=== PATIENT | male | born 1945 | race Caucasian/White ===

== ENCOUNTER → 2017-02-12 | Outpatient (CLI) | payer OTHER ==
[~2017-02-12] MED LIST: ACET-1256 PO; ACET-1311 PO; ACT30 PO; ALBI1INJ SQ; ASPCH81X PO; GABA-113 PO; GLC5 PO; GLC500 PO; LEVO175T3 PO; LISI-729 PO; LISI2.5T5 PO; LVMI SQ; METF-384 PO; PRED20TA2 PO; PRVC/40 PO; SYN175 PO; TRAM-10 PO
--- NOTE | 2017-02-12 12:42 | DIAGNOSTIC IMAGING REPORT ---
MODIFIED BARIUM SWALLOW CLINICAL HISTORY: DYSPHAGIA COMPARISON STUDY: No previous studies for comparison. Fluoroscopy time: 4.3 minutes. FINDINGS: There was penetration with thin liquids by spoon. There were several episodes of a small amount of tracheal aspiration with swallows of thin liquids. There is penetration with nectar thick liquids without aspiration. No aspiration was identified with pudding or crackers with paste. Residuals were noted within the vallecula. IMPRESSION: 1. Several small episodes of tracheal aspiration with swallows of thin liquids. No aspiration with the remainder of the consistencies. 2. Full recommendations by speech pathology to follow. Electronically signed by: Alex Donahue M.D. 02/12/2017 12:41 PM Dictated Date/Time: 02/12/2017 12:39 PM
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
== END | disposition home or self-care (01) ==
LOC: C.RAD 10:41
PROVIDERS: ATTEND Internal Medicine
DX: R13.10 Dysphagia, unspecified (principal)

== ENCOUNTER → 2017-02-28 | Day surgery (SDC) | payer OTHER ==
[2017-02-22 09:11] VITALS: Ht 170.2 cm; Wt 68.2 kg
[~2017-02-28] VITALS: Ht 170.2 cm; Wt 68.2 kg
[~2017-02-28] MED LIST changes: -ACT30 PO; +FENTANYL CITRATE INJ 50 MCG/1 ML 2 ML VIAL ONE; -GLC5 PO; +LIDOCAINE HCL 2% 2 ML VIAL (20MG/ML) ONE; -LISI-729 PO; +PROPOFOL IV EMULSION 10 MG/ML 20 ML VIAL IV ONE; +SODIUM CHLORIDE 0.9% 500ML 500 ML IV ONE; -TRAM-10 PO
--- NOTE | 2017-02-28 09:21 | Endo History and Physical ---
History & Physical Date of Service: Feb 28, 2017. Chief Complaint: Dysphagia Referring Physician: Dr. Riaz West History of Present Illness Atypical dysphagia Past Medical History Diabetes, Arthritis, Heart Disease, Thyroid Disease, Other Past Surgical History Hx Cardiac Surgery: No Hx Internal Defibrillator: No Hx Pacemaker: No Hx Abdominal Surgery: No Hx Post-Op Nausea and Vomiting: No Hx Cancer Surgery: No Hx Thoracic Surgery: No Hx Orthopedic: Yes (Right Shoulder ARTHROSCOPY,RIGHT Knee ARTHROSCOY) Hx Urinary Tract Surgery: No Family History None Social History Smoking Status: Light Tobacco Smoker Hx Substance Use: No Hx Alcohol Use: No Allergies Coded Allergies: Phenobarbital (Verified Allergy, Mild, DOESNT REMEMBER, 02/28/17) Current Medications Reported Home Medications Medications Dose Route/Sig Max Daily Dose Days Date Category Aspirin Chewable (Aspirin) 81 Mg Chew 81 Mg PO QAM 02/22/17 Reported Tylenol (Acetaminophen) 325 Mg Tab 650 Mg PO QID PRN 02/22/17 Reported Tanzeum (Albiglutide) 30 Mg Inj 30 Mg SQ Saturday02/22/17 Reported Levemir (Insulin Detemir) 100 Units/Ml Inj 15 Units SQ 10AM 02/22/17 Reported Pravastatin Sodium (Pravastatin Sod) 40 Mg Tab 40 Mg PO HS 02/22/17 Reported Lisinopril 2.5 Mg Tab 2.5 Mg PO QAM 02/22/17 Reported Neurontin (Gabapentin) 300 Mg Cap 300 Mg PO TID 02/22/17 Reported Glucophage * (Metformin HCl) 1,000 Mg Tab 1,000 Mg PO BID 09/30/10 Reported Synthroid * (Levothyroxine Sodium) 0.175 Mg Tab 0.175 Mg PO QAM 09/30/10 Reported Vital Signs Weight (Kilograms): 68.18 Height (Feet): 5 Height (Inches): 7 Date Time Temp Pulse Resp B/P (MAP) Pulse Ox O2 Delivery O2 Flow Rate FiO2 02/28/17 08:55 36.5 67 20 131/67 (88) 95 Room Air Physical Exam General Appearance: WD/WN, no apparent distress Respiratory/Chest: Auscultation: breath sounds normal, no wheezing Cardiovascular: Heart Auscultation: RRR, no murmurs Abdomen: Inspection & Palpation: soft, no tenderness, guarding & rebound Assessment and Plan EGD today.
--- NOTE | 2017-02-28 09:56 | GI REPORT ---
Procedure Date: 02/28/2017 9:22 AM Procedure: Upper GI endoscopy Indications: Dysphagia Medicines: Monitored Anesthesia Care Complications: No immediate complications. Estimated blood loss: None. Estimated Blood Loss: Estimated blood loss: none. Procedure: Pre-Anesthesia Assessment: - Prior to the procedure, a History and Physical was performed, and patient medications, allergies and sensitivities were reviewed. The patient's tolerance of previous anesthesia was reviewed. - ASA Grade Assessment: II - A patient with mild systemic disease. After obtaining informed consent, the endoscope was passed under direct vision. Throughout the procedure, the patient's blood pressure, pulse, and oxygen saturations were monitored continuously. The scope was introduced through the mouth, and advanced to the third part of duodenum. The upper GI endoscopy was accomplished with ease. The patient tolerated the procedure well. Findings: A widely patent Schatzki ring (acquired) was found at the gastroesophageal junction at 38 cm from the incisors. A guidewire was placed and the scope was withdrawn. Dilation was performed with a Savary dilator with no resistance at 48 Fr and 54 Fr. The scope was reinserted. There was no mucosal tear. The upper third of the esophagus, middle third of the esophagus and lower third of the esophagus were normal. A small hiatus hernia was present. Patchy mildly erythematous mucosa without bleeding was found in the entire examined stomach. Biopsies were taken with a cold forceps for Helicobacter pylori testing. The examined duodenum was normal. Verification of patient identification for the specimen was done by the physician and nurse using the patient's name, date and medical record number. Impression: - Widely patent Schatzki ring. Dilated. - Normal upper third of esophagus, middle third of esophagus and lower third of esophagus. - Small hiatus hernia. - Erythematous mucosa in the stomach. Biopsied. - Normal examined duodenum. Recommendation: - Await pathology results. - Discharge patient to home (with escort). Michael Balderrama M.D. Michael Balderrama MD 02/28/2017 9:55:54 AM This report has been signed electronically. Note Initiated On: 02/28/2017 9:22 AM I attest to the content of the Intraoperative Record and orders documented therein, exceptions below
--- NOTE | 2017-02-28 09:57 | Discharge Instructions ---
Endoscopy Patient Instructions Date / Procedure(s) Performed Feb 28, 2017. EGD Allergy Information Coded Allergies: Phenobarbital (Verified Allergy, Mild, DOESNT REMEMBER, 02/28/17) Discharge Date / Findings Feb 28, 2017. Non-obstructing Schatzki ring. Esophageal dilation performed. Medication Instructions Stopped Medication(s): Patient was told to not take his diabetic meds. Restart Stopped Medication(s): Resume all medications today. Provider Instructions Activity Restrictions - No exercising or heavy lifting for 24 hours. - Do not drink alcohol the day of the procedure. - Do not drive a car or operate machinery until the day after the procedure. - Do not make any important decisions or sign important papers in 24 hours after the procedure. Following Day: - Return to full activity which may include returning to work/school. Diet Start your diet with liquids and light foods (jello, soup, juice, toast). Then eat your usual diet if not nauseated. Treatment For Common After Affects For mild abdominal pain, bloating, or excessive gas: - Rest - Eat lightly - Lie on right side Follow-Up Information Follow-up with Dr. Riaz West as scheduled Anesthesia Information What You Should Know You have had a procedure that required some medicine to reduce anxiety and discomfort. This treatment is called moderate sedation. After receiving the treatment, you may be sleepy, but you will be able to breathe on your own. The effects of the treatment may last for several hours. Follow these instructions along with Activity/Diet recommendations noted above: * Do NOT do anything where dizziness or clumsiness would be dangerous. * Rest quietly at home today, then you can be up and about tomorrow. * Have a responsible person stay with you the rest of today. * You may have had an I.V. today. If so, you may take the dressing off later today. Recommendations Call your doctor if: * Trouble breathing * Continuous vomiting for more than 24 hours * Temperature above 101 degrees * Severe abdominal pain or bloating * Pain not relieved by pain medicine ordered * There is increased drainage or redness from any incision * A large amount of rectal bleeding greater than 2-3 tablespoons. (If you had a polyp/s removed or have hemorrhoids, a small amount of blood - from the rectum is to be expected.) * You have any unanswered questions or concerns. IN THE EVENT OF A SERIOUS EMERGENCY, GO TO THE NEAREST EMERGENCY ROOM Your discharge instructions were prepared by provider Michael Balderrama. Patient Instructions Signature Page Nuvia Reyes Patient (or Guardian) Signature/Date: I have read and understand the instructions given to me by my caregivers. Caregiver/RN/Doctor Signature/Date: The above-named patient and/or guardian has received patient instructions on this date. + Original Patient Signature Page (only) stays with chart. Please make copy for patient.
[2017-02-28 10:24] VITALS: BP 155/87; PULSE 65; O2SAT 96
--- NOTE | 2017-02-28 10:28 | Anesthesiology Progress Note ---
Anesthesia Post Op Note Date & Time Feb 28, 2017 at 10:28 Vital Signs Pain Intensity: 0 Vital Signs Past 12 Hours Date Time Temp Pulse Resp B/P (MAP) Pulse Ox O2 Delivery O2 Flow Rate FiO2 02/28/17 10:10 71 20 135/79 (97) 94 Room Air 02/28/17 09:55 68 20 110/67 (81) 98 Room Air 02/28/17 08:55 36.5 67 20 131/67 (88) 95 Room Air Notes Mental Status: alert / awake / arousable, participated in evaluation Pt Amnestic to Procedure: Yes Nausea / Vomiting: adequately controlled Pain: adequately controlled Airway Patency, RR, SpO2: stable & adequate BP & HR: stable & adequate Hydration State: stable & adequate Anesthetic Complications: no major complications apparent
== END | disposition home or self-care (01) ==
LOC: C.GI 08:24
PROVIDERS: ATTEND Internal Medicine Gastroenterology
DX: R13.10 Dysphagia, unspecified (principal); K22.2 Esophageal obstruction; K44.9 Diaphragmatic hernia without obstruction or gangrene; I10 Essential (primary) hypertension; E11.9 Type 2 diabetes mellitus without complications; F17.200 Nicotine dependence, unspecified, uncomplicated; Z86.711 Personal history of pulmonary embolism; Z98.890 Other specified postprocedural states; Z68.23 Body mass index [BMI] 23.0-23.9, adult; Z79.4 Long term (current) use of insulin; Z79.82 Long term (current) use of aspirin

== ENCOUNTER 2017-05-14 12:49 | Emergency (ER) | payer OTHER ==
[~2017-05-14] VITALS: Ht 170.2 cm; Wt 70.0 kg
[~2017-05-14 12:49] MED LIST changes: -ACET-1256 PO; -FENTANYL CITRATE INJ 50 MCG/1 ML 2 ML VIAL ONE; -LEVO175T3 PO; -LIDOCAINE HCL 2% 2 ML VIAL (20MG/ML) ONE; -METF-384 PO; -PRED20TA2 PO; -PROPOFOL IV EMULSION 10 MG/ML 20 ML VIAL IV ONE; -SODIUM CHLORIDE 0.9% 500ML 500 ML IV ONE
[2017-05-14 12:57] VITALS: TEMP 36.5; Ht 170.2 cm; Wt 70.0 kg
--- NOTE | 2017-05-14 14:14 | DIAGNOSTIC IMAGING REPORT ---
RIGHT ANKLE MIN 3 VIEWS ROUTINE CLINICAL HISTORY: Right ankle pain Right . Discussion: pain several small old avulsions from the tip of the medial as well as lateral malleolus. These are well corticated and again are considered nonacute. Mild soft tissue edema. Ankle mortise is aligned anatomically. Small heel spur. COMPARISON: None. IMPRESSION: Mild soft tissue edema. Mild degenerative change. Heel spur. The above report was generated using voice recognition software. It may contain grammatical, syntax or spelling errors. Electronically signed by: Maynor Herrera M.D. 05/14/2017 2:13 PM Dictated Date/Time: 05/14/2017 2:12 PM
--- NOTE | 2017-05-14 14:18 | DIAGNOSTIC IMAGING REPORT ---
RIGHT FOOT 3 VIEWS HISTORY: Right foot pain, no injury, edema and erythema Right COMPARISON: None. FINDINGS: There is no fracture or dislocation. Plantar and posterior calcaneal spurs. The Lisfranc joint is intact. Mild degenerative changes seen throughout the foot. Mild vascular calcifications. Soft tissue swelling and a small effusion within the ankle. No radiopaque foreign bodies. IMPRESSION: Soft tissue swelling and a small effusion within the ankle. No fracture or dislocation within the right foot. Electronically signed by: Fuenets Gillis M.D. 05/14/2017 2:16 PM Dictated Date/Time: 05/14/2017 2:14 PM
--- NOTE | 2017-05-14 15:17 | DIAGNOSTIC IMAGING REPORT ---
RIGHT LOWER EXTREMITY VENOUS DOPPLER HISTORY: Right leg edema, and erythema. Hx thromboembolism Right COMPARISON STUDY: None. FINDINGS: There is normal compressibility, flow, and augmentation within the right lower extremity deep venous system. Of note, there is possible occlusion of the proximal superficial femoral artery which is heavily calcified. However, there is reconstitution of flow within the mid right superficial femoral artery. IMPRESSION: 1. No DVT within the right lower extremity. 2. Possible occlusion of the proximal superficial femoral artery which is heavily calcified. There is reconstitution of flow within the mid right superficial femoral artery. Therefore, this is likely chronic. Electronically signed by: Fuentes Gillis M.D. 05/14/2017 3:16 PM Dictated Date/Time: 05/14/2017 3:14 PM
--- NOTE | 2017-05-14 15:30 | EMERGENCY ROOM VISIT NOTE ---
ED Visit Note First contact with patient: 13:30 The patient was seen and examined with Darshan Jacobs PA-C. I agree with the history, physical and findings. Please see the note for disposition and details.
[2017-05-14] MEDS ORDERED: LEVO175T3 PO (16:05)
[2017-05-14] MEDS ORDERED: METF-384 PO (16:06)
[2017-05-14] MEDS ORDERED: ACET-1256 PO (16:10)
[2017-05-14 16:14] LABS: BASO % 0.4 %; BASO ABS # 0.04 K/uL (0-0.2); COMPLETE YES; EOS % 1.3 %; HEMATOCRIT 42.3 % (42-52); IG% 0.5 %; LYMPH % 18.3 %; MEAN CELL VOLUME 92.8 fL (80-100); MEAN CORPUSCULAR HGB CONC 34.5 g/dl (32-36); MEAN PLATELET VOLUME 10.8 fL (7.4-10.4); NEUT % 70.5 %; PLATELET COUNT 230 K/uL (130-400); RED BLOOD COUNT 4.56 M/uL (4.7-6.1); WHITE BLOOD COUNT 10.36 K/uL (4.8-10.8)
[2017-05-14 16:31] LABS: BUN/CREATININE RATIO 27.1 (10-20); C-REACTIVE PROTEIN 1.14 mg/dl (0-0.29); CALCIUM 9.6 mg/dl (8.5-10.1); CREATININE 0.84 mg/dl (0.60-1.40); POTASSIUM 4.3 mmol/L (3.5-5.1); URIC ACID 4.7 mg/dl (2.6-7.2)
[2017-05-14 16:34] LABS: ALB/GLOB RATIO 0.9 (0.9-2)
[2017-05-14 17:12] VITALS: BP 136/68; PULSE 78; O2SAT 93
[2017-05-14] MEDS ORDERED: PRED20TA2 PO (17:14)
--- NOTE | 2017-05-14 17:15 | EMERGENCY ROOM VISIT NOTE ---
History First contact with patient: 13:30 Chief Complaint: ANKLE PAIN Stated Complaint: R ANKLE PAIN History of Present Illness The patient is a 71 year old male who presents to the Emergency Room via private vehicle accompanied by female with complaints of "right ankle pain". The patient states that he was sleeping, Saturday night, and was abruptly woken up from sleep with right ankle pain. He notes that there is also pain extending into the anterior portion of the right foot. He is never had this before. He also notes swelling, and redness. He denies any history of DVT, but does have a history of pulmonary embolism. He denies any recent falls or injury to the area. There is no chest pain, shortness of breath, anticoagulant use or history of gout. He currently rates his pain as a 9-10/10. It is worse with weightbearing. Review of Systems A complete 6-point Review of Systems was discussed with the patient, with pertinent positives and negatives listed in the History of Present Illness. All remaining Review of Systems questions can be considered negative unless otherwise specified. Past Medical/Surgical History Medical Problems: (1) BPPV (benign paroxysmal positional vertigo) (2) CAD (coronary artery disease) (3) DM2 (diabetes mellitus, type 2) (4) Epidural hematoma (5) HLD (hyperlipidemia) (6) HTN (hypertension) (7) Hypothyroidism (8) Pulmonary embolism (9) Tobacco abuse Surgical Problems: (1) H/O knee surgery (2) H/O shoulder surgery Family History Diabetes mellitus FH: heart disease Hypertension Stroke Social History Smoking Status: Current Every Day Smoker Alcohol Use: occasionally Drug Use: none Marital Status: single Housing Status: lives alone Occupation Status: retired Current/Historical Medications Scheduled Albiglutide (Tanzeum), 30 MG SQ SATURDAY Aspirin (Aspirin Chewable), 81 MG PO QAM Gabapentin (Neurontin), 300 MG PO TID Insulin Detemir (Levemir), 15 UNITS SQ 10AM Levothyroxine Sodium (Levothyroxine Sodium), 175 MCG PO DAILY Lisinopril (Lisinopril), 2.5 MG PO QAM Metformin Hcl (Glucophage), 1,000 MG PO BID Pravastatin Sod (Pravastatin Sodium), 40 MG PO HS Prednisone (Prednisone Tab), 2 TAB PO DAILY Scheduled PRN Acetaminophen (Tylenol), 500 MG PO DAILY PRN for Pain Physical Exam Vital Signs Date Time Temp Pulse Resp B/P (MAP) Pulse Ox O2 Delivery O2 Flow Rate FiO2 05/14/17 17:12 78 24 136/68 93 Room Air 05/14/17 14:20 94 18 125/68 96 Room Air 05/14/17 12:57 36.5 94 18 131/75 94 Room Air Physical Exam VITAL SIGNS - Vital signs and nursing notes were reviewed. Patient is afebrile , normotensive at 131/75, non-tachycardic and saturating well on room air at 94% . GENERAL -71-year-old male appearing his stated age who is in no acute distress. Communicates well with provider and answers questions appropriately. SKIN - Without rashes. There is diffuse erythema, edema overlying the right ankle joint. No evidence of abrasion or open wound. HEAD - NC/AT.ity. LUNGS - Chest wall symmetric without accessory muscle use, intercostals retractions, or central cyanosis. Normal vesicular breath sounds CTA B/L. No wheezes, rales, or rhonchi appreciated. CARDIAC - RRR with S1/S2. No murmur, rubs, or gallops appreciated. EXTREMITIES - No clubbing or peripheral cyanosis. No pretibial edema present. He is neurovascularly intact in the right lower extremity. There is tenderness to palpation overlying the entire right ankle joint. The dad guo noted to the right lower extremity. There is blanching. +5/5 strength noted in UE/LE bilaterally. Medical Decision & Procedures ER Provider Diagnostic Interpretation: RIGHT LOWER EXTREMITY VENOUS DOPPLER HISTORY: Right leg edema, and erythema. Hx thromboembolism Right COMPARISON STUDY: None. FINDINGS: There is normal compressibility, flow, and augmentation within the right lower extremity deep venous system. Of note, there is possible occlusion of the proximal superficial femoral artery which is heavily calcified. However, there is reconstitution of flow within the mid right superficial femoral artery. IMPRESSION: 1. No DVT within the right lower extremity. 2. Possible occlusion of the proximal superficial femoral artery which is heavily calcified. There is reconstitution of flow within the mid right superficial femoral artery. Therefore, this is likely chronic. Electronically signed by: Fuentes Gillis M.D. 05/14/2017 3:16 PM Dictated Date/Time: 05/14/2017 3:14 PM RIGHT FOOT 3 VIEWS HISTORY: Right foot pain, no injury, edema and erythema Right COMPARISON: None. FINDINGS: There is no fracture or dislocation. Plantar and posterior calcaneal spurs. The Lisfranc joint is intact. Mild degenerative changes seen throughout the foot. Mild vascular calcifications. Soft tissue swelling and a small effusion within the ankle. No radiopaque foreign bodies. IMPRESSION: Soft tissue swelling and a small effusion within the ankle. No fracture or dislocation within the right foot. Electronically signed by: Fuentes Gillis M.D. 05/14/2017 2:16 PM Dictated Date/Time: 05/14/2017 2:14 PM [~ rep ct add3]] RIGHT ANKLE MIN 3 VIEWS ROUTINE CLINICAL HISTORY: Right ankle pain Right . Discussion: pain several small old avulsions from the tip of the medial as well as lateral malleolus. These are well corticated and again are considered nonacute. Mild soft tissue edema. Ankle mortise is aligned anatomically. Small heel spur. COMPARISON: None. IMPRESSION: Mild soft tissue edema. Mild degenerative change. Heel spur. The above report was generated using voice recognition software. It may contain grammatical, syntax or spelling errors. Electronically signed by: Maynor Herrera M.D. 05/14/2017 2:13 PM Dictated Date/Time: 05/14/2017 2:12 PM Laboratory Results 05/14/17 15:55 Red Blood Count 4.56, Mean Corpuscular Volume 92.8, Mean Corpuscular Hemoglobin 32.0, Mean Corpuscular Hemoglobin Concent 34.5, Mean Platelet Volume 10.8, Neutrophils (%) (Auto) 70.5, Lymphocytes (%) (Auto) 18.3, Monocytes (%) (Auto) 9.0, Eosinophils (%) (Auto) 1.3, Basophils (%) (Auto) 0.4, Neutrophils # (Auto) 7.31, Lymphocytes # (Auto) 1.90, Monocytes # (Auto) 0.93, Eosinophils # (Auto) 0.13, Basophils # (Auto) 0.04 05/14/17 15:55 Test 05/14/17 15:55 White Blood Count 10.36 K/uL (4.8-10.8) Red Blood Count 4.56 M/uL (4.7-6.1) Hemoglobin 14.6 g/dL (14.0-18.0) Hematocrit 42.3 % (42-52) Mean Corpuscular Volume 92.8 fL (80-100) Mean Corpuscular Hemoglobin 32.0 pg (25-34) Mean Corpuscular Hemoglobin Concent 34.5 g/dl (32-36) Platelet Count 230 K/uL (130-400) Mean Platelet Volume 10.8 fL (7.4-10.4) Neutrophils (%) (Auto) 70.5 % Lymphocytes (%) (Auto) 18.3 % Monocytes (%) (Auto) 9.0 % Eosinophils (%) (Auto) 1.3 % Basophils (%) (Auto) 0.4 % Neutrophils # (Auto) 7.31 K/uL (1.4-6.5) Lymphocytes # (Auto) 1.90 K/uL (1.2-3.4) Monocytes # (Auto) 0.93 K/uL (0.11-0.59) Eosinophils # (Auto) 0.13 K/uL (0-0.5) Basophils # (Auto) 0.04 K/uL (0-0.2) RDW Standard Deviation 51.0 fL (36.4-46.3) RDW Coefficient of Variation 15.1 % (11.5-14.5) Immature Granulocyte % (Auto) 0.5 % Immature Granulocyte # (Auto) 0.05 K/uL (0.00-0.02) Erythrocyte Sedimentation Rate 47 mm/hr (0-14) Anion Gap 6.0 mmol/L (3-11) Est Creatinine Clear Calc Drug Dose 74.3 ml/min Estimated GFR () 101.4 Estimated GFR (Non- 87.5 BUN/Creatinine Ratio 27.1 (10-20) Uric Acid 4.7 mg/dl (2.6-7.2) Calcium Level 9.6 mg/dl (8.5-10.1) Total Bilirubin 0.3 mg/dl (0.2-1) Aspartate Amino Transf (AST/SGOT) 17 U/L (15-37) Alanine Aminotransferase (ALT/SGPT) 23 U/L (12-78) Alkaline Phosphatase 142 U/L (45-117) C-Reactive Protein 1.14 mg/dl (0-0.29) Total Protein 8.1 gm/dl (6.4-8.2) Albumin 3.8 gm/dl (3.4-5.0) Globulin 4.3 gm/dl (2.5-4.0) Albumin/Globulin Ratio 0.9 (0.9-2) Lyme Disease IgG Antibody NEG (NEG) Lyme Disease IgM Antibody NEG (NEG) Medications Administered Medications (Trade) Dose Ordered Sig/Tres Route Start Time Stop Time Status Last Admin Dose Admin Prednisone (PredniSONE TAB) 20 mg NOW STAT PO 05/14/17 17:12 05/14/17 17:13 DC 05/14/17 17:27 20 MG Medical Decision Patient was seen and evaluated as above. He presents to us today with right lower extremity pain. X-rays and ultrasound are negative for DVT acute fracture. Ultrasound does reveal near occlusion of the superficial right femoral artery. This does not appear to be coinciding with the symptoms, and is felt to be incidental. Patient was also seen and evaluated by the attending physician. Dr. Marie. Decision was made to obtain IV access, and check baseline labs. Clinically I feel he is likely extrinsic gouty arthritis, and less likely a septic joint. He is afebrile. No fevers or chills. There is no leukocytosis. Slight anemia noted. ESR high at 47. Metabolic panel reveals no evidence of electrolyte abnormality. Creatinine is okay. BUN high at 23. C -reactive protein high at 1.14. Alkaline phosphatase high at 142. Lyme testing is negative. It is most likely the patient is experiencing gouty arthritis. ED attending physician is in agreement. He'll be started upon prednisone. I did discuss the case with Dr. Troy, who is currently in surgery at the time and us was relayed through one of the technicians. He recommends no treatment at this time, and because the patient has [employer] insurance recommends following up with [employer]. The patient is a follow-up for his family doctor, with potential referral to vascular. Again I do not believe that this is pertinent today's findings. The patient is to return if worsening. I would like to be clear and that I do not suspect septic joint. The patient is to follow-up with his family doctor. He was educated upon worrisome symptoms in which to return, had questions or discharge, and was discharged home in good condition. In the evaluation and treatment of this patient, the following differential diagnoses were considered: Septic joint, gouty arthritis, Ankle Fracture, Ankle Sprain, Distal Fibula Fracture, Distal Tibia Fracture, Foot Fracture, Maisonneuve Fracture. Impression Primary Impression: Right ankle pain Additional Impression: Gouty arthritis Departure Information Dispostion Home / Self-Care Condition GOOD Prescriptions Prednisone (Prednisone Tab) 20 Mg Tab 2 TAB PO DAILY for 5 Days, #10 TAB Prov: Darshan Jacobs PA-C 05/14/17 Referrals Riaz West MD (PCP) Patient Instructions ED Arthritis Gout, ED Diet Gout, [facility] Additional Instructions You have been treated in the Emergency Department for right ankle pain. You have been prescribed Prednisone 40 mg to be taken orally once a day for the next 5 days. This is an anti-inflammatory medicine to be used to help minimize your symptoms. You should take the COMPLETE course of the medication. For pain control, you can use the following [id number] medicines (if >12 yo): - Regular strength (325mg/tab) Tylenol (acetaminophen) 2 tabs every 4-6 hours as needed. Do not exceed 12 tablets in a 24 hour period. Avoid taking more than 3 grams (3000 mg) of Tylenol per day. This includes any other sources of acetaminophen you may take on a regular basis. If this is a recent injury (<24 hrs), ice can be applied to the area of pain for the first 3 days to help decrease pain and inflammation. You have been provided the number for an Orthopaedic Surgeon. You should call this number as soon as possible to establish a follow-up visit from today's Emergency Department visit. Please wear the ankle wrap for support. Please rest the ankle, and ice the ankle Return to the Emergency Department if your current symptoms worsen despite treatment course outlined above, or if you develop any of the following symptoms : intractable pain despite aforementioned treatment course or new onset of numbness or tingling of the foot. Please follow-up with your family doctor regarding the decreased blood flow in the right leg. Please return with any new/concerning symptoms. Problem Qualifiers
[2017-05-14 17:31] LABS: LYME DISEASE AB IGG NEG (NEG); LYME DISEASE AB IGM NEG (NEG)
== END 2017-05-14 17:33 | disposition home or self-care (01) ==
LOC: C.EDB 12:50 → C.EDD 17:33
DX: M25.571 Pain in right ankle and joints of right foot (principal); M10.9 Gout, unspecified; Z86.711 Personal history of pulmonary embolism; I25.10 Atherosclerotic heart disease of native coronary artery without angina pectoris; E11.9 Type 2 diabetes mellitus without complications; E78.5 Hyperlipidemia, unspecified; I10 Essential (primary) hypertension; E03.9 Hypothyroidism, unspecified; F17.210 Nicotine dependence, cigarettes, uncomplicated; Z83.3 Family history of diabetes mellitus; Z82.49 Family history of ischemic heart disease and other diseases of the circulatory system; Z79.82 Long term (current) use of aspirin; Z79.899 Other long term (current) drug therapy

== ENCOUNTER 2017-12-01 11:33 | Inpatient (IN) | payer OTHER ==
[~2017-12-01] VITALS: Ht 170.2 cm; Wt 69.9 kg
[~2017-12-01 11:33] MED LIST changes: +ACET-1256 PO; -ACET-1311 PO; -GLC500 PO; +LEVO175T3 PO; +METF-384 PO; -SYN175 PO
[2017-12-01] MEDS ORDERED: MoRPHine SULFATE 4 MG/ML 1 ML CARP\\VIAL IV STA ×2 (11:57→12:59)
[2017-12-01] MEDS ORDERED: ONDANSETRON INJ 2 MG/ML 2 ML VIAL IV STA (11:57)
[2017-12-01] MEDS ORDERED: BACL10TA PO (12:15)
[2017-12-01 12:16] LABS: HEMATOCRIT 39.1 % (42-52); HEMOGLOBIN 13.4 g/dL (14.0-18.0); MEAN CELL VOLUME 91.4 fL (80-100); MEAN CORPUSCULAR HEMOGLOBIN 31.3 pg (25-34); MEAN CORPUSCULAR HGB CONC 34.3 g/dl (32-36); MEAN PLATELET VOLUME 11.1 fL (7.4-10.4); PLATELET COUNT 180 K/uL (130-400); RED CELL DISTRIBUTION WIDTH CV 16.2 % (11.5-14.5); RED CELL DISTRIBUTION WIDTH SD 54.2 fL (36.4-46.3); WHITE BLOOD COUNT 14.41 K/uL (4.8-10.8)
[2017-12-01 12:31] LABS: PTT PATIENT 28.2 SECONDS (21.0-31.0)
[2017-12-01 12:36] LABS: ALBUMIN 3.2 gm/dl (3.4-5.0); CALCIUM 8.8 mg/dl (8.5-10.1); CREATININE 0.91 mg/dl (0.60-1.40); POTASSIUM 3.9 mmol/L (3.5-5.1); URIC ACID 2.6 mg/dl (2.6-7.2)
[2017-12-01 12:39] LABS: TOTAL PROTEIN 7.4 gm/dl (6.4-8.2)
--- NOTE | 2017-12-01 12:57 | DIAGNOSTIC IMAGING REPORT ---
LEFT HAND 3 VIEWS CLINICAL HISTORY: Left hand swelling and pain. FINDINGS: 3 views of the left hand are obtained. No prior studies are available for comparison at the time of dictation. The skeletal structures are osteopenic. No fracture is seen. There is mild negative ulnar variance, with calcification of the triangular fibrocartilage. Degenerative narrowing is seen at the radiocarpal articulation. Mild osteoarthritic change is seen at the first carpometacarpal and metacarpophalangeal joints. Mild arthritic change is also seen in the interphalangeal joints. No erosive disease is identified. Dorsal soft tissue edema is observed. IMPRESSION: 1. Dorsal soft tissue swelling with no acute bony abnormality seen in the left hand. 2. Osteopenia and degenerative change as above. Electronically signed by: Kalen Greene M.D. 12/01/2017 12:56 PM Dictated Date/Time: 12/01/2017 12:54 PM
--- NOTE | 2017-12-01 12:59 | DIAGNOSTIC IMAGING REPORT ---
LEFT ELBOW 3 VIEWS CLINICAL HISTORY: Left elbow pain and swelling. No reported history of trauma. FINDINGS: 3 views of the left elbow are obtained. No prior studies are available for comparison at the time of dictation. The skeletal structures are osteopenic. No fracture is seen. A joint effusion is identified. Degenerative spurring is seen along the medial aspect of the joint space. Tiny enthesophytes arise from the humeral epicondyles. Mild soft tissue edema is present around the elbow, greatest medially. IMPRESSION: 1. Soft tissue swelling with no acute fracture identified. 2. A joint effusion is noted. Although this could be seen in the setting of occult fracture this is considered unlikely if there is no reported history of trauma. Clinical correlation will be required. Electronically signed by: Kalen Greene M.D. 12/01/2017 12:58 PM Dictated Date/Time: 12/01/2017 12:56 PM
--- NOTE | 2017-12-01 13:02 | DIAGNOSTIC IMAGING REPORT ---
LEFT WRIST 4 VIEWS CLINICAL HISTORY: Left wrist pain and swelling. FINDINGS: 4 views of the left wrist are obtained. No prior studies are available for comparison at the time of dictation. The skeletal structures are osteopenic. No fracture is seen. There is degenerative narrowing at the radiocarpal articulation. There is mild negative ulnar variance, with calcification of the triangular fibrocartilage. Mild osteoarthritic change is noted at the first carpometacarpal and metacarpophalangeal joints. Cystic degenerative change is noted in the capitate. Soft tissue swelling is present around the wrist. Mild atherosclerotic calcification is seen in the regional arteries. IMPRESSION: 1. Soft tissue swelling with no radiographic evidence of left wrist fracture. 2. Osteopenia and degenerative change as above. Electronically signed by: Kalen Greene M.D. 12/01/2017 1:00 PM Dictated Date/Time: 12/01/2017 12:59 PM
[2017-12-01] MEDS ORDERED: KETOROLAC TROMETHAMINE 30 MG/ML VIAL IV STA (13:22)
[2017-12-01] MEDS ORDERED: CLINDAMYCIN 600 MG/54 ML D5W IV ONE (13:30)
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
[2017-12-01] MEDS ORDERED: CLINDAMYCIN IV 600 MG in DEXTROSE 5% 50ML 50 ML IV ONE (13:45)
[2017-12-01] MEDS ORDERED: CLINDAMYCIN CONSULT ACTIVE PRN (14:44)
[2017-12-01] MEDS ORDERED: GLUCOSE 40% GEL 15 GM TUBE PO PRN (14:45)
[2017-12-01] MEDS ORDERED: ONDANSETRON INJ 2 MG/ML 2 ML VIAL IV PRN (14:45)
[2017-12-01] MEDS ORDERED: KETOROLAC TROMETHAMINE 10 MG TAB PO PRN (14:45)
[2017-12-01] MEDS ORDERED: DEXTROSE 50% 50 ML SYR IV PRN (14:45)
[2017-12-01] MEDS ORDERED: GLUCAGON FOR INJ 1 MG VIAL SQ PRN (14:45)
[2017-12-01] MEDS ORDERED: GLUCOSE 10 TABS/TUBE PO PRN (14:45)
[2017-12-01 15:00] VITALS: O2SAT 96; BMI 24.1
[2017-12-01] MEDS ORDERED: MoRPHine SULFATE 2 MG/ML CARP IV PRN (15:00)
--- NOTE | 2017-12-01 15:19 | EMERGENCY ROOM VISIT NOTE ---
History Report prepared by Flavia: Mel Paredes Under the Supervision of: Dr. Martín Woods M.D. First contact with patient: 11:48 Chief Complaint: SWELLING TO EXTREMITY Stated Complaint: SWOLLEN L HAND WRIST ELBOW History of Present Illness The patient is a 72 year old male who presents to the Emergency Room with complaints of worsening swelling to the left hand starting 3 days ago. The patient has had this swelling for the past month. He saw his PCP 2 weeks ago and had an X-ray. He was started on Keflex and prednisone for an infection. The swelling and pain improved while he was on Keflex and prednisone. The patient finished the Keflex 5-6 days ago. 3 days ago, the pain and swelling started worsening again. The pain and swelling go up into his wrist and elbow. He does not have significant pain to the left shoulder. The patient is left handed. He denies any fever or vomiting. He has a history of diabetes. His sugar had been spiking with the prednisone. This morning it was 128. He denies any history of hypertension. He has been tested for gout and arthritis in the past. He has chronic neck pain for which he going to physical therapy. Source of History: patient Onset: 3 days ago Position: hand (left) Quality: other (swelling, pain) Timing: worsening Modifying Factors (Relieving): other (Keflex, prednisone) Associated Symptoms: No fevers, No chest pain, No SOB, No vomiting Review of Systems See HPI for pertinent positives & negatives. A total of 10 systems reviewed and were otherwise negative. Past Medical & Surgical Medical Problems: (1) BPPV (benign paroxysmal positional vertigo) (2) CAD (coronary artery disease) (3) Cellulitis of hand, left (4) DM2 (diabetes mellitus, type 2) (5) Epidural hematoma (6) HLD (hyperlipidemia) (7) HTN (hypertension) (8) Hypothyroidism (9) Pulmonary embolism (10) Tobacco abuse Surgical Problems: (1) H/O knee surgery (2) H/O shoulder surgery Family History Diabetes mellitus FH: heart disease Hypertension Stroke Social History Smoking Status: Current Every Day Smoker Alcohol Use: occasionally Drug Use: none Marital Status: single Housing Status: lives alone Occupation Status: retired Current/Historical Medications Scheduled Albiglutide (Tanzeum), 30 MG SQ SATURDAY Aspirin (Aspirin Chewable), 81 MG PO QAM Baclofen (Lioresal), 10 MG PO BID Gabapentin (Neurontin), 300 MG PO TID Insulin Detemir (Levemir), 23 UNITS SQ 10AM Levothyroxine Sodium (Levothyroxine Sodium), 175 MCG PO DAILY Lisinopril (Lisinopril), 2.5 MG PO QAM Metformin Hcl (Glucophage), 1,000 MG PO BID Pravastatin Sod (Pravastatin Sodium), 40 MG PO HS Scheduled PRN Acetaminophen (Tylenol), 500 MG PO DAILY PRN for Pain Allergies Coded Allergies: Phenobarbital (Verified Allergy, Mild, DOESNT REMEMBER, 12/01/17) Physical Exam Vital Signs Date Time Temp Pulse Resp B/P (MAP) Pulse Ox O2 Delivery O2 Flow Rate FiO2 12/01/17 14:27 72 18 122/64 96 Room Air 12/01/17 12:58 92 18 134/76 93 Room Air 12/01/17 11:39 36.3 111 16 152/80 95 Room Air Physical Exam Constitutional: Vital signs reviewed. Eyes: Pupils are equal round reactive to light. Conjunctiva are noninjected. ENT: Pharynx is clear without erythema or exudate. Mucous membranes are moist. Neck supple without meningeal signs. Respiratory: Clear to auscultation bilaterally. Breath sounds are equal bilaterally. Cardiovascular: Regular rate and rhythm. No rubs or gallops. GI: Soft, nondistended and nontender. Bowel sounds are present. Musculoskeletal: No peripheral edema. No lower extremity tenderness. Diffuse swelling and erythema from the wrist to the fingertips on the left side. Brisk capillary refill. No pain with passive movement of the fingers. Pain with ROM of the wrist and palpation of the palm. Diffuse tenderness to the left elbow with erythema. Full range of motion of the elbow without significant pain. Integumentary: No cyanosis. As above. Neurological: The patient is awake and alert. No focal deficits. Psychiatric: Normal affect. Medical Decision & Procedures ER Provider Diagnostic Interpretation: X-ray results as stated below per interpretation by me and the radiologist: LEFT HAND 3 VIEWS CLINICAL HISTORY: Left hand swelling and pain. FINDINGS: 3 views of the left hand are obtained. No prior studies are available for comparison at the time of dictation. The skeletal structures are osteopenic. No fracture is seen. There is mild negative ulnar variance, with calcification of the triangular fibrocartilage. Degenerative narrowing is seen at the radiocarpal articulation. Mild osteoarthritic change is seen at the first carpometacarpal and metacarpophalangeal joints. Mild arthritic change is also seen in the interphalangeal joints. No erosive disease is identified. Dorsal soft tissue edema is observed. IMPRESSION: 1. Dorsal soft tissue swelling with no acute bony abnormality seen in the left hand. 2. Osteopenia and degenerative change as above. Electronically signed by: Kalen Greene M.D. 12/01/2017 12:56 PM Dictated Date/Time: 12/01/2017 12:54 PM LEFT WRIST 4 VIEWS CLINICAL HISTORY: Left wrist pain and swelling. FINDINGS: 4 views of the left wrist are obtained. No prior studies are available for comparison at the time of dictation. The skeletal structures are osteopenic. No fracture is seen. There is degenerative narrowing at the radiocarpal articulation. There is mild negative ulnar variance, with calcification of the triangular fibrocartilage. Mild osteoarthritic change is noted at the first carpometacarpal and metacarpophalangeal joints. Cystic degenerative change is noted in the capitate. Soft tissue swelling is present around the wrist. Mild atherosclerotic calcification is seen in the regional arteries. IMPRESSION: 1. Soft tissue swelling with no radiographic evidence of left wrist fracture. 2. Osteopenia and degenerative change as above. Electronically signed by: Kalen Greene M.D. 12/01/2017 1:00 PM Dictated Date/Time: 12/01/2017 12:59 PM LEFT ELBOW 3 VIEWS CLINICAL HISTORY: Left elbow pain and swelling. No reported history of trauma. FINDINGS: 3 views of the left elbow are obtained. No prior studies are available for comparison at the time of dictation. The skeletal structures are osteopenic. No fracture is seen. A joint effusion is identified. Degenerative spurring is seen along the medial aspect of the joint space. Tiny enthesophytes arise from the humeral epicondyles. Mild soft tissue edema is present around the elbow, greatest medially. IMPRESSION: 1. Soft tissue swelling with no acute fracture identified. 2. A joint effusion is noted. Although this could be seen in the setting of occult fracture this is considered unlikely if there is no reported history of trauma. Clinical correlation will be required. Electronically signed by: Kalen Greene M.D. 12/01/2017 12:58 PM Dictated Date/Time: 12/01/2017 12:56 PM Laboratory Results 12/01/17 12:00 Red Blood Count 4.28, Mean Corpuscular Volume 91.4, Mean Corpuscular Hemoglobin 31.3, Mean Corpuscular Hemoglobin Concent 34.3, Mean Platelet Volume 11.1 12/01/17 12:00 Test 12/01/17 12:00 White Blood Count 14.41 K/uL (4.8-10.8) Red Blood Count 4.28 M/uL (4.7-6.1) Hemoglobin 13.4 g/dL (14.0-18.0) Hematocrit 39.1 % (42-52) Mean Corpuscular Volume 91.4 fL (80-100) Mean Corpuscular Hemoglobin 31.3 pg (25-34) Mean Corpuscular Hemoglobin Concent 34.3 g/dl (32-36) Platelet Count 180 K/uL (130-400) Mean Platelet Volume 11.1 fL (7.4-10.4) RDW Standard Deviation 54.2 fL (36.4-46.3) RDW Coefficient of Variation 16.2 % (11.5-14.5) Neutrophils % (Manual) 82.6 % Lymphocytes % (Manual) 11.3 % Monocytes % (Manual) 5.2 % Basophils % (Manual) 0.9 % (0-2) Neutrophils # (Manual) 11.90 K/uL (1.4-6.5) Total Absolute Neutrophils 11.90 K/uL (1.4-6.5) Lymphocytes # (Manual) 1.63 K/uL (1.2-3.4) Total Absolute Lymphocytes 1.63 K/uL (1.2-3.4) Monocytes # (Manual) 0.75 K/uL (0.11-0.59) Basophils # (Manual) 0.13 K/uL (0-0.2) Red Blood Cell Morphology Unremarkable Prothrombin Time 10.5 SECONDS (9.0-12.0) Prothromb Time International Ratio 1.0 (0.9-1.1) Activated Partial Thromboplast Time 28.2 SECONDS (21.0-31.0) Partial Thromboplastin Ratio 1.1 Anion Gap 7.0 mmol/L (3-11) Est Creatinine Clear Calc Drug Dose 67.6 ml/min Estimated GFR () 96.6 Estimated GFR (Non- 83.3 BUN/Creatinine Ratio 21.0 (10-20) Uric Acid 2.6 mg/dl (2.6-7.2) Calcium Level 8.8 mg/dl (8.5-10.1) Total Bilirubin 0.5 mg/dl (0.2-1) Direct Bilirubin 0.2 mg/dl (0-0.2) Aspartate Amino Transf (AST/SGOT) 12 U/L (15-37) Alanine Aminotransferase (ALT/SGPT) 19 U/L (12-78) Alkaline Phosphatase 133 U/L (45-117) C-Reactive Protein 15.60 mg/dl (0-0.29) Total Protein 7.4 gm/dl (6.4-8.2) Albumin 3.2 gm/dl (3.4-5.0) Laboratory results as reviewed by me. Medications Administered Medications (Trade) Dose Ordered Sig/Tres Route Start Time Stop Time Status Last Admin Dose Admin Morphine Sulfate (MoRPHine SULFATE INJ) 4 mg NOW STAT IV 12/01/17 11:57 12/01/17 11:59 DC 12/01/17 12:16 4 MG Ondansetron HCl (Zofran Inj) 4 mg NOW STAT IV 12/01/17 11:57 12/01/17 11:59 DC 12/01/17 12:15 4 MG Morphine Sulfate (MoRPHine SULFATE INJ) 4 mg NOW STAT IV 12/01/17 12:59 12/01/17 13:00 DC 12/01/17 13:09 4 MG Ketorolac Tromethamine (Toradol Inj) 10 mg NOW STAT IV 12/01/17 13:22 12/01/17 13:23 DC 12/01/17 13:30 10 MG Clindamycin Phosphate 600 mg/ Dextrose 54 ml @ 108 mls/hr ONE ONCE IV 12/01/17 13:45 12/01/17 14:14 DC 12/01/17 13:50 108 MLS/HR ED Course 1149: The patient was evaluated in room C7. A complete history and physical exam was performed. 1157: Zofran Inj 4 mg IV, Morphine Sulfate 4 mg IV. 1255: I reevaluated the patient. He is still having pain in his arm. He initially did not want more pain medications. Nurse notified me that he is requesting more pain medications after I left the room. 1259: Morphine Sulfate 4 mg IV. 1310: I reevaluated the patient. I updated him on the results. 1316: I discussed the patient's case with Dr. Wilder, orthopedic surgery from [facility]. He recommends Toradol for potential noninfectious cause. He says medicine can consult him if they want to. 1322: Toradol Inj 10 mg IV. 1327: [facility] We discussed the patient and his results. The patient will be further evaluated by him. He recommended clindamycin. 1330: Clindamycin Phosphate 600 mg IV. 1331: I reevaluated the patient. He states he has not taken his Levemir today. I updated him on the results and treatment plan. He will be evaluated for further management. Medical Decision This is a 72-year-old male presents with left arm pain. Differential diagnosis includes cellulitis, arthritis, septic arthritis, polyarthropathy, tenosynovitis. I did perform a limited focused review of portions of the patient's old chart on the electronic medical record. The patient has had no recent pertinent visits to this hospital. I did evaluate the patient as noted above. The patient has significant tenderness to the left hand and wrist. He has difficulty moving the rest but there is overlying cellulitis over the joint. He also has erythema and pain to the left elbow with diffuse tenderness but has full range of motion of the joint without significant pain. He has been on antibiotics which he finished about 5 days ago. He states the antibiotics and steroids helped to some degree but his pain and swelling and redness are worse. He denies any fevers. IV access was established. I did treat the patient with IV morphine and Zofran. I did order and personally review the patient's x-rays as described above. He does not have any signs of fracture or dislocation. He does have a joint effusion in the elbow. I did order and review the patient's blood work as noted in the electronic medical record. His white blood cell count and CRP are elevated. He was recently on steroids. I do believe the patient likely has a cellulitis. But I cannot rule out septic arthritis. Joint aspiration is not possible due to the overlying cellulitis. I did discuss the case with his orthopedic surgeon, Dr. Wilder. I discussed the case with the hospitalist and case sealer. I did feel he needed admission for IV antibiotics and further evaluation. I did treat him with clindamycin IV in the ED. He was also given additional Toradol and morphine IV. Medication Reconcilliation Current Medication List: was personally reviewed by me Blood Pressure Screening Patient's blood pressure: Elevated blood pressure Blood pressure disposition: Referred to PCP Consults Time Called: 1315 Consulting Physician: Dr. Wilder, orthopedic surgery from [facility] Returned Call: [phone] I discussed the patient's case with him. He recommends Toradol for potential noninfectious cause. He says medicine can consult him if they want to. Additional Consults: Time Called: 1321 Consulted Physician: Dr. Simmons [facility] hospitalist Returned Call: [phone] Additional Comments: I spoke with him. We discussed the patient and his results. The patient will be further evaluated by him. Impression Primary Impression: Cellulitis of left hand Additional Impressions: Infection of left wrist Infection of left elbow Hyperglycemia Scribe Attestation The scribe's documentation has been prepared under my direct and personally reviewed by me in its entirety. I confirm that the note above accurately reflects all work, treatment, procedures, and medical decision making performed by me. Departure Information Dispostion Being Evaluated By Hospitalist Referrals Riaz West MD (PCP) Patient Instructions My [facility] Problem Qualifiers
[2017-12-01 16:00] VITALS: BP 107/58; PULSE 86; TEMP 36.7; O2SAT 93
[2017-12-01] MEDS ORDERED: NURSING DECISION MEDICATION ORDER SCH (17:00)
[2017-12-01] MEDS: SODIUM CHLORIDE 0.9% 1000ML 1,000 ML IV SCH (17:02)
[2017-12-01] MEDS: INSULIN ASPART 100 UNITS/ML 3 ML PEN SC SCH ×3 (17:15→21:02)
[2017-12-01] MEDS ORDERED: INSULIN DETEMIR FLEXPEN/FLEX TOUCH 100 UNITS/ML 3ML SC ONE (17:45)
[2017-12-01] MEDS: ENOXAPARIN 40 MG/0.4 ML SYR SQ SCH (18:22)
[2017-12-01] MEDS: BACLOFEN 10 MG TAB PO SCH (20:53)
[2017-12-01] MEDS: GABAPENTIN 300 MG CAP PO SCH (20:53)
[2017-12-01] MEDS: PRAVASTATIN SOD 40 MG TAB PO SCH (20:53)
[2017-12-01] MEDS: KETOROLAC TROMETHAMINE 15 MG/ML VIAL IV. SCH (20:54)
[2017-12-01] MEDS: CLINDAMYCIN IV 600 MG in DEXTROSE 5% 50ML 50 ML IV SCH (20:56)
--- NOTE | 2017-12-01 22:32 | ORTHOPEDIC CONSULTATION ---
DATE OF CONSULTATION: 12/01/2017 CHIEF COMPLAINT: Left arm pain and discomfort and swelling. HISTORY OF PRESENT ILLNESS: A 72-year-old left hand dominant gentleman who has about a month history of left arm pain and discomfort. He was seen by his primary care physician and put on some Keflex and some prednisone for presumed infection. He was getting slowly better, but this has been stopped about 5-6 days ago and things have gotten worse since then. The prednisone apparently did increase his blood glucoses significantly. He describes more wrist pain than anything but got some swelling discomfort up to his elbow. There has been no trauma. No fevers. Moderate amount of pain. He is a diabetic. PAST MEDICAL HISTORY: Significant for: 1. Diabetes. 2. Vertigo. 3. Coronary artery disease. 4. Elevated cholesterol. 5. Hypertension. 6. Hypothyroidism. 7. History of pulmonary embolism. 8. Tobacco use. The reminder of the past medical history is per the admission H&P. OBJECTIVE: VITAL SIGNS: Temperature is 36.7. Vital signs stable. GENERAL: Reveals a pleasant, middle-aged male. He is sitting up in his bed and was talking on the phone when I came in. He does not look uncomfortable. EXTREMITIES: Examination of left wrist and elbow reveal some mild soft tissue swelling in both areas. Just a little bit of redness, fairly mild. He does have obvious swelling with some slight wrinkling of the skin. He can flex and extend his fingers appropriately but they are limited by the swelling. There is no obvious fluid collections or abscesses. There are no signs of flexor tenosynovitis. No open wounds. X-RAYS: X-rays of the left hand, wrist and elbow were reviewed. That shows soft tissue swelling. There are no signs of elbow effusion on my exam today. 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 He has some chronic degenerative changes. LABORATORY DATA: His labs reveal a white blood cell count of 14.41. Hemoglobin 13.4. C-reactive protein is 15.60. ASSESSMENT: A 72-year-old male with a history of gout in the past with left arm pain, discomfort and swelling most consistent with pseudogout in my opinion. He certainly may have some cellulitis and I think we have to cover him for this, but I think this is less likely and I think this most likely represents a pseudogout episode. Unfortunately, the prednisone did increase his blood glucose significantly. PLAN: At this point, I think we do need to cover him with antibiotics, but I think this is most likely the gout or pseudogout. Ideally, we will put him on some prednisone but I think it may increase his blood glucose quite high. This is certainly some we consider. In the meantime, we will put him on some Toradol and see how that does over the next day. Otherwise there is no surgical indication. There is no sign of septic arthritis and no signs of abscess or flexor tenosynovitis. Any orthopedic questions can be directed to me at [phone].
[2017-12-01 23:20] VITALS: BP 104/66; PULSE 84; TEMP 36.2; O2SAT 93
[2017-12-01 23:50] VITALS: O2SAT 93
[2017-12-02] MEDS: KETOROLAC TROMETHAMINE 15 MG/ML VIAL IV. SCH ×4 (02:29→21:29)
[2017-12-02] MEDS: SODIUM CHLORIDE 0.9% 1000ML 1,000 ML IV SCH ×2 (06:04→19:30)
[2017-12-02] MEDS: LEVOTHYROXINE 175 MCG TAB PO SCH (06:05)
[2017-12-02] MEDS: CLINDAMYCIN IV 600 MG in DEXTROSE 5% 50ML 50 ML IV SCH ×3 (06:05→21:36)
[2017-12-02] MEDS ORDERED: NURSING VERBAL MED ORDER ONE (06:15)
[2017-12-02 07:04] VITALS: BP 104/68; PULSE 81; TEMP 36.7; O2SAT 92
[2017-12-02 07:34] LABS: HEMOGLOBIN 11.2 g/dL (14.0-18.0); MEAN CELL VOLUME 91.9 fL (80-100); MEAN CORPUSCULAR HEMOGLOBIN 31.2 pg (25-34); MEAN CORPUSCULAR HGB CONC 33.9 g/dl (32-36); MEAN PLATELET VOLUME 11.3 fL (7.4-10.4); PLATELET COUNT 155 K/uL (130-400); RED CELL DISTRIBUTION WIDTH CV 16.3 % (11.5-14.5); RED CELL DISTRIBUTION WIDTH SD 55.5 fL (36.4-46.3); WHITE BLOOD COUNT 10.89 K/uL (4.8-10.8)
--- NOTE | 2017-12-02 07:45 | PROGRESS NOTE ---
DATE: 12/02/2017 SUBJECTIVE: A 72-year-old male admitted with left upper extremity swelling most consistent with pseudogout plus or minus some cellulitis. He is essentially unchanged from last evening. It may be just a little bit less swollen. Pain is about the same. OBJECTIVE: VITAL SIGNS: Temperature is 36.7. Vital signs stable. GENERAL: Reveals a pleasant, middle-aged male. He is sitting up in bed, looks pretty comfortable. EXTREMITIES: Examination of the left arm reveals a little bit less swelling particularly around his elbow. Hand swelling is about the same with just some slight pinkness to it. He can flex, extend his fingers, but limited due to the swelling. There are no signs of septic arthritis or flexor tenosynovitis. LABORATORY DATA: Pending. ASSESSMENT: A 72-year-old male admitted with left arm swelling most consistent with some pseudogout in my opinion. There may be some slight overlying cellulitis. Very difficult to clinically differentiate. PLAN: At this point, I would recommend continued on Toradol. It would certainly help to put him on some steroids but really elevate his blood glucose apparently. We may try a dose of steroid and see how he does. Continue the antibiotics. We will probably need another 24-48 hours of observation until this is turned around. There is no surgical indication. Any orthopedic questions can be directed at [phone].
[2017-12-02 08:12] LABS: CALCIUM 7.9 mg/dl (8.5-10.1); CREATININE 0.98 mg/dl (0.60-1.40); POTASSIUM 4.5 mmol/L (3.5-5.1)
[2017-12-02] MEDS: INSULIN ASPART 100 UNITS/ML 3 ML PEN SC SCH ×4 (08:41→21:28)
[2017-12-02] MEDS: ASPIRIN 81 MG CHEW PO SCH (08:52)
[2017-12-02] MEDS: GABAPENTIN 300 MG CAP PO SCH ×3 (08:53→21:28)
[2017-12-02] MEDS: LISINOPRIL 2.5 MG TAB PO SCH (08:53)
[2017-12-02] MEDS: BACLOFEN 10 MG TAB PO SCH ×2 (08:53→21:28)
[2017-12-02] MEDS: HYDROCORTISONE IV 100 MG in SYRINGE 0 ML IV SCH ×2 (08:54→15:50)
[2017-12-02] MEDS ORDERED: MAGNESIUM SULFATE 1GM / D5W 1 GM in PREMIXED IN D5W 100 ML IV ONE (09:00)
[2017-12-02] MEDS: INSULIN DETEMIR FLEXPEN/FLEX TOUCH 100 UNITS/ML 3ML SQ SCH (09:04)
[2017-12-02 11:18] VITALS: BP 137/74; PULSE 78; O2SAT 95
--- NOTE | 2017-12-02 13:02 | Progress Note ---
Medicine Progress Note Date & Time of Visit: Dec 02, 2017 at 12:40. Subjective Pt was seen and examined Sitting in chair with no distress Pt said that pain slightly decreases in the left hand Pt said that left hand continue swelling Denies any fever, palpitation and SOB Objective Last 8 Hrs Date Time Temp Pulse Resp B/P (MAP) Pulse Ox O2 Delivery O2 Flow Rate FiO2 12/02/17 11:18 78 95 12/02/17 07:45 Room Air 12/02/17 07:04 36.7 81 15 104/68 (80) 92 Room Air Physical Exam: General- No acute Head- atraumatic Eyes- PERRL, EOMI ENT- oropharynx clear Neck- supple, no JVD Lungs- clear to auscultation Heart- regular rhythm Abdomen- normal bowel sounds, soft Extremities- No calf tenderness, left hand tenderness and swelling Neuro- alert, oriented x 3; PERRL, EOMI Skin- warm & dry Laboratory Results: Last 24 Hours Test 12/01/17 16:59 12/01/17 20:50 12/02/17 07:11 Bedside Glucose 287 mg/dl 147 mg/dl White Blood Count 10.89 K/uL Red Blood Count 3.59 M/uL Hemoglobin 11.2 g/dL Hematocrit 33.0 % Mean Corpuscular Volume 91.9 fL Mean Corpuscular Hemoglobin 31.2 pg Mean Corpuscular Hemoglobin Concent 33.9 g/dl RDW Standard Deviation 55.5 fL RDW Coefficient of Variation 16.3 % Platelet Count 155 K/uL Mean Platelet Volume 11.3 fL Sodium Level 135 mmol/L Potassium Level 4.5 mmol/L Chloride Level 104 mmol/L Carbon Dioxide Level 23 mmol/L Anion Gap 8.0 mmol/L Blood Urea Nitrogen 29 mg/dl Creatinine 0.98 mg/dl Est Creatinine Clear Calc Drug Dose 62.8 ml/min Estimated GFR () 88.3 Estimated GFR (Non- 76.2 BUN/Creatinine Ratio 29.9 Random Glucose 68 mg/dl Estimated Average Glucose 212 mg/dl Hemoglobin A1c 9.0 % Calcium Level 7.9 mg/dl Magnesium Level 1.7 mg/dl Assessment & Plan Left Upper Extremity swelling/tenderness and erythema Possible due to Cellulitis vs Gout or Pseudogout No recent trauma or insect bite Failed outpatient antibiotic, prednisone course X ray left hand showed dorsal soft tissue swelling with no acute bony abnormality Uric acid levels normal, elevated C-reactive Ortho on board No surgical intervention as per ortho Received IV steroid today Pain control Blood cx pending Continue IV abx continue Toradol for pain Improved Elevated WBC Possible related to steroid afebrile CBC trending down Blood cx pending Continue IV abx with clinda Hypomagnesemia Mg 1.7 Mg replaced Continue monitor DM II: Recent A1C 9 (12/02/17) BP was low today hold Po meds ISS, Basal insulin monitor BGs H/O CAD, PAD: H/O AAA: Continue Aspirin, Statins Stable Hypothyroidism continue levothyroxine Tobacco use disorder: Counseling on smoking cessation HLP Continue statins HTN: continue Lisinopril BP stable DVT Px: Lovenox SQ Code Status Full Code Current Inpatient Medications: Current Inpatient Medications Medications (Trade) Dose Ordered Sig/Tres Route Start Time Stop Time Status Last Admin Dose Admin Enoxaparin Sodium (Lovenox Inj) 40 mg Q24H SQ 12/01/17 18:00 12/31/17 17:59 12/01/17 18:22 40 MG Acetaminophen (Tylenol Tab) 650 mg Q4H PRN PO 12/01/17 14:45 12/31/17 14:44 Ondansetron HCl (Zofran Inj) 4 mg Q6H PRN IV 12/01/17 14:45 12/31/17 14:44 Clindamycin Phosphate (Consult) 1 ea UD PRN N/A 12/01/17 14:44 12/31/17 14:43 Insulin Aspart (novoLOG ASPART) SLIDING SCALE If C... ACHS SC 12/01/17 16:00 12/31/17 15:59 12/01/17 21:02 1 UNITS Glucose (Glucose 40% Gel) 15-30 GRAMS 15 GRAMS... UD PRN PO 12/01/17 14:45 12/31/17 14:44 Glucose (Glucose Chew Tab) 4-8 Tablets 4 Tabl... UD PRN PO 12/01/17 14:45 12/31/17 14:44 Dextrose (Dextrose 50% 50ML Syringe) 25-50ML OF 50% DW IV FOR... UD PRN IV 12/01/17 14:45 12/31/17 14:44 Glucagon (Glucagon Inj) 1 mg UD PRN SQ 12/01/17 14:45 12/31/17 14:44 Sodium Chloride 1,000 ml @ 75 mls/hr [id number] IV 12/01/17 14:45 12/31/17 14:44 12/02/17 06:04 75 MLS/HR Aspirin (Aspirin Chew) 81 mg QAM PO 12/02/17 09:00 01/01/18 08:59 12/02/17 08:52 81 MG Baclofen (Lioresal Tab) 10 mg BID PO 12/01/17 21:00 12/31/17 20:59 12/02/17 08:53 10 MG Gabapentin (Neurontin Cap) 300 mg TID PO 12/01/17 21:00 12/31/17 20:59 12/02/17 08:53 300 MG Levothyroxine Sodium (Synthroid Tab) 175 mcg DAILYBB PO 12/02/17 06:00 01/01/18 06:59 12/02/17 06:05 175 MCG Lisinopril (Zestril Tab) 2.5 mg QAM PO 12/02/17 09:00 01/01/18 08:59 12/02/17 08:53 2.5 MG Pravastatin Sodium (Pravachol Tab) 40 mg HS PO 12/01/17 21:00 12/31/17 20:59 12/01/17 20:53 40 MG Insulin Detemir (Levemir Flexpen/ FlexTouch) 23 units DAILY@1000 SQ 12/02/17 10:00 01/01/18 09:59 12/02/17 09:04 23 UNITS Morphine Sulfate (MoRPHine SULFATE INJ) 2 mg Q6H PRN IV 12/01/17 15:00 12/15/17 14:59 12/02/17 03:06 2 MG Clindamycin Phosphate 600 mg/ Dextrose 54 ml @ 108 mls/hr Q8H IV 12/01/17 22:00 12/11/17 21:59 12/02/17 06:05 108 MLS/HR Ketorolac Tromethamine (Toradol Inj) 15 mg Q6H IV. 12/01/17 20:15 12/06/17 20:14 12/02/17 07:55 15 MG Hydrocortisone Sodium Succinate 100 mg/Syringe 2 ml @ 4 mls/min Q8H IV 12/02/17 08:00 12/03/17 00:01 12/02/17 08:54 4 MLS/MIN
--- NOTE | 2017-12-02 13:35 | CONSULTATION REPORT ---
DATE OF CONSULTATION: 12/02/2017 PODIATRY CONSULTATION SUBJECTIVE: A 72-year-old noninsulin-dependent diabetic, seen at bedside for diabetic foot care. He notes [facility], although it has been quite some time due to their office moving that he has been seen. Denies fevers, chills, night sweats or drainage. He notes pain ambulating in a closed in shoes due to the length and thickness of his nails. Currently, admitted for cellulitis versus pseudogout to his left lower extremity. PAST SURGICAL HISTORY: Knee and shoulder. PAST MEDICAL HISTORY: NIDDM, vertigo, CAD, PAD, hypothyroidism, hypertension, gout, hyperlipidemia, history of PE and history of an epidural hematoma. FAMILY HISTORY: CAD, hypertension and stroke. PHYSICAL EXAMINATION: GENERAL: Afebrile. LOWER EXTREMITIES: DP and PT nonpalpable. Absence of digital hair is noted. No swelling is noted. DERMATOLOGICAL: Nails 1 through 5 are mycotic, dystrophic, yellow discolored with multiple second debris, elongated approximately 2-3 mm thickness of all nails with yellow discoloration, pain on dorsal pressure and extremely elongated. NEUROLOGIC: Epicritic sensation per [place] monofilament 5.07 intact. MUSCULOSKELETAL: Collapsing calcaneal valgus foot type noted bilaterally. IMPRESSION: 1. Noninsulin-dependent diabetes mellitus with peripheral artery disease. 2. Painful onychomycosis. 3. History of cellulitis, pseudogout, left lower extremity. TREATMENT: 1. Debridement of mycotic nails with nail clippers 1 through 5 bilaterally. 2. Continue diabetic and peripheral artery disease precautions. 3. 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 Reconsulted if needed in the future.
[2017-12-02 15:00] VITALS: Ht 170.2 cm; Wt 69.9 kg
[2017-12-02 15:03] VITALS: BP 112/69; PULSE 78; TEMP 36.7; O2SAT 95
[2017-12-02] MEDS: ACETAMINOPHEN 325 MG TAB PO PRN (15:56)
[2017-12-02] MEDS: ENOXAPARIN 40 MG/0.4 ML SYR SQ SCH (18:18)
[2017-12-02] MEDS: PRAVASTATIN SOD 40 MG TAB PO SCH (21:28)
[2017-12-02 23:07] VITALS: BP 107/61; PULSE 71; TEMP 36.2; O2SAT 93
[2017-12-02 23:30] VITALS: O2SAT 93
[2017-12-03] MEDS: HYDROCORTISONE IV 100 MG in SYRINGE 0 ML IV SCH (00:22)
[2017-12-03] MEDS: KETOROLAC TROMETHAMINE 15 MG/ML VIAL IV. SCH ×4 (02:20→20:57)
[2017-12-03] MEDS: CLINDAMYCIN IV 600 MG in DEXTROSE 5% 50ML 50 ML IV SCH ×3 (05:46→21:33)
[2017-12-03] MEDS: LEVOTHYROXINE 175 MCG TAB PO SCH (05:47)
[2017-12-03 06:09] LABS: HEMATOCRIT 31.9 % (42-52); MEAN CELL VOLUME 90.6 fL (80-100); MEAN CORPUSCULAR HEMOGLOBIN 31.3 pg (25-34); MEAN CORPUSCULAR HGB CONC 34.5 g/dl (32-36); MEAN PLATELET VOLUME 11.9 fL (7.4-10.4); PLATELET COUNT 164 K/uL (130-400); RED CELL DISTRIBUTION WIDTH SD 53.2 fL (36.4-46.3); WHITE BLOOD COUNT 8.72 K/uL (4.8-10.8)
[2017-12-03 06:43] LABS: CALCIUM 7.9 mg/dl (8.5-10.1); CREATININE 0.87 mg/dl (0.60-1.40); POTASSIUM 4.1 mmol/L (3.5-5.1)
[2017-12-03 07:15] VITALS: BP 133/74; PULSE 69; TEMP 36.5; O2SAT 96
[2017-12-03] MEDS: BACLOFEN 10 MG TAB PO SCH ×2 (08:24→20:59)
[2017-12-03] MEDS: LISINOPRIL 2.5 MG TAB PO SCH (08:24)
[2017-12-03] MEDS: GABAPENTIN 300 MG CAP PO SCH ×3 (08:25→20:59)
[2017-12-03] MEDS: INSULIN ASPART 100 UNITS/ML 3 ML PEN SC SCH ×4 (08:29→20:59)
[2017-12-03] MEDS: INSULIN DETEMIR FLEXPEN/FLEX TOUCH 100 UNITS/ML 3ML SQ SCH (08:30)
[2017-12-03] MEDS: SODIUM CHLORIDE 0.9% 1000ML 1,000 ML IV SCH (08:35)
[2017-12-03] MEDS: ASPIRIN 81 MG CHEW PO SCH (09:28)
[2017-12-03] MEDS: ACETAMINOPHEN 325 MG TAB PO PRN (12:44)
[2017-12-03 15:14] VITALS: BP 142/72; PULSE 64; TEMP 36.5; O2SAT 96
[2017-12-03] MEDS: ENOXAPARIN 40 MG/0.4 ML SYR SQ SCH (18:29)
--- NOTE | 2017-12-03 18:33 | PROGRESS NOTE ---
DATE: 12/03/2017 SUBJECTIVE: A 72-year-old male admitted with left upper extremity swelling and redness consistent with pseudogout plus or minus some cellulitis. He is doing much better today. The swelling is markedly better. Redness is better. Minimal pain. OBJECTIVE: VITAL SIGNS: Temperature 36.5. Vital signs stable. GENERAL: Reveals a healthy, pleasant, middle-aged male. He is sitting up in his bedside chair and looks completely comfortable. EXTREMITIES: Examination of left hand and the elbow reveals the redness to be resolved. His swelling is gone. The skin is normal in texture. He can flex and extend his fingers appropriately. He is neurologically intact. LABORATORY DATA: White cell count 8.75. ASSESSMENT: A 72-year-old male admitted with left upper extremity swelling and redness, most consistent with some pseudogout plus or minus some cellulitis. I really think this is all pseudogout and he responded to prednisone. Having said that, I think we are pretty obligated to cover him with some antibiotics. He clinically looks markedly better and I think he can be discharged anytime on oral medicines. Plan: I would recommend probably a 5-day dose of the steroids and may be a 10-day course of p.o. antibiotics. Any orthopedic questions can be directed to me at [phone]. [facility]
--- NOTE | 2017-12-03 20:46 | Progress Note ---
Medicine Progress Note Date & Time of Visit: Dec 03, 2017 at 11:40. Subjective Pt was seen and examined Sitting in chair with no distress Pt said that the pain and swelling improved Denies any fever, chest pain and palpitation and SOB Objective Last 8 Hrs Date Time Temp Pulse Resp B/P (MAP) Pulse Ox O2 Delivery O2 Flow Rate FiO2 12/03/17 15:35 Room Air 12/03/17 15:14 36.5 64 17 142/72 (95) 96 Room Air Physical Exam: General- No acute Head- atraumatic Eyes- PERRL, EOMI ENT- oropharynx clear Neck- supple, no JVD Lungs- clear to auscultation Heart- regular rhythm Abdomen- normal bowel sounds, soft Extremities- No calf tenderness, left hand tenderness and swelling improved Neuro- alert, oriented x 3; PERRL, EOMI Skin- warm & dry Laboratory Results: Last 24 Hours Test 12/03/17 05:28 12/03/17 07:58 12/03/17 12:13 12/03/17 16:53 White Blood Count 8.72 K/uL Red Blood Count 3.52 M/uL Hemoglobin 11.0 g/dL Hematocrit 31.9 % Mean Corpuscular Volume 90.6 fL Mean Corpuscular Hemoglobin 31.3 pg Mean Corpuscular Hemoglobin Concent 34.5 g/dl RDW Standard Deviation 53.2 fL RDW Coefficient of Variation 16.0 % Platelet Count 164 K/uL Mean Platelet Volume 11.9 fL Sodium Level 131 mmol/L Potassium Level 4.1 mmol/L Chloride Level 103 mmol/L Carbon Dioxide Level 21 mmol/L Anion Gap 7.0 mmol/L Blood Urea Nitrogen 26 mg/dl Creatinine 0.87 mg/dl Est Creatinine Clear Calc Drug Dose 70.7 ml/min Estimated GFR () 99.2 Estimated GFR (Non- 85.6 BUN/Creatinine Ratio 29.9 Random Glucose 181 mg/dl Calcium Level 7.9 mg/dl Magnesium Level 2.1 mg/dl Bedside Glucose 194 mg/dl 218 mg/dl 136 mg/dl Test 12/03/17 20:29 Bedside Glucose 100 mg/dl Assessment & Plan Left Upper Extremity swelling/tenderness and erythema Possible due to Cellulitis vs Gout or Pseudogout No recent trauma or insect bite Failed outpatient antibiotic, prednisone course X ray left hand showed dorsal soft tissue swelling with no acute bony abnormality Uric acid levels normal, elevated C-reactive Ortho on board No surgical intervention as per ortho Received IV steroid today Pain control Blood cx pending Continue IV abx continue Toradol for pain Improved 12/03 pain and swelling improved Blood cx no growth Clinda changed to oral Continue toradol for pain Received steroid Elevated WBC Possible related to steroid afebrile WBC trending down wnl Blood cx no growth Clinda changed to PO Hypomagnesemia Mg 2.1 Continue monitor Stable DM II: Recent A1C 9 (12/02/17) BP was low today hold Po meds ISS, Basal insulin monitor BGs H/O CAD, PAD: H/O AAA: Continue Aspirin, Statins Stable Hypothyroidism continue levothyroxine Tobacco use disorder: Counseling on smoking cessation HLP Continue statins HTN: continue Lisinopril BP stable DVT Px: Lovenox SQ Code Status Full Code Disposition Possible discharge tomorrow if medically stable Current Inpatient Medications: Current Inpatient Medications Medications (Trade) Dose Ordered Sig/Tres Route Start Time Stop Time Status Last Admin Dose Admin Enoxaparin Sodium (Lovenox Inj) 40 mg Q24H SQ 12/01/17 18:00 12/31/17 17:59 12/03/17 18:29 40 MG Acetaminophen (Tylenol Tab) 650 mg Q4H PRN PO 12/01/17 14:45 12/31/17 14:44 12/03/17 12:44 650 MG Ondansetron HCl (Zofran Inj) 4 mg Q6H PRN IV 12/01/17 14:45 12/31/17 14:44 Clindamycin Phosphate (Consult) 1 ea UD PRN N/A 12/01/17 14:44 12/31/17 14:43 Insulin Aspart (novoLOG ASPART) SLIDING SCALE If C... ACHS SC 12/01/17 16:00 12/31/17 15:59 12/03/17 18:31 3 UNITS Glucose (Glucose 40% Gel) 15-30 GRAMS 15 GRAMS... UD PRN PO 12/01/17 14:45 12/31/17 14:44 Glucose (Glucose Chew Tab) 4-8 Tablets 4 Tabl... UD PRN PO 12/01/17 14:45 12/31/17 14:44 Dextrose (Dextrose 50% 50ML Syringe) 25-50ML OF 50% DW IV FOR... UD PRN IV 12/01/17 14:45 12/31/17 14:44 Glucagon (Glucagon Inj) 1 mg UD PRN SQ 12/01/17 14:45 12/31/17 14:44 Sodium Chloride 1,000 ml @ 75 mls/hr [id number] IV 12/01/17 14:45 12/31/17 14:44 12/03/17 08:35 75 MLS/HR Aspirin (Aspirin Chew) 81 mg QAM PO 12/02/17 09:00 01/01/18 08:59 12/03/17 09:28 81 MG Baclofen (Lioresal Tab) 10 mg BID PO 12/01/17 21:00 12/31/17 20:59 12/03/17 08:24 10 MG Gabapentin (Neurontin Cap) 300 mg TID PO 12/01/17 21:00 12/31/17 20:59 12/03/17 14:10 300 MG Levothyroxine Sodium (Synthroid Tab) 175 mcg DAILYBB PO 12/02/17 06:00 01/01/18 06:59 12/03/17 05:47 175 MCG Lisinopril (Zestril Tab) 2.5 mg QAM PO 12/02/17 09:00 01/01/18 08:59 12/03/17 08:24 2.5 MG Pravastatin Sodium (Pravachol Tab) 40 mg HS PO 12/01/17 21:00 12/31/17 20:59 12/02/17 21:28 40 MG Insulin Detemir (Levemir Flexpen/ FlexTouch) 23 units DAILY@1000 SQ 12/02/17 10:00 01/01/18 09:59 12/03/17 08:30 23 UNITS Morphine Sulfate (MoRPHine SULFATE INJ) 2 mg Q6H PRN IV 12/01/17 15:00 12/15/17 14:59 12/02/17 03:06 2 MG Clindamycin Phosphate 600 mg/ Dextrose 54 ml @ 108 mls/hr Q8H IV 12/01/17 22:00 12/11/17 21:59 12/03/17 14:10 108 MLS/HR Ketorolac Tromethamine (Toradol Inj) 15 mg Q6H IV. 12/01/17 20:15 12/06/17 20:14 12/03/17 14:12 15 MG
[2017-12-03] MEDS: PRAVASTATIN SOD 40 MG TAB PO SCH (20:59)
[2017-12-03 22:59] VITALS: BP 119/71; PULSE 69; TEMP 36.3; O2SAT 95
[2017-12-03 23:30] VITALS: O2SAT 95
[2017-12-04] MEDS: KETOROLAC TROMETHAMINE 15 MG/ML VIAL IV. SCH ×4 (02:16→20:42)
[2017-12-04] MEDS: CLINDAMYCIN IV 600 MG in DEXTROSE 5% 50ML 50 ML IV SCH ×2 (05:59→14:02)
[2017-12-04] MEDS: LEVOTHYROXINE 175 MCG TAB PO SCH (05:59)
[2017-12-04 07:46] VITALS: O2SAT 96
[2017-12-04 07:56] VITALS: BP 136/78; PULSE 62; TEMP 36.3; O2SAT 96
[2017-12-04] MEDS: INSULIN ASPART 100 UNITS/ML 3 ML PEN SC SCH ×4 (08:00→21:01)
--- NOTE | 2017-12-04 08:35 | PROGRESS NOTE ---
DATE: 12/04/2017 SUBJECTIVE: A 72-year-old gentleman admitted with left arm swelling and possible cellulitis. He is doing much better. He continues to have some aches and pains in his arm. He has little catching and triggering of his index finger which has been chronic. OBJECTIVE: VITAL SIGNS: Temperature 36.3. Vital signs stable. EXTREMITIES: His arm reveals the swelling and redness to be completely resolved. His exam today is essentially benign. He does have some triggering of his index finger which is chronic and he has been seen in clinic for this in the past. He is neurologically intact. ASSESSMENT: A 72-year-old male admitted with left arm swelling most consistent with some pseudogout plus or minus some cellulitis. I really think this is all pseudogout. PLAN: At this point, I think he is orthopedically stable and medically stable. I do not think he needs to be in the hospital anymore. I think we can treat it with outpatient medicines. As stated previously, I think we are obligated to treat him for some cellulitis for about 10 days and I put him on some oral antibiotics to cover common organisms, most likely just Keflex plus or minus Bactrim. I would recommend maybe 5 days of some steroids or alternatively just put him on a regular dose of some NSAID for the next 5-10 days. I do not think he needs any further followup from my standpoint. Any orthopedic questions can be directed to me at [phone].
[2017-12-04] MEDS: ASPIRIN 81 MG CHEW PO SCH (08:59)
[2017-12-04] MEDS: BACLOFEN 10 MG TAB PO SCH ×2 (09:00→20:43)
[2017-12-04] MEDS: GABAPENTIN 300 MG CAP PO SCH ×3 (09:00→20:43)
[2017-12-04] MEDS: LISINOPRIL 2.5 MG TAB PO SCH (09:01)
[2017-12-04] MEDS: INSULIN DETEMIR FLEXPEN/FLEX TOUCH 100 UNITS/ML 3ML SQ SCH (09:40)
[2017-12-04] MEDS: ACETAMINOPHEN 325 MG TAB PO PRN (13:16)
[2017-12-04 16:03] VITALS: BP 138/80; PULSE 64; TEMP 36.4
--- NOTE | 2017-12-04 17:45 | Progress Note ---
Internal Med Progress Note Date of Service: Dec 04, 2017. Provider Documentation: SUBJECTIVE: Patient found sitting on chair, still have pain and discomfort on the left hand Mention the swelling has improved Able to hold fork (patient is left-handed) Still have pain and swelling on the left elbow Worried about blood sugar being elevated while on prednisone OBJECTIVE: Vital Signs-as noted below Exam: General-elderly male in no apparent distress Eyes-sclera nonicteric ENT-moist oral mucosa Neck-no JVD Lungs-clear to auscultate no wheezes or rales Heart-regular S1-S2 Abdomen-soft nontender Extremities-on left hand and finger, positive tenderness, no evidence of erythema or increased warmth Left elbow: Tenderness and swelling, has improved movement, no evidence of erythema or increased warmth Left shoulder: Pain/tenderness on left acromioclavicular joint, decreased range of motion secondary to pain, no erythema/no increased warmth Neuro-no focal neurological deficit, alert awake oriented 3 Lab data as noted below. ASSESSMENT & PLAN: LEFT HAND/LEFT ELBOW/LEFT SHOULDER PAIN: -Pseudogout/with or without cellulitis -History of gout in the past, involved only right great toe Presented with left-sided multi-joint involvement into including wrist hand, elbow, and possible shoulder Had in improvement with oral prednisone, developed a flare again after discontinuing steroid Appreciate input from orthopedics No joint aspiration needed Patient is being empirically treated with NSAIDs/IV Toradol Will change to oral indomethacin 25 mg twice daily Decrease prednisone dose We will add colchicine Patient will benefit from outpatient rheumatology evaluation for repeated gout/ pseudogout attack Antibiotic changed to p.o. Keflex for possible underlying cellulitis TYPE 2 DIABETES: Poorly controlled hemoglobin A1c more than 9 On insulin Levemir-continued Prednisone will be on rapid taper due to significant hyperglycemia Continue to monitor BSG before meals and at bedtime HISTORY OF CORONARY ARTERY DISEASE/PERIPHERAL ARTERY DISEASE No acute issues Continue aspirin, statin HYPOTHYROIDISM On levothyroxine TOBACCO ABUSE DISORDER: Smoking cessation counseling HYPERLIPIDEMIA: Statin HYPERTENSION: On lisinopril Blood pressure stable CODE STATUS: Full code DVT PROPHYLAXIS Subcu Lovenox DISPOSITION Expected to be discharged home when medically stable Vital Signs: Date Time Temp Pulse Resp B/P (MAP) Pulse Ox O2 Delivery O2 Flow Rate FiO2 12/04/17 23:30 96 Room Air 12/04/17 23:00 36.4 63 16 150/78 (102) 96 Room Air 12/04/17 16:03 36.4 64 18 138/80 (99) 12/04/17 15:10 Room Air 12/04/17 08:00 Room Air 12/04/17 07:56 36.3 62 14 136/78 (97) 96 Room Air 12/04/17 07:46 96 Room Air Lab Results: Results Past 24 Hours Test 12/04/17 08:04 12/04/17 12:17 12/04/17 17:09 12/04/17 20:59 Range/Units Bedside Glucose 84 159 226 222 70-99 mg/dl Microbiology Results 12/04/17 MRSA DNA Surveillance Screen - Final, Complete Specimen Negative for MRSA by DNA Probe
[2017-12-04] MEDS: ENOXAPARIN 40 MG/0.4 ML SYR SQ SCH (17:59)
[2017-12-04] MEDS: CEPHALEXIN MONOHYDRATE 500 MG CAP PO SCH ×2 (18:37→20:43)
[2017-12-04] MEDS: PRAVASTATIN SOD 40 MG TAB PO SCH (20:43)
[2017-12-04 23:00] VITALS: BP 150/78; PULSE 63; TEMP 36.4; O2SAT 96
[2017-12-04 23:30] VITALS: O2SAT 96
[2017-12-05] MEDS: KETOROLAC TROMETHAMINE 15 MG/ML VIAL IV. SCH (02:15)
[2017-12-05] MEDS: LEVOTHYROXINE 175 MCG TAB PO SCH (05:44)
[2017-12-05 07:40] VITALS: BP 156/72; PULSE 60; TEMP 36.4; O2SAT 95
[2017-12-05] MEDS: ASPIRIN 81 MG CHEW PO SCH (08:42)
[2017-12-05] MEDS: COLCHICINE 0.6 MG TAB PO SCH (08:42)
[2017-12-05] MEDS: CEPHALEXIN MONOHYDRATE 500 MG CAP PO SCH ×4 (08:42→20:51)
[2017-12-05] MEDS: INDOMETHACIN 25 MG CAP PO SCH ×2 (08:42→20:50)
[2017-12-05] MEDS: PANTOprazole SOD 40 MG TAB PO SCH (08:42)
[2017-12-05] MEDS: GABAPENTIN 300 MG CAP PO SCH ×3 (08:43→20:50)
[2017-12-05] MEDS: LISINOPRIL 2.5 MG TAB PO SCH (08:43)
[2017-12-05] MEDS: BACLOFEN 10 MG TAB PO SCH ×2 (08:43→20:51)
[2017-12-05] MEDS: INSULIN ASPART 100 UNITS/ML 3 ML PEN SC SCH ×4 (08:53→20:54)
[2017-12-05] MEDS: INSULIN DETEMIR FLEXPEN/FLEX TOUCH 100 UNITS/ML 3ML SQ SCH (08:54)
[2017-12-05] MEDS: ACETAMINOPHEN 325 MG TAB PO PRN ×3 (13:07→23:27)
[2017-12-05 15:13] VITALS: BP 128/79; PULSE 67; TEMP 36.4; O2SAT 95
--- NOTE | 2017-12-05 16:18 | Progress Note ---
Internal Med Progress Note Date of Service: Dec 05, 2017. 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 ASSESSMENT & PLAN: LEFT HAND/LEFT ELBOW/LEFT SHOULDER PAIN: -Pseudogout/with or without cellulitis Symptom has improved after addition of colchicine and indomethacin -History of gout in the past, involved only right great toe Presented with left-sided multi-joint involvement into including wrist hand, elbow, and possible shoulder Had in improvement with oral prednisone, developed a flare again after discontinuing steroid Appreciate input from orthopedics No joint aspiration needed Patient will benefit from outpatient rheumatology evaluation for repeated gout/ pseudogout attack Antibiotic changed to p.o. Keflex for possible underlying cellulitis TYPE 2 DIABETES: Poorly controlled hemoglobin A1c more than 9 On insulin Levemir-continued Ordered for rapid taper of prednisone for hypoglycemia Continue to monitor BSG before meals and at bedtime HISTORY OF CORONARY ARTERY DISEASE/PERIPHERAL ARTERY DISEASE No acute issues Continue aspirin, statin HYPOTHYROIDISM On levothyroxine TOBACCO ABUSE DISORDER: Smoking cessation counseling HYPERLIPIDEMIA: Statin HYPERTENSION: On lisinopril Blood pressure stable CODE STATUS: Full code DVT PROPHYLAXIS Subcu Lovenox DISPOSITION Expected to be discharged home when medically stable Vital Signs: Date Time Temp Pulse Resp B/P (MAP) Pulse Ox O2 Delivery O2 Flow Rate FiO2 12/06/17 16:00 Room Air 12/06/17 15:48 36.5 57 16 136/79 (98) 96 Room Air 12/06/17 10:17 92 Room Air 12/06/17 07:48 36.5 64 15 132/76 (94) 92 Room Air 12/06/17 07:25 Room Air 12/06/17 00:00 Room Air 4/5/18 23:25 36.5 56 18 148/79 (102) 95 Room Air Lab Results: Results Past 24 Hours Test 12/05/17 20:10 12/06/17 08:21 12/06/17 12:13 12/06/17 17:08 Range/Units Bedside Glucose 189 149 197 185 70-99 mg/dl
[2017-12-05] MEDS: ENOXAPARIN 40 MG/0.4 ML SYR SQ SCH (18:00)
[2017-12-05] MEDS: PRAVASTATIN SOD 40 MG TAB PO SCH (20:50)
[2017-12-05 23:25] VITALS: BP 148/79; PULSE 56; TEMP 36.5; O2SAT 95
[2017-12-06] MEDS: LEVOTHYROXINE 175 MCG TAB PO SCH (06:19)
[2017-12-06] MEDS: ACETAMINOPHEN 325 MG TAB PO PRN (06:20)
[2017-12-06 07:48] VITALS: BP 132/76; PULSE 64; TEMP 36.5; O2SAT 92
[2017-12-06] MEDS: ASPIRIN 81 MG CHEW PO SCH (08:41)
[2017-12-06] MEDS: COLCHICINE 0.6 MG TAB PO SCH (08:41)
[2017-12-06] MEDS: INDOMETHACIN 25 MG CAP PO SCH ×2 (08:42→21:06)
[2017-12-06] MEDS: CEPHALEXIN MONOHYDRATE 500 MG CAP PO SCH ×4 (08:42→21:06)
[2017-12-06] MEDS: PANTOprazole SOD 40 MG TAB PO SCH (08:43)
[2017-12-06] MEDS: BACLOFEN 10 MG TAB PO SCH ×2 (08:43→21:07)
[2017-12-06] MEDS: GABAPENTIN 300 MG CAP PO SCH ×3 (08:43→21:07)
[2017-12-06] MEDS: LISINOPRIL 2.5 MG TAB PO SCH (08:44)
[2017-12-06] MEDS: INSULIN ASPART 100 UNITS/ML 3 ML PEN SC SCH ×4 (08:48→21:15)
[2017-12-06] MEDS: INSULIN DETEMIR FLEXPEN/FLEX TOUCH 100 UNITS/ML 3ML SQ SCH (09:20)
[2017-12-06 10:17] VITALS: O2SAT 92
[2017-12-06 15:48] VITALS: BP 136/79; PULSE 57; TEMP 36.5; O2SAT 96
--- NOTE | 2017-12-06 17:45 | Progress Note ---
Internal Med Progress Note Date of Service: Dec 06, 2017. Provider Documentation: SUBJECTIVE: swelling in left hand and elbow has much improved has minimum pain no fever or chills OBJECTIVE: Vital Signs-as noted below Exam: General-elderly male in no apparent distress Eyes-sclera nonicteric ENT-moist oral mucosa Neck-no JVD Lungs-clear to auscultate no wheezes or rales Heart-regular S1-S2 Abdomen-soft nontender Extremities-left hand and wrist: No swelling noted, minimal tenderness Left elbow: Resolution of tenderness and swelling, Neuro-no focal neurological deficit, alert awake oriented 3 Lab data as noted below. ASSESSMENT & PLAN: LEFT HAND/LEFT ELBOW/LEFT SHOULDER PAIN: -Pseudogout/with or without cellulitis Symptom has improved after addition of colchicine and indomethacin will Dc Prednisone -causing minimum benefit /hyperglycemic episodes -History of gout in the past, involved only right great toe Presented with left-sided multi-joint involvement into including wrist hand, elbow, and possible shoulder Appreciate input from orthopedics No joint aspiration needed Patient will benefit from outpatient rheumatology evaluation for repeated gout/ pseudogout attack Antibiotic changed to p.o. Keflex for possible underlying cellulitis needs total 7 days course TYPE 2 DIABETES: Poorly controlled hemoglobin A1c more than 9 On insulin Levemir-continued oral prednisone D/swapnil Continue to monitor BSG before meals and at bedtime HISTORY OF CORONARY ARTERY DISEASE/PERIPHERAL ARTERY DISEASE No acute issues Continue aspirin, statin HYPOTHYROIDISM On levothyroxine TOBACCO ABUSE DISORDER: Smoking cessation counseling HYPERLIPIDEMIA: Statin HYPERTENSION: On lisinopril Blood pressure stable CODE STATUS: Full code DVT PROPHYLAXIS Subcu Lovenox DISPOSITION possible discharge home tomorrow Medicine follow up with Dr West Vital Signs: Date Time Temp Pulse Resp B/P (MAP) Pulse Ox O2 Delivery O2 Flow Rate FiO2 12/07/17 08:11 36.6 59 18 130/75 (93) 95 Room Air 12/07/17 00:00 Room Air 12/06/17 23:05 36.4 60 18 148/80 (102) 96 Room Air 12/06/17 16:00 Room Air 12/06/17 15:48 36.5 57 16 136/79 (98) 96 Room Air 12/06/17 10:17 92 Room Air Lab Results: Results Past 24 Hours Test 12/06/17 12:13 12/06/17 17:08 12/06/17 20:37 12/07/17 07:13 Range/Units Bedside Glucose 197 185 189 70-99 mg/dl Hemoglobin 12.4 14.0-18.0 g/dL Hematocrit 36.3 42-52 % Test 12/07/17 07:54 Range/Units Bedside Glucose 150 70-99 mg/dl
[2017-12-06] MEDS: ENOXAPARIN 40 MG/0.4 ML SYR SQ SCH (18:17)
[2017-12-06] MEDS: PRAVASTATIN SOD 40 MG TAB PO SCH (21:08)
[2017-12-06 23:05] VITALS: BP 148/80; PULSE 60; TEMP 36.4; O2SAT 96
[2017-12-07] MEDS: LEVOTHYROXINE 175 MCG TAB PO SCH (05:42)
[2017-12-07 07:38] LABS: HEMATOCRIT 36.3 % (42-52); HEMOGLOBIN 12.4 g/dL (14.0-18.0)
[2017-12-07 08:11] VITALS: BP 130/75; PULSE 59; TEMP 36.6; O2SAT 95
--- NOTE | 2017-12-07 08:43 | PROGRESS NOTE ---
DATE: 12/07/2017 SUBJECTIVE: A 72-year-old gentleman admitted with left upper extremity swelling and likely pseudogout plus or minus some cellulitis. He is doing pretty well. Still little ache and pain but in general much better. OBJECTIVE: VITAL SIGNS: Temperature is 36.4. Vital signs stable. PHYSICAL EXAMINATION: LEFT ARM: Reveals a normal appearing arm. I do not see any redness or swelling. He has got essentially full elbow and wrist motion. NEUROLOGIC: He is neurologically intact. LABORATORY DATA: Hemoglobin 12.4. Hematocrit 36.3. ASSESSMENT: A 72-year-old gentleman admitted with left upper extremity swelling which I think was all pseudogout. I do not think there is much cellulitis but always difficult to determine. He is essentially back to normal. His exam is objectively normal other than a little bit of subjective discomfort. From my standpoint, he can be discharged any time. PLAN: From the orthopedic standpoint, he is okay for discharge. I do not think he needs any steroids anymore. He might benefit from a course of anti-inflammatories as an outpatient for about a week. As far as antibiotics, I think it is up to discretion as well. Certainly, a week of antibiotics might be appropriate. Any orthopedic questions can be directed to me at [phone]. He does not need orthopedic followup.
[2017-12-07] MEDS: ASPIRIN 81 MG CHEW PO SCH (08:53)
[2017-12-07] MEDS: COLCHICINE 0.6 MG TAB PO SCH (08:53)
[2017-12-07] MEDS: BACLOFEN 10 MG TAB PO SCH (08:54)
[2017-12-07] MEDS: PANTOprazole SOD 40 MG TAB PO SCH (08:54)
[2017-12-07] MEDS: INDOMETHACIN 25 MG CAP PO SCH (08:54)
[2017-12-07] MEDS: CEPHALEXIN MONOHYDRATE 500 MG CAP PO SCH ×2 (08:54→13:25)
[2017-12-07] MEDS: GABAPENTIN 300 MG CAP PO SCH ×2 (08:54→13:25)
[2017-12-07] MEDS: LISINOPRIL 2.5 MG TAB PO SCH (08:55)
[2017-12-07] MEDS: INSULIN ASPART 100 UNITS/ML 3 ML PEN SC SCH ×2 (08:58→13:30)
[2017-12-07] MEDS: INSULIN DETEMIR FLEXPEN/FLEX TOUCH 100 UNITS/ML 3ML SQ SCH (08:59)
[2017-12-07] MEDS ORDERED: KFL500 PO (09:37)
[2017-12-07] MEDS ORDERED: PRT40 PO (09:37)
[2017-12-07] MEDS ORDERED: CLC6 PO (09:37)
[2017-12-07] MEDS ORDERED: INDO-22 PO (09:37)
--- NOTE | 2017-12-07 09:38 | Discharge Instructions ---
Discharge Instructions Date of Service Dec 07, 2017. Admission Reason for Admission: Cellulitis Of Hand, Left Discharge Discharge Diagnosis / Problem: PSEUDOGOUT INVOLVING MULTIPLE JOINTS - LEFT HAND /L WRIST /L ELBOW Discharge Goals Goal(s): Improve disease control, Diagnostic testing, Therapeutic intervention Activity Recommendations Activity Limitations: resume your previous activity . Instructions / Follow-Up Instructions / Follow-Up HOSPITAL FOLLOW UP : 12/11/2017 AT 12: [address] Riaz Herrera MD General Internal Medicine [facility] WILL BENEFIT WITH RHEUMATOLOGY REFERRAL FOR RECURRENT GOUT ATTACK Current Hospital Diet Patient's current hospital diet: Diabetes Type 2 Diet, AHA Diet (Heart Healthy) Discharge Diet Recommended Diet: AHA Diet (Heart Healthy), Diabetes Type 2 Diet Pending Studies Studies pending at discharge: no Laboratory Results Hemoglobin A1c Test 12/02/17 07:11 Range/Units Estimated Average Glucose 212 mg/dl Hemoglobin A1c 9.0 H 4.5-5.6 % Medical Emergencies . Who to Call and When: Medical Emergencies: If at any time you feel your situation is an emergency, please call 911 immediately. . Non-Emergent Contact Non-Emergency issues call your: Primary Care Provider (DR HERRERA ) Contact Number: Call Non-Emergent contact if: you have a fever, your pain is worsening, your pain is concerning you . . "Provider Documentation" section prepared by Demetrice Bee. .
--- NOTE | 2017-12-07 11:46 | Discharge Summary ---
Discharge Summary Date of Service Dec 07, 2017. Discharge Summary Admission Date: Dec 01, 2017 at 14:40 Discharge Date: Dec 07, 2017 Discharge Disposition: Home Principal Diagnosis: PSEUDOGOUT INVOLVING MULTIPLE JOINTS - LEFT HAND /L WRIST /L ELBOW Procedures: LEFT WRIST X-RAY 4 VIEW: IMPRESSION: 1. Soft tissue swelling with no radiographic evidence of left wrist fracture. 2. Osteopenia and degenerative change as above. LEFT HAND X-RAY 3 VIEW: IMPRESSION: 1. Dorsal soft tissue swelling with no acute bony abnormality seen in the left hand. 2. Osteopenia and degenerative change as above. LEFT ELBOW X-RAY 3 VIEW: IMPRESSION: 1. Soft tissue swelling with no acute fracture identified. 2. A joint effusion is noted. Although this could be seen in the setting of occult fracture this is considered unlikely if there is no reported history of trauma. Clinical correlation will be required. Consultations: ORTHOPEDICS DR KUMAR PODIATRY Referrals At Discharge Follow up Referrals: Physician Referral - 12/11/17 with Riaz Herrera MD [employer] Referral - Please Call For Appointment with Odin Valdez M.D. Admission Information HPI (per Admitting provider): Patient is a 72 yr male with PMH of DM II, CAD, PAD, Hypothyroidism, Tobacco use disorder, AAA, HLP, HTN, H/O traumatic epidural hemorrhage and other problems presents with history of worsening left hand and elbow swelling, pain and erythema. Patient states his symptoms started about 1 month ago and has been his PCP who prescribed antibiotics (Keflex) and prednisone which he completed the course. He states swelling and pain continued to worsen since last 3 days and he is unable to use his hand secondary to pain and decreased ROM. He states he also received an injection to his hand which he believes to be a steroid. He denies any history of trauma, insect bite and has been tested for gout in the past. He rates the pain as 7/10, sharp to dull, non radiating which aggravated with movement. Denies any history of chest pain, SOB, fever, chills, fall, weakness, numbness, nausea, vomiting, abdominal pain, diarrhea, dysuria. Physical Exam (per Admitting): General Appearance: WD/WN, no apparent distress Head: normocephalic, atraumatic Eyes: normal inspection, PERRL, EOMI, sclerae normal ENT: normal ENT inspection, hearing grossly normal Neck: supple, trachea midline Respiratory/Chest: chest non-tender, lungs clear, normal breath sounds, no respiratory distress, no accessory muscle use Cardiovascular: regular rate, rhythm, no edema, no murmur, + tachycardia Abdomen/GI: normal bowel sounds, non tender, soft Back: normal inspection Extremities/Musculoskelatal: no pedal edema, + swelling (and erythema of left hand, elbow, , decreased ROM, tender) 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 as tested, no motor/sensory deficits, alert , normal mood/affect, oriented x 3 Skin: normal color, warm/dry Hospital Course No swelling or redness on left hand and left elbow Has minimum pain on the left hand, able to hold fork Normal movement on left elbow and left shoulder No fever or chills Stable to be discharged home today PHYSICAL EXAM Exam: General-elderly male in no apparent distress Eyes-sclera nonicteric ENT-moist oral mucosa Neck-no JVD Lungs-clear to auscultate no wheezes or rales Heart-regular S1-S2 Abdomen-soft nontender Extremities-left hand and wrist: Normal exam, minimal tenderness , no swelling/ no erythema Left elbow: Resolution of tenderness and swelling, Neuro-no focal neurological deficit, alert awake oriented 3 ASSESSMENT AND PLAN LEFT HAND/LEFT ELBOW/LEFT SHOULDER PAIN: -Pseudogout/with or without cellulitis Symptom has improved after addition of colchicine and indomethacin Oral prednisone discontinued -History of gout in the past, involved only right great toe Presented with left-sided multi-joint involvement into including wrist hand, elbow, and possible shoulder Appreciate input from orthopedics No joint aspiration needed Patient will benefit from outpatient rheumatology evaluation for repeated gout/ pseudogout attack Antibiotic changed to p.o. Keflex for possible underlying cellulitis needs total 7 days course TYPE 2 DIABETES: Poorly controlled hemoglobin A1c more than 9 On insulin Levemir-continued Follows with [facility] clinic at [facility] oral prednisone D/swapnil Continue to monitor BSG before meals and at bedtime HISTORY OF CORONARY ARTERY DISEASE/PERIPHERAL ARTERY DISEASE No acute issues Continue aspirin, statin HYPOTHYROIDISM On levothyroxine TOBACCO ABUSE DISORDER: Smoking cessation counseling HYPERLIPIDEMIA: Statin HYPERTENSION: On lisinopril Blood pressure stable CODE STATUS: Full code DVT PROPHYLAXIS Subcu Lovenox DISPOSITION Stable to be discharged home today Medicine follow up with Dr Doberstein Total time spent on discharge = 40 mins This includes examination of the patient, discharge planning, medication reconciliation, and communication with other providers. Discharge Instructions Discharge Instructions Date of Service Dec 07, 2017. Admission Reason for Admission: Cellulitis Of Hand, Left Discharge Discharge Diagnosis / Problem: PSEUDOGOUT INVOLVING MULTIPLE JOINTS - LEFT HAND /L WRIST /L ELBOW Discharge Goals Goal(s): Improve disease control, Diagnostic testing, Therapeutic intervention Activity Recommendations Activity Limitations: resume your previous activity . Instructions / Follow-Up Instructions / Follow-Up HOSPITAL FOLLOW UP : 12/11/2017 AT 12: [address] Riaz Herrera MD General Internal Medicine [facility] WILL BENEFIT WITH RHEUMATOLOGY REFERRAL FOR RECURRENT GOUT ATTACK Current Hospital Diet Patient's current hospital diet: Diabetes Type 2 Diet, AHA Diet (Heart Healthy) Discharge Diet Recommended Diet: AHA Diet (Heart Healthy), Diabetes Type 2 Diet Pending Studies Studies pending at discharge: no Laboratory Results Hemoglobin A1c Test 12/02/17 07:11 Range/Units Estimated Average Glucose 212 mg/dl Hemoglobin A1c 9.0 H 4.5-5.6 % Medical Emergencies . Who to Call and When: Medical Emergencies: If at any time you feel your situation is an emergency, please call 911 immediately. . Non-Emergent Contact Non-Emergency issues call your: Primary Care Provider (DR HERRERA ) Contact Number: Call Non-Emergent contact if: you have a fever, your pain is worsening, your pain is concerning you . . "Provider Documentation" section prepared by Demetrice Bee. . Additional Copies To Riaz Herrera MD Martin, James S., M.D.
[2017-12-07] MEDS ORDERED: PANTOprazole SOD 40 MG TAB PO SCH (12:00)
[2017-12-07] MEDS ORDERED: INDOMETHACIN 25 MG CAP PO SCH (12:00)
[2017-12-07] MEDS ORDERED: COLCHICINE 0.6 MG TAB PO SCH (12:00)
[2017-12-07] MEDS ORDERED: CEPHALEXIN MONOHYDRATE 500 MG CAP PO SCH (12:00)
[2017-12-07 14:08] VITALS: BP 130/75; PULSE 59; TEMP 36.6; O2SAT 95
== END 2017-12-07 15:38 | disposition home or self-care (01) | DRG 603 ==
LOC: C.EDB 11:35 → C.MSW 14:40 → ENRESERV 15:24
PROVIDERS: ADMIT Internal Medicine; ATTEND Hospitalist
DX: L03.114 Cellulitis of left upper limb (principal); M11.89 Other specified crystal arthropathies, multiple sites; M1A.09X0 Idiopathic chronic gout, multiple sites, without tophus (tophi); H81.10 Benign paroxysmal vertigo, unspecified ear; I25.10 Atherosclerotic heart disease of native coronary artery without angina pectoris; I10 Essential (primary) hypertension; E03.9 Hypothyroidism, unspecified; Z86.711 Personal history of pulmonary embolism; Z82.49 Family history of ischemic heart disease and other diseases of the circulatory system; F17.200 Nicotine dependence, unspecified, uncomplicated; I73.9 Peripheral vascular disease, unspecified; E11.51 Type 2 diabetes mellitus with diabetic peripheral angiopathy without gangrene; B35.1 Tinea unguium; E83.42 Hypomagnesemia

== ENCOUNTER 2019-12-25 13:57 | Inpatient (IN) ==
--- OUTSIDE RECORDS SUMMARY | 2019-12-25 13:59 | External Medical Summary | Continuity of Care Document ---
:1945 Author Name Samreen Gutierrez Address Unavailable Unavailable , Care Team Providers Name Role Phone [facility] M.D. Unavailable [email or web address], [email or web address] Unavailable Unavailable Problems Active medical history not documented Allergies and Adverse Reactions Allergy history not documented Medications Medications not documented Procedures Procedures not documented Immunizations Immunizations not documented Plan of Treatment Planned Observations Planned Goals not documented Results No Known Results Results not documented
[2019-12-25 14:24] LABS: Basophils # (auto) 0.02 K/uL (0-0.2); Basophils % (auto) 0.3 %; Eosinophils # (auto) 0.06 K/uL (0-0.5); Eosinophils % (auto) 0.9 %; Hematocrit (blood only) 31.4 % (42-52); Hemoglobin 10.4 g/dL (14.0-18.0); Immature Granulocytes # (auto) 0.01 K/uL (0.00-0.02); Immature Granulocytes % (auto) 0.2 %; Lymphocytes # (auto) 1.41 K/uL (1.2-3.4); Lymphocytes % (auto) 22.1 %; Mean Corpuscular Hgb Conc 33.1 g/dL (32-36); Mean Corpuscular Volume 90.5 fL (80-100); Mean Platelet Volume 11.4 fL (7.4-10.4); Monocytes # (auto) 0.63 K/uL (0.11-0.59); Monocytes % (auto) 9.9 %; Neutrophils # (auto) 4.25 K/uL (1.4-6.5); Neutrophils % (auto) 66.6 %; Platelet Count 166 K/uL (130-400); RDW Coefficient of Variation 18.3 % (11.5-14.5); RDW Standard Deviation 60.5 fL (36.4-46.3); Red Blood Count 3.47 M/uL (4.7-6.1); White Blood Count 6.38 K/uL (4.8-10.8)
[2019-12-25 14:39] LABS: Alanine Aminotransferase 30 U/L (12-78); Albumin Level 3.5 gm/dl (3.4-5.0); Aspartate Aminotransferase 37 U/L (15-37); BUN Creatinine Ratio 29.1 (10-20); Blood Urea Nitrogen 34 mg/dl (7-18); C Reactive Protein 0.54 mg/dl (0-0.29); Calcium 8.8 mg/dl (8.5-10.1); Carbon Dioxide 22 mmol/L (21-32); Chloride 107 mmol/L (98-107); Est GFR (African American) 71.7; Est GFR (Non-African American) 61.9; Glucose 121 mg/dl (70-99); Lipase 39 U/L (73-393); Potassium 4.2 mmol/L (3.5-5.1); Sodium 136 mmol/L (136-145)
--- NOTE | 2019-12-25 14:42 | XRay Report ---
XR chest 1V portable CLINICAL HISTORY: 74 years-old Male presenting with Chest Pain. TECHNIQUE: Portable upright AP view of the chest was obtained. COMPARISON: 12/25/2015. FINDINGS: Atherosclerosis of the aortic arch. Cardiac silhouette borderline enlarged. Lungs mildly hyperinflate d. Mild interstitial prominence. Heterogeneous lung parenchyma. No focal opacity. No pleural effusion or pneumothorax. Degenerative changes of the thoracic spine. Chronic right AC joint separation. Uppe r abdomen normal. IMPRESSION: 1. Apparent hyperinflation could indicate underlying obstructive lung disease such as emphysema, an exuberant inspiratory effort, or thoracic kyphosis. 2. No acute cardiopulmonary disease. ACT 112: Negative or not required by law. Electronically signed by: Luis Parker M.D. 12/25/2019 2:41 PM
[2019-12-25 14:54] LABS: Alkaline Phosphatase 141 U/L (45-117); Bilirubin,Total 0.4 mg/dl (0.2-1); Creatine Kinase 248 U/L (39-308); Globulin 3.7 gm/dl (2.5-4.0); Total Protein 7.2 gm/dl (6.4-8.2)
[2019-12-25] MEDS ORDERED: NITROGLYCERIN SL 0.4 MG/TAB TAB SL STA (14:59)
[2019-12-25] MEDS ORDERED: ASPIRIN CHEW 324 MG PO STA (14:59)
[2019-12-25] MEDS ORDERED: HEPARIN SOD (PORCINE) 1000 UNIT/ML 10 ML VIAL IV ONE (14:59)
[2019-12-25] MEDS ORDERED: HEPARIN (PORCINE) 1000 UNIT/ML 10 ML (CATH LAB USE ONLY) ONE (15:02)
[2019-12-25] MEDS ORDERED: NiCARDipine HCL INJ 2.5 MG/ML 10 ML AMP ONE (15:02)
[2019-12-25] MEDS ORDERED: fentaNYL citrate 100 MCG/2 ML VIAL ONE (15:03)
[2019-12-25] MEDS ORDERED: MIDAZOLAM HCL 1 MG/ML 2ML VIAL ONE (15:03)
[2019-12-25] MEDS ORDERED: NITROGLYCERIN/D5W 100MCG/ML 20ML SYR ONE (15:03)
[2019-12-25 15:26] LABS: Influenza A virus by PCR Neg for Influ A (Neg); Influenza B virus by PCR Neg for Influ B (Neg)
[2019-12-25 15:33] LABS: INR 1.1 (0.9-1.1); Partial Thromboplastin Ratio 0.9; Partial Thromboplastin Time 26.4 Seconds (21.0-31.0); Prothrombin Time 11.9 Seconds (9.0-12.0)
--- NOTE | 2019-12-25 15:33 | Electrocardiogram Report ---
Test Reason : Blood Pressure : / mmHG Vent. Rate : 099 BPM Atrial Rate : 100 BPM P-R Int : 144 ms QRS Dur : 122 ms QT Int : 382 ms P-R-T Axes : 059 -22 122 degrees QTc Int : 490 ms Sinus rhythm with PVCs Left bundle branch block Abnormal ECG When compared with ECG of 25-DEC-2015 03:35, Left bundle branch block is now Present Confirmed by Jean Claude Romo ([id number]) on 12/25/2019 3:33:23 PM Referred By: ED Confirmed By:Pato Romo
[2019-12-25 15:41] LABS: D Dimer 1410 ug/L FEU (0-500)
--- NOTE | 2019-12-25 15:42 | Pre Anesthesia Assessment ---
Date of Service December 25, 2019 Pre Sedation Assessment Vital Signs Pulse Resp BP Pulse Ox 12/25/19 15:00 97 H 28 H 104/49 L 94 12/25/19 14:30 102 H 21 94 12/25/19 14:19 97 H 24 110/72 94 12/25/19 14:15 102 H 25 H 93 12/25/19 14:06 104 H 19 101/72 95 Cardiovascular RRR, no murmur, no edema Respiratory normal respiratory effort, lungs clear to auscultation Pre-Sedation Airway Assessment Smoking Status: Current every day smoker Hx Sleep Apnea: No Hx Difficult Intubation: No Short, Thick Neck: No Thyromental Distance: > or= 3.5 Finger Breadths Oral Cavity: + WNL Mallampati Class: III ASA: ASA4 Procedure Planning Contraindications for Sedation: none Current Medications Reviewed: Yes Notes The planned sedation has been discussed with the patient. Informed Consent was obtained. I have identified the patient, determined the appropriateness of sedation and have assessed the patient immediately prior to the procedure. All medicine(s) and interventions are by my order.
--- NOTE | 2019-12-25 15:42 | Emergency Department Note ---
History of Present Illness General Chief complaint: Shortness of Breath/Dyspnea Stated complaint: SOB/CP Time Seen by Provider: 12/25/19 14:05 Source: patient, EMS, RN notes reviewed and old records reviewed Mode of arrival: EMS Limitations: no limitations History of Present Illness Provider complaint: chest pain Onset (ago): week(s) 1 Location: chest Radiation: non-radiation Severity: mild Pain Consistency: + intermittent Maximum Pain Intensity: 4 Current Pain Intensity: 4 Quality: + dull Relieved By: + immobilization Exacerbated By: + movement Associated symptoms: no confusion, no cough, no diaphoresis, no fever/chills and no headaches Treatments prior to arrival: none This is a 74-year-old male who has a history of a failed stress test back in 2014 but did not have a cardiac catheterization performed at the time. The patient is complaining of chest pain that has been ongoing for the past week. T he patient reports that the chest pain gets worse whenever he ambulates. He went to his outpatient provider today who swabbed him for iqbal and sent him to the emergency department. Upon arrival to the emergency department the patient describes the pain is sharp to the right side of his chest. Patient has no other complaints. Home Medications Home Medications Medication Instructions Recorded Confirmed Type Levemir FlexTouch U-100 Insuln 16 unit SUBCUT DAILY 08/03/19 12/25/19 History Ozempic 1 mg SUBCUT WK 08/03/19 12/25/19 History Selsun Blue 1 applic TOPICAL Q OTHER DAY 08/03/19 12/25/19 History aspirin [Aspirin Low Dose] 81 mg PO QAM 08/03/19 12/25/19 History baclofen 10 mg PO BID 08/03/19 12/25/19 History colchicine 0.6 mg PO BID 08/03/19 12/25/19 History cyanocobalamin (vitamin B-12) 1,000 mcg PO QAM 08/03/19 12/25/19 History [Vitamin B-12] gabapentin 300 mg PO TID 08/03/19 12/25/19 History levothyroxine 125 mcg PO QAM 08/03/19 12/25/19 History meloxicam 7.5 mg PO QAM 08/03/19 12/25/19 History metformin 1,000 mg PO BIDM 08/03/19 12/25/19 History omeprazole 20 mg PO QAM 08/03/19 12/25/19 History pravastatin 40 mg PO HS 08/03/19 12/25/19 History acetaminophen [Tylenol Extra 500 - 1,000 mg PO Q6H PRN 12/25/19 12/25/19 History Strength] lisinopril 5 mg PO DAILY 12/25/19 12/25/19 History tramadol 50 - 100 mg PO Q6H PRN 12/25/19 12/25/19 History triamcinolone acetonide 1 applic TOPICAL BID PRN 12/25/19 12/25/19 History Allergies Allergy/AdvReac Type Severity Reaction Status Date / Time phenobarbital Allergy Mild dizzy Verified 12/25/19 15:03 Past Med/Surg History Medical History AAA (abdominal aortic aneurysm) follows with [facility] once a year Degenerative disc disease Diabetes mellitus, type 2 Encounter for pre-operative examination GERD (gastroesophageal reflux disease) Gout Hyperlipidemia Hypertension Hypothyroidism Osteoarthritis Pulmonary embolism per record 1970s, unknown cause, no blood thinners Surgical History History of colonoscopy with polypectomy History of esophagogastroduodenoscopy (EGD) History of repair of right rotator cuff History of tooth extraction upper teeth Family History Other No family history of adverse response to anesthesia Social History Preferred Language: Romanian Communication Ability: Effective Muffle Worker Required: No Beliefs That Will Affect Care: None Current Living Situation: Alone Feels Safe at Home: Yes Smoking Status: Current every day smoker Tobacco Type: cigars ; Cigarettes Per Day: 4-5 small cigars a day ; Second Hand Exposure: Yes (father smoked) ; Hx Alcohol Use: No Hx Substance Use: No Review of Systems A total of 10 systems reviewed and were otherwise negative Physical Exam Vital Signs Vital Signs - 24 hr 12/25/19 14:06 12/25/19 14:15 12/25/19 14:19 Pulse Rate 104 H 102 H 97 H Pulse Rate from SpO2 Sensor 104 H 103 H Respiratory Rate 19 25 H 24 Respiratory Depth Shallow Respiratory Pattern Rapid/Shallow Blood Pressure 101/72 110/72 Blood Pressure Mean 77 84 Blood Pressure Position Lying Pulse Oximetry 95 93 94 Oxygen Delivery Method Room Air Sepsis Recent Fever Within 48 Hours No Sepsis New/Unexplained Change in Mental Status No Sepsis Action Taken by Nursing No Action Required 12/25/19 14:30 12/25/19 15:00 Pulse Rate 102 H 97 H Pulse Rate from SpO2 Sensor 103 H 98 H Respiratory Rate 21 28 H Respiratory Depth Respiratory Pattern Blood Pressure 104/49 L Blood Pressure Mean 67 Blood Pressure Position Pulse Oximetry 94 94 Oxygen Delivery Method Sepsis Recent Fever Within 48 Hours Sepsis New/Unexplained Change in Mental Status Sepsis Action Taken by Nursing -GENERAL: Patient is a healthy-appearing well-nourished male HEAD: Normocephalic atraumatic EYES: Ocular movements intact pupils equal and react to light OROPHARYNX mucous membranes are moist no exudates present no erythema or edema p resent NECK: Supple no nuchal rigidity CHEST: Good equal expansion LUNGS: Clear and equal to auscultation CARDIAC: Normal S1 and S2 ABDOMEN: Soft nontender no guarding BACK: No CVA tenderness EXTREMITIES: No pain upon palpation normal muscle strength in all groups no clubbing cyanosis or edema NEURO: Patient is following commands is answering questions appropriately. Alert and oriented x3 Cranial Nerves 2-12 grossly intact Course Administered Medications Discontinued Medications Adenosine (Adenoscan) Confirm Administered Dose 120 mg IV .STK-MED ONE Stop: 12/25/19 16:10 Last Admin: 12/25/19 16:26 Dose: 120 mg Documented by: [id number] Aspirin (Aspirin) 324 mg PO NOW STA Stop: 12/25/19 15:00 Last Admin: 12/25/19 15:03 Dose: 324 mg Documented by: [id number] Fentanyl Citrate (Fentanyl Citrate) Confirm Administered Dose 100 mcg .ROUTE .STK-MED ONE Stop: 12/25/19 15:04 Last Increment: 12/25/19 16:25 Dose: 50 mcg Documented by: [id number] Furosemide (Lasix) Confirm Administered Dose 40 mg IV .STK-MED ONE Stop: 12/25/19 16:34 Last Admin: 12/25/19 16:36 Dose: 40 mg Documented by: [id number] Heparin Sodium (Porcine) (Heparin Iv Bolus) 5,000 units IV ONE ONE Stop: 12/25/19 15:00 Last Admin: 12/25/19 15:10 Dose: 5,000 units Documented by: [id number] Cosigned by: [id number] Heparin Sodium (Porcine) (Heparin Iv Bolus (Code Enforcement Officer Use Only)) Confirm Administered Dose 10,000 units .ROUTE .STK-MED ONE Stop: 12/25/19 15:03 Last Admin: 12/25/19 16:25 Dose: 4,000 units Documented by: [id number] Heparin Sodium/Sodium Chloride (Heparin/Nss 1000 Unit/500ml Flush Bag) Confirm Administered Dose 3,000 units IV .STK-MED ONE Stop: 12/25/19 15:04 Last Admin: 12/25/19 16:25 Dose: 3,000 units Documented by: [id number] Midazolam HCl (Versed) Confirm Administered Dose 2 mg .ROUTE .STK-MED ONE Stop: 12/25/19 15:04 Last Admin: 12/25/19 16:26 Dose: 2 mg Documented by: [id number] Nicardipine HCl (Cardene) Confirm Administered Dose 25 mg .ROUTE .STK-MED ONE Stop: 12/25/19 15:03 Last Admin: 12/25/19 16:24 Dose: 25 mg Documented by: [id number] Nitroglycerin (Nitrostat) 0.4 mg SL NOW STA Stop: 12/25/19 15:00 Last Admin: 12/25/19 15:03 Dose: 0.4 mg Documented by: [id number] Nitroglycerin/Dextrose (Nitroglycerin/D5w 100 Mcg/Ml 20ml Syringe) Confirm Administered Dose 2,000 mcg .ROUTE .STK-MED ONE Stop: 12/25/19 15:04 Last Admin: 12/25/19 16:25 Dose: 2,000 mcg Documented by: [id number] Critical Care Time I have personally spent greater than 30 minutes of critical care time in the direct management of this patient. This includes bedside care, interpretation of diagnostic studies, and testing, discussion with consultants, patient, and family members, and other required patient management activities. This 30 minutes is in excess of all separately billable procedures. Medical Decision Making Differential Diagnosis Cardiac ischemia, aortic dissection, pulmonary embolism, pneumothorax, pneumonia, pericarditis, myocarditis, esophageal rupture, GERD, cholecystitis, pancreatitis, musculoskeletal, as well as other pathologies. Medical Records Attestation: I reviewed the patient's medical records. Home Medications Current Medication List: was personally reviewed by me Laboratory Data Attestation: I reviewed the patient's lab results. Result diagrams: 12/25/19 14:10 12/25/19 14:10 Lab Results 12/25/19 12/25/19 12/25/19 Range/Units 14:10 14:10 14:10 WBC 6.38 (4.8-10.8) K/uL RBC 3.47 L (4.7-6.1) M/uL Hgb 10.4 L (14.0-18.0) g/dL Hct 31.4 L (42-52) % MCV 90.5 (80-100) fL MCH 30.0 (25-34) pg MCHC 33.1 (32-36) g/dL RDW Std Deviation 60.5 H (36.4-46.3) fL RDW Coeff of Tian 18.3 H (11.5-14.5) % Plt Count 166 (130-400) K/uL MPV 11.4 H (7.4-10.4) fL Immature Gran % (Auto) 0.2 % Neut % (Auto) 66.6 % Lymph % (Auto) 22.1 % Whitman % (Auto) 9.9 % Eos % (Auto) 0.9 % Baso % (Auto) 0.3 % Immature Gran # (Auto) 0.01 (0.00-0.02) K/uL Neut # (Auto) 4.25 (1.4-6.5) K/uL Lymph # (Auto) 1.41 (1.2-3.4) K/uL Whitman # (Auto) 0.63 H (0.11-0.59) K/uL Eos # (Auto) 0.06 (0-0.5) K/uL Baso # (Auto) 0.02 (0-0.2) K/uL ESR 32 H (0-14) mm/hr PT Cancelled INR Cancelled APTT Cancelled PTT Ratio Cancelled Activ Coag Time Kaolin (94-140) SECONDS D-Dimer Cancelled Sodium (136-145) mmol/L Potassium (3.5-5.1) mmol/L Chloride (98-107) mmol/L Carbon Dioxide (21-32) mmol/L Anion Gap (3-11) BUN (7-18) mg/dl Creatinine (0.6-1.4) mg/dl Est Cr Clr Drug Dosing Est GFR ( Amer) Est GFR (Non-Af Amer) BUN/Creatinine Ratio (10-20) Glucose (70-99) mg/dl Calcium (8.5-10.1) mg/dl Total Bilirubin (0.2-1) mg/dl AST (15-37) U/L ALT (12-78) U/L Alkaline Phosphatase (45-117) U/L Total Creatine Kinase (39-308) U/L CK-MB (CK-2) (0.5-3.6) ng/ml CK/CKMB % Calc (0-3.0) Troponin I (0-0.045) ng/ml C-Reactive Protein (0-0.29) mg/dl Total Protein (6.4-8.2) gm/dl Albumin (3.4-5.0) gm/dl Globulin (2.5-4.0) gm/dl Albumin/Globulin Ratio (0.9-2) Lipase (73-393) U/L Influenza Type A (PCR) (Neg) Influenza Type B (PCR) (Neg) 12/25/19 12/25/19 12/25/19 Range/Units 14:10 14:40 14:45 WBC (4.8-10.8) K/uL RBC (4.7-6.1) M/uL Hgb (14.0-18.0) g/dL Hct (42-52) % MCV (80-100) fL MCH (25-34) pg MCHC (32-36) g/dL RDW Std Deviation (36.4-46.3) fL RDW Coeff of Tian (11.5-14.5) % Plt Count (130-400) K/uL MPV (7.4-10.4) fL Immature Gran % (Auto) % Neut % (Auto) % Lymph % (Auto) % Whitman % (Auto) % Eos % (Auto) % Baso % (Auto) % Immature Gran # (Auto) (0.00-0.02) K/uL Neut # (Auto) (1.4-6.5) K/uL Lymph # (Auto) (1.2-3.4) K/uL Whitman # (Auto) (0.11-0.59) K/uL Eos # (Auto) (0-0.5) K/uL Baso # (Auto) (0-0.2) K/uL ESR (0-14) mm/hr PT 11.9 INR 1.1 APTT 26.4 PTT Ratio 0.9 Activ Coag Time Kaolin (94-140) SECONDS D-Dimer 1410 H* Sodium 136 (136-145) mmol/L Potassium 4.2 (3.5-5.1) mmol/L Chloride 107 (98-107) mmol/L Carbon Dioxide 22 (21-32) mmol/L Anion Gap 7.0 (3-11) BUN 34 H (7-18) mg/dl Creatinine 1.15 (0.6-1.4) mg/dl Est Cr Clr Drug Dosing Not Reportable Est GFR ( Amer) 71.7 Est GFR (Non-Af Amer) 61.9 BUN/Creatinine Ratio 29.1 H (10-20) Glucose 121 H (70-99) mg/dl Calcium 8.8 (8.5-10.1) mg/dl Total Bilirubin 0.4 (0.2-1) mg/dl AST 37 (15-37) U/L ALT 30 (12-78) U/L Alkaline Phosphatase 141 H (45-117) U/L Total Creatine Kinase 248 (39-308) U/L CK-MB (CK-2) 10.0 H (0.5-3.6) ng/ml CK/CKMB % Calc 4.0 H (0-3.0) Troponin I 2.240 H* (0-0.045) ng/ml C-Reactive Protein 0.54 H (0-0.29) mg/dl Total Protein 7.2 (6.4-8.2) gm/dl Albumin 3.5 (3.4-5.0) gm/dl Globulin 3.7 (2.5-4.0) gm/dl Albumin/Globulin Ratio 1.0 (0.9-2) Lipase 39 L (73-393) U/L Influenza Type A (PCR) Neg for Influ A (Neg) Influenza Type B (PCR) Neg for Influ B (Neg) 12/25/19 Range/Units 16:22 WBC (4.8-10.8) K/uL RBC (4.7-6.1) M/uL Hgb (14.0-18.0) g/dL Hct (42-52) % MCV (80-100) fL MCH (25-34) pg MCHC (32-36) g/dL RDW Std Deviation (36.4-46.3) fL RDW Coeff of Tian (11.5-14.5) % Plt Count (130-400) K/uL MPV (7.4-10.4) fL Immature Gran % (Auto) % Neut % (Auto) % Lymph % (Auto) % Whitman % (Auto) % Eos % (Auto) % Baso % (Auto) % Immature Gran # (Auto) (0.00-0.02) K/uL Neut # (Auto) (1.4-6.5) K/uL Lymph # (Auto) (1.2-3.4) K/uL Whitman # (Auto) (0.11-0.59) K/uL Eos # (Auto) (0-0.5) K/uL Baso # (Auto) (0-0.2) K/uL ESR (0-14) mm/hr PT INR APTT PTT Ratio Activ Coag Time Kaolin 246 H (94-140) SECONDS D-Dimer Sodium (136-145) mmol/L Potassium (3.5-5.1) mmol/L Chloride (98-107) mmol/L Carbon Dioxide (21-32) mmol/L Anion Gap (3-11) BUN (7-18) mg/dl Creatinine (0.6-1.4) mg/dl Est Cr Clr Drug Dosing Est GFR ( Amer) Est GFR (Non-Af Amer) BUN/Creatinine Ratio (10-20) Glucose (70-99) mg/dl Calcium (8.5-10.1) mg/dl Total Bilirubin (0.2-1) mg/dl AST (15-37) U/L ALT (12-78) U/L Alkaline Phosphatase (45-117) U/L Total Creatine Kinase (39-308) U/L CK-MB (CK-2) (0.5-3.6) ng/ml CK/CKMB % Calc (0-3.0) Troponin I (0-0.045) ng/ml C-Reactive Protein (0-0.29) mg/dl Total Protein (6.4-8.2) gm/dl Albumin (3.4-5.0) gm/dl Globulin (2.5-4.0) gm/dl Albumin/Globulin Ratio (0.9-2) Lipase (73-393) U/L Influenza Type A (PCR) (Neg) Influenza Type B (PCR) (Neg) Imaging Data Radiologist's Impression: [facility], [place] [phone] XRay Report Patient: CHAVA CALLAHAN EAdmit Date: 12/25/19 MR#: [id number]: [address] Acct ID:[id number]: [address] [facility] Zip: [place] [address] Age: 74Location: ED Sex: M Room/Bed: Att Phy:Diagnosis: SOB/CP Flores Phy: Riaz West MDService Date: 12/25/19 Fam Phy:Interpreting Phy: Luis Parker MD Admit Phy: Ordering Phy: Justin Shepherd MD cc: ~ XR chest 1V portable CLINICAL HISTORY: 74 years-old Male presenting with Chest Pain. TECHNIQUE: Portable upright AP view of the chest was obtained. COMPARISON: 12/25/2015. FINDINGS: Atherosclerosis of the aortic arch. Cardiac silhouette borderline enlarged. Lungs mildly hyperinflated. Mild interstitial prominence. Heterogeneous lung parenchyma. No focal opacity. No pleural effusion or pneumothorax. Degenerative changes of the thoracic spine. Chronic right AC joint separation. Upper abdomen normal. IMPRESSION: 1. Apparent hyperinflation could indicate underlying obstructive lung disease such as emphysema, an exuberant inspiratory effort, or thoracic kyphosis. 2. No acute cardiopulmonary disease. ACT 112: Negative or not required by law. Electronically signed by: Luis Parker M.D. 12/25/2019 2:41 PM Dictated: 12/25/191438 Transcribed: 12/25/19 143 ECG Data Attestation: I personally reviewed and interpreted this ECG as follows: Indication: + chest pain Rate (beats per minute): 73 Rhythm: + normal sinus ECG Intervals/blocks: + Left bundle branch block ECG Findings: + PVCs Comparison ECG Date: from (2014) Change: the following changes noted (New LBBB) Blood Pressure Blood Pressure Findings: Low blood pressure MDM Narrative This is a 74-year-old male who presents emergency department complaining of chest pain. The patient was placed in iqbal precautions due to a iqbal test as an outpatient. The patient was evaluated during the global COVID-19 pandemic, and that diagnosis was suspected/considered upon their initial presentation. Their evaluation, treatment and testing was consistent with current guidelines for patients who present with complaints or symptoms that may be related to COVID- 19. An EKG was obtained which was concerning for a new left bundle branch block. This in addition to the patient fact that the patient is complaining of chest pain, caused a heart alert activation. I did discuss the case with both the patient's cardiology team as well as the supervisory investigative specialist who agreed to take the patient to the Code Enforcement Officer. In the meanwhile the patient was given nitro as well as aspirin. Repeat examination revealed improvement the patient's symptoms. Patient was also discussed with the hospitalist team. Impression & Plan Chest pain, ST elevation (STEMI) myocardial infarction Discharge Plan Visit Data *Final* Discharge Date/Time: 12/25/19 15:43 Chief Complaint: Shortness of Breath/Dyspnea Stated Complaint: SOB/CP ED Provider: Justin Shepherd Discharge Problem: Chest pain, ST elevation (STEMI) myocardial infarction Patient Disposition: Admitted As Inpatient Discharge Instructions Interventions: ED Discharge Assessment Last Done: 12/25/19 15:43 Discharge Problem: Chest pain Qualifiers: Chest pain type: unspecified Qualified Code(s): R07.9 - Chest pain, unspecified ST elevation (STEMI) myocardial infarction Qualifiers: Involved coronary artery: unspecified coronary artery Qualified Code(s): I21.3 - ST elevation (STEMI) myocardial infarction of unspecified site
[2019-12-25] MEDS ORDERED: ADENOSINE IV SOLN 3 MG/ML 20 ML VIAL IV ONE (16:09)
[2019-12-25] MEDS ORDERED: ACETAMINOPHEN 325 MG TAB PO PRN (16:29)
[2019-12-25] MEDS ORDERED: ONDANSETRON INJ 2 MG/ML 2 ML VIAL IV PRN (16:29)
[2019-12-25] MEDS ORDERED: ICU PROTOCOL FOR HYPERGLYCEMIA PRN ×2 (16:29→18:15)
[2019-12-25] MEDS ORDERED: FUROSEMIDE 40 MG/4 ML VIAL IV ONE (16:33)
--- NOTE | 2019-12-25 16:36 | Post Anesthesia Assessment ---
Date of Service December 25, 2019 Post Sedation Assessment Vital Signs Pulse Resp BP Pulse Ox 12/25/19 15:00 97 H 28 H 104/49 L 94 12/25/19 14:30 102 H 21 94 12/25/19 14:19 97 H 24 110/72 94 12/25/19 14:15 102 H 25 H 93 12/25/19 14:06 104 H 19 101/72 95 Recovery Score Activity: Moves 4 extremities Respiration: Deep Breath/Cough Circulation: +/-20% PreAnes Value Consciousness: Fully Awake Oxygen Saturation: O2 needed for >90% Discharge Sedation Level of Care: Fast Track Phase II Post Sedation Plan On clinical assessment, the patient appears to have tolerated the sedation without complications. Patient is recovering as anticipated. Patient will continue to be monitored by nursing and may be discharged when sedation discharge criteria are met per below protocol. Upon Completions of procedure up to 15 minutes continue every 5 minute vital signs and the P.A.R. score; then discharge to a Phase I or Fast Track to Phase II per the following guidelines: * Discharge Patient to appropriate Phase II area if PAR is 8 or greater or return to pre- procedure baseline. The post - procedure orders will be as directed. * If PAR score is less than 8 or not return to pre-procedure baseline then patient will follow Phase I monitoring till PAR is reached for Phase II. The Phase I may be done in procedure room or may call to secure a Phase I area. * If naloxone or flumazenil are used for reversal, hold in Phase I for continued monitoring from when last reversal dose was given for a minimum of 60 minutes or longer pending the nurse and/or physician discretion of patient condition before discharge to Phase II. Please call the Sedation Physician to re-evaluate and complete post-note for discharge to Phase II area. Do NOT discharge from procedure sedation or Phase 1 until post- sedation evaluation note is complete by procedure /sedation MD Sedation Discharge Instructions to be given to the patient at discharge to home.
--- NOTE | 2019-12-25 16:49 | Cardiac Catheterization ---
[facility] Data: Agronomy Instructor Cardiac Status Clinical evaluation leading to the procedure CAD Presenation: Non STEMI Anginal Classification: CCS IV Heart Failure: NYHA Class: CCS IV Cardiogenic Shock within 24 Hours: No Cardiac Arrest within 24 Hours: No Imaging Studies Past 6 Months: No Stress Studies Past 6 Months: No Diagnostic Physicians Name: Jean Claude Lucio MD Status: Emergency Closure Device Percutaneous Entry Location: Radial Closure Device: Radial Band Recommendations: CABG Intraprocedure Events Significant Disection: No Perforation: No Cardiac Cath Procedure Full Procedure Date December 25, 2019 Pre-Procedure Diagnosis Pre-Procedure Diagnosis: Acute Coronary Syndrome AUC Score AUC Score: 8 Post-Procedure Diagnosis Post-Procedure Diagnosis: Severe CAD and Elevated Intracardiac Pressures Procedure(s) Performed Procedure(s) Performed: Coronary Angiography, Left Heart Cath, IVUS and Fractional Flow [place] Bilingual Teacher Aide Jean Claude Lucio MD Coil Winder Hand(s) Cynthia Estimated Blood Loss Estimated Blood Loss: 15 Medication(s) Medication(s): Adenosine, Fentanyl, Heparin, Lidocaine 1%, Nicardipine, Nitroglycerin and Versed Summary of Findings Indication: High risk NSTEMI 34-year-old man with history of presumed coronary disease in the setting of prior positive stress test, PAD, poorly controlled type 2 diabetes on insulin, ongoing tobacco abuse here with intermittent shortness of breath, chest pain for the last 1 to 2 weeks. No fever, cough, travel or known COVID-19 contacts. Was initially seen by PCP earlier today. Nasal swab for COVID-19 pending. Access: 6 Fr slender right radial artery Catheters: Reading, EBU 3.5 guide Findings: LM -Short, almost separate ostium LAD -large caliber vessel, heavily calcified, hazy proximal 60 to 70% disease, calcified mid 60% disease, distal vessel with luminal irregularities and wraps around apex. Large caliber second diagonal with mild disease. Circumflex -large caliber 40 to 50% proximal to mid disease, occluded small high OM1 fills via left to left collaterals, distal vessel with luminal regularities, provides left to right collaterals to PLB's RCA -dominant, heavily calcified, diffuse moderate to severe proximal to mid disease prior to mid 100% occlusion with questionable acute thrombus. Distal vessel fills via brisk [id number] collaterals. LVEDP -27 IVUS/FFR of LAD-- Left main cannulated with EBU 3.5 guide Landscape Nurseryman 50 wire placed into distal LAD [place] BLANCA catheter advanced to mid LAD, unable to pass across mid LAD stenosis Pullback revealed severe, heavily calcified extensive proximal LAD disease, MLA 3.4 mm, calculated stenosis 70 to 80% ACIST Catheter placed across mid LAD stenosis Pd/Pa 0.69 Landscape Nurseryman 50 wire removed from LAD and placed into distal circumflex ACIST Catheter placed across proximal to mid stenosis FFR 0.95 Post procedure angiography revealed no apparent complications in LAD/circumflex post removal of wire/catheter. Arterial Closure: TR band Summary: 1. Severe multivessel coronary artery disease -100% acute on chronic mid RCA occlusion with brisk [id number] collaterals Severe heavily calcified proximal to mid LAD disease up to 80% on IVUS (iFR 0.69). Moderate nonobstructive proximal to mid circumflex disease (FFR 0.95). Occluded small OM1 with left to left collaterals. 2. Elevated intracardiac filling pressure. LVEDP 27 Recommendations: With multivessel disease involving heavily calcified proximal LAD, along with diabetes and heart failure recommend evaluation for CABG. Discussed with Dr. Silver who will contact [facility] cardiac surgery. Given 40 IV lasix x1 in labor crew supervisor Resume heparin infusion when TR band off. Hemodynamics Rest Ao:: 108/60/82 Final Ao: 111/63/82 LV: 113/27 Recommendations Recommendations: CABG Specimens Specimens: None Radiation Exposure (mGy) 1259 Contrast (mls) 75 Fluids (cc crystalloids) Fluids (cc crystalloids): 80 Drains Drains: None Anesthesia Moderate Procedural Complication(s) None Disposition ICU I attest to the content of the Intraoperative Record and any orders documented therein. Any exceptions are noted below. [facility] Card Cath Procedure Codes Cardiac Catheterization Procedure 1: Cardiovascular Cath Procedures: 40789 Coronaries and LHC (+/-LV) Procedure 2: Cardiovascular Cath Procedures: 80455 (Doppler) Pressure Wire Procedure 3: Cardiovascular Cath Procedures: 63069 (Doppler) Pressure Wire Addl vessel Therapeutic Services & Ancillary Proc Procedure 1: Cardiovascular Tx and Anc Procedures: 78261 IV Ultrasound (Coronary or Graft) Moderate Sedation Procedure 1: Sedation/Anesthesia: 26539 Mod Sedation by the same physician;Init15 Min Child Age 5 & Up Procedure 2: Sedation/Anesthesia: 73027 Mod Sedation by the same physician; Ea [id number] Minutes PG Care Time/CCT Total # of Minutes Spent Total Time Spent with Patient: Total time spent is greater than 50% in coordination of care (as documented) at patient's floor/unit and/or counseling patient:
[2019-12-25] MEDS ORDERED: HEPARIN SODIUM/DEXTROSE 25,000 UNITS/500 ML BAG IV SCH (17:00)
[2019-12-25] MEDS ORDERED: ALBUT/IPRATROP 3MG/0.5MG NEB 3 ML VIAL NEB STA (17:18)
--- NOTE | 2019-12-25 17:33 | Critical Care Consultation ---
Date of Consultation December 25, 2019 Assessment & Plan (1) Acute hypoxemic respiratory failure: 74-year-old male with a history of coronary artery disease, peripheral arterial disease, history of pulmonary embolism and diabetes mellitus who presented with chest pain and underwent a left heart catheterization which demonstrated severe multivessel coronary artery disease including 100% acute on chronic mid RCA occlusion with brisk left to right collaterals. Severely heavily calcified proximal to mid LAD disease up to 80% was also seen. Recommendation was for evaluation of coronary artery bypass graft. He received 40 mg of IV Lasix in the [employer]. Additionally, recommendation was to continue heparin infusion after the TR band was removed. Chest x-ray was obtained which demonstrated hyperinflation. I suspect given the patient's presentation and clinical history, that he likely has some degree of chronic obstructive lung disease. I am going to start him on IV Solu-Medrol and duo nebs. We will see how he responds to the first DuoNeb and decide upon whether he needs a continuous neb. Awaiting COVID testing, although extremely unlikely. Obtaining a VBG and lactate. Interestingly, his bicarbonate was not elevated, but this may be due to an acute metabolic acidotic state related to his coronary ischemia. Suspect that his troponin leak is related to demand ischemia secondary to an underlying acute on chronic pulmonary process. Pulmonary embolism is also in the differential and he will need to undergo a CT scan with pulmonary embolism protocol once COVID testing is ruled out. Continue heparin drip as indicated by cardiology. Continue to trend troponins. No obvious infection seen. Tracheobronchitis remains a possibility. Will check a procalcitonin level. I do not think that at this time the patient needs further diuretics as he appears fairly euvolemic. Cor pulmonale certainly is possible in this patient. He will need an echocardiogram. LVEDP does appear to be elevated, but does not clinically correlate with his chest x-ray and physical exam findings. proBNP is pending. I discussed with him regarding his CODE STATUS. He indicated that he would not want to be intubated or undergo CPR if his outcome was to be considered poor. I told him that it would be very difficult to predict this. He did not seem to completely understand what I was saying at this time. We will follow-up with his friends or family. He indicated that he does not have any family that he currently lives with. For the time being, he will remain a full code and we will readdress this once his respiratory status is improved. CRITICAL CARE TIME - I have personally spent 40 minutes of critical care time in the direct management of this patient. This is a life/limb threatening event. This includes time spent evaluating patient, direct bedside care, chart review, placing orders, interpretation of diagnostic studies, discussion with consultants, patient, and family members, as well as other required patient management activities. This time is exclusive of all separately billable procedures, and teaching time and separate from and in addition to any other critical care service time. (2) Chest pain: (3) CAD (coronary artery disease): (4) Wheezing: History of Present Illness Reason for Consultation: Acute hypoxemic respiratory failure Requesting Physician: Dr. Jean Claude Lucio Attending Physician: Judd Beltrán MD History of Present Illness 74-year-old male with a past medical history of peripheral artery disease, coronary artery disease, diabetes mellitus type 2, pulmonary embolism, gout and tobacco abuse who presents to the hospital due to increasing shortness of breath. Patient describes ongoing orthopnea and shortness of breath since this morning. He also has associated chest pain. He endorses chronic shortness of breath and leg pain as well and notes that he gets pain in his legs walking 50 yards. He has a powered chair that he uses at home to go up his stairs. He denies any history of intubation. He does note he smokes 5 cigars a day has smoked for the past 40 years. He denies use of any inhalers. Apparently, his outpatient primary care provider ordered for a COVID-19 test due to his increasing shortness of breath. This is pending. Patient denies any sick contacts or COVID contacts. He denies any fevers, he does endorse some chills. He denies any night sweats, he denies any significant cough or sputum production. Denies any significant leg swelling. Allergies Allergy/AdvReac Type Severity Reaction Status Date / Time phenobarbital Allergy Mild dizzy Verified 12/25/19 15:03 Home Medications Home Medications Medication Instructions Recorded Confirmed Type Levemir FlexTouch U-100 Insuln 16 unit SUBCUT DAILY 08/03/19 12/25/19 History Ozempic 1 mg SUBCUT WK 08/03/19 12/25/19 History Selsun Blue 1 applic TOPICAL Q OTHER DAY 08/03/19 12/25/19 History aspirin [Aspirin Low Dose] 81 mg PO QAM 08/03/19 12/25/19 History baclofen 10 mg PO BID 08/03/19 12/25/19 History colchicine 0.6 mg PO BID 08/03/19 12/25/19 History cyanocobalamin (vitamin B-12) 1,000 mcg PO QAM 08/03/19 12/25/19 History [Vitamin B-12] gabapentin 300 mg PO TID 08/03/19 12/25/19 History levothyroxine 125 mcg PO QAM 08/03/19 12/25/19 History meloxicam 7.5 mg PO QAM 08/03/19 12/25/19 History metformin 1,000 mg PO BIDM 08/03/19 12/25/19 History omeprazole 20 mg PO QAM 08/03/19 12/25/19 History pravastatin 40 mg PO HS 08/03/19 12/25/19 History acetaminophen [Tylenol Extra 500 - 1,000 mg PO Q6H PRN 12/25/19 12/25/19 History Strength] lisinopril 5 mg PO DAILY 12/25/19 12/25/19 History tramadol 50 - 100 mg PO Q6H PRN 12/25/19 12/25/19 History triamcinolone acetonide 1 applic TOPICAL BID PRN 12/25/19 12/25/19 History Patient History Medical History AAA (abdominal aortic aneurysm) follows with [facility] once a year Degenerative disc disease Diabetes mellitus, type 2 Encounter for pre-operative examination GERD (gastroesophageal reflux disease) Gout Hyperlipidemia Hypertension Hypothyroidism Osteoarthritis Pulmonary embolism per record 1970s, unknown cause, no blood thinners Surgical History History of colonoscopy with polypectomy History of esophagogastroduodenoscopy (EGD) History of repair of right rotator cuff History of tooth extraction upper teeth Family History Other No family history of adverse response to anesthesia Social History Preferred Language: Tristanian Communication Ability: Effective Avionic Technician Required: No Beliefs That Will Affect Care: None Current Living Situation: Alone Feels Safe at Home: Yes Smoking Status: Current every day smoker Tobacco Type: cigars ; Cigarettes Per Day: 4-5 small cigars a day ; Second Hand Exposure: Yes (father smoked) ; Hx Alcohol Use: No Hx Substance Use: No Review of Systems Review of Systems: All systems reviewed & are unremarkable except as noted in HPI & below Physical Exam Constitutional: Patient appears to be in extremis. He is very short of breath. Nonrebreather mask is in place. He is tachypneic. He appears frail and thin. Eyes: PERRL, conjunctivae normal, anicteric sclerae ENMT: external ear and nose normal, oropharynx normal Neck: normal visual inspection Respiratory: + retractions and + tachypneic Auscultation: + wheezes Cardiovascular: Rate/Rhythm: + tachycardic Heart Sounds: no murmur Extremities: no edema Gastrointestinal (Abdomen): normal bowel sounds, soft, nontender, no hepatosplenomegaly Musculoskeletal: no cyanosis or clubbing, extremities motor strength 5/5 Skin: no rashes, warm and dry Neurologic: PERRL, EOMI, accommodation nl, no face palsy, no dysarthria Psychiatric: A+Ox3, euthymic affect Results & Data Results & Data ([facility]) Vital Signs (Past 12 Hours) Vital Signs Pulse Resp BP Pulse Ox 12/25/19 15:00 97 H 28 H 104/49 L 94 12/25/19 14:30 102 H 21 94 12/25/19 14:19 97 H 24 110/72 94 12/25/19 14:15 102 H 25 H 93 12/25/19 14:06 104 H 19 101/72 95 I personally reviewed the patient's laboratory data, chest imaging and previous notes. Coding Level of Care Code Critical Care 1st 30-74 mins Diagnoses Acute hypoxemic respiratory failure J96.01 Chest pain R07.9 Chest pain type: unspecified CAD (coronary artery disease) I25.10 Wheezing R06.2 Time Spent (min) 40 (1) Chest pain Chest pain type: unspecified Qualified Code(s): R07.9 - Chest pain, unspecified
[2019-12-25] MEDS ORDERED: methylPREDNISolone 80 MG in SYRINGE 0 ML IV ONE (17:45)
--- NOTE | 2019-12-25 17:53 | Cardiology Consultation ---
Date of Consultation December 25, 2019 Assessment & Plan (1) Acute hypoxemic respiratory failure: (2) Myocardial infarction: (3) LBBB (left bundle branch block): At present, it appears that the patient has perhaps multifactorial respiratory insufficiency. He has chronic coronary heart disease, with a chronically occluded right coronary artery which I think dates back to at least 2014 as his stress echocardiogram was consistent with RCA territory infarct at that time. Calcified proximal LAD disease of 70-80% stenosis as assessed by BLANCA and IFR noted. Given these findings together with left bundle branch block, I suspect he has left ventricular systolic dysfunction. At present, his degree of respiratory distress precludes obtaining diagnostic quality echocardiogram images. I hope to proceed with an echocardiogram tomorrow after his respiratory status improves to some degree. His shortness of breath has not improved with furosemide therapy, and therefore nebulizer therapy and corticosteroids are being added. His chest x-ray was reviewed, looks relatively clear in terms of congestive heart failure findings or findings consistent with COVID-19. The patient did have COVID-19 testing performed earlier today. I spoke to the lab at [facility], and the sample was obtained at 9:49 AM and arrived at [place] at 2 PM. The lab is making a change in the priority of the test as the patient is an inpatient, we will have results back by tomorrow morning. In the meantime, the patient is to remain on negative pressure, with appropriate respiratory precautions for the staff. Clinically, I think his risk of COVID-19 is relatively low as he has not had any sick contacts, no recent fever or illness. Pulmonary embolism is of course another consideration. Patient is to be started on heparin for the myocardial infarction which would of course also treat him for pulmonary embolism, this is to be initiated after his radial artery access is removed and hemostasis is achieved. Ultimately, once COVID-19 is excluded, and the patient is stabilized, future considerations include CT surgery consultation for CABG. Dr Hong is assuming our service tonight and will be rounding 12/26/19. Case discussed with Dr Shepherd, Dr Lucio, Dr Heart, and Dr Beltrán. History of Present Illness Attending Physician: Judd Beltrán MD History of Present Illness Nuvia Reyes is a 74 year old male seen in cardiology consultation for the evaluation of respiratory distress. Patient was in ICU room 106 at the time of my examination. He has been experiencing substernal to right sided chest pain for the past week that has waxed and with associated shortness of breath and orthopnea. He presented to the [facility] site today and a nasal swab sample was obtained for COVID-19 testing at 9:49 am. He subsequently presented to the emergency department at this institution as per the advice of his primary care provider, Dr West. EKG on arrival revealed sinus rhythm at 9 9 bpm with frequent PVCs, and left bundle branch block, QRS duration 122 ms. Compared to the prior performed 12/25/2015, left bundle branch block has replaced interventricular conduction delay. The frequent ventricular ectopy is also a new finding. His initial troponin was 2.24 NG per mL, and therefore he was assessed by interventional cardiology and taken to the cardiac catheterization laboratory as an emergent case, with appropriate respiratory precautions. Cardiac catheterization findings via right radial artery access were as follows: LM -Short, almost separate ostium LAD -large caliber vessel, heavily calcified, hazy proximal 60 to 70% disease, calcified mid 60% disease, distal vessel with luminal irregularities and wraps around apex. Large caliber second diagonal with mild disease. -The LAD was assessed with IVU with mean luminal area measured to be 3.4 mm, calculated stenosis of 70 to 80%. -iFR measurement was 0.69 consistent with this being hemodynamically significant lesion. Circumflex -large caliber 40 to 50% proximal to mid disease, occluded small high OM1 fills via left to left collaterals, distal vessel with luminal regularities, provides left to right collaterals to PLB's FFR evaluation of the circumflex, was not hemodynamically significant, 0.95 RCA -dominant, heavily calcified, diffuse moderate to severe proximal to mid disease prior to mid 100% occlusion with questionable acute thrombus. Distal vessel fills via brisk [id number] collaterals. Post cardiac catheterization the patient was transferred to intensive care unit room 106 for negative pressure isolation and further assessment. His respiratory status was stable immediately post cardiac catheterization prompting initiation of IV furosemide x1 dose, and when he arrived in the ICU he has been since placed on BiPAP. Nebulizer therapy as well as corticosteroids have been initiated due to possible COPD exacerbation as well. During my assessment in the ICU, he seemed to be improving with BiPAP support. His past cardiac history is notable for having had an exercise stress echocardiogram performed in 2014 with findings of a fixed basal inferior, posterior wall motion abnormality, and superimposed ischemia cannot be excluded. His resting ejection fraction was 50 to 54% at that time. The patient elected to proceed with medication therapy rather than cardiac catheterization. His most recent outpatient cardiology visit had been in 2015. KALLIE measurements assessed in June 2019 were consistent with significant peripheral arterial disease, KALLIE at rest on the right was 0.42 and on the left was 0.97. A 3.4 cm abdominal aortic aneurysm was also noted in June 2019. He is a smoker, smoking cigars daily. Allergies Allergy/AdvReac Type Severity Reaction Status Date / Time phenobarbital Allergy Mild dizzy Verified 12/25/19 15:03 Home Medications Home Medications Medication Instructions Recorded Confirmed Type Levemir FlexTouch U-100 Insuln 16 unit SUBCUT DAILY 08/03/19 12/25/19 History Ozempic 1 mg SUBCUT WK 08/03/19 12/25/19 History Selsun Blue 1 applic TOPICAL Q OTHER DAY 08/03/19 12/25/19 History aspirin [Aspirin Low Dose] 81 mg PO QAM 08/03/19 12/25/19 History baclofen 10 mg PO BID 08/03/19 12/25/19 History colchicine 0.6 mg PO BID 08/03/19 12/25/19 History cyanocobalamin (vitamin B-12) 1,000 mcg PO QAM 08/03/19 12/25/19 History [Vitamin B-12] gabapentin 300 mg PO TID 08/03/19 12/25/19 History levothyroxine 125 mcg PO QAM 08/03/19 12/25/19 History meloxicam 7.5 mg PO QAM 08/03/19 12/25/19 History metformin 1,000 mg PO BIDM 08/03/19 12/25/19 History omeprazole 20 mg PO QAM 08/03/19 12/25/19 History pravastatin 40 mg PO HS 08/03/19 12/25/19 History acetaminophen [Tylenol Extra 500 - 1,000 mg PO Q6H PRN 12/25/19 12/25/19 History Strength] lisinopril 5 mg PO DAILY 12/25/19 12/25/19 History tramadol 50 - 100 mg PO Q6H PRN 12/25/19 12/25/19 History triamcinolone acetonide 1 applic TOPICAL BID PRN 12/25/19 12/25/19 History Patient History Medical History AAA (abdominal aortic aneurysm) follows with [facility] Cardiology once a year Acute hypoxemic respiratory failure Degenerative disc disease Diabetes mellitus, type 2 Encounter for pre-operative examination GERD (gastroesophageal reflux disease) Gout Hyperlipidemia Hypertension Hypothyroidism Osteoarthritis Pulmonary embolism per record 1970s, unknown cause, no blood thinners Wheezing Surgical History History of colonoscopy with polypectomy History of esophagogastroduodenoscopy (EGD) History of repair of right rotator cuff History of tooth extraction upper teeth Family History Other No family history of adverse response to anesthesia Social History Preferred Language: Portuguese Communication Ability: Effective Physiotherapist'S Assistant Required: No Beliefs That Will Affect Care: None Current Living Situation: Alone Other Information That Helps Us Care for You: No Feels Safe at Home: Yes Safety Concerns: Feels Safe At This Time Smoking Status: Current every day smoker Tobacco Type: cigarettes ; Cigarettes Per Day: 5 ; Do You Dip or Chew Tobacco: No ; Second Hand Exposure: Yes ; Tobacco Cessation Education Requested by Patient: No Hx Alcohol Use: No Hx Substance Use: No Review of Systems Review of Systems: All systems reviewed & are unremarkable except as noted in HPI & below Physical Exam Physical Exam: Pulse Resp BP Pulse Ox 102 H 26 H 104/49 L 93 12/25/19 17:45 12/25/19 17:45 12/25/19 15:00 12/25/19 17:45 Constitutional: WD/WN, vitals as above Respiratory: Apical wheezing bilaterally Cardiovascular: Rate/Rhythm: + tachycardic Heart Sounds: no murmur Vessels: + JVD Extremities: + edema Neurologic: PERRL, EOMI, accommodation nl, no face palsy, no dysarthria Results & Data ([facility]) Vital Signs (Past 12 Hours) Vital Signs Pulse Resp BP Pulse Ox 12/25/19 15:00 97 H 28 H 104/49 L 94 12/25/19 14:30 102 H 21 94 12/25/19 14:19 97 H 24 110/72 94 12/25/19 14:15 102 H 25 H 93 12/25/19 14:06 104 H 19 101/72 95 Laboratory Results Cardiac Enzymes 12/25/19 Range/Units 14:10 AST 37 (15-37) U/L CK-MB (CK-2) 10.0 H (0.5-3.6) ng/ml Troponin I 2.240 H* (0-0.045) ng/ml Coagulation 12/25/19 12/25/19 Range/Units 14:10 14:45 PT Cancelled 11.9 APTT Cancelled 26.4 CBC 12/25/19 Range/Units 14:10 WBC 6.38 (4.8-10.8) K/uL RBC 3.47 L (4.7-6.1) M/uL Hgb 10.4 L (14.0-18.0) g/dL Hct 31.4 L (42-52) % Plt Count 166 (130-400) K/uL Neut # (Auto) 4.25 (1.4-6.5) K/uL Lymph # (Auto) 1.41 (1.2-3.4) K/uL [place] # (Auto) 0.63 H (0.11-0.59) K/uL Eos # (Auto) 0.06 (0-0.5) K/uL Baso # (Auto) 0.02 (0-0.2) K/uL Comprehensive Metabolic Panel 12/25/19 Range/Units 14:10 Sodium 136 (136-145) mmol/L Potassium 4.2 (3.5-5.1) mmol/L Chloride 107 (98-107) mmol/L Carbon Dioxide 22 (21-32) mmol/L BUN 34 H (7-18) mg/dl Creatinine 1.15 (0.6-1.4) mg/dl Glucose 121 H (70-99) mg/dl Calcium 8.8 (8.5-10.1) mg/dl AST 37 (15-37) U/L ALT 30 (12-78) U/L Alkaline Phosphatase 141 H (45-117) U/L Total Protein 7.2 (6.4-8.2) gm/dl Albumin 3.5 (3.4-5.0) gm/dl Intake and Output 12/25/19 12/25/19 12/25/19 06:59 14:59 22:59 Other: Weight 75 kg 75 kg Patient Weight 12/26/19 06:59 Weight 75 kg
[2019-12-25 18:12] LABS: Base Excess VBG -2.9 mEq/L; HCO3 VBG 24 mmol/L; PCO2 VBG 52 mmHg (38-50); PO2 VBG 32 mmHg; pH VBG 7.28 (7.36-7.41)
--- NOTE | 2019-12-25 18:12 | History & Physical Report ---
Date of Service December 25, 2019 Assessment & Plan (1) Chest pain: 74 year old male with history of CAD, AAA, DM, HTN, HLD, PE and other problems noted below presenting with shortness of breath and chest pain. POSSIBLE NSTEMI, SEVERE CORONARY ARTERY DISEASE Cardiac Cath Findings: 1. Severe multivessel coronary artery disease -100% acute on chronic mid RCA occlusion with brisk [id number] collaterals Severe heavily calcified proximal to mid LAD disease up to 80% on IVUS (iFR 0.69). Moderate nonobstructive proximal to mid circumflex disease (FFR 0.95). Occluded small OM1 with left to left collaterals. 2. Elevated intracardiac filling pressure. LVEDP 27 Heparin drip, Metoprolol, Atorvastatin started ASA continued plan for transfer to [facility] for CABG once respiratory status is stable, and COVID ruled out COPD EXACERBATION no pneumonia on CXR COVID pending Solumedrol, Nebs ordered HISTORY OF PE on Heparin drip will need CT angio HISTORY OF AAA on ASA, Atorvastatin DM 2 hold usual Trajenta, Ozempic, Detemir Pharm Glycemic control consulted HYPERTENSION BP borderline started on Metoprolol hold Lisinopril HYPOTHYROIDISM check TSH continue Levothryoxine PSEUDOGOUT hold Colchicine monitor DVT prophylaxis on Heparin drip Disposition transfer to [facility] for CABG once respiratory status is stable, COVID ruled out Admission and Anticipated Discharge Date Admission Date: December 25, 2019 History of Present Illness 74 year old male with history of CAD, AAA, DM, HTN, HLD, PE and other problems noted below presenting with shortness of breath and chest pain. Patient has been having 1 week history of substernal chest pain, with dyspnea and orthopnea. [facility], Covid test was performed and patient was taken to the ER via EMS. At ther ER, patient was noted to have troponin of 2.2 and EKG showed new LBBB. Heart alert was called and patient was taken to the cardiac cardiac cath technician. Cardiac Cath Findings: 1. Severe multivessel coronary artery disease -100% acute on chronic mid RCA occlusion with brisk ugbg-[id number]-gropt collaterals Severe heavily calcified proximal to mid LAD disease up to 80% on IVUS (iFR 0.69). Moderate nonobstructive proximal to mid circumflex disease (FFR 0.95). Occluded small OM1 with left to left collaterals. 2. Elevated intracardiac filling pressure. LVEDP 27 He was started on Heparin drip. At the ICU, patient was seen sitting up in bed, tachypneic, with accessory muscle use. He does report shortness of breath, but no chest pain, palpitations, dizziness. No chills, no cough or sputum production. Primary Care Provider: Riaz West MD Allergies Allergy/AdvReac Type Severity Reaction Status Date / Time phenobarbital Allergy Mild dizzy Verified 12/25/19 15:03 Home Medications Home Medications Medication Instructions Recorded Confirmed Type Levemir FlexTouch U-100 Insuln 16 unit SUBCUT DAILY 08/03/19 12/25/19 History Ozempic 1 mg SUBCUT WK 08/03/19 12/25/19 History Selsun Blue 1 applic TOPICAL Q OTHER DAY 08/03/19 12/25/19 History aspirin [Aspirin Low Dose] 81 mg PO QAM 08/03/19 12/25/19 History baclofen 10 mg PO BID 08/03/19 12/25/19 History colchicine 0.6 mg PO BID 08/03/19 12/25/19 History cyanocobalamin (vitamin B-12) 1,000 mcg PO QAM 08/03/19 12/25/19 History [Vitamin B-12] gabapentin 300 mg PO TID 08/03/19 12/25/19 History levothyroxine 125 mcg PO QAM 08/03/19 12/25/19 History meloxicam 7.5 mg PO QAM 08/03/19 12/25/19 History metformin 1,000 mg PO BIDM 08/03/19 12/25/19 History omeprazole 20 mg PO QAM 08/03/19 12/25/19 History pravastatin 40 mg PO HS 08/03/19 12/25/19 History acetaminophen [Tylenol Extra 500 - 1,000 mg PO Q6H PRN 12/25/19 12/25/19 History Strength] lisinopril 5 mg PO DAILY 12/25/19 12/25/19 History tramadol 50 - 100 mg PO Q6H PRN 12/25/19 12/25/19 History triamcinolone acetonide 1 applic TOPICAL BID PRN 12/25/19 12/25/19 History Past Med/Surg History Medical History AAA (abdominal aortic aneurysm) follows with [facility] once a year Acute hypoxemic respiratory failure Degenerative disc disease Diabetes mellitus, type 2 Encounter for pre-operative examination GERD (gastroesophageal reflux disease) Gout Hyperlipidemia Hypertension Hypothyroidism Osteoarthritis Pulmonary embolism per record 1970s, unknown cause, no blood thinners Wheezing Surgical History History of colonoscopy with polypectomy History of esophagogastroduodenoscopy (EGD) History of repair of right rotator cuff History of tooth extraction upper teeth Family History Other No family history of adverse response to anesthesia Social History Preferred Language: Greenlandic Communication Ability: Effective 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 Beliefs That Will Affect Care: None Current Living Situation: Alone Other Information That Helps Us Care for You: No Feels Safe at Home: Yes Safety Concerns: Feels Safe At This Time Smoking Status: Current every day smoker Tobacco Type: cigarettes ; Cigarettes Per Day: 5 ; Do You Dip or Chew Tobacco: No ; Second Hand Exposure: Yes ; Tobacco Cessation Education Requested by Patient: No Hx Alcohol Use: No Hx Substance Use: No Review of Systems Review of Systems: All systems reviewed & are unremarkable except as noted in HPI & below Physical Exam Physical Exam: General- oriented x 3, tachypneic , speaks in sentences with accessory muscle use Head- atraumatic Eyes- PERRL, EOMI, anicteric ENT- oropharynx clear Neck- supple, no JVD, no adenopathy, no thyromegaly; carotids +2/2, no bruits appreciated Lungs- (+) diffuse bilateral wheezing Heart- tachycardic rate, regular rhythm; no murmur, no gallop, no rub appreciated Abdomen- normal bowel sounds, nondistended, soft, nontender, no masses or hepatosplenomegaly Extremities- no pretibial edema, no calf tenderness; peripheral pulses intact Neuro- alert, oriented x 3; CN 2-12 grossly intact; motor 5/5 bilaterally;sensation 100% on all extremities; no other gross focal neurologic deficits Skin- warm & dry Results & Data Results & Data ([facility]) Vital Signs (Past 12 Hours) Vital Signs Pulse Resp BP Pulse Ox 12/25/19 15:00 97 H 28 H 104/49 L 94 12/25/19 14:30 102 H 21 94 12/25/19 14:19 97 H 24 110/72 94 12/25/19 14:15 102 H 25 H 93 12/25/19 14:06 104 H 19 101/72 95 Laboratory Results Laboratory Results - last 24 hr 12/25/19 12/25/19 12/25/19 14:10 14:10 14:10 WBC 6.38 RBC 3.47 L Hgb 10.4 L Hct 31.4 L MCV 90.5 MCH 30.0 MCHC 33.1 RDW Std Deviation 60.5 H RDW Coeff of Tian 18.3 H Plt Count 166 MPV 11.4 H Immature Gran % (Auto) 0.2 Neut % (Auto) 66.6 Lymph % (Auto) 22.1 [place] % (Auto) 9.9 Eos % (Auto) 0.9 Baso % (Auto) 0.3 Immature Gran # (Auto) 0.01 Neut # (Auto) 4.25 Lymph # (Auto) 1.41 [place] # (Auto) 0.63 H Eos # (Auto) 0.06 Baso # (Auto) 0.02 ESR 32 H PT Cancelled INR Cancelled APTT Cancelled PTT Ratio Cancelled Activ Coag Time Kaolin D-Dimer Cancelled VBG pH VBG pCO2 VBG pO2 VBG HCO3 VBG O2 Saturation VBG Base Excess Sodium Potassium Chloride Carbon Dioxide Anion Gap BUN Creatinine Est Cr Clr Drug Dosing Est GFR ( Amer) Est GFR (Non-Af Amer) BUN/Creatinine Ratio Glucose POC Glucose Lactate Calcium Total Bilirubin AST ALT Alkaline Phosphatase Total Creatine Kinase CK-MB (CK-2) CK/CKMB % Calc Troponin I C-Reactive Protein NT-Pro-B Natriuret Pep Total Protein Albumin Globulin Albumin/Globulin Ratio Lipase Procalcitonin Nasal Screen MRSA (PCR) Influenza Type A (PCR) Influenza Type B (PCR) 12/25/19 12/25/19 12/25/19 14:10 14:40 14:45 WBC RBC Hgb Hct MCV MCH MCHC RDW Std Deviation RDW Coeff of Tian Plt Count MPV Immature Gran % (Auto) Neut % (Auto) Lymph % (Auto) [place] % (Auto) Eos % (Auto) Baso % (Auto) Immature Gran # (Auto) Neut # (Auto) Lymph # (Auto) [place] # (Auto) Eos # (Auto) Baso # (Auto) ESR PT 11.9 INR 1.1 APTT 26.4 PTT Ratio 0.9 Activ Coag Time Kaolin D-Dimer 1410 H* VBG pH VBG pCO2 VBG pO2 VBG HCO3 VBG O2 Saturation VBG Base Excess Sodium 136 Potassium 4.2 Chloride 107 Carbon Dioxide 22 Anion Gap 7.0 BUN 34 H Creatinine 1.15 Est Cr Clr Drug Dosing Not Reportable Est GFR ( Amer) 71.7 Est GFR (Non-Af Amer) 61.9 BUN/Creatinine Ratio 29.1 H Glucose 121 H POC Glucose Lactate Calcium 8.8 Total Bilirubin 0.4 AST 37 ALT 30 Alkaline Phosphatase 141 H Total Creatine Kinase 248 CK-MB (CK-2) 10.0 H CK/CKMB % Calc 4.0 H Troponin I 2.240 H* C-Reactive Protein 0.54 H NT-Pro-B Natriuret Pep Total Protein 7.2 Albumin 3.5 Globulin 3.7 Albumin/Globulin Ratio 1.0 Lipase 39 L Procalcitonin Nasal Screen MRSA (PCR) Influenza Type A (PCR) Neg for Influ A Influenza Type B (PCR) Neg for Influ B 12/25/19 12/25/19 12/25/19 16:22 17:38 17:46 WBC RBC Hgb Hct MCV MCH MCHC RDW Std Deviation RDW Coeff of Tian Plt Count MPV Immature Gran % (Auto) Neut % (Auto) Lymph % (Auto) [place] % (Auto) Eos % (Auto) Baso % (Auto) Immature Gran # (Auto) Neut # (Auto) Lymph # (Auto) [place] # (Auto) Eos # (Auto) Baso # (Auto) ESR PT INR APTT PTT Ratio Activ Coag Time Kaolin 246 H D-Dimer VBG pH VBG pCO2 VBG pO2 VBG HCO3 VBG O2 Saturation VBG Base Excess Sodium Potassium Chloride Carbon Dioxide Anion Gap BUN Creatinine Est Cr Clr Drug Dosing Est GFR ( Amer) Est GFR (Non-Af Amer) BUN/Creatinine Ratio Glucose POC Glucose 127 H Lactate Calcium Total Bilirubin AST ALT Alkaline Phosphatase Total Creatine Kinase CK-MB (CK-2) CK/CKMB % Calc Troponin I C-Reactive Protein NT-Pro-B Natriuret Pep Total Protein Albumin Globulin Albumin/Globulin Ratio Lipase Procalcitonin Nasal Screen MRSA (PCR) Pending Influenza Type A (PCR) Influenza Type B (PCR) 12/25/19 12/25/19 12/25/19 17:57 17:57 17:57 WBC RBC Hgb Hct MCV MCH MCHC RDW Std Deviation RDW Coeff of Tian Plt Count MPV Immature Gran % (Auto) Neut % (Auto) Lymph % (Auto) [place] % (Auto) Eos % (Auto) Baso % (Auto) Immature Gran # (Auto) Neut # (Auto) Lymph # (Auto) [place] # (Auto) Eos # (Auto) Baso # (Auto) ESR PT INR APTT PTT Ratio Activ Coag Time Kaolin D-Dimer VBG pH Pending VBG pCO2 Pending VBG pO2 Pending VBG HCO3 Pending VBG O2 Saturation Pending VBG Base Excess Pending Sodium Potassium Chloride Carbon Dioxide Anion Gap BUN Creatinine Est Cr Clr Drug Dosing Est GFR ( Amer) Est GFR (Non-Af Amer) BUN/Creatinine Ratio Glucose POC Glucose Lactate Pending Calcium Total Bilirubin AST ALT Alkaline Phosphatase Total Creatine Kinase CK-MB (CK-2) CK/CKMB % Calc Troponin I C-Reactive Protein NT-Pro-B Natriuret Pep Pending Total Protein Albumin Globulin Albumin/Globulin Ratio Lipase Procalcitonin Nasal Screen MRSA (PCR) Influenza Type A (PCR) Influenza Type B (PCR) 12/25/19 17:57 WBC RBC Hgb Hct MCV MCH MCHC RDW Std Deviation RDW Coeff of Tian Plt Count MPV Immature Gran % (Auto) Neut % (Auto) Lymph % (Auto) [place] % (Auto) Eos % (Auto) Baso % (Auto) Immature Gran # (Auto) Neut # (Auto) Lymph # (Auto) [place] # (Auto) Eos # (Auto) Baso # (Auto) ESR PT INR APTT PTT Ratio Activ Coag Time Kaolin D-Dimer VBG pH VBG pCO2 VBG pO2 VBG HCO3 VBG O2 Saturation VBG Base Excess Sodium Potassium Chloride Carbon Dioxide Anion Gap BUN Creatinine Est Cr Clr Drug Dosing Est GFR ( Amer) Est GFR (Non-Af Amer) BUN/Creatinine Ratio Glucose POC Glucose Lactate Calcium Total Bilirubin AST ALT Alkaline Phosphatase Total Creatine Kinase CK-MB (CK-2) CK/CKMB % Calc Troponin I C-Reactive Protein NT-Pro-B Natriuret Pep Total Protein Albumin Globulin Albumin/Globulin Ratio Lipase Procalcitonin Pending Nasal Screen MRSA (PCR) Influenza Type A (PCR) Influenza Type B (PCR) Code Status & VTE Plan VTE Prophylaxis Plan VTE Prophylaxis will be ordered: Yes (1) Chest pain Chest pain type: unspecified Qualified Code(s): R07.9 - Chest pain, unspecified
[2019-12-25 18:13] LABS: Oxygen Saturation VBG < 60.0 %
[2019-12-25] MEDS ORDERED: TRAMADOL HCL 50 MG TABLET PO PRN (18:15)
[2019-12-25 18:30] LABS: BUN Creatinine Ratio 31.4 (10-20); Creatinine Clr Calc Pharmacy 56.7 ml/min; Est GFR (African American) 76.5; Magnesium 1.4 mg/dl (1.8-2.4); Potassium 3.9 mmol/L (3.5-5.1)
[2019-12-25] MEDS ORDERED: PHARMACY GLYCEMIC MGMT CONSULT PRN (18:44)
[2019-12-25] MEDS: MAGNESIUM SULFATE / D5W 1 GM/100 ML BAG IV SCH ×3 (18:46→21:14)
[2019-12-25] MEDS ORDERED: GLUCOSE 10 TABS/TUBE PO PRN (19:00)
[2019-12-25] MEDS ORDERED: GLUCAGON FOR INJ 1 MG VIAL IM PRN (19:00)
[2019-12-25] MEDS ORDERED: DEXTROSE 50% 50 ML SYRINGE IV PRN (19:00)
[2019-12-25] MEDS ORDERED: GLUCOSE 40% GEL 15 GM TUBE PO PRN (19:00)
[2019-12-25] MEDS ORDERED: CARBOHYDRATES FOR HYPOGLYCEMIA PO PRN (19:00)
[2019-12-25] MEDS: ALBUT/IPRATROP 3MG/0.5MG NEB 3 ML VIAL NEB SCH ×2 (19:50→23:05)
--- NOTE | 2019-12-25 19:55 | Pharmacy Report ---
Glycemic Control Consultation - Date of Service December 25, 2019 - Scope Scope: Glycemic Pharmacist consulted for glycemic control and to write orders per [facility] inpatient glycemic control protocol. - Objective Weight: 75 kg [place] BSG (last 24hrs): 12/25/19 12/25/19 12/25/19 14:10 17:46 17:57 Glucose 121 H 119 H POC Glucose 127 H Laboratory Data (last 24hrs): 12/25/19 12/25/19 14:10 17:57 Potassium 4.2 3.9 Carbon Dioxide 22 23 Anion Gap 7.0 4.0 Creatinine 1.15 1.09 Est Cr Clr Drug Dosing Not Reportable 56.7 - Recent Pertinent Medications Outpatient Anti-diabetic Regimen: * Levemir 16 units SC daily * Metformin 1000 mg PO BIDM * Ozempic 1 mg SC Mondays * A1c ordered Risk Factors for Insulin Resistance: * Steroids: Solu-medrol 80 mg IV x 1 today, then 40 mg IV BID ongoing starting tomorrow AM * IVF: heparin gtt @17 mL/hr * Recent Surgery: cardiac cath today * Diet: NPO - Assessment & Plan Assessment & Plan: ASSESSMENT: * JONI is a 74 year old male who presented to the ED today with CC of shortness of breath/dyspnea and chest pain. * Cardiac cath today revealed severe multivessel disease - plan is for transfer to [facility] when medically stable and Covid-19 ruled out * BSGs have been well-controlled so far today - ranging 119-127 mg/dL * Methylprednisolone 80 mg IV x 1 this evening with 40 mg IV ongoing * Heparin drip currently running at 17 mL/hr * Currently NPO PLAN FOR INPATIENT GLYCEMIC CONTROL: * Holding outpatient oral diabetes medications * Basal insulin * Will hold off on basal insulin at this time given NPO status and well- controlled BSGs * Reassess in AM * Bolus insulin * NovoLog per scale ACHS or Q6hrs while NPO * Goal Range: Low 140 mg/dL - High 180 mg/dL * Correction Factor: 30 mg/dL/unit * Nutritional / Prandial insulin per carb ratio of 1 unit per 10 grams CHO consumed * Please note that the plan above was derived based on current level of insulin resistance and hospital stress. These recommendations are appropriate for inpatient admission only. Plan of care upon discharge will need to be reassessed to avoid potential outpatient hypo/hyperglycemia. Thank you.
[2019-12-25] MEDS ORDERED: INSULIN ASPART 100 UNITS/ML 3 ML PEN SC SCH (20:00)
[2019-12-25] MEDS: GABAPENTIN 300 MG CAP PO SCH (20:07)
[2019-12-25] MEDS: METOPROLOL TARTRATE 25 MG TAB PO SCH (20:07)
[2019-12-25] MEDS: BACLOFEN 10 MG TAB PO SCH (20:07)
--- NOTE | 2019-12-25 22:15 | Communication Note ---
Date of Service: December 25, [address] West (patient's PCP) off negative outpatient COVID test. Printout of lab documentation sent to the ICU. Isolation precautions discontinued.
[2019-12-25] MEDS: Heparin IV Low Dose *NO* Bolus IV SCH ×2 (22:28→22:32)
[2019-12-25] MEDS ORDERED: Nursing to Pharmacy Communication ONE (22:56)
[2019-12-26] MEDS ORDERED: INSULIN ASPART 100 UNITS/ML 3 ML PEN SC SCH ×2
[2019-12-26] MEDS: INSULIN ASPART 100 UNITS/ML 3 ML PEN SC SCH ×4 (00:25→12:14)
[2019-12-26] MEDS: ALBUT/IPRATROP 3MG/0.5MG NEB 3 ML VIAL NEB SCH ×4 (02:23→15:47)
[2019-12-26] MEDS ORDERED: LEVOTHYROXINE SODIUM 125 MCG TABLET PO SCH (04:00)
[2019-12-26] MEDS ORDERED: INSULIN DETEMIR FLEXPEN/FLEX TOUCH 100 UNITS/ML 3ML SC ONE (04:15)
[2019-12-26] MEDS ORDERED: INSULIN HUMAN REGULAR PER UNIT 5 UNITS in SYRINGE 4.95 ML IV ONE (04:15)
[2019-12-26 04:49] LABS: Hematocrit (blood only) 30.7 % (42-52); Hemoglobin 10.2 g/dL (14.0-18.0); Immature Granulocytes # (auto) 0.01 K/uL (0.00-0.02); Immature Granulocytes % (auto) 0.2 %; Lymphocytes # (auto) 0.53 K/uL (1.2-3.4); Lymphocytes % (auto) 11.6 %; Mean Corpuscular Hgb Conc 33.2 g/dL (32-36); Mean Corpuscular Volume 90.3 fL (80-100); Mean Platelet Volume 11.4 fL (7.4-10.4); Monocytes # (auto) 0.12 K/uL (0.11-0.59); Monocytes % (auto) 2.6 %; Neutrophils # (auto) 3.89 K/uL (1.4-6.5); Neutrophils % (auto) 85.6 %; Platelet Count 148 K/uL (130-400); RDW Coefficient of Variation 18.2 % (11.5-14.5); RDW Standard Deviation 60.4 fL (36.4-46.3); White Blood Count 4.55 K/uL (4.8-10.8)
[2019-12-26 05:02] LABS: Partial Thromboplastin Ratio 1.7
[2019-12-26 05:06] LABS: Partial Thromboplastin Time 47.2 Seconds (21.0-31.0)
[2019-12-26 05:07] LABS: Magnesium 2.1 mg/dl (1.8-2.4); Phosphorus 4.6 mg/dl (2.5-4.9); Troponin I 8.96 ng/ml (0-0.045)
[2019-12-26 05:27] LABS: Albumin Globulin Ratio 0.8 (0.9-2); Albumin Level 3.1 gm/dl (3.4-5.0); BUN Creatinine Ratio 28.3 (10-20); Beta-Hydroxybutyrate 5.44 mg/dl (0.2-2.81); Bilirubin,Total 0.3 mg/dl (0.2-1); Calcium 8.8 mg/dl (8.5-10.1); Creatinine Clr Calc Pharmacy 46.1 ml/min; Est GFR (African American) 59.6; Est GFR (Non-African American) 51.5; Potassium 4.2 mmol/L (3.5-5.1); Total Protein 7.1 gm/dl (6.4-8.2)
[2019-12-26] MEDS ORDERED: methylPREDNISolone 40 MG in SYRINGE 0 ML IV SCH ×2 (06:00→08:00)
[2019-12-26 07:23] LABS: Estimated Average Glucose 160 mg/dl; Hemoglobin A1C 7.2 % (4.5-5.6)
[2019-12-26] MEDS ORDERED: ATORVASTATIN 40 MG TAB PO SCH (08:00)
[2019-12-26] MEDS ORDERED: PANTOprazole 40 MG TAB PO SCH (08:00)
[2019-12-26] MEDS ORDERED: ASPIRIN 81 MG ECTAB PO SCH (08:00)
[2019-12-26] MEDS ORDERED: MoRPHine SULFATE 2 MG/ML CARP IV PRN (08:10)
[2019-12-26] MEDS ORDERED: predniSONE 10 MG TABLET PO SCH (09:01)
[2019-12-26] MEDS: GABAPENTIN 300 MG CAP PO SCH (09:01)
[2019-12-26] MEDS: BACLOFEN 10 MG TAB PO SCH (09:01)
[2019-12-26] MEDS: METOPROLOL TARTRATE 25 MG TAB PO SCH (09:03)
--- NOTE | 2019-12-26 09:19 | Critical Care Progress Note ---
Date of Service December 26, 2019 Assessment & Plan (1) Acute hypoxemic respiratory failure: 74-year-old male with a history of coronary artery disease, peripheral arterial disease, history of pulmonary embolism and diabetes mellitus who presented with chest pain and underwent a left heart catheterization which demonstrated severe multivessel coronary artery disease including 100% acute on chronic mid RCA occlusion with brisk left to right collaterals. Severely heavily calcified proximal to mid LAD disease up to 80% was also seen. Recommendation was for evaluation of coronary artery bypass graft. He received 40 mg of IV Lasix in the [facility]. Additionally, recommendation was to continue heparin infusion after the TR band was removed. Chest x-ray was obtained which demonstrated hyperinflation. Patient's chest pain is improved today, but still has some mild ongoing chest pain. Troponin is still peaking. He is currently on heparin. He received 1 dose of IV Solu-Medrol 80 mg yesterday. I am dropping his steroids to 30 mg of p.o. prednisone. His glucose was elevated overnight and he received Levemir and short-acting insulin. Continue DuoNeb's. Holding metoprolol this morning given his low systolic blood pressure. Echo results are pending. Unfortunately, it does appear that his coronary artery disease is very advanced and has likely resulted in insult to his ejection fraction. Continue ASCVD meds per cardiology. May need a coronary artery bypass graft in the future. We will repeat a chest x-ray this morning. Depending on what cardiology says, we will decide upon feeding him later today. No obvious signs of infection. Holding antibiotics. Continue Protonix daily. He will need an evaluation for obstructive lung disease in the future with pulmonary function testing. May be able to move out of the ICU later today to telemetry. Patient discussed with bedside nurse this morning. (2) Chest pain: (3) CAD (coronary artery disease): (4) Wheezing: Admission and Anticipated Discharge Date Admission Date: December 25, 2019 Subjective Patient is doing much better today. He complains of mild chest pain in the left side of his chest. He notes chest pain is improved from yesterday. Minimal cough. Minimal wheezing. Still having some shortness of breath this morning. Saturating well on 2 L nasal cannula. Physical Exam Eyes: PERRL, conjunctivae normal, anicteric sclerae ENMT: external ear and nose normal, oropharynx normal Neck: normal visual inspection Respiratory: + tachypneic Auscultation: no wheezes Cardiovascular: Rate/Rhythm: + tachycardic Heart Sounds: no murmur Extremities: no edema Gastrointestinal (Abdomen): normal bowel sounds, soft, nontender, no hepatosplenomegaly Musculoskeletal: no cyanosis or clubbing, extremities motor strength 5/5 Skin: no rashes, warm and dry Neurologic: PERRL, EOMI, accommodation nl, no face palsy, no dysarthria Psychiatric: A+Ox3, euthymic affect Results & Data Results & Data ([facility]) Vital Signs (Past 12 Hours) Vital Signs Temp Pulse Pulse Resp BP BP Pulse Ox 12/26/19 06:53 78 18 100 12/26/19 06:00 73 22 96/63 L 97 12/26/19 05:00 71 19 95/46 L 94 12/26/19 04:00 97.7 F 68 20 95/57 L 93 12/26/19 03:30 82 15 97 12/26/19 03:00 71 15 96 12/26/19 02:23 81 16 97 12/26/19 02:00 65 18 92/60 L 99 12/26/19 01:30 72 16 100 12/26/19 01:24 70 14 93/61 L 98 12/26/19 01:00 71 18 96 12/26/19 00:24 68 12 91/57 L 93 12/26/19 00:00 98.1 F 70 14 94 12/25/19 23:03 67 18 99 12/25/19 23:00 71 18 95/60 L 100 12/25/19 22:43 70 20 96 12/25/19 22:24 70 18 93/62 L 93 12/25/19 22:00 81 17 96/63 L 94 12/25/19 21:30 88 24 97 Coding Level of Care Code 03130 Subseq Hosp Care Lvl 3 Diagnoses Acute hypoxemic respiratory failure J96.01 Chest pain R07.9 Chest pain type: unspecified CAD (coronary artery disease) I25.10 Wheezing R06.2 (1) Chest pain Chest pain type: unspecified Qualified Code(s): R07.9 - Chest pain, unspecified
--- NOTE | 2019-12-26 10:12 | XRay Report ---
XR chest 1V portable CLINICAL HISTORY: chest pain COMPARISON STUDY: Chest radiograph December 25, 2019. FINDINGS: Distal right clavicular resection is incidentally noted. Lung volumes are normal. Lungs are clear. There is no pneumothorax or pleural effusion. Mild cardiomegaly is noted. Mediastinal contour s are normal. There is no evidence for pulmonary edema. IMPRESSION: No acute cardiopulmonary findings. No change in appearance of the chest. ACT 112: Negative or not required by law. Electronically signed by: Alex Donahue M.D. 12/26/2019 10:11 AM
--- NOTE | 2019-12-26 10:21 | XCELERA ---
[id number] \\[id number]___[id number]
--- NOTE | 2019-12-26 10:36 | Cardiology Progress Note ---
Date of Service December 26, 2019 Assessment & Plan (1) Myocardial infarction: (2) Acute systolic (congestive) heart failure: (3) Ischemic cardiomyopathy: (4) Acute hypoxemic respiratory failure: (5) COPD exacerbation: Continue aspirin, statin, and IV heparin. Recommend addition of low-dose beta-william, metoprolol 12.5 mg twice daily, if blood pressure improves. Hold TABATHA inhibitor at this time due to hypotension. Echocardiogram demonstrates severe LV systolic dysfunction. Respiratory status improved with intravenous diuretic therapy and corticosteroids. Results of cardiac catheterization demonstrating multivessel coronary disease discussed with patient at length. Coronary artery bypass grafting recommended for treatment of multivessel obstructive CAD in the setting of acute coronary syndrome. Patient agreeable to transfer to [facility] for cardiothoracic surgery consultation. Subjective Patient seen and examined at the bedside. Respiratory status improved overnight. Reports an episode of left-sided chest discomfort earlier this a.m. Discomfort is spontaneously resolved. His troponin has trended upward. ECG demonstrates left bundle branch block. No sustained dysrhythmias on telemetry. Currently, patient resting comfortably. Requesting diet if possible. Tolerating current medications. Cardiac catheterization films reviewed demonstrating multivessel CAD. Preliminary review of resting 2D transthoracic echocardiogram demonstrates severe LV systolic function with ejection fraction of 15 to 20%. No significant valvular pathology. Review of Systems Review of Systems: All systems reviewed & are unremarkable except as noted in HPI & below Physical Exam Constitutional: + ill appearing and + thin ENMT: Mouth: + dentition abnormality Neck: trachea midline; no neck crepitus Respiratory: Auscultation: + diminished lung sounds (Bilateral); no crackles, no rales, no rhonchi and no wheezes Cardiovascular: Rate/Rhythm: regular rate and regular rhythm Heart Sounds: normal S1 and normal S2; no murmur and no cardiac rub Palpation: normal PMI Vessels: radial pulses present (No right anterior wrist ecchymosis or hematoma.); no JVD and no carotid bruit Extremities: no edema Gastrointestinal (Abdomen): Inspection/Auscultation: abdomen normal to inspection and normal bowel sounds; abdomen not distended Percussion/Palpation: abdomen soft; abdomen nontender, no guarding and abdomen not rigid Musculoskeletal: Head/Neck/Chest: normocephalic and head atraumatic Skin: no rashes, warm and dry Neurologic: CN's II-XI intact bilaterally and moves all extremities; no focal motor deficits Speech / Cognition: normal speech Psychiatric: A+Ox3, euthymic affect Results & Data Vital Signs (Past 12 Hours) Vital Signs Temp Pulse Pulse Resp BP BP Pulse Ox 12/26/19 09:42 77 20 95/45 L 93 12/26/19 08:42 36.6 C 84 20 84/54 L 99 12/26/19 08:00 73 12/26/19 07:58 73 14 89/57 L 98 12/26/19 06:58 68 18 88/58 L 99 12/26/19 06:53 78 18 100 12/26/19 06:00 73 22 96/63 L 97 12/26/19 05:00 71 19 95/46 L 94 12/26/19 04:00 36.5 C 68 20 95/57 L 93 12/26/19 03:30 82 15 97 12/26/19 03:00 71 15 96 12/26/19 02:23 81 16 97 12/26/19 02:00 65 18 92/60 L 99 12/26/19 01:30 72 16 100 12/26/19 01:24 70 14 93/61 L 98 12/26/19 01:00 71 18 96 12/26/19 00:24 68 12 91/57 L 93 12/26/19 00:00 36.7 C 70 14 94 12/25/19 23:03 67 18 99 12/25/19 23:00 71 18 95/60 L 100 12/25/19 22:43 70 20 96 (1) Myocardial infarction Myocardial infarction type: ST elevation myocardial infarction Involved coronary artery: unspecified coronary artery Qualified Code(s): I21.3 - ST elevation (STEMI) myocardial infarction of unspecified site
--- NOTE | 2019-12-26 10:38 | Hospitalist Progress Note ---
Date of Service December 26, 2019 Assessment & Plan (1) Chest pain: 74 year old male with history of CAD, AAA, DM, HTN, HLD, PE and other problems noted below presenting with shortness of breath and chest pain. POSSIBLE NSTEMI, SEVERE CORONARY ARTERY DISEASE Cardiac Cath Findings: 1. Severe multivessel coronary artery disease -100% acute on chronic mid RCA occlusion with brisk yviz-qp-waxgw collaterals Severe heavily calcified proximal to mid LAD disease up to 80% on IVUS (iFR 0.69). Moderate nonobstructive proximal to mid circumflex disease (FFR 0.95). Occluded small OM1 with left to left collaterals. 2. Elevated intracardiac filling pressure. LVEDP 27 Heparin drip, Metoprolol, Atorvastatin started ASA continued chest pain minimal, PRN Tramadol echo pending plan for transfer to [facility] for CABG today COPD EXACERBATION no pneumonia on CXR COVID negative improved Solumedrol changed to Prednisone, Nebs ordered HISTORY OF PE on Heparin drip HISTORY OF AAA on ASA, Atorvastatin DM 2 hold usual Trajenta, Ozempic, Detemir Pharm Glycemic control consulted HYPERTENSION BP borderline started on Metoprolol hold Lisinopril HYPOTHYROIDISM check TSH continue Levothryoxine PSEUDOGOUT hold Colchicine monitor DVT prophylaxis on Heparin drip Disposition possible transfer to [facility] for CABG Admission and Anticipated Discharge Date Admission Date: December 25, 2019 Subjective ff up for NSTEMI, COPD exacerbation resting in bed, comfortable on 2 L nasal cannula not in distress minimal left sided chest discomfort no SOB, cough, fever/chills, nausea/vomiting no other symptoms Review of Systems Review of Systems: All systems reviewed & are unremarkable except as noted in HPI & below Physical Exam Physical Exam: General- oriented x 3, not in distress, speaks in sentences with no effort or accessory muscle use Eyes- anicteric Neck- no JVD Lungs- diminished but clear breath sounds bilaterally no crackles/wheeze Heart- normal rate, regular rhythm; no murmurs Abdomen- normal bowel sounds, nondistended, soft, nontender Extremities- no pretibial edema, no calf tenderness Neuro- alert, oriented x 3; no gross focal neurologic deficits Skin- warm & dry Results & Data Results & Data ([facility]) Vital Signs (Past 12 Hours) Vital Signs Temp Pulse Pulse Resp BP BP Pulse Ox 12/26/19 09:42 77 20 95/45 L 93 12/26/19 08:42 36.6 C 84 20 84/54 L 99 12/26/19 08:00 73 12/26/19 07:58 73 14 89/57 L 98 12/26/19 06:58 68 18 88/58 L 99 12/26/19 06:53 78 18 100 12/26/19 06:00 73 22 96/63 L 97 12/26/19 05:00 71 19 95/46 L 94 12/26/19 04:00 36.5 C 68 20 95/57 L 93 12/26/19 03:30 82 15 97 12/26/19 03:00 71 15 96 12/26/19 02:23 81 16 97 12/26/19 02:00 65 18 92/60 L 99 12/26/19 01:30 72 16 100 12/26/19 01:24 70 14 93/61 L 98 12/26/19 01:00 71 18 96 12/26/19 00:24 68 12 91/57 L 93 12/26/19 00:00 36.7 C 70 14 94 12/25/19 23:03 67 18 99 12/25/19 23:00 71 18 95/60 L 100 12/25/19 22:43 70 20 96 (1) Chest pain Chest pain type: unspecified Qualified Code(s): R07.9 - Chest pain, unspecified
--- NOTE | 2019-12-26 12:01 | Pharmacy Report ---
Pharmacy Glycemic Short Note 2 - Date of Service December 26, 2019 - Glycemic Short BSG Results (Last 24 hours): 12/25/19 12/25/19 12/25/19 14:10 17:46 17:57 Glucose 121 H 119 H POC Glucose 127 H 12/25/19 12/26/19 12/26/19 20:12 00:22 04:00 Glucose POC Glucose 148 H 289 H 366 H* 12/26/19 12/26/19 12/26/19 04:00 04:24 08:57 Glucose 326 H* POC Glucose 319 H* 205 H 12/26/19 11:44 Glucose POC Glucose 74 ASSESSMENT: 12/25: * Patient received total of 6 units last evening - BSG trending up overnight and early this am to 319 mg/dL * Given 10 units of basal insulin (decreased dose d/t NPO status) and 5 units IV insulin * BSG this Am 205 - per provider nurse instructed to give 5 units of novolog instead of ordered novolog order * BSG at lunch time trending down to 74 mg/dL * Per provider notes, patient likely transfer to [place] for CABG today 12/24: * BC is a 74 year old male who presented to the ED today with CC of shortness of breath/dyspnea and chest pain. * Cardiac cath today revealed severe multivessel disease - plan is for transfer to [facility] when medically stable and Covid-19 ruled out * BSGs have been well-controlled so far today - ranging 119-127 mg/dL * Methylprednisolone 80 mg IV x 1 this evening with 40 mg IV ongoing * Heparin drip currently running at 17 mL/hr * Currently NPO PLAN FOR INPATIENT GLYCEMIC CONTROL: * Holding outpatient oral diabetes medications * Basal insulin * Reassess tomorrow AM - no need for further basal today * Bolus insulin * NovoLog per scale Q4 hr checks * Goal Range: Low 140 mg/dL - High 180 mg/dL * Correction Factor: 25 mg/dL/unit * Nutritional / Prandial insulin per carb ratio of 1 unit per 8 grams CHO consumed * Please note that the plan above was derived based on current level of insulin resistance and hospital stress. These recommendations are appropriate for inpatient admission only. Plan of care upon discharge will need to be reassessed to avoid potential outpatient hypo/hyperglycemia. Thank you.
--- NOTE | 2019-12-26 12:09 | Discharge Summary ---
Date of Service December 26, 2019 Admission HPI Per Admitting Provider 74 year old male with history of CAD, AAA, DM, HTN, HLD, PE and other problems noted below presenting with shortness of breath and chest pain. Patient has been having 1 week history of substernal chest pain, with dyspnea and orthopnea. [facility], Covid test was performed and patient was taken to the ER via EMS. At ther ER, patient was noted to have troponin of 2.2 and EKG showed new LBBB. Heart alert was called and patient was taken to the cardiac lab systems analyst. Cardiac Cath Findings: 1. Severe multivessel coronary artery disease -100% acute on chronic mid RCA occlusion with brisk oybi-yv-doguy collaterals Severe heavily calcified proximal to mid LAD disease up to 80% on IVUS (iFR 0.69). Moderate nonobstructive proximal to mid circumflex disease (FFR 0.95). Occluded small OM1 with left to left collaterals. 2. Elevated intracardiac filling pressure. LVEDP 27 He was started on Heparin drip. At the ICU, patient was seen sitting up in bed, tachypneic, with accessory musc le use. He does report shortness of breath, but no chest pain, palpitations, dizziness. No chills, no cough or sputum production. Admission Exam Per Admitting Provider General- oriented x 3, tachypneic , speaks in sentences with accessory muscle use Head- atraumatic Eyes- PERRL, EOMI, anicteric ENT- oropharynx clear Neck- supple, no JVD, no adenopathy, no thyromegaly; carotids +2/2, no bruits appreciated Lungs- (+) diffuse bilateral wheezing Heart- tachycardic rate, regular rhythm; no murmur, no gallop, no rub a ppreciated Abdomen- normal bowel sounds, nondistended, soft, nontender, no masses or hepatosplenomegaly Extremities- no pretibial edema, no calf tenderness; peripheral pulses intact Neuro- alert, oriented x 3; CN 2-12 grossly intact; motor 5/5 bilaterally;sensation 100% on all extremities; no other gross focal neurologic deficits Skin- warm & dry Principal Diagnosis NSTEMI, SEVERE CAD; COPD EXACERBATION Discharge Exam General- oriented x 3, not in distress, speaks in sentences with no effort or accessory muscle use Eyes- anicteric Neck- no JVD Lungs- diminished but clear breath sounds bilaterally no crackles/wheeze Heart- normal rate, regular rhythm; no murmurs Abdomen- normal bowel sounds, nondistended, soft, nontender Extremities- no pretibial edema, no calf tenderness Neuro- alert, oriented x 3; no gross focal neurologic deficits Skin- warm & dry Discharge Data Allergies Allergy/AdvReac Type Severity Reaction Status Date / Time phenobarbital Allergy Mild dizzy Verified 12/25/19 15:03 Consultations 12/25/19 15:35 Consult Cardiology Stat 12/25/19 15:36 Consult Cardiology Stat 12/25/19 15:42 ED Decision to Admit Stat 12/25/19 16:31 Consult Car Record Clerk Routine 12/25/19 18:15 Consult Case Management - Discharge Planning Routine Procedures Performed Operation Date: 12/25/19 15:15 Actual Procedures p Cath, Left with Cors and Vent - Andres Lucio MD s Cineradiography w/Routine Exam - Andres Lucio MD s IVUS Coronary Single Vessel - Andres Lucio MD s Fraction Flow [place] SGL Lorna - Andres Lucio MD s Fraction Flow [place] Addl Lorna - Andres Lucio MD Ordered Studies 12/25/19 15:09 CL Cath Imgs for PACS use only Stat 12/25/19 16:53 CL IVUS Coronary Single Vessel Routine Hospital Course (1) Chest pain: 74 year old male with history of CAD, AAA, DM, HTN, HLD, PE and other problems noted below presenting with shortness of breath and chest pain. POSSIBLE NSTEMI, SEVERE CORONARY ARTERY DISEASE Cardiac Cath Findings: 1. Severe multivessel coronary artery disease -100% acute on chronic mid RCA occlusion with brisk bvtg-ma-tzyts collaterals Severe heavily calcified proximal to mid LAD disease up to 80% on IVUS (iFR 0.69). Moderate nonobstructive proximal to mid circumflex disease (FFR 0.95). Occluded small OM1 with left to left collaterals. 2. Elevated intracardiac filling pressure. LVEDP 27 Echo: severe LV systolic dysfunction Heparin drip, Metoprolol, Atorvastatin started ASA continued chest pain minimal, PRN Tramadol echo pending plan for transfer to [facility] for CABG today COPD EXACERBATION no pneumonia on CXR COVID negative improved Solumedrol changed to Prednisone, Nebs ordered HISTORY OF PE on Heparin drip HISTORY OF AAA on ASA, Atorvastatin DM 2 hold usual Trajenta, Ozempic, Detemir Pharm Glycemic control consulted HYPERTENSION BP borderline started on Metoprolol hold Lisinopril HYPOTHYROIDISM check TSH continue Levothryoxine PSEUDOGOUT on Colchicine monitor DVT prophylaxis on Heparin drip Disposition possible transfer to [facility] for CABG Total Time Total Time Spent Total Time Spent (In Minutes): 55 minutes Discharge Plan Discharge Items Patient Disposition: Transfer Acute Care Hospital Reason For Visit: ACS Discharge Diagnosis: NSTEMI, SEVERE CAD COPD EXACERBATION Activity: As commented below Activity Comment: BEDREST Non-emergency contact: Primary Care Provider Call non-emergency contact if: you have any medication questions and you have a fever Follow-up/Referrals: Riaz West MD [Primary Care Provider] - Diet: Carb Consistent or DM2 and Heart Healthy Addtl Attending Provider Instructions: PLEASE REFER TO ACCOMPANYING HOSPITAL DISCHARGE SUMMARY. Pending Studies at Discharge: No Stand-Alone Forms: My [facility] Skilled Items Patient informed of condition?: Yes DNR: No Discharge Level of Care: Other Communicable Disease: No Discharge Prognosis: Stable Lines: Peripheral IV Urinary Catheter: No Medications and DC Order Prescriptions: New atorvastatin 40 mg Tablet 80 mg PO DAILY@0800 30 Days Qty: 30 RF: 0 ipratropium-albuterol 0.5 mg-3 mg(2.5 mg base)/3 mL Solution For Nebulization 3 ml NEB Q4R 7 Days Qty: 10 RF: 0 aspirin 81 mg Tablet,Delayed Release (Dr/Ec) 81 mg PO DAILY@0800 Qty: 30 RF: 0 insulin aspart U-100 [Novolog Flexpen U-100 Insulin] 100 unit/mL (3 mL) Insulin Pen 1 units SC Q4 Qty: 15 RF: 0 metoprolol tartrate 25 mg Tablet 25 mg PO BID@0800,1999 30 Days Qty: 30 RF: 0 ondansetron HCl (PF) 4 mg/2 mL Solution 4 mg IV Q6H PRN (Reason: nausea and vomiting) 7 Days Qty: 10 RF: 0 morphine 2 mg/mL Syringe 2 mg IV Q6H PRN (Reason: pain) 3 Days Qty: 10 RF: 0 prednisone 10 mg Tablet 30 mg PO DAILY@0800 7 Days Qty: 21 RF: 0 Levemir FlexTouch U-100 Insuln 100 unit/mL (3 mL) Insulin Pen 10 unit SC DAILY 7 Days Qty: 0.7 RF: 0 Continued tramadol 50 mg Tablet 50 - 100 mg PO Q6H PRN (Reason: Pain) RF: 0 acetaminophen [Tylenol Extra Strength] 500 mg Tablet 500 - 1,000 mg PO Q6H PRN (Reason: Pain) RF: 0 triamcinolone acetonide 0.1 % Cream 1 applic TOPICAL BID PRN (Reason: Skin Irritation) RF: 0 levothyroxine 125 mcg Tablet 125 mcg PO QAM RF: 0 cyanocobalamin (vitamin B-12) [Vitamin B-12] 1,000 mcg Tablet 1,000 mcg PO QAM RF: 0 aspirin [Aspirin Low Dose] 81 mg Tablet,Delayed Release (Dr/Ec) 81 mg PO QAM RF: 0 baclofen 10 mg Tablet 10 mg PO BID RF: 0 gabapentin 300 mg Capsule 300 mg PO TID RF: 0 omeprazole 20 mg Capsule,Delayed Release(Dr/Ec) 20 mg PO QAM RF: 0 colchicine 0.6 mg Tablet 0.6 mg PO BID RF: 0 Selsun Blue 1 % Shampoo 1 applic TOPICAL Q OTHER DAY RF: 0 Discontinued lisinopril 5 mg Tablet 5 mg PO DAILY RF: 0 pravastatin 40 mg Tablet 40 mg PO HS RF: 0 meloxicam 7.5 mg Tablet 7.5 mg PO QAM RF: 0 metformin 1,000 mg Tablet 1,000 mg PO BIDM RF: 0 Levemir FlexTouch U-100 Insuln 100 unit/mL (3 mL) Insulin Pen 16 unit SUBCUT DAILY RF: 0 Ozempic 1 mg/dose (2 mg/1.5 mL) Pen Injector 1 mg SUBCUT WK RF: 0 Discharge Orders: Discharge Order (Routine); Ordered 12/26/19 Ordered By: Judd Beltrán Admission Data Admit Date/Time: 12/25/19 16:31 Attending Provider: Judd Beltrán Admit Provider: Andres Lucio Primary Care Provider: Riaz West Other Providers: Gerardo Silver ; Andres Lucio ; Judd Beltrán ; Sonny Heart
--- NOTE | 2019-12-26 12:51 | Electrocardiogram Report ---
Test Reason : Blood Pressure : / mmHG Vent. Rate : 072 BPM Atrial Rate : 072 BPM P-R Int : 148 ms QRS Dur : 122 ms QT Int : 430 ms P-R-T Axes : 037 -08 178 degrees QTc Int : 470 ms Normal sinus rhythm Left bundle branch block Abnormal ECG When compared with ECG of 25-DEC-2019 14:37, ST now depressed in Anterior leads Nonspecific T wave abnormality now evident in Inferior leads T wave inversion now evident in Anterior leads Confirmed by Michael Gomes ([id number]) on 12/26/2019 12:51:04 PM Referred By: Riaz West Confirmed By:Michael Gomes
[2019-12-26] MEDS ORDERED: ACETAMINOPHEN 500 MG TAB PO PRN (14:59)
[2019-12-27] MEDS ORDERED: predniSONE 10 MG TABLET PO SCH (08:00)
[2019-12-27] MEDS ORDERED: INSULIN DETEMIR FLEXPEN/FLEX TOUCH 100 UNITS/ML 3ML SC SCH (09:00)
== END 2019-12-26 16:28 | disposition short-term general hospital (02) | DRG 280 ==
LOC: ED 13:57 → CC 15:43 → 1E 16:31

== ENCOUNTER 2020-04-06 08:49 | Observation (INO) ==
[2020-04-06] MEDS ORDERED: MIDAZOLAM HCL 5 MG/ML 1 ML VIAL ONE (10:25)
[2020-04-06] MEDS ORDERED: LIDOCAINE HCL 1% 20 ML VIAL ONE (10:25)
[2020-04-06] MEDS ORDERED: fentaNYL citrate 100 MCG/2 ML VIAL ONE ×2 (10:25→12:36)
[2020-04-06] MEDS ORDERED: BUPIVACAINE 0.25% 30 ML VIAL ONE (10:25)
[2020-04-06] MEDS ORDERED: BACITRACIN INJ 50,000 UNIT VIAL ONE (10:26)
[2020-04-06] MEDS ORDERED: CEFAZOLIN 250 MG/ML 1 GM VIAL ONE (10:26)
--- NOTE | 2020-04-06 10:30 | History & Physical Bridge Note ---
Date of Service April 06, 2020 History & Physical Bridge Note I have examined the patient, reviewed the History & Physical and in the interval since the performance of the History & Physical I have noted the following changes of clinical significance: no changes noted
--- NOTE | 2020-04-06 10:31 | Pre Anesthesia Assessment ---
Date of Service April 06, 2020 Pre Sedation Assessment Vital Signs Temp Pulse Resp BP Pulse Ox 04/06/20 09:20 36.8 C 71 18 99/56 L 98 Cardiovascular RRR, no murmur, no edema Respiratory normal respiratory effort, lungs clear to auscultation Pre-Sedation Airway Assessment Smoking Status: Current every day smoker Hx Sleep Apnea: No Hx Difficult Intubation: No Short, Thick Neck: No Thyromental Distance: > or= 3.5 Finger Breadths Oral Cavity: + Dentures Mallampati Class: I ASA: ASA4 NPO Status Date of Last Intake of Fluids: 04/06/20 Time of Last Intake of Fluids: 07:00 Date of Last Intake of Solid Food: 04/05/20 Time of Last Intake of Solid Foods: 18:00 Procedure Planning Contraindications for Sedation: none Current Medications Reviewed: Yes Notes The planned sedation has been discussed with the patient. Informed Consent was obtained. I have identified the patient, determined the appropriateness of sedation and have assessed the patient immediately prior to the procedure. All medicine(s) and interventions are by my order.
--- NOTE | 2020-04-06 13:06 | Post Anesthesia Assessment ---
Date of Service April 06, 2020 Post Sedation Assessment Vital Signs Temp Pulse Resp BP Pulse Ox 04/06/20 09:20 36.8 C 71 18 99/56 L 98 Recovery Score Activity: Moves 4 extremities Respiration: Deep Breath/Cough Circulation: +/-20% PreAnes Value Consciousness: Fully Awake Oxygen Saturation: > 92% On Room Air Discharge Sedation Level of Care: Fast Track Phase II Post Sedation Plan On clinical assessment, the patient appears to have tolerated the sedation without complications. Patient is recovering as anticipated. Patient will continue to be monitored by nursing and may be discharged when sedation discharge criteria are met per below protocol. Upon Completions of procedure up to 15 minutes continue every 5 minute vital signs and the P.A.R. score; then discharge to a Phase I or Fast Track to Phase II per the following guidelines: * Discharge Patient to appropriate Phase II area if PAR is 8 or greater or return to pre- procedure baseline. The post - procedure orders will be as directed. * If PAR score is less than 8 or not return to pre-procedure baseline then patient will follow Phase I monitoring till PAR is reached for Phase II. The Phase I may be done in procedure room or may call to secure a Phase I area. * If naloxone or flumazenil are used for reversal, hold in Phase I for continued monitoring from when last reversal dose was given for a minimum of 60 minutes or longer pending the nurse and/or physician discretion of patient condition before discharge to Phase II. Please call the Sedation Physician to re-evaluate and complete post-note for discharge to Phase II area. Do NOT discharge from procedure sedation or Phase 1 until post- sedation evaluation note is complete by procedure /sedation MD Sedation Discharge Instructions to be given to the patient at discharge to home.
--- NOTE | 2020-04-06 13:07 | Operative Report ---
Post Operative Report Pre & Post Diagnosis ICM, LBBB, Chronic heart failure with reduced EF, NYHA Class III Operation Date: 04/06/20 10:00 <No data on this case meets the specified criteria> I identified the patient and participated in the time-out.: Yes Procedure Operation Date: 04/06/20 10:00 <No data on this case meets the specified criteria> BiV ICD implant Intracardiac EGM mapping of his bundle peripheral and coronary sinus venograms Surgeon Daniela Altman, DO [employer] none Estimated Blood Loss 15 Findings Consistent with Post-Op Diagnosis Specimens none Description of Procedure see official report I attest to the content of the Intraoperative Record and any orders documented therein. Any exceptions are noted below.
[2020-04-06] MEDS ORDERED: ACETAMINOPHEN 325 MG TAB PO PRN (13:08)
[2020-04-06] MEDS ORDERED: ALBUTEROL HFA 8 GM INHALER INH PRN (13:11)
[2020-04-06] MEDS ORDERED: SEMAGLUTIDE 1 MG SQ SCH (13:15)
[2020-04-06] MEDS ORDERED: SELENIUM SULFIDE TOP SCH (13:15)
--- NOTE | 2020-04-06 13:20 | Discharge Summary ---
Date of Service April 07, 2020 Admission HPI Per Admitting Provider Pt with SOB and ICM for elective ICD Admission Exam Per Admitting Provider aaox3, NAD NC/AT, EOMI Supple No JVD Nrl S1/S2, No murmur CTA b/l no w/r/r soft nt/nd no LE edema b/l skin intact no focal deficits Principal Diagnosis ICM s/p BiV ICD Discharge Exam aaox3, NAD NC/AT, EOMI Supple No JVD Nrl S1/S2, No murmur CTA b/l no w/r/r soft nt/nd no LE edema b/l skin intact no focal deficits left pectoral incision intact, no hematoma mild ecchymosis Discharge Data Allergies Allergy/AdvReac Type Severity Reaction Status Date / Time phenobarbital Allergy Mild dizzy Verified 12/25/19 15:03 Procedures Performed Operation Date: 04/06/20 10:00 Actual Procedures p ICD with A/V Leads (multiple) - Danieal Altman DO Ordered Studies 04/06/20 07:00 EP Lab Images for PACS ONCE Hospital Course (1) Ischemic cardiomyopathy: (2) LBBB (left bundle branch block): Total Time Total Time Spent Total Time Spent (In Minutes): 40 Discharge Plan Discharge Items Patient Disposition: Home - Self-Care Reason For Visit: BIVICD Discharge Diagnosis: ICM s/p BiV ICD Condition on Discharge: Good Activity: As commented below Activity Comment: do not lift your left elbow over the left shoulder for 1 month Lifting: No more than 10 pounds Lifting Comment: do not lift more then 10 pounds with the left arm for 2 weeks Bathing: Keep incision dry Bathing Comment: keep dressing on and dry until wound check next week Non-emergency contact: [employer] Call non-emergency contact if: you have any medication questions Follow-up/Referrals: Riaz West MD [Primary Care Provider] - Diet: Heart Healthy Addtl Attending Provider Instructions: device and wound check at [facility] Cardiology as scheduled next week Pending Studies at Discharge: No Stand-Alone Forms: My [facility] Medications and DC Order Prescriptions: Continued tramadol 50 mg Tablet 50 - 100 mg PO Q6H PRN (Reason: Pain) RF: 0 acetaminophen [Tylenol Extra Strength] 500 mg Tablet 500 - 1,000 mg PO Q6H PRN (Reason: Pain) RF: 0 levothyroxine 125 mcg Tablet 125 mcg PO QAM RF: 0 cyanocobalamin (vitamin B-12) [Vitamin B-12] 1,000 mcg Tablet 1,000 mcg PO QAM RF: 0 aspirin [Aspirin Low Dose] 81 mg Tablet,Delayed Release (Dr/Ec) 81 mg PO QAM RF: 0 gabapentin 300 mg Capsule 300 mg PO TID RF: 0 omeprazole 20 mg Capsule,Delayed Release(Dr/Ec) 20 mg PO QAM RF: 0 colchicine 0.6 mg Tablet 0.6 mg PO BID RF: 0 Selsun Blue 1 % Shampoo 1 applic TOPICAL Q OTHER DAY RF: 0 fluticasone propion-salmeterol [Advair Diskus] 250-50 mcg/dose Blister With Device 1 inh INHALATION Q12H RF: 0 atorvastatin 80 mg Tablet 40 mg PO DAILY RF: 0 metoprolol succinate 50 mg Tablet Extended Release 24 Hr 50 mg PO DAILY RF: 0 clopidogrel [Plavix] 75 mg Tablet 75 mg PO DAILY RF: 0 triamcinolone acetonide 0.1 % Cream 1 applic TOPICAL BID RF: 0 ferrous sulfate [Feosol] 325 mg (65 mg iron) Tablet 325 mg PO BID RF: 0 metformin 1,000 mg Tablet 1,000 mg PO BID RF: 0 nitroglycerin [Nitrostat] 0.4 mg Tablet, Sublingual See Rx Instructions .ROUTE .COMPLEX PRN (Reason: chest pain ) RF: 0 lisinopril 5 mg Tablet 5 mg PO DAILY RF: 0 furosemide [Lasix] 20 mg Tablet 20 mg PO DAILY RF: 0 albuterol sulfate 90 mcg/actuation Hfa Aerosol Inhaler 1 inh INHALATION QID PRN (Reason: Wheezing) RF: 0 Levemir FlexTouch U-100 Insuln 100 unit/mL (3 mL) Insulin Pen 18 unit SUBCUT HS RF: 0 Incruse Ellipta 62.5 mcg/actuation Blister With Device 1 inh INHALATION DAILY RF: 0 semaglutide 1 mg/dose (2 mg/1.5 mL) Pen Injector 1 mg SUBCUT WK RF: 0 Discharge Orders: Discharge Order (Routine); Ordered 04/07/20 Ordered By: Daniela Altman Admission Data Admit Date/Time: 04/06/20 11:38 Attending Provider: Daniela Altman Admit Provider: Daniela Altman Primary Care Provider: Riaz West
[2020-04-06] MEDS: OXYCODONE/ACETAMINOPHEN 5mg/325mg TAB PO PRN ×2 (13:39→19:42)
[2020-04-06] MEDS ORDERED: DEXTROSE 50% 50 ML SYRINGE IV PRN (14:00)
[2020-04-06] MEDS ORDERED: GLUCOSE 10 TABS/TUBE PO PRN (14:00)
[2020-04-06] MEDS ORDERED: CARBOHYDRATES FOR HYPOGLYCEMIA PO PRN (14:00)
[2020-04-06] MEDS ORDERED: GLUCOSE 40% GEL 15 GM TUBE PO PRN (14:00)
[2020-04-06] MEDS ORDERED: GLUCAGON FOR INJ 1 MG VIAL IM PRN (14:00)
[2020-04-06] MEDS: GABAPENTIN 300 MG CAP PO SCH ×2 (14:29→20:07)
[2020-04-06] MEDS: COLCHICINE 0.6 MG TAB PO SCH (14:29)
[2020-04-06] MEDS: FERROUS SULFATE 325 MG TAB PO SCH (17:10)
[2020-04-06] MEDS: INSULIN ASPART 100 UNITS/ML 3 ML PEN SC SCH ×2 (17:13→20:08)
--- NOTE | 2020-04-06 17:15 | Electrocardiogram Report ---
Test Reason : Blood Pressure : / mmHG Vent. Rate : 072 BPM Atrial Rate : 072 BPM P-R Int : 148 ms QRS Dur : 132 ms QT Int : 454 ms P-R-T Axes : 054 -26 065 degrees QTc Int : 497 ms Atrial-sensed ventricular-paced rhythm with occasional AV dual-paced complexes and with occasional Pr emature ventricular complexes Biventricular pacemaker detected Abnormal ECG When compared with ECG of 26-DEC-2019 08:39, Electronic ventricular pacemaker has replaced Sinus rhythm Confirmed by Jean Claude Romo ([id number]) on 04/06/2020 5:14:58 PM Referred By: Daniela Altman Confirmed By:Pato Romo
[2020-04-06] MEDS: TRIAMCINOLONE ACET 0.1% CR 15 GM TUBE TOP SCH (20:10)
[2020-04-06] MEDS ORDERED: METFORMIN HCL 500 MG TAB PO SCH (21:00)
[2020-04-06] MEDS ORDERED: INSULIN DETEMIR FLEXPEN/FLEX TOUCH 100 UNITS/ML 3ML SQ SCH (21:00)
[2020-04-07] MEDS ORDERED: LEVOTHYROXINE SODIUM 125 MCG TABLET PO SCH (06:30)
[2020-04-07] MEDS: INSULIN ASPART 100 UNITS/ML 3 ML PEN SC SCH (08:01)
[2020-04-07] MEDS: GABAPENTIN 300 MG CAP PO SCH (08:14)
[2020-04-07] MEDS: COLCHICINE 0.6 MG TAB PO SCH (08:16)
[2020-04-07] MEDS: FERROUS SULFATE 325 MG TAB PO SCH (08:18)
[2020-04-07] MEDS: TRIAMCINOLONE ACET 0.1% CR 15 GM TUBE TOP SCH (08:18)
[2020-04-07] MEDS ORDERED: ATORVASTATIN 40 MG TAB PO SCH (09:00)
[2020-04-07] MEDS ORDERED: PANTOprazole 40 MG TAB PO SCH (09:00)
[2020-04-07] MEDS ORDERED: CYANOCOBALAMIN 500 MCG TABLET (VITAMIN B-12) PO SCH (09:00)
[2020-04-07] MEDS ORDERED: ASPIRIN 81 MG ECTAB PO SCH (09:00)
[2020-04-07] MEDS ORDERED: FUROSEMIDE 20 MG TAB PO SCH (09:00)
[2020-04-07] MEDS ORDERED: METOPROLOL SUCC 50MG EXT REL TAB PO SCH (09:00)
[2020-04-07] MEDS ORDERED: CLOPIDOGREL BISULFATE 75 MG TAB PO SCH (09:00)
[2020-04-07] MEDS ORDERED: FLUTICASONE/VILANTEROL 100/25MCG 14 PUFFS/INHALER INH SCH (09:00)
[2020-04-07] MEDS ORDERED: UMECLIDINIUM BROMIDE 62.5MCG/BLISTER 7 PUFFS/INHALER INH SCH (09:00)
[2020-04-07] MEDS ORDERED: lisinopriL 5 MG TAB PO SCH (09:00)
--- NOTE | 2020-04-07 09:16 | XRay Report ---
XR chest 2V PA/lateral CLINICAL HISTORY: Post pacemaker chest x-ray. COMPARISON STUDY: 12/26/2019 FINDINGS: The cardiac and mediastinal contours remain stable. There is been interval placement of a l eft subclavian biventricular plantable defibrillator. There is no pneumothorax. There is minor basila r atelectasis. Degenerative changes are present within the dorsal spine. There is no failure.[Postsur gical changes involve the distal right clavicle. There is a right AC joint separation. IMPRESSION: No evidence of pneumothorax status post pacemaker placement. ACT 112: Negative or not required by law. Electronically signed by: Wesley Baker M.D. 04/07/2020 9:14 AM
--- NOTE | 2020-04-18 14:12 | Operative Report (OR) ---
DATE OF OPERATION: 04/06/2020 PREOPERATIVE DIAGNOSES: Ischemic cardiomyopathy, chronic heart failure secondary to reduced ejection fraction [place] [employer] class 2 and coronary artery disease as well as left bundle branch block. PROCEDURE: Biventricular rate responsive implantable cardiac defibrillator (the LV lead ended up going in the left bundle region) with peripheral and coronary sinus venograms along with intracardiac mapping, EGM mapping of the His bundle region. SURGEON: Daniela Altman DO. ASSISTANTS: None. ANESTHESIA: Monitored conscious sedation administered under my supervision by Amanda Acosta. Start time 1059, end time 1300. Total of 4 mg of Versed, 100 mcg of fentanyl. INTRAVENOUS FLUIDS: 53 mL. ANTIBIOTICS: 1 gram of Ancef. CONTRAST: 30 mL. INDICATIONS: This is a 74-year-old gentleman with past medical history for ischemic cardiomyopathy, ejection fraction 20%, chronic heart failure secondary to reduced ejection fraction, [place] Heart [employer] class 2, left bundle branch block, coronary artery disease, non-STEMI status in 12/2019. He was at [facility], [place] [facility] [place] he was deemed too high risk for CABG, so he got a PCI to the proximal LAD, hypertension, hyperlipidemia, diabetes, COPD, hypothyroidism, history of epidural hematoma, and chronic lumbar spinal stenosis. He was recommended a biventricular ICD due to the ischemic cardiomyopathy, heart failure, and left bundle branch block. CONSENT: Consent was obtained prior to the patient going into electrophysiology lab. The patient was informed of the risks, benefits and alternative to the procedure. Risks include but not limited to sudden cardiac , cardiac arrhythmia, cerebrovascular accident, myocardial infarction, injury to the blood vessels, chamber of the heart, lung, bleeding, and infection. The patient understood these risks and agreed to the procedure as planned. Informed consent was obtained. DESCRIPTION OF THE PROCEDURE: The patient was brought into the electrophysiology lab in a fasting state. He was connected to continuous cardiac monitoring. A timeout was performed to ensure patient identity and procedure correctly. The patient was prepped and draped over the left infraclavicular space in normal surgical standard fashion. Monitored conscious sedation was given throughout the procedure for patient's comfort level. [place] precautions were maintained throughout the procedure. 10 mL of 1% lidocaine-bupivacaine mixture were given in the left deltopectoral groove. An incision was made in left deltopectoral groove. Blunt dissection was performed down to identify the cephalic vein. Cephalic vein was not identified, so peripheral venogram using 10 mL of contrast followed by 20 mL flush was performed. Axillary venous access was obtained in 2 needle sticks without any problem. A guidewire was inserted without any resistance. Through the more lateral stick, an 8-Kyrgy[place] sheath was inserted over the guidewire, the dilator was removed and a second guidewire was inserted through the 8-[place]yrgy[place] sheath to allow for retained venous access. Sheath was removed, flushed. Then a 9.5-[place]yr[place] sheath was inserted over one of the wires in the more lateral stick, and the dilator and the guidewire were removed. The right ventricular defibrillator lead was then advanced into right ventricle, positioned in the right ventricular apex under fluoroscopic guidance. There was adequate pacing and sensing thresholds and no diaphragmatic stimulation with high output pacing. The 9.5-Kyrgy[place] sheath was peeled away and lead was fixated to pectoralis muscle using 0 silk suture. An 8-[place]yrgy[place] sheath was inserted over the retained guidewire in the lateral stick without any resistance. Guidewire and dilator removed. The right atrial lead was then advanced into right atrium, positioned more on the right atrial lateral wall and there was adequate pacing and sensing thresholds and no diaphragmatic stimulation with high output pacing. The 8-[place]yrgy[place] sheath was peeled away and lead was fixated to pectoralis muscle using 0 silk suture. A 9.5-[place]yr[place] sheath was inserted over the more medial stick and the guidewire and dilator were removed. Then an MPX Medtronic outer guide was advanced over a Glidewire into the right atrium. The Glidewire and dilator were removed. Then I cannulated the coronary sinus using a Decapolar coronary sinus diagnostic catheter and the MPX was advanced over that. I then placed a balloon through the MPX and did a venogram of the coronary sinus. However, there was no good lateral/posterolateral branches. So I opted to put the left ventricular lead over the left bundle, so the MPX sheath was removed, and using the preformed J His catheter, the sheath was advanced over the dilator and guidewire without any resistance into the right ventricle. Then the dilator and wire were removed and I did intracardiac mapping of the His bundle region with the lead through the His sheath, found the AH to be 96 and HV to be 78. Of note, while I was mapping the His, I ended up creating a right bundle branch block. Then I marked where the His was on fluoroscopy in JOHNSON 30 and then came about 2 cm down from the imaginary line going to the apex of the heart. I then tried to position the sheath down in that area about 2 cm below the His and in DEMARCUS 30, I positioned it onto the septum. I screwed in the lead a little bit into the septum and watched with intermittent turns of the lead. The QRS in V1 as well as the stim to peak and impedance drops. Of note, I did have to reposition it one time. I then gave contrast through the sheath to see that I was on the septum. There was adequate pacing and sensing and the His sheath was then slit under fluoroscopic guidance followed then by the 9.5-Kyrgyz sheath was peeled away and leads were fixated to pectoralis muscle using 0 silk suture. A defibrillator pocket was created using blunt dissection over the pectoralis muscle within the pectoralis fascia. The pocket was flushed with copious amounts of bacitracin saline wash and inspected for hemostasis. Pulse generator was then attached to the leads making sure that the pins were in appropriate position, passed set screws and set screws were all tightened. Pulse generator was then placed in the pocket, making sure that the leads were lying flat beneath the device. The incision was then closed in a 3-layer fashion using 2-0 Vicryl interrupted suture followed by 3-0 Vicryl interrupted suture, followed by 4-0 Monocryl running stitch and Dermabond was applied followed by a Telfa and micropore dressing. EQUIPMENT: 1. The pulse generator is a [employer] SureScan Medtronic [id number], serial number [id number]. 2. Right atrial lead Medtronic 5076-52 cm, serial number [id number]. 3. Right ventricular lead Medtronic 6935M-62 cm, serial number [id number]. 4. Left bundle lead is a Medtronic 3830-69 cm, serial number [id number]. INTRAOPERATIVE TESTIN. Right atrial lead: P waves 3.4 millivolts, impedance 399 ohms, threshold 0.5 volts at 0.4 milliseconds. 2. Right ventricular lead: R waves 16.3 millivolts, impedance 513 ohms, threshold 0.5 volts at 0.4 milliseconds. 3. The left bundle lead programmed right now was tested, unipolar tip to the pocket is R waves 11.2 millivolts, impedance 800 ohms, threshold 0.5 volts at 0.5 milliseconds. FINAL MEASUREMENTS THROUGH THE DEVICE: 1. Right atrial lead: P waves 2.9 millivolts, impedance 515 ohms, threshold 0.5 volts at 0.4 milliseconds. 2. Right ventricular lead: R waves 18 millivolts, impedance 550 ohms, threshold 0.5 volts at 0.4 milliseconds. 3. Left bundle lead programmed tip to RV coil, impedance 610 ohms, threshold 0.5 volts at 0.4 milliseconds. FINAL PARAMETERS: DDD 60/130, right atrial amplitude 3.5 volts, pulse width 0.4 milliseconds, sensitivity 0.3 millivolts. Right ventricular amplitude 3.5 volts, pulse width 0.4 milliseconds, sensitivity 0.9 millivolts. Left ventricular amplitude 4 volts, pulse width 0.4 milliseconds. IMPRESSION: Successful implantation of a biventricular rate responsive implantable cardiac defibrillator with the left ventricular lead in the left bundle position under fluoroscopic guidance along with peripheral and coronary sinus venogram as well as intracardiac EGM mapping of the His bundle. PLAN: Monitor the patient overnight, 12-lead ECG, chest x-ray. He cannot lift the left elbow or left shoulder for 1 month. He cannot lift more than 10 pounds with the left arm for 2 weeks. He is to leave the dressing on and not to shower and keep it dry until his wound check next week. He will continue to follow up with general cardiology. I attest to the content of the Intraoperative Record and any orders documented therein. Any exception s are noted below.
== END 2020-04-07 09:49 | disposition home or self-care (01) ==
LOC: EP 08:49 → 2S 08:49
PROC: EPB.ICD (2020-04-06 10:00)

== ENCOUNTER 2020-06-28 10:17 | Inpatient (IN) ==
[2020-06-28] MEDS ORDERED: PIPERACILLIN/TAZOBACTAM 4.5 GM/120 ML BAG IV ONE (10:50)
[2020-06-28] MEDS ORDERED: PIPERACILL/TAZOBAC CONSULT ACTIVE PRN ×2 (10:50→15:36)
--- NOTE | 2020-06-28 10:56 | Emergency Department Note ---
Impression & Plan Respiratory failure, Hypoxia, Hypotension, CHF (congestive heart failure), Pleural effusion ED Provider Note NAME: CHAVA CALLAHAN AGE: 74 SEX: M : 1945 ARRIVES VIA: Ambulance INFORMANT: Patient ED PROVIDER(S): Poncho Sheldon DO CHIEF COMPLAINT: Lower back pain and bilateral leg pain HPI: Patient is a 74-year-old male brought in by BLS for he was found by his son-in-law as he was sitting on the floor having loose bowel movements. He denies any head pain, neck pain, chest pain. No loss of taste or smell. Denies any belly pain. No nausea or vomiting. No dysuria urgency or frequency. He notes he normally wears 2 L nasal cannula at night but did not do that last night. No other exacerbating or remitting factors. ROS: See above HPI for pertinent positives & negatives. A total of 10 systems reviewed and were otherwise negative. PAST MEDICAL HISTORY:See Below PAST SURGICAL HISTORY:See Below FAMILY HISTORY:See Below SOCIAL HISTORY:See Below HOME MEDICATIONS:See Below ALLERGIES:See Below VITALS:See Below PHYSICAL EXAMINATION: GENERAL: Sitting up in bed, alert, appearing, moderate distress, mottled, on nasal cannula EYE EXAM: normal conjunctiva. PERRL and EOM's grossly intact. OROPHARYNX: tongue normal and mucous membranes are dry NECK: supple, no nuchal rigidity, no adenopathy, non-tender CHEST: Wound over top of pacer pocket. Fair amount of green purulent material draining from pacer pocket on palpation LUNGS: Diminished at bilateral bases. Normal chest wall mechanics HEART: no murmurs, S1 normal and S2 normal ABDOMEN: abdomen soft, mild diffuse tenderness, normo-active bowel sounds, no masses, no rebound or guarding. BACK: Back is symmetrical on inspection and there is no deformity, no midline tenderness, no CVA tenderness. SKIN: no rashes and no bruising UPPER EXTREMITIES: upper extremities are grossly normal. LOWER EXTREMITIES: No pitting edema. NEURO EXAM: Normal sensorium, cranial nerves II-XII grossly intact, normal speech, no gross weakness of arms, no gross weakness of legs. MEDICAL DECISION MAKING: Patient is a 74-year-old male with a past medical history of diabetes, MAURIZIO, morgan nd ischemia, CHF, who presents the ER for lower leg pain as well as back pain. Recently had several stents and a pacer placed. IV was established blood work was obtained. On exam he was acutely ill appearing. Difficult to obtain a pulse ox. He was titrated up on nasal cannula and then placed on nonrebreather and then maxed out on high flow. He was intubated by myself at bedside as his pulse ox was about 80%. Blood pressures were marginal at 100s to 80s. Upon review of his chart 90 appears to be his baseline since December. Labs showed no significant leukocytosis or anemia. INR was at 1.8. VBG with a pH of 7.1. BMP with hyperkalemia at 5.2. CO2 was low at 17. Creatinine was elevated at 1.8 of a baseline of 1.3. Lactate was significantly elevated at 5.5. Troponin was elevated 0.085. Magnesium was low. LFTs and bilirubin was unremarkable. Pro- Wolfgang was elevated 0.51. Patient was covered with broad-spectrum antibiotics. His Covid was negative. Chest x-ray showed bilateral pleural effusions. CT of the chest and abdomen and lumbar spine shows bilateral pleural effusions, narrowing of the celiac artery with stenosis, anterior rib fracture. ET tube was in good positioning on the CT angio of the chest which was obtained immediately following intubation. He was titrated up on Levophed eventually titrated back down via peripheral 18-gauge IV. He was on fentanyl drip and Versed drip. He was intubated with succ and ketamine. Patient did have a large amount of green purulent material draining from the pacer pocket on palpation. Do favor this the likely cause of the sepsis at this time and combination with CHF and failure. Son-in-law was updated at bedside. Triage Nursing notes reviewed. Prior medical records reviewed Vital Signs: reviewed and remarkable for hypoxia, hypotension Differential diagnosis: Differential diagnosis includes etiologies such as sepsis, UTI, pneumonia, metabolic, electrolyte abnormalities, cardiac sources, intracerebral event, toxicologic, neurological, as well as others were entertained. ER treatment provided: See below Diagnostics interpreted by me: ECG: Atrial sensed ventricular paced rate 82 Left axis Left bundle No PVCs Cardiac Monitoring: An order was placed for continuous cardiac monitoring. The monitor shows a rate of 82 with sinus rhythm. Laboratory studies: As stated above and show below. Imaging studies: CTs as discussed above Consultation(s): Discussed with Dr. Tee for admission Discussed with the hospitalist for further evaluation ED COURSE: Procedures: EM PROCEDURE NOTE - Endotracheal Intubation PROCEDURE NOTE: Informed consent was obtained by the patient. Verify Correct Patient: yes Procedure: Endotracheal intubation Indication: Liane failure and hypoxia with a pulse ox of 80% maxed out on high flow The procedure was done emergently. Description of the Procedure: The patient was seen and properly identified. The patient was pre-oxygenated and intubated after rapid sequence induction with meds: Succinylcholine and ketamine. Intubation was performed using a glidesope 7.5 cuffed endotracheal tube. The tube was visualized going through the cords and secured with the 25cm miranda at the lips. The patient had good bilateral breath sounds in the axillae with good chest rise. Proper ET tube placement was confirmed by end tidal CO2 detector. The patient tolerated the procedure well. Critical Care: I have personally spent 120 minutes of critical care time in the direct management of this patient. This includes bedside care, interpretation of diagnostic studies, and testing, discussion with consultants, patient, and [facility] ly members, and other required patient management activities. This 120 minutes is in excess of all separately billable procedures. Past Med/Surg History Medical History (Updated 06/28/20 @ 17:00 by Poncho Sheldon DO) AAA (abdominal aortic aneurysm) follows with [facility] once a year Acute encephalopathy Acute hypoxemic respiratory failure Acute on chronic systolic heart failure MAURIZIO (acute kidney injury) Anemia CAD (coronary artery disease) Celiac artery stenosis Degenerative disc disease Demand ischemia Diabetes mellitus, type 2 GERD (gastroesophageal reflux disease) Gout Hyperlipidemia Hypertension Hypothyroidism ICD (implantable cardioverter-defibrillator) in place meditronic placed 04/06/2020 @ [facility] Non-STEMI (non-ST elevated myocardial infarction) 12/2019--attempted heart cath @ [facility] unable to place stents [place] [facility] [place]ISON [place]--currently of plavix and [facility] On anticoagulant therapy plavix daily On home oxygen therapy 2L N/C at HS Osteoarthritis Pulmonary embolism per record 1970s, unknown cause Sleep apnea 2L N/C at HS Wheezing Surgical History History of cardiac cath x2--12/25/2019 @ [facility]--unable to stent pt, sent to [facility] 12/2019--ALLISON LAD PCI @ [facility] History of colonoscopy with polypectomy History of esophagogastroduodenoscopy (EGD) History of heart artery stent 12/2019 ALLISON LAD PCI [place] [facility] [place]pt states they placed 3 stents at that time) History of implantable cardioverter-defibrillator (ICD) insertion 04/06/2020 History of repair of right rotator cuff History of tooth extraction upper teeth Family History Other No family history of adverse response to anesthesia Social History Smoking Status: Current every day smoker Tobacco Type: Cigars Cigarettes Per Day: 3 cigars a day; Second Hand Exposure: Yes (father smoked); Hx Alcohol Use: No Hx Substance Use: No Preferred Language: Sami Communication Ability: Effective [employer] Development Required: No Beliefs That Will Affect Care: None marital status: / Current Living Situation: Alone Feels Safe at Home: Yes Assistive Devices: Denture - Upper, Glasses and Oxygen - at Night Allergies Allergies Allergy/AdvReac Type Severity Reaction Status Date / Time phenobarbital Allergy Mild dizzy Verified 06/28/20 14:54 Home Meds Home Medications Medication Instructions Recorded Confirmed Selsun Blue 1 applic TOPICAL Q OTHER DAY 08/03/19 06/28/20 aspirin [Aspirin Low Dose] 81 mg PO QAM 08/03/19 06/28/20 colchicine 0.6 mg PO BID 08/03/19 06/28/20 cyanocobalamin (vitamin B-12) 1,000 mcg PO QAM 08/03/19 06/28/20 [Vitamin B-12] gabapentin 300 mg PO TID 08/03/19 06/28/20 levothyroxine 125 mcg PO QAM 08/03/19 06/28/20 omeprazole 20 mg PO QAM 08/03/19 06/28/20 acetaminophen [Tylenol Extra 500 - 1,000 mg PO Q6H PRN 12/25/19 06/28/20 Strength] tramadol 50 mg PO Q6H PRN 12/25/19 06/28/20 Incruse Ellipta 1 inh INHALATION QAM 04/06/20 06/28/20 Levemir FlexTouch U-100 Insuln 18 unit SUBCUT HS 04/06/20 06/28/20 albuterol sulfate 1 inh INHALATION QID PRN 04/06/20 06/28/20 atorvastatin 40 mg PO DAILY 04/06/20 06/28/20 clopidogrel [Plavix] 75 mg PO QAM 04/06/20 06/28/20 ferrous sulfate [Feosol] 325 mg PO BID 04/06/20 06/28/20 fluticasone propion-salmeterol 1 inh INHALATION Q12H 04/06/20 06/28/20 [Advair Diskus] furosemide [Lasix] 20 mg PO QAM 04/06/20 06/28/20 lisinopril 5 mg PO HS 04/06/20 06/28/20 metformin 1,000 mg PO BIDM 04/06/20 06/28/20 metoprolol succinate 50 mg PO QAM 04/06/20 06/28/20 nitroglycerin [Nitrostat] 0.4 mg SUBLINGUAL UD PRN 04/06/20 06/28/20 semaglutide 1 mg SUBCUT WK 04/06/20 06/28/20 triamcinolone acetonide 1 applic TOPICAL BID PRN 04/06/20 06/28/20 Results & Data (ED) Vital Signs Vital Signs - 24 hr 06/28/20 10:33 06/28/20 10:42 06/28/20 10:45 Temperature 36.4 C L Temperature Source Oral Pulse Rate 84 83 86 Pulse Rate [Apical] Pulse Rate from SpO2 Sensor Respiratory Rate 22 18 32 H Respiratory Effort / Characteristics Non-Labored Respiratory Depth Normal Blood Pressure 75/52 L 90/58 L 91/63 L Blood Pressure [Left Arm] Blood Pressure Mean 59 74 68 Blood Pressure Mean [Left Arm] Pulse Oximetry 83 L Oxygen Delivery Method Nasal Cannula Oxygen Flow Rate 6 Fraction of Inspired Oxygen Sepsis Recent Fever Within 48 Hours No Sepsis New/Unexplained Change in Mental Status No Sepsis Action Taken by Nursing Physician Notified 06/28/20 11:00 06/28/20 11:10 06/28/20 11:20 Temperature Temperature Source Pulse Rate 84 86 86 Pulse Rate [Apical] 84 Pulse Rate from SpO2 Sensor 66 Respiratory Rate 17 24 18 Respiratory Effort / Characteristics Respiratory Depth Blood Pressure 85/55 L Blood Pressure [Left Arm] Blood Pressure Mean 60 Blood Pressure Mean [Left Arm] Pulse Oximetry Oxygen Delivery Method Non-rebreather Oxygen Flow Rate 15 Fraction of Inspired Oxygen Sepsis Recent Fever Within 48 Hours Sepsis New/Unexplained Change in Mental Status Sepsis Action Taken by Nursing 06/28/20 11:25 06/28/20 11:27 06/28/20 11:30 Temperature Temperature Source Pulse Rate 84 84 Pulse Rate [Apical] 83 Pulse Rate from SpO2 Sensor 80 Respiratory Rate 18 17 Respiratory Effort / Characteristics Respiratory Depth Blood Pressure 101/59 L 96/71 L Blood Pressure [Left Arm] 101/59 L Blood Pressure Mean 85 77 Blood Pressure Mean [Left Arm] 73 Pulse Oximetry 82 L 80 L Oxygen Delivery Method Non-rebreather Non-rebreather Oxygen Flow Rate 15 15 15 Fraction of Inspired Oxygen Sepsis Recent Fever Within 48 Hours Sepsis New/Unexplained Change in Mental Status Sepsis Action Taken by Nursing 06/28/20 11:38 06/28/20 11:40 06/28/20 11:45 Temperature Temperature Source Pulse Rate 83 82 Pulse Rate [Apical] Pulse Rate from SpO2 Sensor 71 Respiratory Rate 26 H 25 H Respiratory Effort / Characteristics Labored Respiratory Depth Blood Pressure 90/65 L 93/61 L Blood Pressure [Left Arm] Blood Pressure Mean 77 63 Blood Pressure Mean [Left Arm] Pulse Oximetry 76 L Oxygen Delivery Method Non-rebreather Oxygen Flow Rate 15 15 Fraction of Inspired Oxygen Sepsis Recent Fever Within 48 Hours Sepsis New/Unexplained Change in Mental Status Sepsis Action Taken by Nursing 06/28/20 11:58 06/28/20 12:00 06/28/20 12:02 Temperature Temperature Source Pulse Rate 88 84 Pulse Rate [Apical] Pulse Rate from SpO2 Sensor 72 89 84 Respiratory Rate 16 Respiratory Effort / Characteristics Respiratory Depth Blood Pressure 79/61 L 89/70 L 90/63 L Blood Pressure [Left Arm] Blood Pressure Mean 65 74 65 Blood Pressure Mean [Left Arm] Pulse Oximetry Oxygen Delivery Method Oxygen Flow Rate Fraction of Inspired Oxygen Sepsis Recent Fever Within 48 Hours Sepsis New/Unexplained Change in Mental Status Sepsis Action Taken by Nursing 06/28/20 12:04 06/28/20 12:08 06/28/20 12:10 Temperature Temperature Source Pulse Rate 82 82 84 Pulse Rate [Apical] Pulse Rate from SpO2 Sensor 82 Respiratory Rate 15 14 15 Respiratory Effort / Characteristics Respiratory Depth Blood Pressure 90/62 L 92/57 L 85/62 L Blood Pressure [Left Arm] Blood Pressure Mean 67 71 69 Blood Pressure Mean [Left Arm] Pulse Oximetry Oxygen Delivery Method Mechanical Vent Oxygen Flow Rate Fraction of Inspired Oxygen Sepsis Recent Fever Within 48 Hours Sepsis New/Unexplained Change in Mental Status Sepsis Action Taken by Nursing 06/28/20 12:12 06/28/20 12:15 06/28/20 12:16 Temperature Temperature Source Pulse Rate 85 87 88 Pulse Rate [Apical] Pulse Rate from SpO2 Sensor 88 88 Respiratory Rate 13 13 8 L Respiratory Effort / Characteristics Respiratory Depth Blood Pressure 103/60 87/67 L 105/72 Blood Pressure [Left Arm] Blood Pressure Mean 83 71 78 Blood Pressure Mean [Left Arm] Pulse Oximetry Oxygen Delivery Method Oxygen Flow Rate Fraction of Inspired Oxygen Sepsis Recent Fever Within 48 Hours Sepsis New/Unexplained Change in Mental Status Sepsis Action Taken by Nursing 06/28/20 12:20 06/28/20 12:25 06/28/20 12:27 Temperature Temperature Source Pulse Rate 87 85 84 Pulse Rate [Apical] Pulse Rate from SpO2 Sensor 85 83 Respiratory Rate 14 16 Respiratory Effort / Characteristics Respiratory Depth Blood Pressure 101/69 78/58 L 80/55 L Blood Pressure [Left Arm] Blood Pressure Mean 74 60 59 Blood Pressure Mean [Left Arm] Pulse Oximetry 99 94 Oxygen Delivery Method Mechanical Vent Mechanical Vent Oxygen Flow Rate Fraction of Inspired Oxygen 100 100 Sepsis Recent Fever Within 48 Hours Sepsis New/Unexplained Change in Mental Status Sepsis Action Taken by Nursing 06/28/20 12:30 06/28/20 12:31 06/28/20 12:33 Temperature Temperature Source Pulse Rate 84 83 86 Pulse Rate [Apical] Pulse Rate from SpO2 Sensor 84 84 86 Respiratory Rate 12 17 13 Respiratory Effort / Characteristics Respiratory Depth Blood Pressure 82/54 L 80/49 L Blood Pressure [Left Arm] Blood Pressure Mean 56 67 Blood Pressure Mean [Left Arm] Pulse Oximetry 97 93 100 Oxygen Delivery Method Oxygen Flow Rate Fraction of Inspired Oxygen 100 Sepsis Recent Fever Within 48 Hours Sepsis New/Unexplained Change in Mental Status Sepsis Action Taken by Nursing 06/28/20 12:35 06/28/20 12:38 06/28/20 12:40 Temperature Temperature Source Pulse Rate 83 82 82 Pulse Rate [Apical] Pulse Rate from SpO2 Sensor 83 82 83 Respiratory Rate 16 16 19 Respiratory Effort / Characteristics Respiratory Depth Blood Pressure 75/55 L 72/51 L 71/48 L Blood Pressure [Left Arm] Blood Pressure Mean 62 55 54 Blood Pressure Mean [Left Arm] Pulse Oximetry 94 93 89 L Oxygen Delivery Method Oxygen Flow Rate Fraction of Inspired Oxygen Sepsis Recent Fever Within 48 Hours Sepsis New/Unexplained Change in Mental Status Sepsis Action Taken by Nursing 06/28/20 12:44 06/28/20 12:45 06/28/20 12:47 Temperature Temperature Source Pulse Rate 81 81 81 Pulse Rate [Apical] Pulse Rate from SpO2 Sensor 81 81 82 Respiratory Rate 20 19 19 Respiratory Effort / Characteristics Respiratory Depth Blood Pressure 91/66 L 96/62 L Blood Pressure [Left Arm] Blood Pressure Mean 72 65 Blood Pressure Mean [Left Arm] Pulse Oximetry 100 100 100 Oxygen Delivery Method Oxygen Flow Rate Fraction of Inspired Oxygen 100 100 Sepsis Recent Fever Within 48 Hours Sepsis New/Unexplained Change in Mental Status Sepsis Action Taken by Nursing 06/28/20 12:50 06/28/20 13:11 06/28/20 13:12 Temperature Temperature Source Pulse Rate 80 87 93 H Pulse Rate [Apical] Pulse Rate from SpO2 Sensor 81 93 H Respiratory Rate 21 13 18 Respiratory Effort / Characteristics Respiratory Depth Blood Pressure 111/72 120/86 Blood Pressure [Left Arm] Blood Pressure Mean 84 95 Blood Pressure Mean [Left Arm] Pulse Oximetry 100 100 Oxygen Delivery Method Oxygen Flow Rate Fraction of Inspired Oxygen 100 100 Sepsis Recent Fever Within 48 Hours Sepsis New/Unexplained Change in Mental Status Sepsis Action Taken by Nursing 06/28/20 13:15 06/28/20 13:20 06/28/20 13:25 Temperature Temperature Source Pulse Rate 89 86 85 Pulse Rate [Apical] Pulse Rate from SpO2 Sensor 89 86 86 Respiratory Rate 19 19 20 Respiratory Effort / Characteristics Respiratory Depth Blood Pressure 117/82 112/84 115/77 Blood Pressure [Left Arm] Blood Pressure Mean 94 93 79 Blood Pressure Mean [Left Arm] Pulse Oximetry 100 100 100 Oxygen Delivery Method Oxygen Flow Rate Fraction of Inspired Oxygen Sepsis Recent Fever Within 48 Hours Sepsis New/Unexplained Change in Mental Status Sepsis Action Taken by Nursing 06/28/20 13:26 06/28/20 13:30 06/28/20 13:35 Temperature Temperature Source Pulse Rate 82 83 82 Pulse Rate [Apical] Pulse Rate from SpO2 Sensor 82 82 Respiratory Rate 21 17 19 Respiratory Effort / Characteristics Respiratory Depth Blood Pressure 113/79 116/73 Blood Pressure [Left Arm] Blood Pressure Mean 91 99 Blood Pressure Mean [Left Arm] Pulse Oximetry 100 100 100 Oxygen Delivery Method Oxygen Flow Rate Fraction of Inspired Oxygen 100 100 100 Sepsis Recent Fever Within 48 Hours Sepsis New/Unexplained Change in Mental Status Sepsis Action Taken by Nursing 06/28/20 13:40 06/28/20 13:45 06/28/20 14:00 Temperature Temperature Source Pulse Rate 83 82 88 Pulse Rate [Apical] Pulse Rate from SpO2 Sensor 83 83 88 Respiratory Rate 19 18 18 Respiratory Effort / Characteristics Respiratory Depth Blood Pressure 108/78 114/73 93/62 L Blood Pressure [Left Arm] Blood Pressure Mean 82 76 64 Blood Pressure Mean [Left Arm] Pulse Oximetry 100 99 98 Oxygen Delivery Method Oxygen Flow Rate Fraction of Inspired Oxygen 100 100 Sepsis Recent Fever Within 48 Hours Sepsis New/Unexplained Change in Mental Status Sepsis Action Taken by Nursing Laboratory Data Result diagrams: 06/28/20 11:03 06/28/20 11:03 Lab Results 06/28/20 06/28/20 06/28/20 Range/Units 11:03 11:03 11:03 WBC 10.44 (4.8-10.8) K/uL RBC 3.61 L (4.7-6.1) M/uL Hgb 11.2 L (14.0-18.0) g/dL POC Hgb (14.0-18.0) g/dl Hct 35.3 L (42-52) % POC Hct (42-52) % MCV 97.8 (80-100) fL MCH 31.0 (25-34) pg MCHC 31.7 L (32-36) g/dL RDW Std Deviation 80.4 H (36.4-46.3) fL RDW Coeff of Tian 22.8 H (11.5-14.5) % Plt Count 150 (130-400) K/uL Immature Gran % (Auto) 0.4 % Neut % (Auto) 90.9 % Lymph % (Auto) 2.3 % [place] % (Auto) 6.3 % Eos % (Auto) 0.0 % Baso % (Auto) 0.1 % Neut # (Auto) 9.49 H (1.4-6.5) K/uL Lymph # (Auto) 0.24 L (1.2-3.4) K/uL [place] # (Auto) 0.66 H (0.11-0.59) K/uL Eos # (Auto) 0.00 (0-0.5) K/uL Baso # (Auto) 0.01 (0-0.2) K/uL Immature Gran # (Auto) 0.04 H (0.00-0.02) K/uL Absolute Nucleated RBC 0.04 H (0-0) K/uL Nucleated RBC % (auto) 0.4 % Platelet Estimate Normal (Normal) Anisocytosis Present Echinocytes 1+ PT Cancelled INR Cancelled APTT Cancelled PTT Ratio Cancelled VBG pH (7.36-7.41) VBG pCO2 (38-50) mmHg VBG pO2 mmHg VBG HCO3 mmol/L VBG O2 Saturation % VBG Base Excess mEq/L Barometric Pressure mm/Hg POC Sodium (135-144) mmol/L Sodium (136-145) mmol/L POC Potassium (3.3-5.0) mmol/L Potassium (3.5-5.1) mmol/L POC Chloride (101-112) mmol/L Chloride (98-107) mmol/L Carbon Dioxide (21-32) mmol/L POC Total CO2 (24-31) mmol/L Anion Gap (3-11) POC Anion Gap (16-25) mmol/L POC BUN (7-18) mg/dl BUN (7-18) mg/dl Creatinine (0.6-1.4) mg/dl POC Creatinine (0.6-1.3) mg/dl Est Cr Clr Drug Dosing ml/min Est GFR ( Amer) Est GFR (Non-Af Amer) BUN/Creatinine Ratio (10-20) Glucose (70-99) mg/dl POC Glucose (other) (70-99) mg/dl Lactate (0.4-2.0) mmol/L Calcium (8.5-10.1) mg/dl POC Ioniz Calcium Gale (1.12-1.32) mmol/l Magnesium (1.8-2.4) mg/dl Total Bilirubin (0.2-1) mg/dl AST (15-37) U/L ALT (12-78) U/L Alkaline Phosphatase (45-117) U/L Troponin I (0-0.045) ng/ml Total Protein (6.4-8.2) gm/dl Albumin (3.4-5.0) gm/dl Globulin (2.5-4.0) gm/dl Albumin/Globulin Ratio (0.9-2) Procalcitonin 0.51 H (0-0.5) ng/ml Urine Color Urine Appearance (Clear) Urine pH (4.5-7.5) Ur Specific [place] (1.000-1.030) Urine Protein (Negative) Urine Glucose (UA) (Negative) Urine Ketones (Negative) Urine Blood (Negative) Urine Nitrite (Negative) Urine Bilirubin (Negative) Urine Urobilinogen (Negative) Ur Leukocyte Esterase (Negative) Urine WBC (Auto) (0-5) /hpf Urine RBC (Auto) (0-4) /hpf U Hyaline Cast (Auto) (0-5) /lpf U Epithel Cells (Auto) (0-5) /lpf Urine Bacteria (Auto) (Negative) Ur Renal Epithelial Cell Urine Mucus (None Prsent) Adenovirus (PCR) (NotDetected) B. pertussis DNA (PCR) (NotDetected) B.parapertussis DNA PCR (NotDetected) C. pneumoniae DNA (PCR) (NotDetected) Coronavirus OC43 (PCR) (NotDetected) Coronavirus HKU1 (PCR) (NotDetected) Coronavirus 229E (PCR) (NotDetected) COVID-19 PCR (NotDetected) Coronavirus NL63 (PCR) (NotDetected) Human Metapneumovir PCR (NotDetected) Influenza Type A (PCR) (NotDetected) Influenza Type B (PCR) (NotDetected) M. pneumoniae (PCR) (NotDetected) Parainfluenza 1 (PCR) (NotDetected) Parainfluenza 2 (PCR) (NotDetected) Parainfluenza 3 (PCR) (NotDetected) Parainfluenza 4 (PCR) (NotDetected) RSV (PCR) (NotDetected) Entero/Rhino (PCR) (NotDetected) 06/28/20 06/28/20 06/28/20 Range/Units 11:03 11:10 11:22 WBC (4.8-10.8) K/uL RBC (4.7-6.1) M/uL Hgb (14.0-18.0) g/dL POC Hgb (14.0-18.0) g/dl Hct (42-52) % POC Hct (42-52) % MCV (80-100) fL MCH (25-34) pg MCHC (32-36) g/dL RDW Std Deviation (36.4-46.3) fL RDW Coeff of Tian (11.5-14.5) % Plt Count (130-400) K/uL Immature Gran % (Auto) % Neut % (Auto) % Lymph % (Auto) % [place] % (Auto) % Eos % (Auto) % Baso % (Auto) % Neut # (Auto) (1.4-6.5) K/uL Lymph # (Auto) (1.2-3.4) K/uL [place] # (Auto) (0.11-0.59) K/uL Eos # (Auto) (0-0.5) K/uL Baso # (Auto) (0-0.2) K/uL Immature Gran # (Auto) (0.00-0.02) K/uL Absolute Nucleated RBC (0-0) K/uL Nucleated RBC % (auto) % Platelet Estimate (Normal) Anisocytosis Echinocytes PT INR APTT PTT Ratio VBG pH (7.36-7.41) VBG pCO2 (38-50) mmHg VBG pO2 mmHg VBG HCO3 mmol/L VBG O2 Saturation % VBG Base Excess mEq/L Barometric Pressure mm/Hg POC Sodium (135-144) mmol/L Sodium 137 (136-145) mmol/L POC Potassium (3.3-5.0) mmol/L Potassium 5.2 H (3.5-5.1) mmol/L POC Chloride (101-112) mmol/L Chloride 107 (98-107) mmol/L Carbon Dioxide 17 L (21-32) mmol/L POC Total CO2 (24-31) mmol/L Anion Gap 13.0 H (3-11) POC Anion Gap (16-25) mmol/L POC BUN (7-18) mg/dl BUN 61 H (7-18) mg/dl Creatinine 1.88 H (0.6-1.4) mg/dl POC Creatinine (0.6-1.3) mg/dl Est Cr Clr Drug Dosing 27.0 ml/min Est GFR ( Amer) 39.6 Est GFR (Non-Af Amer) 34.2 BUN/Creatinine Ratio 32.5 H (10-20) Glucose 162 H (70-99) mg/dl POC Glucose (other) (70-99) mg/dl Lactate 5.5 H* (0.4-2.0) mmol/L Calcium 8.4 L (8.5-10.1) mg/dl POC Ioniz Calcium Gale (1.12-1.32) mmol/l Magnesium 1.4 L (1.8-2.4) mg/dl Total Bilirubin 0.9 (0.2-1) mg/dl AST 97 H (15-37) U/L ALT 72 (12-78) U/L Alkaline Phosphatase 194 H (45-117) U/L Troponin I 0.085 H* (0-0.045) ng/ml Total Protein 7.2 (6.4-8.2) gm/dl Albumin 2.8 L (3.4-5.0) gm/dl Globulin 4.4 H (2.5-4.0) gm/dl Albumin/Globulin Ratio 0.6 L (0.9-2) Procalcitonin (0-0.5) ng/ml Urine Color Urine Appearance (Clear) Urine pH (4.5-7.5) Ur Specific [place] (1.000-1.030) Urine Protein (Negative) Urine Glucose (UA) (Negative) Urine Ketones (Negative) Urine Blood (Negative) Urine Nitrite (Negative) Urine Bilirubin (Negative) Urine Urobilinogen (Negative) Ur Leukocyte Esterase (Negative) Urine WBC (Auto) (0-5) /hpf Urine RBC (Auto) (0-4) /hpf U Hyaline Cast (Auto) (0-5) /lpf U Epithel Cells (Auto) (0-5) /lpf Urine Bacteria (Auto) (Negative) Ur Renal Epithelial Cell Urine Mucus (None Prsent) Adenovirus (PCR) Not Detected (NotDetected) B. pertussis DNA (PCR) Not Detected (NotDetected) B.parapertussis DNA PCR Not Detected (NotDetected) C. pneumoniae DNA (PCR) Not Detected (NotDetected) Coronavirus OC43 (PCR) Not Detected (NotDetected) Coronavirus HKU1 (PCR) Not Detected (NotDetected) Coronavirus 229E (PCR) Not Detected (NotDetected) COVID-19 PCR Not Detected (NotDetected) Coronavirus NL63 (PCR) Not Detected (NotDetected) Human Metapneumovir PCR Not Detected (NotDetected) Influenza Type A (PCR) Not Detected (NotDetected) Influenza Type B (PCR) Not Detected (NotDetected) M. pneumoniae (PCR) Not Detected (NotDetected) Parainfluenza 1 (PCR) Not Detected (NotDetected) Parainfluenza 2 (PCR) Not Detected (NotDetected) Parainfluenza 3 (PCR) Not Detected (NotDetected) Parainfluenza 4 (PCR) Not Detected (NotDetected) RSV (PCR) Not Detected (NotDetected) Entero/Rhino (PCR) Not Detected (NotDetected) 06/28/20 06/28/20 06/28/20 Range/Units 11:22 11:25 13:26 WBC (4.8-10.8) K/uL RBC (4.7-6.1) M/uL Hgb (14.0-18.0) g/dL POC Hgb 10.2 L (14.0-18.0) g/dl Hct (42-52) % POC Hct 30 L (42-52) % MCV (80-100) fL MCH (25-34) pg MCHC (32-36) g/dL RDW Std Deviation (36.4-46.3) fL RDW Coeff of Tian (11.5-14.5) % Plt Count (130-400) K/uL Immature Gran % (Auto) % Neut % (Auto) % Lymph % (Auto) % [place] % (Auto) % Eos % (Auto) % Baso % (Auto) % Neut # (Auto) (1.4-6.5) K/uL Lymph # (Auto) (1.2-3.4) K/uL [place] # (Auto) (0.11-0.59) K/uL Eos # (Auto) (0-0.5) K/uL Baso # (Auto) (0-0.2) K/uL Immature Gran # (Auto) (0.00-0.02) K/uL Absolute Nucleated RBC (0-0) K/uL Nucleated RBC % (auto) % Platelet Estimate (Normal) Anisocytosis Echinocytes PT 18.3 H INR 1.8 H APTT 28.9 PTT Ratio 1.0 VBG pH 7.16 L (7.36-7.41) VBG pCO2 47 (38-50) mmHg VBG pO2 47 mmHg VBG HCO3 16 mmol/L VBG O2 Saturation 70.9 % VBG Base Excess -11.8 mEq/L Barometric Pressure 739.2 mm/Hg POC Sodium 139 (135-144) mmol/L Sodium (136-145) mmol/L POC Potassium 4.9 (3.3-5.0) mmol/L Potassium (3.5-5.1) mmol/L POC Chloride 108 (101-112) mmol/L Chloride (98-107) mmol/L Carbon Dioxide (21-32) mmol/L POC Total CO2 16 L (24-31) mmol/L Anion Gap (3-11) POC Anion Gap 21.0 (16-25) mmol/L POC BUN 55 H (7-18) mg/dl BUN (7-18) mg/dl Creatinine (0.6-1.4) mg/dl POC Creatinine 1.5 H (0.6-1.3) mg/dl Est Cr Clr Drug Dosing ml/min Est GFR ( Amer) Est GFR (Non-Af Amer) BUN/Creatinine Ratio (10-20) Glucose (70-99) mg/dl POC Glucose (other) 150 H (70-99) mg/dl Lactate (0.4-2.0) mmol/L Calcium (8.5-10.1) mg/dl POC Ioniz Calcium Gale 1.08 L (1.12-1.32) mmol/l Magnesium (1.8-2.4) mg/dl Total Bilirubin (0.2-1) mg/dl AST (15-37) U/L ALT (12-78) U/L Alkaline Phosphatase (45-117) U/L Troponin I (0-0.045) ng/ml Total Protein (6.4-8.2) gm/dl Albumin (3.4-5.0) gm/dl Globulin (2.5-4.0) gm/dl Albumin/Globulin Ratio (0.9-2) Procalcitonin (0-0.5) ng/ml Urine Color Urine Appearance (Clear) Urine pH (4.5-7.5) Ur Specific [place] (1.000-1.030) Urine Protein (Negative) Urine Glucose (UA) (Negative) Urine Ketones (Negative) Urine Blood (Negative) Urine Nitrite (Negative) Urine Bilirubin (Negative) Urine Urobilinogen (Negative) Ur Leukocyte Esterase (Negative) Urine WBC (Auto) (0-5) /hpf Urine RBC (Auto) (0-4) /hpf U Hyaline Cast (Auto) (0-5) /lpf U Epithel Cells (Auto) (0-5) /lpf Urine Bacteria (Auto) (Negative) Ur Renal Epithelial Cell Urine Mucus (None Prsent) Adenovirus (PCR) (NotDetected) B. pertussis DNA (PCR) (NotDetected) B.parapertussis DNA PCR (NotDetected) C. pneumoniae DNA (PCR) (NotDetected) Coronavirus OC43 (PCR) (NotDetected) Coronavirus HKU1 (PCR) (NotDetected) Coronavirus 229E (PCR) (NotDetected) COVID-19 PCR (NotDetected) Coronavirus NL63 (PCR) (NotDetected) Human Metapneumovir PCR (NotDetected) Influenza Type A (PCR) (NotDetected) Influenza Type B (PCR) (NotDetected) M. pneumoniae (PCR) (NotDetected) Parainfluenza 1 (PCR) (NotDetected) Parainfluenza 2 (PCR) (NotDetected) Parainfluenza 3 (PCR) (NotDetected) Parainfluenza 4 (PCR) (NotDetected) RSV (PCR) (NotDetected) Entero/Rhino (PCR) (NotDetected) 06/28/20 06/28/20 Range/Units 13:26 13:40 WBC (4.8-10.8) K/uL RBC (4.7-6.1) M/uL Hgb (14.0-18.0) g/dL POC Hgb (14.0-18.0) g/dl Hct (42-52) % POC Hct (42-52) % MCV (80-100) fL MCH (25-34) pg MCHC (32-36) g/dL RDW Std Deviation (36.4-46.3) fL RDW Coeff of Tian (11.5-14.5) % Plt Count (130-400) K/uL Immature Gran % (Auto) % Neut % (Auto) % Lymph % (Auto) % [place] % (Auto) % Eos % (Auto) % Baso % (Auto) % Neut # (Auto) (1.4-6.5) K/uL Lymph # (Auto) (1.2-3.4) K/uL [place] # (Auto) (0.11-0.59) K/uL Eos # (Auto) (0-0.5) K/uL Baso # (Auto) (0-0.2) K/uL Immature Gran # (Auto) (0.00-0.02) K/uL Absolute Nucleated RBC (0-0) K/uL Nucleated RBC % (auto) % Platelet Estimate (Normal) Anisocytosis Echinocytes PT INR APTT PTT Ratio VBG pH (7.36-7.41) VBG pCO2 (38-50) mmHg VBG pO2 mmHg VBG HCO3 mmol/L VBG O2 Saturation % VBG Base Excess mEq/L Barometric Pressure mm/Hg POC Sodium (135-144) mmol/L Sodium (136-145) mmol/L POC Potassium (3.3-5.0) mmol/L Potassium (3.5-5.1) mmol/L POC Chloride (101-112) mmol/L Chloride (98-107) mmol/L Carbon Dioxide (21-32) mmol/L POC Total CO2 (24-31) mmol/L Anion Gap (3-11) POC Anion Gap (16-25) mmol/L POC BUN (7-18) mg/dl BUN (7-18) mg/dl Creatinine (0.6-1.4) mg/dl POC Creatinine (0.6-1.3) mg/dl Est Cr Clr Drug Dosing ml/min Est GFR ( Amer) Est GFR (Non-Af Amer) BUN/Creatinine Ratio (10-20) Glucose (70-99) mg/dl POC Glucose (other) (70-99) mg/dl Lactate 4.9 H* (0.4-2.0) mmol/L Calcium (8.5-10.1) mg/dl POC Ioniz Calcium Gale (1.12-1.32) mmol/l Magnesium (1.8-2.4) mg/dl Total Bilirubin (0.2-1) mg/dl AST (15-37) U/L ALT (12-78) U/L Alkaline Phosphatase (45-117) U/L Troponin I (0-0.045) ng/ml Total Protein (6.4-8.2) gm/dl Albumin (3.4-5.0) gm/dl Globulin (2.5-4.0) gm/dl Albumin/Globulin Ratio (0.9-2) Procalcitonin (0-0.5) ng/ml Urine Color Dark Yellow Urine Appearance Clear (Clear) Urine pH 5.0 (4.5-7.5) Ur Specific [place] 1.035 H (1.000-1.030) Urine Protein 1+ H (Negative) Urine Glucose (UA) Negative (Negative) Urine Ketones Trace H (Negative) Urine Blood 1+ H (Negative) Urine Nitrite Negative (Negative) Urine Bilirubin Negative (Negative) Urine Urobilinogen Negative (Negative) Ur Leukocyte Esterase Negative (Negative) Urine WBC (Auto) 1-5 (0-5) /hpf Urine RBC (Auto) 0-4 (0-4) /hpf U Hyaline Cast (Auto) 10-30 H (0-5) /lpf U Epithel Cells (Auto) >30 H (0-5) /lpf Urine Bacteria (Auto) 1+ H (Negative) Ur Renal Epithelial Cell Not Reportable Urine Mucus Present A (None Prsent) Adenovirus (PCR) (NotDetected) B. pertussis DNA (PCR) (NotDetected) B.parapertussis DNA PCR (NotDetected) C. pneumoniae DNA (PCR) (NotDetected) Coronavirus OC43 (PCR) (NotDetected) Coronavirus HKU1 (PCR) (NotDetected) Coronavirus 229E (PCR) (NotDetected) COVID-19 PCR (NotDetected) Coronavirus NL63 (PCR) (NotDetected) Human Metapneumovir PCR (NotDetected) Influenza Type A (PCR) (NotDetected) Influenza Type B (PCR) (NotDetected) M. pneumoniae (PCR) (NotDetected) Parainfluenza 1 (PCR) (NotDetected) Parainfluenza 2 (PCR) (NotDetected) Parainfluenza 3 (PCR) (NotDetected) Parainfluenza 4 (PCR) (NotDetected) RSV (PCR) (NotDetected) Entero/Rhino (PCR) (NotDetected) Administered Medications Fentanyl Citrate (Fentanyl Drip) 1,250 mcg in 250 mls @ 5 mls/hr IV .Q50H [facility]; Protocol Stop: 07/12/20 12:14 Last Admin: 06/28/20 12:19 Dose: 25 mcg/hr, 5 mls/hr Documented by: [id number] Cosigned by: [id number] Norepinephrine Bitartrate 8 mg (/ Dextrose) 508 mls @ 64.237 mls/hr IV .Q7H55M [facility]; Protocol Stop: 07/28/20 12:44 Last Titration: 06/28/20 15:03 Dose: 0.3 mcg/kg/min, 64.2 mls/hr Documented by: [id number] Titration: 06/28/20 13:50 Dose: 0.2 mcg/kg/min, 42.8 mls/hr Documented by: [id number] Titration: 06/28/20 13:40 Dose: 0.4 mcg/kg/min, 85.6 mls/hr Documented by: [id number] Titration: 06/28/20 13:10 Dose: 0.5 mcg/kg/min, 107.1 mls/hr Documented by: [id number] Titration: 06/28/20 12:44 Dose: 0.6 mcg/kg/min, 128.5 mls/hr Documented by: [id number] Titration: 06/28/20 12:40 Dose: 0.3 mcg/kg/min, 64.2 mls/hr Documented by: [id number] Admin: 06/28/20 12:35 Dose: 0.1 mcg/kg/min, 21.4 mls/hr Documented by: [id number] Cosigned by: [id number] Discontinued Medications Piperacillin Sod/Tazobactam Sod (Zosyn) 4.5 gm in 120 mls @ 240 mls/hr IV NOW ONE Stop: 06/28/20 11:19 Last Infusion: 06/28/20 11:50 Dose: 0 mls/hr Documented by: [id number] Admin: 06/28/20 11:20 Dose: 240 mls/hr Documented by: [id number] Sodium Chloride (Nss 1000ml) 2,000 mls @ 999 mls/hr IV .Q2H1M ONE Stop: 06/28/20 12:57 Last Infusion: 06/28/20 12:00 Dose: 0 mls/hr Documented by: [id number] Admin: 06/28/20 11:14 Dose: 999 mls/hr Documented by: [id number] Midazolam HCl (Versed) 125 mg in 250 mls @ 2 mls/hr IV .Q96H [facility]; Protocol Stop: 07/28/20 12:14 Last Admin: 06/28/20 12:19 Dose: 1 mg/hr, 2 mls/hr Documented by: [id number] Cosigned by: [id number] Daptomycin 325 mg/ Syringe 6.5 mls @ 3.25 mls/min IV NOW ONE; Protocol Stop: 06/28/20 13:40 Last Admin: 06/28/20 14:16 Dose: 3.25 mls/min Documented by: [id number] Ioversol (Optiray 320 125ml) 118 ml IV ONCE ONE Stop: 06/28/20 12:43 Last Admin: 06/28/20 12:42 Dose: 118 ml Documented by: [id number] Midazolam HCl (Midazolam Bolus From Bag) 2 mg IV Q60M PRN PRN Reason: Sedation Stop: 07/28/20 12:04 Last Admin: 06/28/20 12:20 Dose: 2 mg Documented by: [id number] Discharge Plan Visit Data Chief Complaint: Leg Weakness, Bilateral ED Provider: Poncho Sheldon Discharge Problem: Respiratory failure, Hypoxia, Hypotension, CHF (congestive heart failure), Pleural effusion Patient Disposition: Admitted As Inpatient Discharge Instructions Interventions: ED Discharge Assessment Last Done: 06/28/20 15:10 Discharge Problem: Respiratory failure Qualifiers: Chronicity: acute Respiratory failure complication: hypoxia Qualified Code(s): J96.01 - Acute respiratory failure with hypoxia Hypotension Qualifiers: Hypotension type: unspecified hypotension type Qualified Code(s): I95.9 - Hypotension, unspecified CHF (congestive heart failure) Qualifiers: Heart failure type: unspecified Heart failure chronicity: unspecified Qualified Code(s): I50.9 - Heart failure, unspecified
[2020-06-28] MEDS ORDERED: SODIUM CHLORIDE 0.9% 1000ML 2,000 ML IV ONE (10:57)
[2020-06-28 11:15] LABS: Mean Corpuscular Hgb Conc 31.7 g/dL (32-36); Nucleated RBC # (auto) 0.04 K/uL (0-0); Nucleated RBC % (auto) 0.4 %
[2020-06-28 11:23] LABS: Hematocrit (blood only) 35.3 % (42-52); Hemoglobin 11.2 g/dL (14.0-18.0); Mean Corpuscular Volume 97.8 fL (80-100); RDW Coefficient of Variation 22.8 % (11.5-14.5); RDW Standard Deviation 80.4 fL (36.4-46.3); Red Blood Count 3.61 M/uL (4.7-6.1); White Blood Count 10.44 K/uL (4.8-10.8)
[2020-06-28 11:35] LABS: Anisocytosis Present; Basophils # (auto) 0.01 K/uL (0-0.2); Basophils % (auto) 0.1 %; Echinocytes 1+; Immature Granulocytes # (auto) 0.04 K/uL (0.00-0.02); Immature Granulocytes % (auto) 0.4 %; Lymphocytes # (auto) 0.24 K/uL (1.2-3.4); Lymphocytes % (auto) 2.3 %; Monocytes # (auto) 0.66 K/uL (0.11-0.59); Monocytes % (auto) 6.3 %; Neutrophils # (auto) 9.49 K/uL (1.4-6.5); Neutrophils % (auto) 90.9 %; Platelet Count 150 K/uL (130-400); Platelet Estimate Normal (Normal)
[2020-06-28 11:35] LABS: iSTAT Creatinine 1.5 mg/dl (0.6-1.3); iSTAT Hemoglobin 10.2 g/dl (14.0-18.0); iSTAT Ionized Calcium 1.08 mmol/l (1.12-1.32); iSTAT Potassium 4.9 mmol/L (3.3-5.0)
--- NOTE | 2020-06-28 11:39 | XRay Report ---
XR chest 1V portable CLINICAL HISTORY: SEPSIS COMPARISON STUDY: Chest radiograph April 07, 2020. FINDINGS: Left subclavian pacer/AICD is in place. Moderate cardiomegaly is noted. Apparent increase s shiela prior exam is probably technical. There is no pneumothorax. There is a trace right pleural effus ion. There are medial bibasilar opacities. Interstitial thickening is noted. IMPRESSION: 1. Interstitial thickening suggestive of mild pulmonary edema. 2. Hazy bibasilar opacities which may reflect atelectasis or consolidation. 3. Trace right pleural effusion. ACT 112: Negative or not required by law. Electronically signed by: Alex Donahue M.D. 06/28/2020 11:38 AM
[2020-06-28] MEDS ORDERED: RAPID SEQUENCE INDUCTION BAG ONE (11:47)
[2020-06-28 11:50] LABS: Albumin Level 2.8 gm/dl (3.4-5.0); BUN Creatinine Ratio 32.5 (10-20); Calcium 8.4 mg/dl (8.5-10.1); Est GFR (African American) 39.6; Est GFR (Non-African American) 34.2; Magnesium 1.4 mg/dl (1.8-2.4); Potassium 5.2 mmol/L (3.5-5.1)
[2020-06-28 11:51] LABS: INR 1.8 (0.9-1.1); Partial Thromboplastin Time 28.9 Seconds (21.0-31.0); Prothrombin Time 18.3 Seconds (9.0-12.0)
[2020-06-28 12:04] LABS: Albumin Globulin Ratio 0.6 (0.9-2); Bilirubin,Total 0.9 mg/dl (0.2-1); Globulin 4.4 gm/dl (2.5-4.0); Total Protein 7.2 gm/dl (6.4-8.2); Troponin I 0.085 ng/ml (0-0.045)
[2020-06-28] MEDS ORDERED: MIDAZOLAM BOLUS FROM BAG IV PRN (12:05)
[2020-06-28] MEDS ORDERED: STAT IV Infusion **Titration per Protocol STA ×2 (12:05→16:32)
[2020-06-28] MEDS ORDERED: fentaNYL DRIP 1,250 MCG/250 ML BAG IV SCH (12:15)
[2020-06-28] MEDS ORDERED: MIDAZOLAM HCL 125 MG/250 ML BAG IV SCH (12:15)
[2020-06-28 12:31] LABS: Adenovirus PCR Not Detected (NotDetected); Bordetella parapertussis PCR Not Detected (NotDetected); Bordetella pertussis PCR Not Detected (NotDetected); Chlamydia pneumoniae PCR Not Detected (NotDetected); Coronavirus 229E PCR Not Detected (NotDetected); Coronavirus CoV-2 (COVID19)PCR Not Detected (NotDetected); Coronavirus HKU1 PCR Not Detected (NotDetected); Coronavirus NL63 PCR Not Detected (NotDetected); Coronavirus OC43PCR Not Detected (NotDetected); Human Metapneumovirus PCR Not Detected (NotDetected); Influenza A PCR Not Detected (NotDetected); Influenza B PCR Not Detected (NotDetected); Mycoplasma pneumoniae PCR Not Detected (NotDetected); Parainfluenza Virus 1 PCR Not Detected (NotDetected); Parainfluenza Virus 2 PCR Not Detected (NotDetected); Parainfluenza Virus 3 PCR Not Detected (NotDetected); Parainfluenza Virus 4 PCR Not Detected (NotDetected); Respiratory Syncytial VirusPCR Not Detected (NotDetected); Rhinovirus/Enterovirus PCR Not Detected (NotDetected)
[2020-06-28] MEDS: NOREPINEPHRINE (Adult) 8 MG in DEXTROSE 5% 500 ML IV SCH ×3 (12:35→17:29)
[2020-06-28] MEDS ORDERED: OPTIRAY 320 125ml IV ONE (12:42)
--- NOTE | 2020-06-28 13:19 | CT Scan Report ---
CT abd pelvis IV con only CLINICAL HISTORY: sepsis COMPARISON STUDY: None. TECHNIQUE: The patient was scanned in a dynamic helical fashion during intravenous administration of 118 cc of Optiray 320 A dose lowering technique was utilized adhering to the principles of ALARA. CT DOSE: 1164.98 mGy.cm FINDINGS: Lower chest: There are bilateral pleural effusions with associated basilar airspace opacity statistic ally atelectatic. Liver: There is mild periportal edema. This could be secondary to fluid overload. No focal hepatic ma sses are visualized Gallbladder: Cholelithiasis with mild pericholecystic fluid. Spleen: Normal in size and attenuation. Pancreas: Atrophic. No ductal dilatation. No focal masses identified. Adrenal glands: Unremarkable. Kidneys: There are vascular calcifications. There is a 22 mm left renal cyst. There is no hydronephro sis. No solid renal masses are visualized Bowel: There are no transition zones to indicate bowel obstruction. There is diffuse colonic wall thi ckening most pronounced involving the ascending colon. The appendix appears normal. There is no acute diverticulitis. Peritoneum: There is no intraperitoneal free air or abdominal ascites. Vasculature: There is a 35 mm infrarenal abdominal aortic aneurysm. There are moderately extensive ao rtoiliac atheromatous changes. 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 Adenopathy: None. Pelvic viscera: The bladder, and pelvic viscera are unremarkable. Skeletal structures: No destructive osseous lesions are seen. IMPRESSION: 1. Rgcan-[id number] bilateral pleural effusions and basilar parenchymal opacities, likely atelectati c 2. Cholelithiasis and pericholecystic edema 3. No evidence of bowel obstruction. No evidence of free air 4. 35 mm infrarenal abdominal aortic aneurysm 5. 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 Diffuse colonic wall edema. This could be secondary to a colitis, or be secondary to systemic cond itions such as a low albumin state. ACT 112: Negative or not required by law. Electronically signed by: Wesley Baker M.D. 06/28/2020 1:18 PM
--- NOTE | 2020-06-28 13:29 | CT Scan Report ---
CT angio chest PE protocol HISTORY: 74 years-old Male with hypoxic. Acute generalized with hypoxia and shortness of breath TECHNIQUE: Multiple CTA images of the chest were obtained after the intravenous administration of 118 ml Optiray 320. Coronal and sagittal MIPS were obtained from the axial data set and were submitted for review. All measurements were obtained according to NASCET criteria. A dose lowering technique w as utilized adhering to the principles of ALARA. COMPARISON: CT abdomen and pelvis of same day, chest radiographs 04/07/2020 FINDINGS: CTA: Mild to moderate cardiomegaly. The left heart structures are not well opacified secondary to contrast bolus timing. Extensive coronary artery calcifications. There is no thoracic aortic aneurysm. Calcif ied plaque of the thoracic aorta and great vessels. Left subclavian pacer. The pulmonary arterial kartik e is opacified to level of the proximal segmental branches and demonstrates no filling defects to sug gest thromboembolic disease. CT CHEST: No large thyroid nodule. Mildly prominent mediastinal lymph nodes measuring up to 8 mm are likely malena ctive. Small bilateral pleural effusions. No pneumothorax. Mild emphysema with bronchial wall thicken ing suggestive of emphysema. Dependent bibasilar consolidation. Mild intralobular septal thickening. Endotracheal tube terminates 2.5 cm superior to the michaela. Mild tracheobronchial secretions. Mesenteric edema. The imaged upper abdomen. Mild generalized body wall edema. Demineralized appearanc e of the bones with degenerative changes of the spine and shoulders. Acute versus subacute slightly d isplaced fracture of the anterior right fifth rib. There are several healed remote right-sided rib fr acture deformities. IMPRESSION: 1. Endotracheal tube terminates 2.5 cm superior to the michaela. 2. Cardiomegaly with mild pulmonary edema, layering pleural effusions and dependent bibasilar consoli dation suggestive of atelectasis. 3. Emphysema. 4. Cardiomegaly without evidence of pulmonary thromboembolic disease. 5. Acute versus subacute fracture of the anterior right fifth rib. ACT 112: Negative or not required by law. The above report was generated using voice recognition software. It may contain grammatical, syntax o r spelling errors. Electronically signed by: Kwadwo Li M.D. 06/28/2020 1:28 PM
--- NOTE | 2020-06-28 13:33 | CT Scan Report ---
LUMBAR SPINE CT CT DOSE: HISTORY: Leg weakness. Back pain. TECHNIQUE: Multiaxial CT images of the lumbar spine were performed and reformatted in the sagittal an d coronal plane without the use of contrast. A dose lowering technique was utilized adhering to the principles of ALARA. COMPARISON: None. FINDINGS: No fracture or subluxation. Severe disc space narrowing throughout the lumbar spine with la rge endplate osteophytes and severe facet osteoarthritis. The visualized sacrum is intact. Paraverteb ral soft tissues are unremarkable. There is a 3.4 cm infrarenal abdominal aortic aneurysm. Moderate c entral canal narrowing throughout the lumbar spine. There is moderate to severe bilateral neural fora malcolm narrowing in the mid to lower lumbar spine. IMPRESSION: 1. No fracture or subluxation within the lumbar spine. 2. Moderate to severe degenerative changes as described above. 3. A 3.4 cm infrarenal abdominal aortic aneurysm. ACT 112: Negative or not required by law. Electronically signed by: Fuentes Gillis M.D. 06/28/2020 1:32 PM
[2020-06-28] MEDS ORDERED: DAPTOmycin 325 MG in SYRINGE 0 ML IV ONE (13:39)
[2020-06-28 13:47] LABS: Base Excess VBG -11.8 mEq/L; Oxygen Saturation VBG 70.9 %; pH VBG 7.16 (7.36-7.41)
[2020-06-28 13:57] LABS: Appearance Urine Clear (Clear); Blood Urine 1+ (Negative); Color Urine Dark Yellow; Epithelial Cell Urine Auto >30 /lpf (0-5); Glucose Urine UA Negative (Negative); Ketones Urine Trace (Negative); Leukocyte Esterase Urine Negative (Negative); Nitrite Urine Negative (Negative); Protein Urine 1+ (Negative); RBC Urine Automated 0-4 /hpf (0-4); Specific Gravity Urine 1.035 (1.000-1.030); Urobilinogen Urine Negative (Negative)
[2020-06-28 14:12] LABS: Bilirubin Urine Negative (Negative); Ictotest Urine Negative (Negative)
[2020-06-28 14:19] LABS: Mucus Urine Present (None Prsent)
[2020-06-28 14:21] LABS: Bacteria Urine Automated 1+ (Negative)
--- NOTE | 2020-06-28 15:39 | Critical Care Consultation ---
Date of Consultation June 28, 2020 Assessment & Plan (1) Ischemic cardiomyopathy: Neurologic: Analgesics and sedation: We will switch the patient from Versed to propofol. Continue fentanyl for pain control. Acute encephalopathy likely related to hypoxemia. Delirium precautions Pulmonary: Ventilator/BiPAP settings: Continue lung protective ventilation strategy. Patient with evidence of bilateral effusions likely related to decompensated heart failure. Procalcitonin is mildly elevated. Rib fracture noted on the left. No pneumothorax identified. No significant evidence of pneumonia on the CT chest. Head of the bed elevated to 30 degrees if intubated Cardiovascular: Patient with decompensated systolic heart failure. We will hold on diuresis at this time given his elevated lactate and hypotension. Will consider initiation of dobutamine if hypotension continues to be an issue. He may need a central line. Maintain mean arterial blood pressure above 65. Trend troponins. Repeat echocardiogram will be ordered. He recently underwent a biventricular pacemaker placement. Palliative care consultation will be ordered due to severe cardiomyopathy. Hold antihypertensive therapy. Continue aspirin and Plavix. Continue atorvastatin via NG tube. Obtain proBNP. Will need pacer interrogation. Cardiology consultation placed for possible biventricular pacemaker infection. Gastrointestinal: Bowel regimen if on analgesics: Docusate and senna Stress ulcer prophylaxis: Protonix daily He has severe celiac artery stenosis. Possible mesenteric ischemia versus colonic ischemia given his elevated lactate. LFTs are not severely elevated. Alk phos is mildly elevated. Renal: MAURIZIO is present. He received fluids in the ER. Will use fluids judiciously given his EF of less than 20%. Will check a CK to evaluate for the possibility of rhabdomyolysis as the patient was found down. Infectious disease: We will continue daptomycin and Zosyn for the time being for possible soft skin infection on the biventricular pacemaker and GI infection given nonspecific colonic findings of edema. More likely related to anasarca and hypoalbuminemic state with a reduced EF. Viral PCR negative. Urinalysis appears like a dirty sample. Blood cultures pending. Obtain culture from the biventricular site insertion procalcitonin mildly elevated likely due to renal failure. Repeat in the a.m. Hematologic: Chronic anemia noted likely secondary to anemia of chronic disease. INR is elevated possibly due to malnutrition. We will hold off on correcting at this time. Possible GI bleed given black tarry stool that was seen by family member. Will check CBC every 6 hours and start him on a Protonix 40 mg twice daily, push. Hold aspirin and Plavix for today. Endocrine: Hyperglycemia protocol Lines and tubes: Peripheral IVs and Goldman catheter VTE prophylaxis: SCDs CODE STATUS: Full per discussion between the hospitalist and the family. Family at bedside: Not available immediately at bedside Disposition: Remain in the ICU. Patient's prognosis overall is very poor. Will likely benefit from palliative care consultation. It is very unlikely that he would survive an ACLS protocol in the event of a cardiac arrest given his severely compromised ejection fraction and severe underlying coronary artery disease/peripheral vascular disease. I have personally spent 63 minutes of critical care time in the direct management of this patient. This is a life/limb threatening event. This includes time spent evaluating patient, direct bedside care, chart review, placing orders, interpretation of diagnostic studies, discussion with consultants, patient, and family members, as well as other required patient management activities. This time is exclusive of all separately billable procedures, and teaching time and separate from and in addition to any other critical care service time. Thank you for allowing us to participate in the care of this patient. (2) Acute hypoxemic respiratory failure: (3) Demand ischemia: (4) MAURIZIO (acute kidney injury): (5) Acute on chronic systolic heart failure: (6) Celiac artery stenosis: (7) Acute encephalopathy: History of Present Illness Reason for Consultation: Acute hypoxemic respiratory failure and is now intubated Requesting Physician: Emergency department physician Attending Physician: Hospitalist service History of Present Illness 74-year-old male with a past medical history of hyperlipidemia, tobacco abuse, pseudogout, CAD, COPD, biventricular pacemaker placement and combined systolic and diastolic heart failure with the most recent echo on 02/19/2020 that demonstrated an LVEF of less than 20% with grade 1 diastolic dysfunction. Secondary pulmonary hypertension was also seen with an PASP estimated at 55 mmHg. Patient also underwent an EGD on May 06 and was found to have mild Schatzki ring and a small hiatal hernia. He is being admitted today for acute hypoxemic respiratory failure requiring intubation and mechanical ventilation. History is unobtainable from the patient due to his intubation status, but I was able to discuss with the ER physician and obtain relevant data from the chart. EKG today noted to have atrial sensed ventricular paced rhythm. No significant signs of ischemia. Hemoglobin today of 11 .2. Platelet count of 150,000. INR is 1.8. VBG was completed and was 7.16. I am not certain of the settings. BMP with a bicarb of 17 and a creatinine of 1.88. Baseline creatinine approximately 1.1-1.3. Lactic acid of 5.5 which improved to 4.9 on follow-up roughly 2 hours later. Opponent elevated to 0.085. Procalcitonin of 0.51. Albumin of 2.8. Alkaline phosphatase of 194. Urinalysis with 1+ blood and 1+ bacteria. No nitrates or esterase seen. Bio fire testing was negative. COVID-[address] of the abdomen and pelvis demonstrated small to moderate bilateral effusions and basilar parenchymal opacities likely atelectasis. A 5 mm infrarenal abdominal aortic aneurysm. Severe proximal celiac artery stenosis with moderately extensive aortoiliac thrombus disease. Diffuse colonic wall edema was seen. CT of the chest with cardiomegaly and pulmonary edema and layering pleural effusions. Emphysema was noted. No evidence of pulmonary embolism was noted. Acute versus subacute fracture of the anterior fifth rib. Lumbar spine CT with moderate to severe degenerative changes and a 3.4 cm infrarenal abdominal aortic aneurysm. Patient is currently on a Versed and fentanyl drip. Norepinephrine is infusing. He received 1 dose of Zosyn. He also received 1 dose of daptomycin. A 2 L bolus of normal saline was ordered. Patient was apparently found down in his house for unknown period of time. EMS came to his home and found that he was hypoxic. They put him on supplemental oxygen with improvement. In the ER he was complaining of severe back pain and had worsening hypoxemia. He was emergently intubated and started on norepinephrine due to hypotension. The son-in-law indicated the patient was progressively weak. He also had progressive leg swelling and diarrhea. There was a question of potential black tarry stool. Hemoglobin has been stable as noted above. Allergies Allergy/AdvReac Type Severity Reaction Status Date / Time phenobarbital Allergy Mild dizzy Verified 06/28/20 14:54 Home Medications Home Medications Medication Instructions Recorded Confirmed Type Selsun Blue 1 applic TOPICAL Q OTHER DAY 08/03/19 06/28/20 History aspirin [Aspirin Low Dose] 81 mg PO QAM 08/03/19 06/28/20 History colchicine 0.6 mg PO BID 08/03/19 06/28/20 History cyanocobalamin (vitamin B-12) 1,000 mcg PO QAM 08/03/19 06/28/20 History [Vitamin B-12] gabapentin 300 mg PO TID 08/03/19 06/28/20 History levothyroxine 125 mcg PO QAM 08/03/19 06/28/20 History omeprazole 20 mg PO QAM 08/03/19 06/28/20 History acetaminophen [Tylenol Extra 500 - 1,000 mg PO Q6H PRN 12/25/19 06/28/20 History Strength] tramadol 50 mg PO Q6H PRN 12/25/19 06/28/20 History Incruse Ellipta 1 inh INHALATION QAM 04/06/20 06/28/20 History Levemir FlexTouch U-100 Insuln 18 unit SUBCUT HS 04/06/20 06/28/20 History albuterol sulfate 1 inh INHALATION QID PRN 04/06/20 06/28/20 History atorvastatin 40 mg PO DAILY 04/06/20 06/28/20 History clopidogrel [Plavix] 75 mg PO QAM 04/06/20 06/28/20 History ferrous sulfate [Feosol] 325 mg PO BID 04/06/20 06/28/20 History fluticasone propion-salmeterol 1 inh INHALATION Q12H 04/06/20 06/28/20 History [Advair Diskus] furosemide [Lasix] 20 mg PO QAM 04/06/20 06/28/20 History lisinopril 5 mg PO HS 04/06/20 06/28/20 History metformin 1,000 mg PO BIDM 04/06/20 06/28/20 History metoprolol succinate 50 mg PO QAM 04/06/20 06/28/20 History nitroglycerin [Nitrostat] 0.4 mg SUBLINGUAL UD PRN 04/06/20 06/28/20 History semaglutide 1 mg SUBCUT WK 04/06/20 06/28/20 History triamcinolone acetonide 1 applic TOPICAL BID PRN 04/06/20 06/28/20 History Patient History Medical History (Updated 06/28/20 @ 15:28 by Sonny Heart MD) AAA (abdominal aortic aneurysm) follows with [facility] once a year Acute encephalopathy Acute hypoxemic respiratory failure Acute on chronic systolic heart failure MAURIZIO (acute kidney injury) Anemia CAD (coronary artery disease) Celiac artery stenosis Degenerative disc disease Demand ischemia Diabetes mellitus, type 2 GERD (gastroesophageal reflux disease) Gout Hyperlipidemia Hypertension Hypothyroidism ICD (implantable cardioverter-defibrillator) in place meditronic placed 04/06/2020 @ [facility] Non-STEMI (non-ST elevated myocardial infarction) 12/2019--attempted heart cath @ [facility] unable to place stents sent to [facility] where he had ALLISON placed--currently of plavix and [facility] On anticoagulant therapy plavix daily On home oxygen therapy 2L N/C at HS Osteoarthritis Pulmonary embolism per record 1970s, unknown cause Sleep apnea 2L N/C at HS Wheezing Surgical History History of cardiac cath x2--12/25/2019 @ [facility]--unable to stent pt, sent to [facility] Winkler 12/2019--ALLISON LAD PCI @ [facility] History of colonoscopy with polypectomy History of esophagogastroduodenoscopy (EGD) History of heart artery stent 12/2019 ALLISON LAD PCI @ [facility] (pt states they placed 3 stents at that time) History of implantable cardioverter-defibrillator (ICD) insertion 04/06/2020 History of repair of right rotator cuff History of tooth extraction upper teeth Family History Other No family history of adverse response to anesthesia Social History Smoking Status: Current every day smoker Tobacco Type: Cigars Cigarettes Per Day: 3 cigars a day; Second Hand Exposure: Yes (father smoked); Hx Alcohol Use: No Hx Substance Use: No Preferred Language: Kyrgyz Communication Ability: Effective Catalyst Concentration Operator Required: No Beliefs That Will Affect Care: None marital status: / Current Living Situation: Alone Feels Safe at Home: Yes Assistive Devices: Denture - Upper, Glasses and Oxygen - at Night Review of Systems Review of Systems: Unobtainable due to endotracheal tube and Unobtainable due to reduced consciousness Results & Data Results & Data ([facility]) Vital Signs (Past 12 Hours) Vital Signs Temp Pulse Pulse Resp BP BP Pulse Ox 06/28/20 15:00 83 16 92/62 L 100 06/28/20 14:45 84 18 96/63 L 100 06/28/20 14:40 84 16 95/63 L 100 06/28/20 14:30 85 16 91/61 L 99 06/28/20 14:15 81 18 89/61 L 100 06/28/20 14:00 88 18 93/62 L 98 06/28/20 13:45 82 18 114/73 99 06/28/20 13:40 83 19 108/78 100 06/28/20 13:35 82 19 116/73 100 06/28/20 13:30 83 17 113/79 100 06/28/20 13:26 82 21 100 06/28/20 13:25 85 20 115/77 100 06/28/20 13:20 86 19 112/84 100 06/28/20 13:15 89 19 117/82 100 06/28/20 13:12 93 H 18 120/86 100 06/28/20 13:11 87 13 06/28/20 12:50 80 21 111/72 100 06/28/20 12:47 81 19 100 06/28/20 12:45 81 19 96/62 L 100 06/28/20 12:44 81 20 91/66 L 100 06/28/20 12:40 82 19 71/48 L 89 L 06/28/20 12:38 82 16 72/51 L 93 06/28/20 12:35 83 16 75/55 L 94 06/28/20 12:33 86 13 80/49 L 100 06/28/20 12:31 83 17 93 06/28/20 12:30 84 12 82/54 L 97 06/28/20 12:27 84 16 80/55 L 94 06/28/20 12:25 85 14 78/58 L 99 06/28/20 12:20 87 101/69 06/28/20 12:16 88 8 L 105/72 06/28/20 12:15 87 13 87/67 L 06/28/20 12:12 85 13 103/60 06/28/20 12:10 84 15 85/62 L 06/28/20 12:08 82 14 92/57 L 06/28/20 12:04 82 15 90/62 L 06/28/20 12:02 84 90/63 L 06/28/20 12:00 88 16 89/70 L 06/28/20 11:58 79/61 L 06/28/20 11:45 82 25 H 93/61 L 06/28/20 11:40 83 26 H 90/65 L 76 L 06/28/20 11:30 84 17 96/71 L 80 L 06/28/20 11:27 82 L 06/28/20 11:25 84 83 18 101/59 L 101/59 L 06/28/20 11:20 86 18 06/28/20 11:10 86 24 06/28/20 11:00 84 84 17 85/55 L 06/28/20 10:45 86 32 H 91/63 L 06/28/20 10:42 83 18 90/58 L 06/28/20 10:33 97.5 F L 84 22 75/52 L 83 L I reviewed the vital signs, labs and imaging. Coding Level of Care Code Critical Care 1st 30-74 mins Diagnoses Ischemic cardiomyopathy I25.5 Acute hypoxemic respiratory failure J96.01 Demand ischemia I24.8 MAURIZIO (acute kidney injury) N17.9 Acute on chronic systolic heart failure I50.23 Celiac artery stenosis I77.4 Acute encephalopathy G93.40 Time Spent (min) 63
--- NOTE | 2020-06-28 16:03 | History & Physical Report ---
Date of Service June 28, 2020 Assessment & Plan (1) Acute hypoxemic respiratory failure: 74-year-old male with history of coronary disease, status post and placement, ischemic cardiomyopathy, ejection fraction 20%, status post AICD, diabetes type 2, hypertension, COPD, other problems noted below presenting with several days history of leg swelling and weakness. Acute hypoxic respiratory failure secondary to acute on chronic congestive heart failure exacerbation, systolic History of AICD placement, May 2020 Ventilator management per cardiology service Creatinine elevated 1.8, from baseline of 1.1 We will need to be cautious with diuresis Echocardiogram ordered Check pacemaker interrogation Possible component of pneumonia? Procalcitonin 0.5 Bio fire screen negative including Covid 19 negative Currently on Zosyn Follow-up cultures Shock, Possible cardiogenic Versus component of hypovolemia Gentle IV fluids ordered Repeat echo pending Continue Levophed, may need dobutamine Diarrhea, questionable melena Baseline hemoglobin is 10.7 currently at 10 Check stool cultures, C. difficile, fecal occult blood Protonix IV Monitor hemoglobin Acute renal failure Baseline creatinine 1.1 now 1.8 Likely secondary to acute GI losses from diarrhea Possible component of cardiorenal syndrome Check renal ultrasound DVT prophylaxis Per locomotive operator helper CODE STATUS Full code per patient's daughter Cassy who is the POA Disposition Pending Lives independently in his home Admission and Anticipated Discharge Date Admission Date: June 28, 2020 History of Present Illness 74-year-old male with history of coronary disease, status post and placement, ischemic cardiomyopathy, ejection fraction 20%, status post AICD, diabetes type 2, hypertension, COPD, other problems noted below presenting with several days history of leg swelling and weakness. History obtained from patient's son-in-law Hi at the bedside And also patient's [facility] recordsPatient had AICD placement last May 2020, and was found to be functioning appropriately per follow-up cardiology visits. As per patient's son-in-law, patient has been progressively weak but is still able to get around independently including with his doctors appointments. The past few days the patient has been having progressive leg swelling bilateral leg swelling and diarrhea, 3-4 loose bowel movements per day, noted to be black. This morning, patient son-in-law was picking up patient for an appointment, but was found to be on the floor, unable to get up due to weakness. Apparently patient fell landed on his knees and cannot manage to get up on his own. Patient also found to have diarrhea at that time, black stools noted. Patient was then brought to the ER for evaluation. At the ER, patient was received with hypotension, systolic blood pressure in the 90s. At one point, patient became progressively short of breath leading to intubation and mechanical ventilation. Blood pressure also continued to drop leading to initiation of Levophed. CT showed bilateral pleural effusions, and infiltrates versus atelectasis. On exam, the patient is seen in the emergency room, sedated, on mechanical ventilator, not in distress. No other signs noted. No other symptoms per patient son-in-law. Primary Care Provider: Riaz West MD Allergies Allergy/AdvReac Type Severity Reaction Status Date / Time phenobarbital Allergy Mild dizzy Verified 06/28/20 14:54 Home Medications Home Medications Medication Instructions Recorded Confirmed Type Selsun Blue 1 applic TOPICAL Q OTHER DAY 08/03/19 06/28/20 History aspirin [Aspirin Low Dose] 81 mg PO QAM 08/03/19 06/28/20 History colchicine 0.6 mg PO BID 08/03/19 06/28/20 History cyanocobalamin (vitamin B-12) 1,000 mcg PO QAM 08/03/19 06/28/20 History [Vitamin B-12] gabapentin 300 mg PO TID 08/03/19 06/28/20 History levothyroxine 125 mcg PO QAM 08/03/19 06/28/20 History omeprazole 20 mg PO QAM 08/03/19 06/28/20 History acetaminophen [Tylenol Extra 500 - 1,000 mg PO Q6H PRN 12/25/19 06/28/20 History Strength] tramadol 50 mg PO Q6H PRN 12/25/19 06/28/20 History Incruse Ellipta 1 inh INHALATION QAM 04/06/20 06/28/20 History Levemir FlexTouch U-100 Insuln 18 unit SUBCUT HS 04/06/20 06/28/20 History albuterol sulfate 1 inh INHALATION QID PRN 04/06/20 06/28/20 History atorvastatin 40 mg PO DAILY 04/06/20 06/28/20 History clopidogrel [Plavix] 75 mg PO QAM 04/06/20 06/28/20 History ferrous sulfate [Feosol] 325 mg PO BID 04/06/20 06/28/20 History fluticasone propion-salmeterol 1 inh INHALATION Q12H 04/06/20 06/28/20 History [Advair Diskus] furosemide [Lasix] 20 mg PO QAM 04/06/20 06/28/20 History lisinopril 5 mg PO HS 04/06/20 06/28/20 History metformin 1,000 mg PO BIDM 04/06/20 06/28/20 History metoprolol succinate 50 mg PO QAM 04/06/20 06/28/20 History nitroglycerin [Nitrostat] 0.4 mg SUBLINGUAL UD PRN 04/06/20 06/28/20 History semaglutide 1 mg SUBCUT WK 04/06/20 06/28/20 History triamcinolone acetonide 1 applic TOPICAL BID PRN 04/06/20 06/28/20 History Past Med/Surg History Medical History (Updated 06/28/20 @ 15:28 by Sonny Heart MD) AAA (abdominal aortic aneurysm) [facility] once a year Acute encephalopathy Acute hypoxemic respiratory failure Acute on chronic systolic heart failure MAURIZIO (acute kidney injury) Anemia CAD (coronary artery disease) Celiac artery stenosis Degenerative disc disease Demand ischemia Diabetes mellitus, type 2 GERD (gastroesophageal reflux disease) Gout Hyperlipidemia Hypertension Hypothyroidism ICD (implantable cardioverter-defibrillator) in place meditronic placed 04/06/2020 @ [facility] Non-STEMI (non-ST elevated myocardial infarction) 12/2019--attempted heart cath @ [facility] unable to place stents sent to [facility] where he had ALLISON placed--currently of plavix and follows with [facility] On anticoagulant therapy plavix daily On home oxygen therapy 2L N/C at HS Osteoarthritis Pulmonary embolism per record , unknown cause Sleep apnea 2L N/C at HS Wheezing Surgical History History of cardiac cath x2--12/25/2019 @ [facility]--unable to stent pt, sent to [facility] 12/2019--ALLISON LAD PCI @ [facility] History of colonoscopy with polypectomy History of esophagogastroduodenoscopy (EGD) History of heart artery stent 12/2019 ALLISON LAD PCI @ [facility] (pt states they placed 3 stents at that time) History of implantable cardioverter-defibrillator (ICD) insertion 04/06/2020 History of repair of right rotator cuff History of tooth extraction upper teeth Family History Other No family history of adverse response to anesthesia Social History Smoking Status: Current every day smoker Tobacco Type: Cigars Cigarettes Per Day: 3 cigars a day; Second Hand Exposure: Yes (father smoked); Hx Alcohol Use: No Hx Substance Use: No Preferred Language: Welsh Communication Ability: Effective Process Improvement Manager Required: No Beliefs That Will Affect Care: None marital status: / Current Living Situation: Alone Feels Safe at Home: Yes Assistive Devices: Denture - Upper, Glasses and Oxygen - at Night Review of Systems Review of Systems: All systems reviewed & are unremarkable except as noted in Subjective Physical Exam Physical Exam: General- sedated, not in distress,no accessory muscle use Head- atraumatic Eyes- PERRL, EOMI, anicteric ENT- intubated Neck- supple, no JVD, no adenopathy, no thyromegaly; carotids +2/2, no bruits appreciated Lungs- (+) rhonchi anteriorly, no wheezing Heart- normal rate, regular rhythm; no murmurs Abdomen- normal bowel sounds, nondistended, soft, nontender, no masses or hepatosplenomegaly Extremities- (+) grade 2 bilateral lower leg edema, no erythema/warmth; peripheral pulses intact Neuro- sedated Skin- warm & dry Results & Data Results & Data ([facility]) Vital Signs (Past 12 Hours) Vital Signs Temp Pulse Pulse Resp BP BP Pulse Ox 06/28/20 15:00 83 16 92/62 L 100 06/28/20 14:45 84 18 96/63 L 100 06/28/20 14:40 84 16 95/63 L 100 06/28/20 14:30 85 16 91/61 L 99 06/28/20 14:15 81 18 89/61 L 100 06/28/20 14:00 88 18 93/62 L 98 06/28/20 13:45 82 18 114/73 99 06/28/20 13:40 83 19 108/78 100 10/27/20 13:35 82 19 116/73 100 06/28/20 13:30 83 17 113/79 100 06/28/20 13:26 82 21 100 06/28/20 13:25 85 20 115/77 100 06/28/20 13:20 86 19 112/84 100 06/28/20 13:15 89 19 117/82 100 06/28/20 13:12 93 H 18 120/86 100 06/28/20 13:11 87 13 06/28/20 12:50 80 21 111/72 100 06/28/20 12:47 81 19 100 06/28/20 12:45 81 19 96/62 L 100 06/28/20 12:44 81 20 91/66 L 100 06/28/20 12:40 82 19 71/48 L 89 L 06/28/20 12:38 82 16 72/51 L 93 06/28/20 12:35 83 16 75/55 L 94 06/28/20 12:33 86 13 80/49 L 100 06/28/20 12:31 83 17 93 06/28/20 12:30 84 12 82/54 L 97 06/28/20 12:27 84 16 80/55 L 94 06/28/20 12:25 85 14 78/58 L 99 06/28/20 12:20 87 101/69 06/28/20 12:16 88 8 L 105/72 06/28/20 12:15 87 13 87/67 L 06/28/20 12:12 85 13 103/60 06/28/20 12:10 84 15 85/62 L 06/28/20 12:08 82 14 92/57 L 06/28/20 12:04 82 15 90/62 L 06/28/20 12:02 84 90/63 L 06/28/20 12:00 88 16 89/70 L 06/28/20 11:58 79/61 L 06/28/20 11:45 82 25 H 93/61 L 06/28/20 11:40 83 26 H 90/65 L 76 L 06/28/20 11:30 84 17 96/71 L 80 L 06/28/20 11:27 82 L 06/28/20 11:25 84 83 18 101/59 L 101/59 L 06/28/20 11:20 86 18 06/28/20 11:10 86 24 06/28/20 11:00 84 84 17 85/55 L 06/28/20 10:45 86 32 H 91/63 L 06/28/20 10:42 83 18 90/58 L 06/28/20 10:33 36.4 C L 84 22 75/52 L 83 L Laboratory Results Laboratory Results - last 24 hr 06/28/20 06/28/20 06/28/20 11:03 11:03 11:03 WBC 10.44 RBC 3.61 L Hgb 11.2 L POC Hgb Hct 35.3 L POC Hct MCV 97.8 MCH 31.0 MCHC 31.7 L RDW Std Deviation 80.4 H RDW Coeff of Tian 22.8 H Plt Count 150 Immature Gran % (Auto) 0.4 Neut % (Auto) 90.9 Lymph % (Auto) 2.3 [place] % (Auto) 6.3 Eos % (Auto) 0.0 Baso % (Auto) 0.1 Neut # (Auto) 9.49 H Lymph # (Auto) 0.24 L [place] # (Auto) 0.66 H Eos # (Auto) 0.00 Baso # (Auto) 0.01 Immature Gran # (Auto) 0.04 H Absolute Nucleated RBC 0.04 H Nucleated RBC % (auto) 0.4 Platelet Estimate Normal Anisocytosis Present Echinocytes 1+ PT Cancelled INR Cancelled APTT Cancelled PTT Ratio Cancelled VBG pH VBG pCO2 VBG pO2 VBG HCO3 VBG O2 Saturation VBG Base Excess Barometric Pressure POC Sodium Sodium POC Potassium Potassium POC Chloride Chloride Carbon Dioxide POC Total CO2 Anion Gap POC Anion Gap POC BUN BUN Creatinine POC Creatinine Est Cr Clr Drug Dosing Est GFR ( Amer) Est GFR (Non-Af Amer) BUN/Creatinine Ratio Glucose POC Glucose (other) Lactate Calcium POC Ioniz Calcium Gale Magnesium Total Bilirubin AST ALT Alkaline Phosphatase Troponin I Total Protein Albumin Globulin Albumin/Globulin Ratio Procalcitonin 0.51 H Urine Color Urine Appearance Urine pH Ur Specific [place] Urine Protein Urine Glucose (UA) Urine Ketones Urine Blood Urine Nitrite Urine Bilirubin Urine Urobilinogen Ur Leukocyte Esterase Urine WBC (Auto) Urine RBC (Auto) U Hyaline Cast (Auto) U Epithel Cells (Auto) Urine Bacteria (Auto) Ur Renal Epithelial Cell Urine Mucus Adenovirus (PCR) B. pertussis DNA (PCR) B.parapertussis DNA PCR C. pneumoniae DNA (PCR) Coronavirus OC43 (PCR) Coronavirus HKU1 (PCR) Coronavirus 229E (PCR) COVID-19 PCR Coronavirus NL63 (PCR) Human Metapneumovir PCR Influenza Type A (PCR) Influenza Type B (PCR) M. pneumoniae (PCR) Parainfluenza 1 (PCR) Parainfluenza 2 (PCR) Parainfluenza 3 (PCR) Parainfluenza 4 (PCR) RSV (PCR) Entero/Rhino (PCR) 06/28/20 06/28/20 06/28/20 11:03 11:10 11:22 WBC RBC Hgb POC Hgb Hct POC Hct MCV MCH MCHC RDW Std Deviation RDW Coeff of Tain Plt Count Immature Gran % (Auto) Neut % (Auto) Lymph % (Auto) [place] % (Auto) Eos % (Auto) Baso % (Auto) Neut # (Auto) Lymph # (Auto) [place] # (Auto) Eos # (Auto) Baso # (Auto) Immature Gran # (Auto) Absolute Nucleated RBC Nucleated RBC % (auto) Platelet Estimate Anisocytosis Echinocytes PT INR APTT PTT Ratio VBG pH VBG pCO2 VBG pO2 VBG HCO3 VBG O2 Saturation VBG Base Excess Barometric Pressure POC Sodium Sodium 137 POC Potassium Potassium 5.2 H POC Chloride Chloride 107 Carbon Dioxide 17 L POC Total CO2 Anion Gap 13.0 H POC Anion Gap POC BUN BUN 61 H Creatinine 1.88 H POC Creatinine Est Cr Clr Drug Dosing 27.0 Est GFR ( Amer) 39.6 Est GFR (Non-Af Amer) 34.2 BUN/Creatinine Ratio 32.5 H Glucose 162 H POC Glucose (other) Lactate 5.5 H* Calcium 8.4 L POC Ioniz Calcium Gale Magnesium 1.4 L Total Bilirubin 0.9 AST 97 H ALT 72 Alkaline Phosphatase 194 H Troponin I 0.085 H* Total Protein 7.2 Albumin 2.8 L Globulin 4.4 H Albumin/Globulin Ratio 0.6 L Procalcitonin Urine Color Urine Appearance Urine pH Ur Specific [place] Urine Protein Urine Glucose (UA) Urine Ketones Urine Blood Urine Nitrite Urine Bilirubin Urine Urobilinogen Ur Leukocyte Esterase Urine WBC (Auto) Urine RBC (Auto) U Hyaline Cast (Auto) U Epithel Cells (Auto) Urine Bacteria (Auto) Ur Renal Epithelial Cell Urine Mucus Adenovirus (PCR) Not Detected B. pertussis DNA (PCR) Not Detected B.parapertussis DNA PCR Not Detected C. pneumoniae DNA (PCR) Not Detected Coronavirus OC43 (PCR) Not Detected Coronavirus HKU1 (PCR) Not Detected Coronavirus 229E (PCR) Not Detected COVID-19 PCR Not Detected Coronavirus NL63 (PCR) Not Detected Human Metapneumovir PCR Not Detected Influenza Type A (PCR) Not Detected Influenza Type B (PCR) Not Detected M. pneumoniae (PCR) Not Detected Parainfluenza 1 (PCR) Not Detected Parainfluenza 2 (PCR) Not Detected Parainfluenza 3 (PCR) Not Detected Parainfluenza 4 (PCR) Not Detected RSV (PCR) Not Detected Entero/Rhino (PCR) Not Detected 06/28/20 06/28/20 06/28/20 11:22 11:25 13:26 WBC RBC Hgb POC Hgb 10.2 L Hct POC Hct 30 L MCV MCH MCHC RDW Std Deviation RDW Coeff of Tian Plt Count Immature Gran % (Auto) Neut % (Auto) Lymph % (Auto) [place] % (Auto) Eos % (Auto) Baso % (Auto) Neut # (Auto) Lymph # (Auto) [place] # (Auto) Eos # (Auto) Baso # (Auto) Immature Gran # (Auto) Absolute Nucleated RBC Nucleated RBC % (auto) Platelet Estimate Anisocytosis Echinocytes PT 18.3 H INR 1.8 H APTT 28.9 PTT Ratio 1.0 VBG pH 7.16 L VBG pCO2 47 VBG pO2 47 VBG HCO3 16 VBG O2 Saturation 70.9 VBG Base Excess -11.8 Barometric Pressure 739.2 POC Sodium 139 Sodium POC Potassium 4.9 Potassium POC Chloride 108 Chloride Carbon Dioxide POC Total CO2 16 L Anion Gap POC Anion Gap 21.0 POC BUN 55 H BUN Creatinine POC Creatinine 1.5 H Est Cr Clr Drug Dosing Est GFR ( Amer) Est GFR (Non-Af Amer) BUN/Creatinine Ratio Glucose POC Glucose (other) 150 H Lactate Calcium POC Ioniz Calcium Gale 1.08 L Magnesium Total Bilirubin AST ALT Alkaline Phosphatase Troponin I Total Protein Albumin Globulin Albumin/Globulin Ratio Procalcitonin Urine Color Urine Appearance Urine pH Ur Specific [place] Urine Protein Urine Glucose (UA) Urine Ketones Urine Blood Urine Nitrite Urine Bilirubin Urine Urobilinogen Ur Leukocyte Esterase Urine WBC (Auto) Urine RBC (Auto) U Hyaline Cast (Auto) U Epithel Cells (Auto) Urine Bacteria (Auto) Ur Renal Epithelial Cell Urine Mucus Adenovirus (PCR) B. pertussis DNA (PCR) B.parapertussis DNA PCR C. pneumoniae DNA (PCR) Coronavirus OC43 (PCR) Coronavirus HKU1 (PCR) Coronavirus 229E (PCR) COVID-19 PCR Coronavirus NL63 (PCR) Human Metapneumovir PCR Influenza Type A (PCR) Influenza Type B (PCR) M. pneumoniae (PCR) Parainfluenza 1 (PCR) Parainfluenza 2 (PCR) Parainfluenza 3 (PCR) Parainfluenza 4 (PCR) RSV (PCR) Entero/Rhino (PCR) 06/28/20 06/28/20 13:26 13:40 WBC RBC Hgb POC Hgb Hct POC Hct MCV MCH MCHC RDW Std Deviation RDW Coeff of Tian Plt Count Immature Gran % (Auto) Neut % (Auto) Lymph % (Auto) [place] % (Auto) Eos % (Auto) Baso % (Auto) Neut # (Auto) Lymph # (Auto) [place] # (Auto) Eos # (Auto) Baso # (Auto) Immature Gran # (Auto) Absolute Nucleated RBC Nucleated RBC % (auto) Platelet Estimate Anisocytosis Echinocytes PT INR APTT PTT Ratio VBG pH VBG pCO2 VBG pO2 VBG HCO3 VBG O2 Saturation VBG Base Excess Barometric Pressure POC Sodium Sodium POC Potassium Potassium POC Chloride Chloride Carbon Dioxide POC Total CO2 Anion Gap POC Anion Gap POC BUN BUN Creatinine POC Creatinine Est Cr Clr Drug Dosing Est GFR ( Amer) Est GFR (Non-Af Amer) BUN/Creatinine Ratio Glucose POC Glucose (other) Lactate 4.9 H* Calcium POC Ioniz Calcium Gale Magnesium Total Bilirubin AST ALT Alkaline Phosphatase Troponin I Total Protein Albumin Globulin Albumin/Globulin Ratio Procalcitonin Urine Color Dark Yellow Urine Appearance Clear Urine pH 5.0 Ur Specific [place] 1.035 H Urine Protein 1+ H Urine Glucose (UA) Negative Urine Ketones Trace H Urine Blood 1+ H Urine Nitrite Negative Urine Bilirubin Negative Urine Urobilinogen Negative Ur Leukocyte Esterase Negative Urine WBC (Auto) 1-5 Urine RBC (Auto) 0-4 U Hyaline Cast (Auto) 10-30 H U Epithel Cells (Auto) >30 H Urine Bacteria (Auto) 1+ H Ur Renal Epithelial Cell Not Reportable Urine Mucus Present A Adenovirus (PCR) B. pertussis DNA (PCR) B.parapertussis DNA PCR C. pneumoniae DNA (PCR) Coronavirus OC43 (PCR) Coronavirus HKU1 (PCR) Coronavirus 229E (PCR) COVID-19 PCR Coronavirus NL63 (PCR) Human Metapneumovir PCR Influenza Type A (PCR) Influenza Type B (PCR) M. pneumoniae (PCR) Parainfluenza 1 (PCR) Parainfluenza 2 (PCR) Parainfluenza 3 (PCR) Parainfluenza 4 (PCR) RSV (PCR) Entero/Rhino (PCR) Code Status & VTE Plan Code Status Full Code per patient's daughter Magali WALTER VTE Prophylaxis Plan VTE Prophylaxis will be ordered: Yes
[2020-06-28] MEDS ORDERED: ICU PROTOCOL FOR HYPERGLYCEMIA PRN (16:13)
[2020-06-28] MEDS ORDERED: DAPTOmycin 300 MG in SYRINGE 0 ML IV ONE (16:29)
[2020-06-28] MEDS ORDERED: PROPOFOL BOLUS FROM BAG IV PRN (16:32)
[2020-06-28] MEDS ORDERED: PANTOprazole 40 MG in DEXTROSE 5% 100 ML IV SCH (16:45)
--- NOTE | 2020-06-28 16:50 | Procedure Note ---
Procedure Note Date of Service June 28, 2020 Note INTERNAL JUGULAR CENTRAL LINE PROCEDURE NOTE: Procedure: Right internal Jugular Central Line Placement Indication: Central Drug Administration, Poor Venous Access, Multiple Lab Draws Necessary, etc. Anesthesia: Continuous Versed and fentanyl none/8 lidocaine 1% Procedure was done emergently due to hypotension. A time-out was completed verifying correct patient, procedure, site, positioning, and implants(s) or special equipment if applicable. Patients right neck was cleansed and draped in the typical sterile fashion using Chloraprep. The Internal Jugular Vein and Carotid Artery were identified using ultrasound. The superficial tissue was anesthetized using 8 mL of 1% lidocaine without epinephrine under direct visualization with the ultrasound. After adequate anesthetization was achieved, the Internal Jugular vein was cannulated under direct ultrasound guidance using an introducer needle on a syringe. Good venous blood return was maintained prior to removal of syringe from introducer needle. Using Seldinger Technique, a guide wire was advanced through the introducer needle without resistance. The introducer needle was removed and ultrasound images were obtained of the guide wire within the Internal Jugular Vein and saved to the patients medical record. A small incision was made in penetrating fashion at the guide wire insertion site utilizing an 11 blade scalpel. The dilator was advanced to the vessel without resistance. The dilator was exchanged for the triple lumen catheter which was advanced into the vessel without resistance. The guide wire was removed intact from the catheter without issue. Claves were placed on each catheter tip with confirmation of good blood flow from each lumen. Each port was easily flushed with sterile saline. The catheter was placed at 15 cm and sutured in place. BioPatch was applied to the catheter and a sterile Tegaderm dressing was applied over the catheter with careful attention to sterility. Patient tolerated procedure well. No immediate complications were met. Post procedure x-ray was completed, placement was appropriate and no pneumothorax was noted. Images obtained are saved for permanent record Procedural Ultrasound Guidance used Images obtained are saved for permanent record. Coding CPT Codes Tubes, Drains, and Vasc Access - Tubes, Drains, and Vasc Access: [id number] Place catheter in vein superior or inferior vena cava ([id number]) Tubes, Drains, and Vasc Access - Tubes, Drains, and Vasc Access: [id number] Ultrasound Guidance For Vascular ([id number]) [facility] Procedure Codes (Charges) Tubes, Drains, and Vasc Access Procedure 1: Tubes, Drains, and Vasc Access: [id number] Place catheter in vein superior or inferior vena cava Procedure 2: Tubes, Drains, and Vasc Access: [id number] Ultrasound Guidance For Vascular
[2020-06-28] MEDS ORDERED: PANTOprazole 80 MG in DEXTROSE 5% 100 ML IV ONE (17:00)
[2020-06-28 17:03] LABS: Mean Corpuscular Hgb Conc 32.3 g/dL (32-36)
[2020-06-28 17:12] LABS: Hematocrit (blood only) 31.3 % (42-52); Hemoglobin 10.1 g/dL (14.0-18.0); Mean Corpuscular Hemoglobin 31.1 pg (25-34); Mean Corpuscular Volume 96.3 fL (80-100); RDW Coefficient of Variation 22.7 % (11.5-14.5); RDW Standard Deviation 79.3 fL (36.4-46.3); Red Blood Count 3.25 M/uL (4.7-6.1); White Blood Count 12.98 K/uL (4.8-10.8)
--- NOTE | 2020-06-28 17:17 | XRay Report ---
XR chest 1V portable HISTORY: 74 years-old Male s/p RIJ placement status post placement of a right IJ central venous cath eter COMPARISON: Chest radiograph and CTA chest of same day TECHNIQUE: Portable AP view of the chest FINDINGS: Endotracheal tube overlies the midline, 3.8 cm superior to the michaela. Status post placement of a rig ht IJ central venous catheter, distal tip terminating in the expected location of the mid SVC. No pos tprocedural pneumothorax. Cardiomegaly with left subclavian pacer/AICD. Unchanged small pleural effusions with bibasilar opacit ies. Mild pulmonary edema. Bones appear grossly intact. IMPRESSION: Status post placement of a right IJ central venous catheter, distal tip terminating in th e expected location of the mid SVC. No postprocedural pneumothorax. ACT 112: Negative or not required by law. The above report was generated using voice recognition software. It may contain grammatical, syntax o r spelling errors. Electronically signed by: Kwadwo Li M.D. 06/28/2020 5:15 PM
[2020-06-28] MEDS: PIPERACILLIN/TAZOBACTAM 4.5 GM in DEXTROSE 5% 100 ML IV SCH ×2 (17:21→23:25)
[2020-06-28] MEDS: propofoL 1,000 MG/100 ML VIAL IV SCH (17:22)
[2020-06-28 17:24] LABS: Anisocytosis Present; Basophilic Stippling Occasional; Basophils # (auto) 0.01 K/uL (0-0.2); Basophils % (auto) 0.1 %; Creatine Kinase 676 U/L (39-308); Echinocytes 1+; Immature Granulocytes # (auto) 0.04 K/uL (0.00-0.02); Immature Granulocytes % (auto) 0.3 %; Lipase 26 U/L (73-393); Lymphocytes % (auto) 6.2 %; Monocytes # (auto) 0.34 K/uL (0.11-0.59); Monocytes % (auto) 2.6 %; NT Pro B Type Natriuretic Pept > 35000 pg/ml (0-900); Neutrophils # (auto) 11.79 K/uL (1.4-6.5); Neutrophils % (auto) 90.8 %; Platelet Count 149 K/uL (130-400); Platelet Estimate Normal (Normal); Schistocytes 1+
[2020-06-28 18:09] LABS: iSTAT Allen Test Pass; iSTAT Arterial Blood Gas HCO3 14 meg/L (19-24); iSTAT Arterial Blood Gas pCO2 30 mmHg (35-46); iSTAT Arterial Blood Gas pH 7.29 (7.35-7.45); iSTAT Arterial Blood Gas pO2 97 mmHg (80-95); iSTAT Carbon Dioxide 15 mmol/L (24-31); iSTAT FiO2 40 %; iSTAT Site L Radial
--- NOTE | 2020-06-28 18:35 | Ultrasound Report ---
US venous doppler LE LT HISTORY: 74 years-old Male swelling lle acute pain and swelling of the left lower extremity COMPARISON: None TECHNIQUE: Multiple real-time sonographic images of the left lower extremity deep venous structures w ere obtained assessing grayscale appearance, color and spectral flow. FINDINGS: There is a linear echogenic nonocclusive filling defects noted within the superficial femoral vein de pendently. No occlusive deep venous thrombus. Arterial calcifications are noted. Mild subcutaneous ed janie. IMPRESSION: 1. No acute occlusive deep venous thrombosis. 2. Minimal linear echogenic focus within the dependent left superficial femoral vein may represent re mote thrombus. ACT 112: Negative or not required by law. The above report was generated using voice recognition software. It may contain grammatical, syntax o r spelling errors. Electronically signed by: Kwadwo Li M.D. 06/28/2020 6:33 PM
--- NOTE | 2020-06-28 18:55 | Ultrasound Report ---
US renal/blad retro comp HISTORY: 74 years-old Male acute renal failure COMPARISON: CT abdomen and pelvis of same day TECHNIQUE: Multiple real-time sonographic images of the kidneys and urinary bladder were obtained ass essing grayscale appearance and color flow FINDINGS: The right kidney measures 11.5 cm in length. Trace perinephric edema redemonstrated. No renal calculi , hydronephrosis or suspicious mass lesion. Moderate gallbladder wall thickening incidentally noted w ith calcifications noted along the mucosal margin. Goldman catheter noted within a decompressed urinary bladder. The left kidney measures 11.3 cm in length and demonstrates no hydronephrosis or shadowing calculi. L eft-sided perinephric stranding is also noted on comparison CT which is nonspecific. Limited study se condary to patient condition. IMPRESSION: 1. No renal calculi or hydronephrosis. 2. Goldman catheter noted within a decompressed urinary bladder. ACT 112: Negative or not required by law. The above report was generated using voice recognition software. It may contain grammatical, syntax o r spelling errors. Electronically signed by: Kwadwo Li M.D. 06/28/2020 6:54 PM
[2020-06-28] MEDS ORDERED: CARBOHYDRATES FOR HYPOGLYCEMIA PO PRN (19:21)
[2020-06-28] MEDS ORDERED: DEXTROSE 50% 50 ML SYRINGE IV PRN (19:21)
[2020-06-28] MEDS ORDERED: GLUCOSE 10 TABS/TUBE PO PRN (19:21)
[2020-06-28] MEDS ORDERED: GLUCOSE 40% GEL 15 GM TUBE PO PRN (19:21)
[2020-06-28] MEDS ORDERED: GLUCAGON FOR INJ 1 MG VIAL SQ PRN (19:21)
[2020-06-28 19:33] LABS: BUN Creatinine Ratio 35.9 (10-20); Calcium 7.6 mg/dl (8.5-10.1); Creatinine Clr Calc Pharmacy 37.3 ml/min; Est GFR (African American) 48.1; Est GFR (Non-African American) 41.5; Potassium 4.2 mmol/L (3.5-5.1)
[2020-06-28] MEDS ORDERED: PHARMACY GLYCEMIC MGMT CONSULT PRN (19:35)
[2020-06-28] MEDS ORDERED: KETAMINE HCL INJ 100 MG/ML 5ML VIAL IV ONE (19:55)
[2020-06-28] MEDS ORDERED: SUCCINYLCHOLINE CHLORIDE 20 MG/ML 10 ML VIAL IV ONE (19:55)
[2020-06-28] MEDS ORDERED: NovoLIN-R BOLUS FROM BAG IV ONE (20:00)
[2020-06-28] MEDS: INSULIN REGULAR 250 UNITS in SODIUM CHLORIDE 0.9% 247.5 ML IV SCH (20:34)
[2020-06-28] MEDS: GABAPENTIN 300 MG CAP PO SCH (20:48)
[2020-06-28] MEDS: FERROUS SULFATE 325 MG TAB PO SCH (20:48)
[2020-06-28] MEDS: PANTOprazole 40 MG in SYRINGE 0 ML IV SCH (20:48)
[2020-06-28] MEDS ORDERED: INSULIN ASPART 100 UNITS/ML 3 ML PEN SC SCH (21:00)
[2020-06-28] MEDS ORDERED: PANTOprazole 40 MG in SYRINGE 0 ML IV SCH (21:00)
[2020-06-28 23:06] LABS: Mean Corpuscular Hgb Conc 32.1 g/dL (32-36); Nucleated RBC # (auto) 0.07 K/uL (0-0); Nucleated RBC % (auto) 0.6 %
[2020-06-28 23:12] LABS: Hematocrit (blood only) 29.6 % (42-52); Hemoglobin 9.5 g/dL (14.0-18.0); Mean Corpuscular Hemoglobin 31.1 pg (25-34); RDW Coefficient of Variation 22.7 % (11.5-14.5); RDW Standard Deviation 80.5 fL (36.4-46.3); Red Blood Count 3.05 M/uL (4.7-6.1)
[2020-06-28 23:48] LABS: Anisocytosis Present; Echinocytes 1+; Giant Platelets 1+; Immature Granulocytes # (auto) 0.03 K/uL (0.00-0.02); Immature Granulocytes % (auto) 0.3 %; Lymphocytes # (auto) 0.42 K/uL (1.2-3.4); Monocytes # (auto) 0.77 K/uL (0.11-0.59); Monocytes % (auto) 7.3 %; Neutrophils # (auto) 9.28 K/uL (1.4-6.5); Neutrophils % (auto) 88.4 %; Platelet Count 127 K/uL (130-400); Platelet Estimate Decreased (Normal)
[2020-06-29] MEDS: NOREPINEPHRINE (Adult) 8 MG in DEXTROSE 5% 500 ML IV SCH ×3 (00:48→18:29)
[2020-06-29 05:13] LABS: iSTAT Allen Test Pass; iSTAT Art Bld Gas pCO2 Correct 32 mmHg (35-46); iSTAT Art Bld Gas pH Corrected 7.336 (7.35-7.45); iSTAT Arterial Blood Gas HCO3 17 meg/L (19-24); iSTAT Arterial Blood Gas pCO2 32 mmHg (35-46); iSTAT Arterial Blood Gas pH 7.35 (7.35-7.45); iSTAT Arterial Blood Gas pO2 82 mmHg (80-95); iSTAT Arterial Blood Gas pO2 C 86; iSTAT Carbon Dioxide 18 mmol/L (24-31); iSTAT FiO2 30 %; iSTAT Hematocrit 31 % (42-52); iSTAT Hemoglobin 10.5 g/dl (14.0-18.0); iSTAT Potassium 3.9 mmol/L (3.3-5.0); iSTAT Site L Radial; iSTAT Sodium 137 mmol/L (135-144)
[2020-06-29] MEDS: LEVOTHYROXINE SODIUM 125 MCG TABLET PO SCH (05:20)
[2020-06-29] MEDS: propofoL 1,000 MG/100 ML VIAL IV SCH (05:21)
[2020-06-29 05:31] LABS: Albumin Level 2.1 gm/dl (3.4-5.0); Calcium 7.5 mg/dl (8.5-10.1); Creatinine Clr Calc Pharmacy 34.3 ml/min; Est GFR (African American) 43.5; Est GFR (Non-African American) 37.5; Magnesium 1.4 mg/dl (1.8-2.4); Potassium 3.9 mmol/L (3.5-5.1)
[2020-06-29 05:42] LABS: Albumin Globulin Ratio 0.6 (0.9-2); Bilirubin,Total 0.8 mg/dl (0.2-1); Globulin 3.5 gm/dl (2.5-4.0); Total Protein 5.6 gm/dl (6.4-8.2)
[2020-06-29 05:59] LABS: Estimated Average Glucose 166 mg/dl; Hemoglobin A1C 7.4 % (4.5-5.6)
--- NOTE | 2020-06-29 06:09 | Electrocardiogram Report ---
Test Reason : Blood Pressure : / mmHG Vent. Rate : 082 BPM Atrial Rate : 082 BPM P-R Int : 112 ms QRS Dur : 156 ms QT Int : 468 ms P-R-T Axes : 044 -54 104 degrees QTc Int : 546 ms Poor data quality, interpretation may be adversely affected Atrial-sensed ventricular-paced rhythm Biventricular pacemaker detected Abnormal ECG When compared with ECG of 06-APR-2020 13:52, Premature ventricular complexes are no longer Present Vent. rate has increased BY 10 BPM Confirmed by Godfrey Faye ([id number]) on 06/29/2020 6:08:47 AM Referred By: REFERRED SELF Confirmed By:Godfrey Faye
[2020-06-29] MEDS ORDERED: SODIUM CHLORIDE 0.9% 1000ML 500 ML IV ONE (06:11)
[2020-06-29] MEDS: MAGNESIUM SULFATE / D5W 1 GM/100 ML BAG IV SCH ×3 (06:41→10:41)
--- NOTE | 2020-06-29 07:12 | Critical Care Progress Note ---
Date of Service June 29, 2020 Assessment & Plan (1) Acute on chronic systolic heart failure: Reason Critically Ill: 74 yo M who presented with acute respiratory failure with hypoxemia secondary to decompensation of CHF exacerbation, requiring intubation and mechanical ventilation. Currently sedated on propofol, now maintaining goal MAPs without vasopressor support. Plan for extubation today. Dieresis was held initially due to elevated lactate, which he has subsequently cleared. Plan to begin IV diuretic today. There is concern for infection at this time, as 2 of 2 blood cultures drawn on admission growing gram + cocci in clusters; currently on Daptomycin. As for the infectious source, one possibility is his recently placed biventricular pacer + defibrillator. However, removal of this device would refire transfer to [facility]. Given his overall poor cardiovascular function (EF < 15% on echo, advanced ischemic cardiomyopathy) in the setting of his acute decompensation, patient would likely not tolerate procedure. Thus, recommending transition to palliative care appr [facility]. Neurologic: * Encephalopathy - likely metabolic due to hypoxemia, although infection may also be contributory - on mechanical vent - currently sedated on propofol; will wean sedation due to diminished responsiveness (per nursing assessment) and plan SBT - on fentanyl for analgesia (severe lumbar pain reported on admission) - Delirium precautions Pulmonary: * Bilateral pleural Effusions - small bilateral effusions noted on chest CTA, likely secondary to decompensated CHF exacerbation - diuretics held on admission due to elevated lactate. - lactate has since cleared; will start IV lasix 40mg, now. Although given gut edema visualized on CT scan, would recommend bumex for future dosing - currently on mechanical ventilation; SBT today * Rib Fracture - left sided; no associated pneumothorax - on fentanyl for analgesia - encourage incentive spirometry when off vent Cardiovascular: * Decompensated CHF exacerbation - BNP > 67046 on admission - etiology of exacerbation is unknown at this time - patiently recently underwent biventricular pacer and defibrillator placement - cardiology consulted, pacer interrogation today - there is concern for infection of this device (possible source of gram + bacteremia); removal would need to be done at [facility]. - echo showing EF <15%; no vegetations noted on valves - palliative care consulted * elevated troponin - trop 0.085 on admission (levels >9 during NSTEMI in 12/20) - likely secondary to demand ischemia * Hx ischemic cardiomyopathy - NSTEMI with ALLISON placement in 12/28/2019 - holding dual antiplatelet (ASA and Plavix) - continue Lipitor 40mg through OG tube - home hypertensive therapy held on admission due to hypotension Gastrointestinal: * Severe celiac artery stenosis - visualized on A/P CT scan - elevated lactate may be secondary to mesenteric vs. clonic ischemia - holding dual antiplatelet for now, statin as above * hypoalbuminemia - level at 2.1 - suspect secondary to chronic malnutrition - likely etiology of anasarca, elevated PT and INR - Continue bowel regimen Docusate and senna - Stress ulcer prophylaxis: Protonix daily (indication mechanical ventilation) - NPO while on vent Renal: * MAURIZIO - Cr 1.88 on admission, down to 1.74 - BUN 57, down from 61 - BUN/Cr ratio 30, suggestive of prerenal etiology - EF low, suspect renal hypoperfusion - he received judicious fluids in the ER (due to low EF) - oliguric - renal US showing no calculi or hydronephrosis * Concern for rhabdomyolysis - patient was found down in home - CK 676 on admission, down to 304 with judicious IV hydration * Hypomagnesium - Mag 1.4 - replacement ordered Infectious disease: * GRAM+ bacteremia - 2 of 2 blood cultures on admission growing staph; MRSA neg, suspect MSSA; follow sensitivites - Continue zosyn - as for the source, possible soft skin infection on the biventricular pacemaker is suspected. - Viral PCR negative. COVID 19 neg. Chest CTA without evidence of PNA. Urinalysis appears like a dirty sample. 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 Vega was the resident-physician during care of patient. I separately evaluated patient for villa portions of the history and the exam. I was present during the critical portion of medical decision making, and I discussed the case with the resident. I generally agree with the findings and plan except for any additions/exceptions noted. Patient was doing well on spontaneous breathing trial today. I extubated him to nasal cannula. He is still requiring a low-dose of Levophed. Blood cultures growing gram-positive cocci in clusters, likely MSSA. Will obtain repeat blood cultures tomorrow morning. Continue Zosyn for now given questionable GI pathology as well. ID was consulted. I did discuss the case with the agricultural economist. 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 He would be a very poor candidate for possible surgical removal due to his severely reduced ejection fraction. Echocardiogram reviewed with an EF less than 15%. No obvious vegetations were noted. Palliative care consultation would likely be beneficial. JES would not clearly change his prognosis at this time. If the family wishes to be aggressive with his care, he may need transfer to [facility] for cardiothoracic surgical consultation. Palliative care consultation ordered. His lactic acidosis cleared. Renal function is stable. We will restart his aspirin. Holding his Plavix for any possible procedure at this time. No evidence of GI bleeding at this point. We will switch Protonix to daily. I have personally spent 39 minutes of critical care time in the direct management of this patient. This is a life/limb threatening event. This includes time spent evaluating patient, direct bedside care, chart review, placing orders, interpretation of diagnostic studies, discussion with consultants, patient, and/or family members regarding treatment decisions, as well as other required patient management activities. This time is exclusive of all separately billable procedures, and teaching time and separate from and in addition to any other critical care service time. Subjective Patient is on mechanical vent. no family members present in room at time of exam Review of Systems Review of Systems: Unobtainable due to endotracheal tube Physical Exam Constitutional: + mechanically ventilated Eyes: + anicteric sclerae ENMT: external ear and nose normal, oropharynx normal Neck: trachea midline Respiratory: Auscultation: + crackles (bilateral lower lung dobson ) Cardiovascular: RRR, no murmur, no edema (heart sounds distant ) Heart Sounds: normal S1 and normal S2 Gastrointestinal (Abdomen): normal bowel sounds, soft, nontender, no hepatosplenomegaly Skin: no rashes, warm and dry Neurologic: + not awake (sedated) + follows commands Genitourinary: Goldman catheter in place, draining yellow urine without visible blood clots Results & Data Results & Data ([facility]) Vital Signs (Past 12 Hours) Vital Signs Temp Pulse Resp BP Pulse Ox 06/29/20 06:25 76 20 99/61 L 95 06/29/20 06:00 83 20 94/56 L 95 06/29/20 05:25 82 20 92/57 L 94 06/29/20 05:00 85 20 94/61 L 100 06/29/20 04:50 82 20 96 06/29/20 04:30 83 20 89/58 L 97 06/29/20 04:00 37.5 C 82 20 90/56 L 97 06/29/20 03:30 81 20 90/59 L 96 06/29/20 03:00 80 20 90/58 L 97 06/29/20 02:30 81 87/59 L 97 06/29/20 02:00 79 88/58 L 97 06/29/20 01:30 79 20 86/57 L 98 06/29/20 01:20 79 20 96 06/29/20 01:00 77 20 85/54 L 96 06/29/20 00:30 78 20 88/52 L 96 06/29/20 00:00 37.2 C 74 20 89/54 L 96 06/28/20 23:30 73 20 97/58 L 97 06/28/20 23:00 76 20 96/58 L 97 06/28/20 22:30 75 20 100 06/28/20 22:25 79 20 97 06/28/20 22:00 75 20 97/58 L 97 06/28/20 21:30 68 20 109/65 98 06/28/20 21:00 70 20 118/61 96 06/28/20 20:30 70 20 108/65 96 06/28/20 20:00 36.9 C 66 99/61 L 97 06/28/20 19:30 68 20 98 06/28/20 19:23 64 20 98 Resident Activity Tracking Resident Involvement: Resident Care Provided Care Provided: Adult Hospital Medicine
[2020-06-29] MEDS: GABAPENTIN 300 MG CAP PO SCH (07:58)
[2020-06-29] MEDS: PANTOprazole 40 MG in SYRINGE 0 ML IV SCH (07:58)
[2020-06-29] MEDS: FERROUS SULFATE 325 MG TAB PO SCH (07:58)
[2020-06-29] MEDS: PIPERACILLIN/TAZOBACTAM 4.5 GM in DEXTROSE 5% 100 ML IV SCH ×3 (07:58→23:45)
[2020-06-29] MEDS: ATORVASTATIN 40 MG TAB PO SCH (07:59)
[2020-06-29 10:05] LABS: iSTAT Arterial Blood Gas HCO3 17 meg/L (19-24); iSTAT Arterial Blood Gas pCO2 45 mmHg (35-46); iSTAT Arterial Blood Gas pH 7.17 (7.35-7.45); iSTAT Arterial Blood Gas pO2 < 32 mmHg (80-95); iSTAT Carbon Dioxide 18 mmol/L (24-31)
[2020-06-29] MEDS ORDERED: FUROSEMIDE 40 MG in SYRINGE 0 ML IV ONE (10:30)
--- NOTE | 2020-06-29 10:49 | Cardiology Consultation ---
Date of Consultation June 29, 2020 Assessment & Plan (1) Septic shock due to Gram positive bacteria: Patient is a 74-year-old male with very complex medical history as outlined above with signs and symptoms of recent decline over the past several months following presentation with non-ST segment elevation myocardial infarction and newly defined severe ischemic cardiomyopathy in December 2019. Cardiac catheterization at that time led to coronary mention left anterior descending with patient to be felt to be intolerably high risk for surgical revascularization. Biventricular pacer defibrillator was placed in April of this year given left bundle branch block in hopes of improving functional status. Patient presents now with acute collapse as described following several days of worsening weakness fatigue and mild leg edema. Initial evaluation found patient to be hypotensive and acidotic with elevated lactate. Open wound and purulent drainage at site of prior pacemaker defibrillator insertion. Blood cultures are returning positive for gram-positive cocci Exam only demonstrates minimal jugular venous distention and chest x-ray without profound edema despite elevated BNP. Echocardiogram however reconfirms very severe LV dysfunction, EF less than 15% Patient currently being treated with mechanical ventilation, fluid resuscitation and IV antibiotics as well as pressor support. Recommendations: Continue therapies as already begun. Patient's multiple morbidities underlying severe LV dysfunction will limit clinical response and overall prognosis poor. Should he begin to make meaningful recovery and hemodynamic stability ultimate goals will likely require pacer/ defibrillator and lead extraction. We will continue to follow patient (2) Ischemic cardiomyopathy with implantable cardioverter-defibrillator (ICD): (3) Infection of biventricular pacemaker: Gram-positive bacteremia, likely staph aureus History of Present Illness Reason for Consultation: Septic shock, pacemaker infection Requesting Physician: Dr. Bee Attending Physician: Demetrice Bee MD History of Present Illness Patient is a complex 74-year-old male with ongoing issues which include 1. Severe ischemic cardiomyopathy, EF less than 15% with chronic systolic heart failure, class III 2. Severe multivessel coronary artery disease, non-ST segment elevation myocar dial infarction and cardiac catheterization 12/28/2019 receiving drug-eluting stent to the proximal left anterior descending with noted 100% occlusion of the right coronary artery and circumflex obtuse marginal. Surgical revascularization considered intolerably high risk 3. Chronic left bundle branch block 4. Biventricular pacemaker defibrillator insertion 04/06/2020, [employer] [id number] [facility] 5. Type 2 diabetes mellitus 6. Peripheral vascular disease with chronic right leg claudication, small abdominal aortic aneurysm 7. Chronic obstructive lung disease with chronic tobacco use 8. Sleep apnea/nocturnal hypoxia on nocturnal oxygen supplementation 9. Iron deficiency anemia without microcytosis Patient is referred now after acute presentation with septic shock and collapse. Patient currently in intensive care unit sedated and intubated on pressor support Allergies Allergy/AdvReac Type Severity Reaction Status Date / Time phenobarbital Allergy Mild dizzy Verified 06/28/20 14:54 Home Medications Home Medications Medication Instructions Recorded Confirmed Type Selsun Blue 1 applic TOPICAL Q OTHER DAY 08/03/19 06/28/20 History aspirin [Aspirin Low Dose] 81 mg PO QAM 08/03/19 06/28/20 History colchicine 0.6 mg PO BID 08/03/19 06/28/20 History cyanocobalamin (vitamin B-12) 1,000 mcg PO QAM 08/03/19 06/28/20 History [Vitamin B-12] gabapentin 300 mg PO TID 08/03/19 06/28/20 History levothyroxine 125 mcg PO QAM 08/03/19 06/28/20 History omeprazole 20 mg PO QAM 08/03/19 06/28/20 History acetaminophen [Tylenol Extra 500 - 1,000 mg PO Q6H PRN 12/25/19 06/28/20 History Strength] tramadol 50 mg PO Q6H PRN 12/25/19 06/28/20 History Incruse Ellipta 1 inh INHALATION QAM 04/06/20 06/28/20 History Levemir FlexTouch U-100 Insuln 18 unit SUBCUT HS 04/06/20 06/28/20 History albuterol sulfate 1 inh INHALATION QID PRN 04/06/20 06/28/20 History atorvastatin 40 mg PO DAILY 04/06/20 06/28/20 History clopidogrel [Plavix] 75 mg PO QAM 04/06/20 06/28/20 History ferrous sulfate [Feosol] 325 mg PO BID 04/06/20 06/28/20 History fluticasone propion-salmeterol 1 inh INHALATION Q12H 04/06/20 06/28/20 History [Advair Diskus] furosemide [Lasix] 20 mg PO QAM 04/06/20 06/28/20 History lisinopril 5 mg PO HS 04/06/20 06/28/20 History metformin 1,000 mg PO BIDM 04/06/20 06/28/20 History metoprolol succinate 50 mg PO QAM 04/06/20 06/28/20 History nitroglycerin [Nitrostat] 0.4 mg SUBLINGUAL UD PRN 04/06/20 06/28/20 History semaglutide 1 mg SUBCUT WK 04/06/20 06/28/20 History triamcinolone acetonide 1 applic TOPICAL BID PRN 04/06/20 06/28/20 History Patient History Medical History AAA (abdominal aortic aneurysm) follows with [facility] Cardiology once a year Acute encephalopathy Acute hypoxemic respiratory failure Acute on chronic systolic heart failure MAURIZIO (acute kidney injury) Anemia CAD (coronary artery disease) Celiac artery stenosis Degenerative disc disease Demand ischemia Diabetes mellitus, type 2 GERD (gastroesophageal reflux disease) Gout Hyperlipidemia Hypertension Hypothyroidism ICD (implantable cardioverter-defibrillator) in place meditronic placed 04/06/2020 @ [facility] Non-STEMI (non-ST elevated myocardial infarction) 12/2019--attempted heart cath @ [facility] unable to place stents sent to [facility] where he had ALLISON placed--currently of plavix [facility] On anticoagulant therapy plavix daily On home oxygen therapy 2L N/C at HS Osteoarthritis Pulmonary embolism per record , unknown cause Sleep apnea 2L N/C at HS Wheezing Surgical History History of cardiac cath x2--12/25/2019 @ [facility]--unable to stent pt, sent to [facility] 12/2019--ALLISON LAD PCI @ [facility] History of colonoscopy with polypectomy History of esophagogastroduodenoscopy (EGD) History of heart artery stent 12/2019 ALLISON LAD PCI @ [facility] (pt states they placed 3 stents at that time) History of implantable cardioverter-defibrillator (ICD) insertion 04/06/2020 History of repair of right rotator cuff History of tooth extraction upper teeth Family History Other No family history of adverse response to anesthesia Social History Smoking Status: Current every day smoker Tobacco Type: Cigars Cigarettes Per Day: 3 cigars a day; Second Hand Exposure: No; Hx Alcohol Use: No Hx Substance Use: No Preferred Language: Persian Communication Ability: Effective Radio Board Operator Required: No Beliefs That Will Affect Care: None marital status: / Current Living Situation: Alone Feels Safe at Home: Yes Assistive Devices: Denture - Upper, Denture - Lower, Glasses and Oxygen - at Night Review of Systems Review of Systems: Unobtainable due to endotracheal tube Physical Exam Constitutional: + thin, + frail appearing and + mechanically ventilated Eyes: PERRL ENMT: external ear and nose normal, oropharynx normal Endotracheal tube in place Neck: trachea midline, no thyromegaly Respiratory: Bronchial breath sounds secondary to ventilated status Cardiovascular: Rate/Rhythm: regular rate and regular rhythm (Paced) Extremities: + edema (2+ doughy edema both lower extremities) Chest (Breasts): Chest: + pacemaker Additional Comments: There is a pacemaker defibrillator in the left chest with ulcerated and purulent draining wound at the inferior aspect of surgical incision and mild surrounding fluctuance., Mild erythema Gastrointestinal (Abdomen): Percussion/Palpation: abdomen soft; no guarding and no hepatosplenomegaly Skin: + mottling Mild mottling both feet left greater than right Neurologic: Patient sedated Results & Data ([facility]) Vital Signs (Past 12 Hours) Vital Signs Temp Pulse Resp BP Pulse Ox Pulse Ox 06/29/20 10:00 90 20 97 06/29/20 08:00 82 96 06/29/20 07:00 82 20 97 06/29/20 06:25 76 20 99/61 L 95 06/29/20 06:00 83 20 94/56 L 95 06/29/20 05:25 82 20 92/57 L 94 06/29/20 05:00 85 20 94/61 L 100 06/29/20 04:50 82 20 96 06/29/20 04:30 83 20 89/58 L 97 06/29/20 04:00 37.5 C 82 20 90/56 L 97 06/29/20 03:30 81 20 90/59 L 96 06/29/20 03:00 80 20 90/58 L 97 06/29/20 02:30 81 87/59 L 97 06/29/20 02:00 79 88/58 L 97 06/29/20 01:30 79 20 86/57 L 98 06/29/20 01:20 79 20 96 06/29/20 01:00 77 20 85/54 L 96 06/29/20 00:30 78 20 88/52 L 96 06/29/20 00:00 37.2 C 74 20 89/54 L 96 06/28/20 23:30 73 20 97/58 L 97 06/28/20 23:00 76 20 96/58 L 97 Laboratory Results Laboratory Results - last 24 hr 06/28/20 06/28/20 06/28/20 11:03 11:03 11:10 WBC RBC Hgb POC Hgb Hct POC Hct MCV MCH MCHC RDW Std Deviation RDW Coeff of Tian Plt Count Immature Gran % (Auto) Neut % (Auto) Lymph % (Auto) [place] % (Auto) Eos % (Auto) Baso % (Auto) Neut # (Auto) Lymph # (Auto) [place] # (Auto) Eos # (Auto) Baso # (Auto) Immature Gran # (Auto) Absolute Nucleated RBC Nucleated RBC % (auto) Platelet Estimate Giant Platelets Basophilic Stippling Anisocytosis Echinocytes Schistocytes PT INR APTT PTT Ratio Sample Site POC pH POC pCO2 POC pO2 POC HCO3 POC Total CO2 POC Base Excess ABG pH (Temp Correct) ABG pCO2 (Temp Corrct POC ABG pO2 at Pt Temp POC ABG O2 Sat Alex Test VBG pH VBG pCO2 VBG pO2 VBG HCO3 VBG O2 Saturation VBG Base Excess Barometric Pressure O2 Delivery Device POC O2 Rate Minute Ventilation POC FiO2 Tidal Volume PEEP POC Sodium Sodium 137 POC Potassium Potassium 5.2 H Chloride 107 Carbon Dioxide 17 L Anion Gap 13.0 H BUN 61 H Creatinine 1.88 H Est Cr Clr Drug Dosing 27.0 Est GFR ( Amer) 39.6 Est GFR (Non-Af Amer) 34.2 BUN/Creatinine Ratio 32.5 H Glucose 162 H POC Glucose (other) Estimat Average Glucose Hemoglobin A1c Lactate Calcium 8.4 L Phosphorus Magnesium 1.4 L Total Bilirubin 0.9 AST 97 H ALT 72 Alkaline Phosphatase 194 H Total Creatine Kinase Troponin I 0.085 H* NT-Pro-B Natriuret Pep Total Protein 7.2 Albumin 2.8 L Globulin 4.4 H Albumin/Globulin Ratio 0.6 L Lipase Procalcitonin 0.51 H Urine Color Urine Appearance Urine pH Ur Specific [place] Urine Protein Urine Glucose (UA) Urine Ketones Urine Blood Urine Nitrite Urine Bilirubin Urine Urobilinogen Ur Leukocyte Esterase Urine WBC (Auto) Urine RBC (Auto) U Hyaline Cast (Auto) U Epithel Cells (Auto) Urine Bacteria (Auto) Ur Renal Epithelial Cell Urine Mucus Nasal Screen MRSA (PCR) Adenovirus (PCR) Not Detected B. pertussis DNA (PCR) Not Detected B.parapertussis DNA PCR Not Detected C. pneumoniae DNA (PCR) Not Detected Coronavirus OC43 (PCR) Not Detected Coronavirus HKU1 (PCR) Not Detected Coronavirus 229E (PCR) Not Detected COVID-19 PCR Not Detected Coronavirus NL63 (PCR) Not Detected Human Metapneumovir PCR Not Detected Influenza Type A (PCR) Not Detected Influenza Type B (PCR) Not Detected M. pneumoniae (PCR) Not Detected Parainfluenza 1 (PCR) Not Detected Parainfluenza 2 (PCR) Not Detected Parainfluenza 3 (PCR) Not Detected Parainfluenza 4 (PCR) Not Detected RSV (PCR) Not Detected Entero/Rhino (PCR) Not Detected Bld Cult Staph aureus PCR Blood Culture MRSA PCR 06/28/20 06/28/20 06/28/20 11:22 11:22 11:25 WBC RBC Hgb POC Hgb Hct POC Hct MCV MCH MCHC RDW Std Deviation RDW Coeff of Tian Plt Count Immature Gran % (Auto) Neut % (Auto) Lymph % (Auto) [place] % (Auto) Eos % (Auto) Baso % (Auto) Neut # (Auto) Lymph # (Auto) [place] # (Auto) Eos # (Auto) Baso # (Auto) Immature Gran # (Auto) Absolute Nucleated RBC Nucleated RBC % (auto) Platelet Estimate Giant Platelets Basophilic Stippling Anisocytosis Echinocytes Schistocytes PT 18.3 H INR 1.8 H APTT 28.9 PTT Ratio 1.0 Sample Site POC pH POC pCO2 POC pO2 POC HCO3 POC Total CO2 POC Base Excess ABG pH (Temp Correct) ABG pCO2 (Temp Corrct POC ABG pO2 at Pt Temp POC ABG O2 Sat Alex Test VBG pH VBG pCO2 VBG pO2 VBG HCO3 VBG O2 Saturation VBG Base Excess Barometric Pressure O2 Delivery Device POC O2 Rate Minute Ventilation POC FiO2 Tidal Volume PEEP POC Sodium Sodium POC Potassium Potassium Chloride Carbon Dioxide Anion Gap BUN Creatinine Est Cr Clr Drug Dosing Est GFR ( Amer) Est GFR (Non-Af Amer) BUN/Creatinine Ratio Glucose POC Glucose (other) Estimat Average Glucose Hemoglobin A1c Lactate 5.5 H* Calcium Phosphorus Magnesium Total Bilirubin AST ALT Alkaline Phosphatase Total Creatine Kinase Troponin I NT-Pro-B Natriuret Pep Total Protein Albumin Globulin Albumin/Globulin Ratio Lipase Procalcitonin Urine Color Urine Appearance Urine pH Ur Specific [place] Urine Protein Urine Glucose (UA) Urine Ketones Urine Blood Urine Nitrite Urine Bilirubin Urine Urobilinogen Ur Leukocyte Esterase Urine WBC (Auto) Urine RBC (Auto) U Hyaline Cast (Auto) U Epithel Cells (Auto) Urine Bacteria (Auto) Ur Renal Epithelial Cell Urine Mucus Nasal Screen MRSA (PCR) Adenovirus (PCR) B. pertussis DNA (PCR) B.parapertussis DNA PCR C. pneumoniae DNA (PCR) Coronavirus OC43 (PCR) Coronavirus HKU1 (PCR) Coronavirus 229E (PCR) COVID-19 PCR Coronavirus NL63 (PCR) Human Metapneumovir PCR Influenza Type A (PCR) Influenza Type B (PCR) M. pneumoniae (PCR) Parainfluenza 1 (PCR) Parainfluenza 2 (PCR) Parainfluenza 3 (PCR) Parainfluenza 4 (PCR) RSV (PCR) Entero/Rhino (PCR) Bld Cult Staph aureus PCR Positive A Blood Culture MRSA PCR Negative 06/28/20 06/28/20 06/28/20 12:27 13:26 13:26 WBC RBC Hgb POC Hgb Hct POC Hct MCV MCH MCHC RDW Std Deviation RDW Coeff of Tian Plt Count Immature Gran % (Auto) Neut % (Auto) Lymph % (Auto) [place] % (Auto) Eos % (Auto) Baso % (Auto) Neut # (Auto) Lymph # (Auto) [place] # (Auto) Eos # (Auto) Baso # (Auto) Immature Gran # (Auto) Absolute Nucleated RBC Nucleated RBC % (auto) Platelet Estimate Giant Platelets Basophilic Stippling Anisocytosis Echinocytes Schistocytes PT INR APTT PTT Ratio Sample Site POC pH 7.17 L* POC pCO2 45 POC pO2 < 32 L POC HCO3 17 L POC Total CO2 18 L POC Base Excess -12.0 L ABG pH (Temp Correct) ABG pCO2 (Temp Corrct POC ABG pO2 at Pt Temp POC ABG O2 Sat 35.0 L Alex Test VBG pH 7.16 L VBG pCO2 47 VBG pO2 47 VBG HCO3 16 VBG O2 Saturation 70.9 VBG Base Excess -11.8 Barometric Pressure 739.2 O2 Delivery Device POC O2 Rate Minute Ventilation POC FiO2 Tidal Volume PEEP POC Sodium Sodium POC Potassium Potassium Chloride Carbon Dioxide Anion Gap BUN Creatinine Est Cr Clr Drug Dosing Est GFR ( Amer) Est GFR (Non-Af Amer) BUN/Creatinine Ratio Glucose POC Glucose (other) Estimat Average Glucose Hemoglobin A1c Lactate 4.9 H* Calcium Phosphorus Magnesium Total Bilirubin AST ALT Alkaline Phosphatase Total Creatine Kinase Troponin I NT-Pro-B Natriuret Pep Total Protein Albumin Globulin Albumin/Globulin Ratio Lipase Procalcitonin Urine Color Urine Appearance Urine pH Ur Specific [place] Urine Protein Urine Glucose (UA) Urine Ketones Urine Blood Urine Nitrite Urine Bilirubin Urine Urobilinogen Ur Leukocyte Esterase Urine WBC (Auto) Urine RBC (Auto) U Hyaline Cast (Auto) U Epithel Cells (Auto) Urine Bacteria (Auto) Ur Renal Epithelial Cell Urine Mucus Nasal Screen MRSA (PCR) Adenovirus (PCR) B. pertussis DNA (PCR) B.parapertussis DNA PCR C. pneumoniae DNA (PCR) Coronavirus OC43 (PCR) Coronavirus HKU1 (PCR) Coronavirus 229E (PCR) COVID-19 PCR Coronavirus NL63 (PCR) Human Metapneumovir PCR Influenza Type A (PCR) Influenza Type B (PCR) M. pneumoniae (PCR) Parainfluenza 1 (PCR) Parainfluenza 2 (PCR) Parainfluenza 3 (PCR) Parainfluenza 4 (PCR) RSV (PCR) Entero/Rhino (PCR) Bld Cult Staph aureus PCR Blood Culture MRSA PCR 06/28/20 06/28/20 06/28/20 13:40 14:27 16:53 WBC RBC Hgb POC Hgb Hct POC Hct MCV MCH MCHC RDW Std Deviation RDW Coeff of Tian Plt Count Immature Gran % (Auto) Neut % (Auto) Lymph % (Auto) [place] % (Auto) Eos % (Auto) Baso % (Auto) Neut # (Auto) Lymph # (Auto) [place] # (Auto) Eos # (Auto) Baso # (Auto) Immature Gran # (Auto) Absolute Nucleated RBC Nucleated RBC % (auto) Platelet Estimate Giant Platelets Basophilic Stippling Anisocytosis Echinocytes Schistocytes PT INR APTT PTT Ratio Sample Site POC pH POC pCO2 POC pO2 POC HCO3 POC Total CO2 POC Base Excess ABG pH (Temp Correct) ABG pCO2 (Temp Corrct POC ABG pO2 at Pt Temp POC ABG O2 Sat Alex Test VBG pH VBG pCO2 VBG pO2 VBG HCO3 VBG O2 Saturation VBG Base Excess Barometric Pressure O2 Delivery Device POC O2 Rate Minute Ventilation POC FiO2 Tidal Volume PEEP POC Sodium Sodium POC Potassium Potassium Chloride Carbon Dioxide Anion Gap BUN Creatinine Est Cr Clr Drug Dosing Est GFR ( Amer) Est GFR (Non-Af Amer) BUN/Creatinine Ratio Glucose POC Glucose (other) Estimat Average Glucose Hemoglobin A1c Lactate Calcium Phosphorus Magnesium Total Bilirubin AST ALT Alkaline Phosphatase Total Creatine Kinase 676 H Troponin I NT-Pro-B Natriuret Pep > 34736 H Total Protein Albumin Globulin Albumin/Globulin Ratio Lipase 26 L Procalcitonin Urine Color Dark Yellow Urine Appearance Clear Urine pH 5.0 Ur Specific [place] 1.035 H Urine Protein 1+ H Urine Glucose (UA) Negative Urine Ketones Trace H Urine Blood 1+ H Urine Nitrite Negative Urine Bilirubin Negative Urine Urobilinogen Negative Ur Leukocyte Esterase Negative Urine WBC (Auto) 1-5 Urine RBC (Auto) 0-4 U Hyaline Cast (Auto) 10-30 H U Epithel Cells (Auto) >30 H Urine Bacteria (Auto) 1+ H Ur Renal Epithelial Cell Not Reportable Urine Mucus Present A Nasal Screen MRSA (PCR) Negative Adenovirus (PCR) B. pertussis DNA (PCR) B.parapertussis DNA PCR C. pneumoniae DNA (PCR) Coronavirus OC43 (PCR) Coronavirus HKU1 (PCR) Coronavirus 229E (PCR) COVID-19 PCR Coronavirus NL63 (PCR) Human Metapneumovir PCR Influenza Type A (PCR) Influenza Type B (PCR) M. pneumoniae (PCR) Parainfluenza 1 (PCR) Parainfluenza 2 (PCR) Parainfluenza 3 (PCR) Parainfluenza 4 (PCR) RSV (PCR) Entero/Rhino (PCR) Bld Cult Staph aureus PCR Blood Culture MRSA PCR 06/28/20 06/28/20 06/28/20 16:53 17:55 18:22 WBC 12.98 H RBC 3.25 L Hgb 10.1 L POC Hgb Hct 31.3 L POC Hct MCV 96.3 MCH 31.1 MCHC 32.3 RDW Std Deviation 79.3 H RDW Coeff of Tian 22.7 H Plt Count 149 Immature Gran % (Auto) 0.3 Neut % (Auto) 90.8 Lymph % (Auto) 6.2 [place] % (Auto) 2.6 Eos % (Auto) 0.0 Baso % (Auto) 0.1 Neut # (Auto) 11.79 H Lymph # (Auto) 0.80 L [place] # (Auto) 0.34 Eos # (Auto) 0.00 Baso # (Auto) 0.01 Immature Gran # (Auto) 0.04 H Absolute Nucleated RBC Nucleated RBC % (auto) Platelet Estimate Normal Giant Platelets Basophilic Stippling Occasional Anisocytosis Present Echinocytes 1+ Schistocytes 1+ PT INR APTT PTT Ratio Sample Site L Radial POC pH 7.29 L POC pCO2 30 L POC pO2 97 H POC HCO3 14 L POC Total CO2 15 L POC Base Excess -12.0 L ABG pH (Temp Correct) ABG pCO2 (Temp Corrct POC ABG pO2 at Pt Temp POC ABG O2 Sat 97.0 H Alex Test Pass VBG pH VBG pCO2 VBG pO2 VBG HCO3 VBG O2 Saturation VBG Base Excess Barometric Pressure O2 Delivery Device Ventilator POC O2 Rate 20 Minute Ventilation POC FiO2 40 Tidal Volume 450 PEEP 5 POC Sodium Sodium POC Potassium Potassium Chloride Carbon Dioxide Anion Gap BUN Creatinine Est Cr Clr Drug Dosing Est GFR ( Amer) Est GFR (Non-Af Amer) BUN/Creatinine Ratio Glucose POC Glucose (other) 233 H Estimat Average Glucose Hemoglobin A1c Lactate Calcium Phosphorus Magnesium Total Bilirubin AST ALT Alkaline Phosphatase Total Creatine Kinase Troponin I NT-Pro-B Natriuret Pep Total Protein Albumin Globulin Albumin/Globulin Ratio Lipase Procalcitonin Urine Color Urine Appearance Urine pH Ur Specific [place] Urine Protein Urine Glucose (UA) Urine Ketones Urine Blood Urine Nitrite Urine Bilirubin Urine Urobilinogen Ur Leukocyte Esterase Urine WBC (Auto) Urine RBC (Auto) U Hyaline Cast (Auto) U Epithel Cells (Auto) Urine Bacteria (Auto) Ur Renal Epithelial Cell Urine Mucus Nasal Screen MRSA (PCR) Adenovirus (PCR) B. pertussis DNA (PCR) B.parapertussis DNA PCR C. pneumoniae DNA (PCR) Coronavirus OC43 (PCR) Coronavirus HKU1 (PCR) Coronavirus 229E (PCR) COVID-19 PCR Coronavirus NL63 (PCR) Human Metapneumovir PCR Influenza Type A (PCR) Influenza Type B (PCR) M. pneumoniae (PCR) Parainfluenza 1 (PCR) Parainfluenza 2 (PCR) Parainfluenza 3 (PCR) Parainfluenza 4 (PCR) RSV (PCR) Entero/Rhino (PCR) Bld Cult Staph aureus PCR Blood Culture MRSA PCR 06/28/20 06/28/20 06/28/20 19:00 20:29 22:01 WBC RBC Hgb POC Hgb Hct POC Hct MCV MCH MCHC RDW Std Deviation RDW Coeff of Tian Plt Count Immature Gran % (Auto) Neut % (Auto) Lymph % (Auto) [place] % (Auto) Eos % (Auto) Baso % (Auto) Neut # (Auto) Lymph # (Auto) [place] # (Auto) Eos # (Auto) Baso # (Auto) Immature Gran # (Auto) Absolute Nucleated RBC Nucleated RBC % (auto) Platelet Estimate Giant Platelets Basophilic Stippling Anisocytosis Echinocytes Schistocytes PT INR APTT PTT Ratio Sample Site POC pH POC pCO2 POC pO2 POC HCO3 POC Total CO2 POC Base Excess ABG pH (Temp Correct) ABG pCO2 (Temp Corrct POC ABG pO2 at Pt Temp POC ABG O2 Sat Alex Test VBG pH VBG pCO2 VBG pO2 VBG HCO3 VBG O2 Saturation VBG Base Excess Barometric Pressure O2 Delivery Device POC O2 Rate Minute Ventilation POC FiO2 Tidal Volume PEEP POC Sodium Sodium 136 POC Potassium Potassium 4.2 D Chloride 107 Carbon Dioxide 19 L Anion Gap 10.0 BUN 58 H Creatinine 1.60 H Est Cr Clr Drug Dosing 37.3 Est GFR ( Amer) 48.1 Est GFR (Non-Af Amer) 41.5 BUN/Creatinine Ratio 35.9 H Glucose 261 H POC Glucose (other) 261 H 239 H Estimat Average Glucose Hemoglobin A1c Lactate Calcium 7.6 L Phosphorus Magnesium Total Bilirubin AST ALT Alkaline Phosphatase Total Creatine Kinase Troponin I NT-Pro-B Natriuret Pep Total Protein Albumin Globulin Albumin/Globulin Ratio Lipase Procalcitonin Urine Color Urine Appearance Urine pH Ur Specific [place] Urine Protein Urine Glucose (UA) Urine Ketones Urine Blood Urine Nitrite Urine Bilirubin Urine Urobilinogen Ur Leukocyte Esterase Urine WBC (Auto) Urine RBC (Auto) U Hyaline Cast (Auto) U Epithel Cells (Auto) Urine Bacteria (Auto) Ur Renal Epithelial Cell Urine Mucus Nasal Screen MRSA (PCR) Adenovirus (PCR) B. pertussis DNA (PCR) B.parapertussis DNA PCR C. pneumoniae DNA (PCR) Coronavirus OC43 (PCR) Coronavirus HKU1 (PCR) Coronavirus 229E (PCR) COVID-19 PCR Coronavirus NL63 (PCR) Human Metapneumovir PCR Influenza Type A (PCR) Influenza Type B (PCR) M. pneumoniae (PCR) Parainfluenza 1 (PCR) Parainfluenza 2 (PCR) Parainfluenza 3 (PCR) Parainfluenza 4 (PCR) RSV (PCR) Entero/Rhino (PCR) Bld Cult Staph aureus PCR Blood Culture MRSA PCR 06/28/20 06/28/20 06/29/20 22:47 22:52 00:18 WBC 10.50 RBC 3.05 L Hgb 9.5 L POC Hgb Hct 29.6 L POC Hct MCV 97.0 MCH 31.1 MCHC 32.1 RDW Std Deviation 80.5 H RDW Coeff of Tian 22.7 H Plt Count 127 L Immature Gran % (Auto) 0.3 Neut % (Auto) 88.4 Lymph % (Auto) 4.0 [place] % (Auto) 7.3 Eos % (Auto) 0.0 Baso % (Auto) 0.0 Neut # (Auto) 9.28 H Lymph # (Auto) 0.42 L [place] # (Auto) 0.77 H Eos # (Auto) 0.00 Baso # (Auto) 0.00 Immature Gran # (Auto) 0.03 H Absolute Nucleated RBC 0.07 H Nucleated RBC % (auto) 0.6 Platelet Estimate Decreased L Giant Platelets 1+ Basophilic Stippling Anisocytosis Present Echinocytes 1+ Schistocytes PT INR APTT PTT Ratio Sample Site POC pH POC pCO2 POC pO2 POC HCO3 POC Total CO2 POC Base Excess ABG pH (Temp Correct) ABG pCO2 (Temp Corrct POC ABG pO2 at Pt Temp POC ABG O2 Sat Alex Test VBG pH VBG pCO2 VBG pO2 VBG HCO3 VBG O2 Saturation VBG Base Excess Barometric Pressure O2 Delivery Device POC O2 Rate Minute Ventilation POC FiO2 Tidal Volume PEEP POC Sodium Sodium POC Potassium Potassium Chloride Carbon Dioxide Anion Gap BUN Creatinine Est Cr Clr Drug Dosing Est GFR ( Amer) Est GFR (Non-Af Amer) BUN/Creatinine Ratio Glucose POC Glucose (other) 229 H 195 H Estimat Average Glucose Hemoglobin A1c Lactate Calcium Phosphorus Magnesium Total Bilirubin AST ALT Alkaline Phosphatase Total Creatine Kinase Troponin I NT-Pro-B Natriuret Pep Total Protein Albumin Globulin Albumin/Globulin Ratio Lipase Procalcitonin Urine Color Urine Appearance Urine pH Ur Specific [place] Urine Protein Urine Glucose (UA) Urine Ketones Urine Blood Urine Nitrite Urine Bilirubin Urine Urobilinogen Ur Leukocyte Esterase Urine WBC (Auto) Urine RBC (Auto) U Hyaline Cast (Auto) U Epithel Cells (Auto) Urine Bacteria (Auto) Ur Renal Epithelial Cell Urine Mucus Nasal Screen MRSA (PCR) Adenovirus (PCR) B. pertussis DNA (PCR) B.parapertussis DNA PCR C. pneumoniae DNA (PCR) Coronavirus OC43 (PCR) Coronavirus HKU1 (PCR) Coronavirus 229E (PCR) COVID-19 PCR Coronavirus NL63 (PCR) Human Metapneumovir PCR Influenza Type A (PCR) Influenza Type B (PCR) M. pneumoniae (PCR) Parainfluenza 1 (PCR) Parainfluenza 2 (PCR) Parainfluenza 3 (PCR) Parainfluenza 4 (PCR) RSV (PCR) Entero/Rhino (PCR) Bld Cult Staph aureus PCR Blood Culture MRSA PCR 06/29/20 06/29/20 06/29/20 01:14 02:02 03:04 WBC RBC Hgb POC Hgb Hct POC Hct MCV MCH MCHC RDW Std Deviation RDW Coeff of Tian Plt Count Immature Gran % (Auto) Neut % (Auto) Lymph % (Auto) [place] % (Auto) Eos % (Auto) Baso % (Auto) Neut # (Auto) Lymph # (Auto) [place] # (Auto) Eos # (Auto) Baso # (Auto) Immature Gran # (Auto) Absolute Nucleated RBC Nucleated RBC % (auto) Platelet Estimate Giant Platelets Basophilic Stippling Anisocytosis Echinocytes Schistocytes PT INR APTT PTT Ratio Sample Site POC pH POC pCO2 POC pO2 POC HCO3 POC Total CO2 POC Base Excess ABG pH (Temp Correct) ABG pCO2 (Temp Corrct POC ABG pO2 at Pt Temp POC ABG O2 Sat Alex Test VBG pH VBG pCO2 VBG pO2 VBG HCO3 VBG O2 Saturation VBG Base Excess Barometric Pressure O2 Delivery Device POC O2 Rate Minute Ventilation POC FiO2 Tidal Volume PEEP POC Sodium Sodium POC Potassium Potassium Chloride Carbon Dioxide Anion Gap BUN Creatinine Est Cr Clr Drug Dosing Est GFR ( Amer) Est GFR (Non-Af Amer) BUN/Creatinine Ratio Glucose POC Glucose (other) 182 H 167 H 150 H Estimat Average Glucose Hemoglobin A1c Lactate Calcium Phosphorus Magnesium Total Bilirubin AST ALT Alkaline Phosphatase Total Creatine Kinase Troponin I NT-Pro-B Natriuret Pep Total Protein Albumin Globulin Albumin/Globulin Ratio Lipase Procalcitonin Urine Color Urine Appearance Urine pH Ur Specific [place] Urine Protein Urine Glucose (UA) Urine Ketones Urine Blood Urine Nitrite Urine Bilirubin Urine Urobilinogen Ur Leukocyte Esterase Urine WBC (Auto) Urine RBC (Auto) U Hyaline Cast (Auto) U Epithel Cells (Auto) Urine Bacteria (Auto) Ur Renal Epithelial Cell Urine Mucus Nasal Screen MRSA (PCR) Adenovirus (PCR) B. pertussis DNA (PCR) B.parapertussis DNA PCR C. pneumoniae DNA (PCR) Coronavirus OC43 (PCR) Coronavirus HKU1 (PCR) Coronavirus 229E (PCR) COVID-19 PCR Coronavirus NL63 (PCR) Human Metapneumovir PCR Influenza Type A (PCR) Influenza Type B (PCR) M. pneumoniae (PCR) Parainfluenza 1 (PCR) Parainfluenza 2 (PCR) Parainfluenza 3 (PCR) Parainfluenza 4 (PCR) RSV (PCR) Entero/Rhino (PCR) Bld Cult Staph aureus PCR Blood Culture MRSA PCR 06/29/20 06/29/20 06/29/20 04:06 04:58 04:58 WBC RBC Hgb POC Hgb Hct POC Hct MCV MCH MCHC RDW Std Deviation RDW Coeff of Tian Plt Count Immature Gran % (Auto) Neut % (Auto) Lymph % (Auto) [place] % (Auto) Eos % (Auto) Baso % (Auto) Neut # (Auto) Lymph # (Auto) [place] # (Auto) Eos # (Auto) Baso # (Auto) Immature Gran # (Auto) Absolute Nucleated RBC Nucleated RBC % (auto) Platelet Estimate Giant Platelets Basophilic Stippling Anisocytosis Echinocytes Schistocytes PT INR APTT PTT Ratio Sample Site POC pH POC pCO2 POC pO2 POC HCO3 POC Total CO2 POC Base Excess ABG pH (Temp Correct) ABG pCO2 (Temp Corrct POC ABG pO2 at Pt Temp POC ABG O2 Sat Alex Test VBG pH VBG pCO2 VBG pO2 VBG HCO3 VBG O2 Saturation VBG Base Excess Barometric Pressure O2 Delivery Device POC O2 Rate Minute Ventilation POC FiO2 Tidal Volume PEEP POC Sodium Sodium POC Potassium Potassium Chloride Carbon Dioxide Anion Gap BUN Creatinine Est Cr Clr Drug Dosing Est GFR ( Amer) Est GFR (Non-Af Amer) BUN/Creatinine Ratio Glucose POC Glucose (other) 126 H Estimat Average Glucose 166 Hemoglobin A1c 7.4 H Lactate 1.4 Calcium Phosphorus Magnesium Total Bilirubin AST ALT Alkaline Phosphatase Total Creatine Kinase Troponin I NT-Pro-B Natriuret Pep Total Protein Albumin Globulin Albumin/Globulin Ratio Lipase Procalcitonin Urine Color Urine Appearance Urine pH Ur Specific [place] Urine Protein Urine Glucose (UA) Urine Ketones Urine Blood Urine Nitrite Urine Bilirubin Urine Urobilinogen Ur Leukocyte Esterase Urine WBC (Auto) Urine RBC (Auto) U Hyaline Cast (Auto) U Epithel Cells (Auto) Urine Bacteria (Auto) Ur Renal Epithelial Cell Urine Mucus Nasal Screen MRSA (PCR) Adenovirus (PCR) B. pertussis DNA (PCR) B.parapertussis DNA PCR C. pneumoniae DNA (PCR) Coronavirus OC43 (PCR) Coronavirus HKU1 (PCR) Coronavirus 229E (PCR) COVID-19 PCR Coronavirus NL63 (PCR) Human Metapneumovir PCR Influenza Type A (PCR) Influenza Type B (PCR) M. pneumoniae (PCR) Parainfluenza 1 (PCR) Parainfluenza 2 (PCR) Parainfluenza 3 (PCR) Parainfluenza 4 (PCR) RSV (PCR) Entero/Rhino (PCR) Bld Cult Staph aureus PCR Blood Culture MRSA PCR 06/29/20 06/29/20 06/29/20 04:58 04:58 04:59 WBC RBC Hgb POC Hgb 10.5 L Hct POC Hct 31 L MCV MCH MCHC RDW Std Deviation RDW Coeff of Tian Plt Count Immature Gran % (Auto) Neut % (Auto) Lymph % (Auto) [place] % (Auto) Eos % (Auto) Baso % (Auto) Neut # (Auto) Lymph # (Auto) [place] # (Auto) Eos # (Auto) Baso # (Auto) Immature Gran # (Auto) Absolute Nucleated RBC Nucleated RBC % (auto) Platelet Estimate Giant Platelets Basophilic Stippling Anisocytosis Echinocytes Schistocytes PT INR APTT PTT Ratio Sample Site L Radial POC pH 7.35 POC pCO2 32 L POC pO2 82 POC HCO3 17 L POC Total CO2 18 L POC Base Excess -9.0 ABG pH (Temp Correct) 7.336 L ABG pCO2 (Temp Corrct 32 L POC ABG pO2 at Pt Temp 86 POC ABG O2 Sat 96.0 H Alex Test Pass VBG pH VBG pCO2 VBG pO2 VBG HCO3 VBG O2 Saturation VBG Base Excess Barometric Pressure O2 Delivery Device Ventilator POC O2 Rate 20 Minute Ventilation 9.0 POC FiO2 30 Tidal Volume 450 PEEP 5 POC Sodium 137 Sodium 138 POC Potassium 3.9 Potassium 3.9 Chloride 109 H Carbon Dioxide 21 Anion Gap 8.0 BUN 57 H Creatinine 1.74 H Est Cr Clr Drug Dosing 34.3 Est GFR ( Amer) 43.5 Est GFR (Non-Af Amer) 37.5 BUN/Creatinine Ratio 33.0 H Glucose 112 H POC Glucose (other) Estimat Average Glucose Hemoglobin A1c Lactate Calcium 7.5 L Phosphorus 4.0 Magnesium 1.4 L Total Bilirubin 0.8 AST 56 H ALT 51 Alkaline Phosphatase 126 H Total Creatine Kinase 304 Troponin I NT-Pro-B Natriuret Pep Total Protein 5.6 L D Albumin 2.1 L Globulin 3.5 Albumin/Globulin Ratio 0.6 L Lipase Procalcitonin 0.85 H Urine Color Urine Appearance Urine pH Ur Specific [place] Urine Protein Urine Glucose (UA) Urine Ketones Urine Blood Urine Nitrite Urine Bilirubin Urine Urobilinogen Ur Leukocyte Esterase Urine WBC (Auto) Urine RBC (Auto) U Hyaline Cast (Auto) U Epithel Cells (Auto) Urine Bacteria (Auto) Ur Renal Epithelial Cell Urine Mucus Nasal Screen MRSA (PCR) Adenovirus (PCR) B. pertussis DNA (PCR) B.parapertussis DNA PCR C. pneumoniae DNA (PCR) Coronavirus OC43 (PCR) Coronavirus HKU1 (PCR) Coronavirus 229E (PCR) COVID-19 PCR Coronavirus NL63 (PCR) Human Metapneumovir PCR Influenza Type A (PCR) Influenza Type B (PCR) M. pneumoniae (PCR) Parainfluenza 1 (PCR) Parainfluenza 2 (PCR) Parainfluenza 3 (PCR) Parainfluenza 4 (PCR) RSV (PCR) Entero/Rhino (PCR) Bld Cult Staph aureus PCR Blood Culture MRSA PCR 06/29/20 06/29/20 06/29/20 05:04 06:17 07:21 WBC RBC Hgb POC Hgb Hct POC Hct MCV MCH MCHC RDW Std Deviation RDW Coeff of Tian Plt Count Immature Gran % (Auto) Neut % (Auto) Lymph % (Auto) [place] % (Auto) Eos % (Auto) Baso % (Auto) Neut # (Auto) Lymph # (Auto) [place] # (Auto) Eos # (Auto) Baso # (Auto) Immature Gran # (Auto) Absolute Nucleated RBC Nucleated RBC % (auto) Platelet Estimate Giant Platelets Basophilic Stippling Anisocytosis Echinocytes Schistocytes PT INR APTT PTT Ratio Sample Site POC pH POC pCO2 POC pO2 POC HCO3 POC Total CO2 POC Base Excess ABG pH (Temp Correct) ABG pCO2 (Temp Corrct POC ABG pO2 at Pt Temp POC ABG O2 Sat Alex Test VBG pH VBG pCO2 VBG pO2 VBG HCO3 VBG O2 Saturation VBG Base Excess Barometric Pressure O2 Delivery Device POC O2 Rate Minute Ventilation POC FiO2 Tidal Volume PEEP POC Sodium Sodium POC Potassium Potassium Chloride Carbon Dioxide Anion Gap BUN Creatinine Est Cr Clr Drug Dosing Est GFR ( Amer) Est GFR (Non-Af Amer) BUN/Creatinine Ratio Glucose POC Glucose (other) 115 H 91 110 H Estimat Average Glucose Hemoglobin A1c Lactate Calcium Phosphorus Magnesium Total Bilirubin AST ALT Alkaline Phosphatase Total Creatine Kinase Troponin I NT-Pro-B Natriuret Pep Total Protein Albumin Globulin Albumin/Globulin Ratio Lipase Procalcitonin Urine Color Urine Appearance Urine pH Ur Specific [place] Urine Protein Urine Glucose (UA) Urine Ketones Urine Blood Urine Nitrite Urine Bilirubin Urine Urobilinogen Ur Leukocyte Esterase Urine WBC (Auto) Urine RBC (Auto) U Hyaline Cast (Auto) U Epithel Cells (Auto) Urine Bacteria (Auto) Ur Renal Epithelial Cell Urine Mucus Nasal Screen MRSA (PCR) Adenovirus (PCR) B. pertussis DNA (PCR) B.parapertussis DNA PCR C. pneumoniae DNA (PCR) Coronavirus OC43 (PCR) Coronavirus HKU1 (PCR) Coronavirus 229E (PCR) COVID-19 PCR Coronavirus NL63 (PCR) Human Metapneumovir PCR Influenza Type A (PCR) Influenza Type B (PCR) M. pneumoniae (PCR) Parainfluenza 1 (PCR) Parainfluenza 2 (PCR) Parainfluenza 3 (PCR) Parainfluenza 4 (PCR) RSV (PCR) Entero/Rhino (PCR) Bld Cult Staph aureus PCR Blood Culture MRSA PCR 06/29/20 06/29/20 06/29/20 08:12 09:14 10:34 WBC RBC Hgb POC Hgb Hct POC Hct MCV MCH MCHC RDW Std Deviation RDW Coeff of Tian Plt Count Immature Gran % (Auto) Neut % (Auto) Lymph % (Auto) [place] % (Auto) Eos % (Auto) Baso % (Auto) Neut # (Auto) Lymph # (Auto) [place] # (Auto) Eos # (Auto) Baso # (Auto) Immature Gran # (Auto) Absolute Nucleated RBC Nucleated RBC % (auto) Platelet Estimate Giant Platelets Basophilic Stippling Anisocytosis Echinocytes Schistocytes PT INR APTT PTT Ratio Sample Site POC pH POC pCO2 POC pO2 POC HCO3 POC Total CO2 POC Base Excess ABG pH (Temp Correct) ABG pCO2 (Temp Corrct POC ABG pO2 at Pt Temp POC ABG O2 Sat Alex Test VBG pH VBG pCO2 VBG pO2 VBG HCO3 VBG O2 Saturation VBG Base Excess Barometric Pressure O2 Delivery Device POC O2 Rate Minute Ventilation POC FiO2 Tidal Volume PEEP POC Sodium Sodium POC Potassium Potassium Chloride Carbon Dioxide Anion Gap BUN Creatinine Est Cr Clr Drug Dosing Est GFR ( Amer) Est GFR (Non-Af Amer) BUN/Creatinine Ratio Glucose POC Glucose (other) 137 H 154 H 158 H Estimat Average Glucose Hemoglobin A1c Lactate Calcium Phosphorus Magnesium Total Bilirubin AST ALT Alkaline Phosphatase Total Creatine Kinase Troponin I NT-Pro-B Natriuret Pep Total Protein Albumin Globulin Albumin/Globulin Ratio Lipase Procalcitonin Urine Color Urine Appearance Urine pH Ur Specific [place] Urine Protein Urine Glucose (UA) Urine Ketones Urine Blood Urine Nitrite Urine Bilirubin Urine Urobilinogen Ur Leukocyte Esterase Urine WBC (Auto) Urine RBC (Auto) U Hyaline Cast (Auto) U Epithel Cells (Auto) Urine Bacteria (Auto) Ur Renal Epithelial Cell Urine Mucus Nasal Screen MRSA (PCR) Adenovirus (PCR) B. pertussis DNA (PCR) B.parapertussis DNA PCR C. pneumoniae DNA (PCR) Coronavirus OC43 (PCR) Coronavirus HKU1 (PCR) Coronavirus 229E (PCR) COVID-19 PCR Coronavirus NL63 (PCR) Human Metapneumovir PCR Influenza Type A (PCR) Influenza Type B (PCR) M. pneumoniae (PCR) Parainfluenza 1 (PCR) Parainfluenza 2 (PCR) Parainfluenza 3 (PCR) Parainfluenza 4 (PCR) RSV (PCR) Entero/Rhino (PCR) Bld Cult Staph aureus PCR Blood Culture MRSA PCR Diagnostic Findings Echocardiogram 06/29/2020 Severe ischemic cardiomyopathy with scarring and thinning of the inferior posterior and inferoseptal adame with severe diffuse LV dysfunction EF less than 50%, moderate mitral tricuspid insufficiency. Sclerotic changes with focal thickening of the right coronary cusp of the aortic valve. No overt vegetations on valvular structures or pacemaker lead but not excluded
--- NOTE | 2020-06-29 11:55 | Hospitalist Progress Note ---
Date of Service June 29, 2020 Assessment & Plan (1) Severe sepsis: Admitted with severe sepsis with septic shock, was tachycardic, hypotensive, respiratory failure, elevated lactic acid level, required IV fluids pressor supports, mechanical ventilation Source of infection: Possible infected pacemaker site, with gram-positive bacteremia (2) Acute hypoxemic respiratory failure: due to above : Severe sepsis with septic shock Acute hypoxic respiratory failure secondary to acute on chronic congestive heart failure exacerbation, systolic History of AICD placement, May 2020 Required mechanical ventilation/intubation,Appreciate input from pulmonary critical care Patient is extubated today, Echocardiogram :Showed severe ischemic cardiomyopathy, EF less than 15% Appreciate input from cardiology, (3) Septic shock due to Gram positive bacteria: blood culture : Staph aureus MSSA Wound culture gram-positive cocci, isolation and sensitivity pending Source of infection: Infected pacemaker pocket/ Patient is continue with IV Zosyn, Repeat blood cultures ordered, Appreciate input from infectious disease/Jeannette Recommends repeat blood culture, Broad-spectrum antibiotic, Will need long-term antibiotic with IV Ancef for MSSA bacteremia Recommends: JES for evaluation of endocarditis Infected biventricular pacemaker needs to be removed (4) Ischemic cardiomyopathy with implantable cardioverter-defibrillator (ICD): Status post dual-chamber biventricular ICD/pacemaker placed on April 2020 Presents with possible pacemaker site/pocket infection with gram-positive bacteremia, sepsis with septic shock Overall prognosis remains extremely poor, cardiology following (5) Acute on chronic systolic heart failure: Underlying severe ischemic cardiomyopathy, presented with septic shock, Currently on pressors, which has been weaned off, Diuretics ordered as per cardiology/critical care Acute renal failure Baseline creatinine 1.1 now 1.8 Due to severe sepsis with septic shock Patient is given IV fluid resuscitation, continue pressor supports good keep MAP at goal DVT prophylaxis Per benzene operator CODE STATUS Full code per patient's daughter Cassy who is the POA Spoke with patient's daughter, updated regarding patient's critical illness and poor prognosis, Patient's other daughter is flying in from [place], this afternoon, Family will be in hospital after 5 PM, will discuss with them regarding goal of care Plan of care discussed with ICU team Disposition Patient remains critically ill, continue to monitor in ICU Admission and Anticipated Discharge Date Admission Date: June 28, 2020 Subjective Patient is on mechanical vent. no family members present in room at time of exam Review of Systems Review of Systems: All systems reviewed & are unremarkable except as noted in HPI & below Physical Exam Constitutional: + ill appearing Eyes: + anicteric sclerae ENMT: dry oral mucosa Neck: central line present on rt side Respiratory: + cough; no respiratory distress Auscultation: + crackles, + rales and + rhonchi Cardiovascular: Rate/Rhythm: regular rate and regular rhythm Extremities: + edema Gastrointestinal (Abdomen): Percussion/Palpation: abdomen soft; abdomen nontender Musculoskeletal: Left upper chest wall: Pacemaker site: Open small wound noted, with anand drainage of pus. Surrounding erythema Skin: Purulent open wound, at left upper chest wall, pacemaker insertion site Neurologic: Opens eyes to voice, very weak and lethargic, able to answer simple questions, moving all limbs Results & Data Results & Data ([facility]) Vital Signs (Past 12 Hours) Vital Signs Temp Pulse Resp BP Pulse Ox Pulse Ox 06/29/20 10:00 90 20 97 06/29/20 08:00 82 96 06/29/20 07:00 82 20 97 06/29/20 06:25 76 20 99/61 L 95 06/29/20 06:00 83 20 94/56 L 95 06/29/20 05:25 82 20 92/57 L 94 06/29/20 05:00 85 20 94/61 L 100 06/29/20 04:50 82 20 96 06/29/20 04:30 83 20 89/58 L 97 06/29/20 04:00 37.5 C 82 20 90/56 L 97 06/29/20 03:30 81 20 90/59 L 96 06/29/20 03:00 80 20 90/58 L 97 06/29/20 02:30 81 87/59 L 97 06/29/20 02:00 79 88/58 L 97 06/29/20 01:30 79 20 86/57 L 98 06/29/20 01:20 79 20 96 06/29/20 01:00 77 20 85/54 L 96 06/29/20 00:30 78 20 88/52 L 96 06/29/20 00:00 37.2 C 74 20 89/54 L 96
--- NOTE | 2020-06-29 12:36 | Billing Data ---
Date of Service June 29, 2020 Coding Level of Care Code Critical Care 1st 30-74 mins Time Spent (min) 39
[2020-06-29] MEDS ORDERED: STAT IV Infusion **Titration per Protocol STA (14:36)
--- NOTE | 2020-06-29 15:06 | Palliative Care Consultation ---
Date of Consultation June 29, 2020 Assessment & Plan (1) Palliative care encounter: I met with Mr. Reyes at bedside in room 108. He is a bit drowsy at times but cogent and able to discuss his care. He is aware that he had been on the vent earlier and that he has severe infection, likely from his pacer/ICD. He has been living at home alone and was able to manage self care prior to admission. We discussed his current infection and goals for care. He reports that he has thought about the kind of care that he would want if he were very ill and has an advance directed that was completed in the past. He has indicated in the past that he would not want any "heroic measures" to prolong his life and still feels that way. We discussed his current care and that being on ventilator support is often considered a "heroic measure". He nods and when asked if his breathing were to worsen, would he want to be on ventilator again, he tells me that he would not. He understands that he is very ill and wants to continue his current level of care for now but would not want escalation of care, including intubation or CPR. We discussed how he felt about being transferred to [facility] for replacement of his AICD and he tells me that he would not want to do that. He confirms that his daughter, Cassy Rice is his health care POA and consented to my calling her to discuss what we had talked about. I called Cassy at but there was no answer. I did discuss his goals with Dr. Heart. Code status changed to DNR/DNI per his wishes. Thank you for allowing us to participate in his care. (2) Severe sepsis: (3) Infection of biventricular pacemaker: (4) Ischemic cardiomyopathy with implantable cardioverter-defibrillator (ICD): (5) MAURIZIO (acute kidney injury): (6) Acute hypoxemic respiratory failure: History of Present Illness Reason for Consultation: Goals of care Requesting Physician: Dr. Brewster Attending Physician: Demetrice Bee MD History of Present Illness 74 yo gentleman with cardiomyopathy and EF of 15%. He has AICD which I believe was placed in April of this year. He was admitted with acute respiratory failure, pneumonia and sepsis, thought to be related to AICD infection. He had been on vent support earlier but has been successfully weaned. He has also had diarrhea with black stools and MAURIZIO with creatinine of 1.74 and GFR of 37. BUN is 57. He is resting in bed and denies pain or shortness of breath. He is awak e and able to converse and we have been consulted to assist with goals of care. Allergies Allergy/AdvReac Type Severity Reaction Status Date / Time phenobarbital Allergy Mild dizzy Verified 06/28/20 14:54 Home Medications Home Medications Medication Instructions Recorded Confirmed Type Selsun Blue 1 applic TOPICAL Q OTHER DAY 08/03/19 06/28/20 History aspirin [Aspirin Low Dose] 81 mg PO QAM 08/03/19 06/28/20 History colchicine 0.6 mg PO BID 08/03/19 06/28/20 History cyanocobalamin (vitamin B-12) 1,000 mcg PO QAM 08/03/19 06/28/20 History [Vitamin B-12] gabapentin 300 mg PO TID 08/03/19 06/28/20 History levothyroxine 125 mcg PO QAM 08/03/19 06/28/20 History omeprazole 20 mg PO QAM 08/03/19 06/28/20 History acetaminophen [Tylenol Extra 500 - 1,000 mg PO Q6H PRN 12/25/19 06/28/20 History Strength] tramadol 50 mg PO Q6H PRN 12/25/19 06/28/20 History Incruse Ellipta 1 inh INHALATION QAM 04/06/20 06/28/20 History Levemir FlexTouch U-100 Insuln 18 unit SUBCUT HS 04/06/20 06/28/20 History albuterol sulfate 1 inh INHALATION QID PRN 04/06/20 06/28/20 History atorvastatin 40 mg PO DAILY 04/06/20 06/28/20 History clopidogrel [Plavix] 75 mg PO QAM 04/06/20 06/28/20 History ferrous sulfate [Feosol] 325 mg PO BID 04/06/20 06/28/20 History fluticasone propion-salmeterol 1 inh INHALATION Q12H 04/06/20 06/28/20 History [Advair Diskus] furosemide [Lasix] 20 mg PO QAM 04/06/20 06/28/20 History lisinopril 5 mg PO HS 04/06/20 06/28/20 History metformin 1,000 mg PO BIDM 04/06/20 06/28/20 History metoprolol succinate 50 mg PO QAM 04/06/20 06/28/20 History nitroglycerin [Nitrostat] 0.4 mg SUBLINGUAL UD PRN 04/06/20 06/28/20 History semaglutide 1 mg SUBCUT WK 04/06/20 06/28/20 History triamcinolone acetonide 1 applic TOPICAL BID PRN 04/06/20 06/28/20 History Patient History Medical History AAA (abdominal aortic aneurysm) follows with [facility] once a year Acute encephalopathy Acute hypoxemic respiratory failure Acute on chronic systolic heart failure MAURIZIO (acute kidney injury) Anemia CAD (coronary artery disease) Celiac artery stenosis Degenerative disc disease Demand ischemia Diabetes mellitus, type 2 GERD (gastroesophageal reflux disease) Gout Hyperlipidemia Hypertension Hypothyroidism ICD (implantable cardioverter-defibrillator) in place meditronic placed 04/06/2020 @ [facility] Non-STEMI (non-ST elevated myocardial infarction) 12/2019--attempted heart cath @ [facility] unable to place stents sent to [facility] where he had ALLISON placed--currently of plavix and follows with [facility] On anticoagulant therapy plavix daily On home oxygen therapy 2L N/C at HS Osteoarthritis Pulmonary embolism per record , unknown cause Sleep apnea 2L N/C at HS Wheezing Surgical History History of cardiac cath x2--12/25/2019 @ [facility]--unable to stent pt, sent to [facility] 12/2019--ALLISON LAD PCI @ [facility] History of colonoscopy with polypectomy History of esophagogastroduodenoscopy (EGD) History of heart artery stent 12/2019 ALLISON LAD PCI @ [facility] (pt states they placed 3 stents at that time) History of implantable cardioverter-defibrillator (ICD) insertion 04/06/2020 History of repair of right rotator cuff History of tooth extraction upper teeth Family History Other No family history of adverse response to anesthesia Social History Smoking Status: Current every day smoker Tobacco Type: Cigars Cigarettes Per Day: 3 cigars a day; Second Hand Exposure: No; Hx Alcohol Use: No Hx Substance Use: No Preferred Language: Somali Communication Ability: Impaired 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 Beliefs That Will Affect Care: None marital status: / Current Living Situation: Alone Feels Safe at Home: Yes Assistive Devices: Denture - Upper, Denture - Lower, Glasses and Oxygen - at Night Review of Systems Review of Systems: All systems reviewed & are unremarkable except as noted in Subjective Physical Exam Constitutional: + ill appearing and + disheveled Eyes: EOM intact bilaterally ENMT: copious oral secretions Neck: trachea midline Respiratory: no respiratory distress Cardiovascular: Rate/Rhythm: regular rate and regular rhythm Gastrointestinal (Abdomen): Inspection/Auscultation: abdomen not distended Skin: warm and dry Neurologic: awake; not confused Psychiatric: Orientation: alert and oriented x 3 Thought Process: clear/coherent thought process Results & Data ([facility]) Vital Signs (Past 12 Hours) Vital Signs Temp Pulse Resp BP Pulse Ox Pulse Ox 06/29/20 12:56 82 93/57 L 96 06/29/20 12:30 79 97 06/29/20 12:26 78 89/53 L 95 06/29/20 12:22 80 92/56 L 91 06/29/20 12:14 77 88/58 L 97 06/29/20 12:00 98.8 F 78 94 06/29/20 11:56 79 91/54 L 91 06/29/20 11:30 89 96 06/29/20 11:26 84 103/64 97 06/29/20 11:22 76 104/64 97 06/29/20 11:00 99.0 F 88 97 06/29/20 10:56 89 91/65 L 98 06/29/20 10:30 87 97 06/29/20 10:26 75 99/53 L 97 06/29/20 10:00 98.6 F 77 20 97 06/29/20 09:56 74 99/65 L 97 06/29/20 09:30 72 97 06/29/20 09:26 71 99/60 L 97 06/29/20 09:00 99.0 F 70 96 06/29/20 08:56 74 98/59 L 96 10/28/20 08:30 73 96 06/29/20 08:26 78 96/61 L 96 06/29/20 08:00 74 97 96 06/29/20 07:56 73 101/61 97 06/29/20 07:30 76 97 06/29/20 07:25 77 91/57 L 97 06/29/20 07:00 98.6 F 76 20 97 06/29/20 06:55 77 91/60 L 97 06/29/20 06:30 75 95 06/29/20 06:25 76 20 99/61 L 95 06/29/20 06:00 83 20 94/56 L 95 06/29/20 05:25 82 20 92/57 L 94 06/29/20 05:00 85 20 94/61 L 100 06/29/20 04:50 82 20 96 06/29/20 04:30 83 20 89/58 L 97 06/29/20 04:00 99.5 F 82 20 90/56 L 97 06/29/20 03:30 81 20 90/59 L 96 PG Care Time/CCT Total # of Minutes Spent Total Time Spent with Patient: Total time spent is greater than 50% in coordination of care (as documented) at patient's floor/unit and/or counseling patient: Coding Level of Care Code 16750 Inpt Consult Level 4 History Detailed Exam Detailed Medical Decision Making High Complexity Diagnoses Palliative care encounter Z51.5 Severe sepsis A41.9; R65.20 Infection of biventricular pacemaker T82.7XXA Ischemic cardiomyopathy with implantable cardioverter-defibrillator (ICD) I25.5; Z95.810 MAURIZIO (acute kidney injury) N17.9 Acute hypoxemic respiratory failure J96.01
--- NOTE | 2020-06-29 15:14 | Pharmacy Report ---
Pharmacy Glycemic Short Note 2 - Date of Service June 29, 2020 - Glycemic Short BSG Results (Last 24 hours): 06/28/20 06/28/20 06/28/20 18:22 19:00 20:29 Glucose 261 H POC Glucose (other) 233 H 261 H 06/28/20 06/28/20 06/29/20 22:01 22:52 00:18 Glucose POC Glucose (other) 239 H 229 H 195 H 06/29/20 06/29/20 06/29/20 01:14 02:02 03:04 Glucose POC Glucose (other) 182 H 167 H 150 H 06/29/20 06/29/20 06/29/20 04:06 04:58 05:04 Glucose 112 H POC Glucose (other) 126 H 115 H 06/29/20 06/29/20 06/29/20 06:17 07:21 08:12 Glucose POC Glucose (other) 91 110 H 137 H 06/29/20 06/29/20 06/29/20 09:14 10:34 12:13 Glucose POC Glucose (other) 154 H 158 H 169 H 06/29/20 14:43 Glucose POC Glucose (other) 144 H OUTPATIENT ANTIDIABETIC REGIMEN: * Levemir 18 units HS * Metformin 1000 BID * semaglutide 1mg sq weekly * A1c: 7.4% 06/29/20 ASSESSMENT: * Patient initiated on insulin infusion last evening and remains well controlled. Discussed with provider, will continue on insulin infusion for now as SQ absorption unreliable as patient requiring significant vasopressors. * Patient on antibiotics for likely MSSA bacteremia. Risk Factors for Insulin Resistance: * Steroids:No * Infection: Yes, MSSA bacteremia/ infected pacemaker * Pressors: norepinephrine ~0.2-0.3 mcg/kg/min, dobutamine infusion * Mechanical Ventilation: Was on MV, extubated today PLAN FOR INPATIENT GLYCEMIC CONTROL: * Hold outpatient oral diabetes medications * Insulin Infusion * Goal: 140-180 mg/dL * Bolus insulin * NovoLog per scale ACHS or Q6hrs while NPO per insulin infusion calculator
[2020-06-29] MEDS: fentaNYL citrate 100 MCG/2 ML VIAL IV PRN ×2 (21:20→23:45)
[2020-06-29] MEDS: INSULIN REGULAR 250 UNITS in SODIUM CHLORIDE 0.9% 247.5 ML IV SCH (22:24)
[2020-06-30] MEDS: NOREPINEPHRINE (Adult) 8 MG in DEXTROSE 5% 500 ML IV SCH ×2 (03:59→19:04)
[2020-06-30] MEDS: fentaNYL citrate 100 MCG/2 ML VIAL IV PRN ×3 (04:00→11:00)
[2020-06-30 05:05] LABS: Mean Corpuscular Hgb Conc 32.5 g/dL (32-36); Nucleated RBC # (auto) 0.05 K/uL (0-0); Nucleated RBC % (auto) 0.5 %
[2020-06-30 05:19] LABS: Hematocrit (blood only) 28.6 % (42-52); Hemoglobin 9.3 g/dL (14.0-18.0); Mean Corpuscular Volume 95.3 fL (80-100); RDW Coefficient of Variation 22.5 % (11.5-14.5); RDW Standard Deviation 78.2 fL (36.4-46.3); White Blood Count 10.07 K/uL (4.8-10.8)
[2020-06-30 05:20] LABS: Albumin Level 1.9 gm/dl (3.4-5.0); BUN Creatinine Ratio 24.5 (10-20); Calcium 7.6 mg/dl (8.5-10.1); Creatinine Clr Calc Pharmacy 25.5 ml/min; Est GFR (African American) 30.8; Est GFR (Non-African American) 26.6; Magnesium 1.9 mg/dl (1.8-2.4); Phosphorus 3.9 mg/dl (2.5-4.9); Potassium 3.5 mmol/L (3.5-5.1)
[2020-06-30 05:30] LABS: Albumin Globulin Ratio 0.6 (0.9-2); Bilirubin,Total 1.3 mg/dl (0.2-1); Globulin 3.4 gm/dl (2.5-4.0); Total Protein 5.3 gm/dl (6.4-8.2)
[2020-06-30 05:41] LABS: Basophils # (auto) 0.01 K/uL (0-0.2); Basophils % (auto) 0.1 %; Echinocytes 1+; Immature Granulocytes # (auto) 0.06 K/uL (0.00-0.02); Immature Granulocytes % (auto) 0.6 %; Lymphocytes # (auto) 0.61 K/uL (1.2-3.4); Lymphocytes % (auto) 6.1 %; Monocytes # (auto) 0.54 K/uL (0.11-0.59); Monocytes % (auto) 5.4 %; Neutrophils # (auto) 8.85 K/uL (1.4-6.5); Neutrophils % (auto) 87.8 %; Platelet Count 103 K/uL (130-400); Platelet Estimate Decreased (Normal)
[2020-06-30] MEDS: LEVOTHYROXINE SODIUM 125 MCG TABLET PO SCH (05:49)
[2020-06-30] MEDS: PIPERACILLIN/TAZOBACTAM 4.5 GM in DEXTROSE 5% 100 ML IV SCH (08:26)
[2020-06-30] MEDS: ATORVASTATIN 40 MG TAB PO SCH (08:26)
[2020-06-30] MEDS ORDERED: PANTOprazole 40 MG in SYRINGE 0 ML IV SCH (09:00)
[2020-06-30] MEDS ORDERED: DAPTOmycin 400 MG in SYRINGE 0 ML IV SCH (09:00)
[2020-06-30] MEDS ORDERED: ASPIRIN 81 MG ECTAB PO SCH (09:00)
--- NOTE | 2020-06-30 09:07 | Critical Care Progress Note ---
Date of Service June 30, 2020 Assessment & Plan (1) Acute on chronic systolic heart failure: Reason Critically Ill: 74 yo M who presented with severe sepsis, requiring intubation and mechanical ventilation and vasopressors. Patient was successfully extubated on 06/29 and is breathing well on oxymask. His vasopressors are being weaned. Patient's recently placed biventricular pacer + defibrillator was found to be infected on admission. 2 of 2 blood cultures growing staph, thought to be MSSA, currently on zosyn. Definitive management includes removal of this device, which would require transfer to [facility]. Given his overall poor cardiovascular function (EF < 15% on echo, advanced ischemic cardiomyopathy) in the setting of his acute decompensation, patient would not likely tolerate procedure. Thus, recommending transition to palliative care approach. After further discussion with family and palliative care, patient will move to comfort measures. After pressors are weaned, patient may transition to floor. Neurologic: * Encephalopathy - resolved - likely metabolic due to hypoxemia and infection - Delirium precautions Pulmonary: * Bilateral pleural Effusions - small bilateral effusions noted on chest CTA, likely secondary to decompensated CHF exacerbation - diuretics held on admission due to elevated lactate. - lactate has since cleared; patient diuresed ~1.2L with one dose of IV lasix. - given gut edema visualized on CT scan, would recommend bumex for future dosing * Rib Fracture - left sided; no associated pneumothorax - fentanyl prn for analgesia - encourage incentive spirometry when able Cardiovascular: * Decompensated CHF exacerbation - BNP > 88503 on admission - etiology of exacerbation is unknown at this time - patiently recently underwent biventricular pacer and defibrillator placement - cardiology consulted, pacer interrogation showing no evidence of dysrhythmia - there is concern for infection of this device (possible source of gram + bacteremia); removal would need to be done at [facility]. - echo showing EF <15%; no vegetations noted on valves - palliative care consulted * elevated troponin - trop 0.085 on admission, up to 0.5 - levels >9 during NSTEMI in 12/20 - likely secondary to demand ischemia - will no longer trend * Hx ischemic cardiomyopathy - NSTEMI with ALLISON placement in 12/28/2019 - home hypertensive therapy held on admission due to hypotension - not a candiate for revascularization Gastrointestinal: * Severe celiac artery stenosis - visualized on A/P CT scan - elevated lactate may be secondary to mesenteric vs. clonic ischemia - holding dual antiplatelet for now, statin as above * hypoalbuminemia - level at 2.1 - suspect secondary to chronic malnutrition - likely etiology of anasarca, elevated PT and INR - Continue bowel regimen Docusate and senna - Stress ulcer prophylaxis: Protonix daily (indication mechanical ventilation) - Wheel Cutter consulted Renal: * MAURIZIO - Cr 2.3 on admission, up from 1.88 - BUN 56 - BUN/Cr ratio 24, suggestive of prerenal etiology - EF low, suspect renal hypoperfusion - he received judicious fluids in the ER (due to low EF) - renal US showing no calculi or hydronephrosis * Concern for rhabdomyolysis - patient was found down in home - CK 676 on admission, down to 304 with judicious IV hydration - ICU electrolyte protocol Infectious disease: * GRAM+ bacteremia - 2 of 2 blood cultures on admission growing staph; MRSA neg, suspect MSSA; follow sensitivities - Continue zosyn - as for the source, possible soft skin infection on the biventricular pacemaker is suspected. - Viral PCR negative. COVID 19 neg. Chest CTA without evidence of PNA. Urinalysis appears like a dirty sample. 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 Vega was resident physician during care of patient. I separately evaluated patient for villa portions of the history and the exam. I was present during the critical portion of medical decision making, and I discussed the case with the resident. I generally agree with the findings and plan. Patient was discussed in multidisciplinary rounds as well as with Dr. Delong of the cardiology service. Is able to participate in conversations with the patient who is limited secondary to significant pain as well as his 2 daughters 1 who was arrived from [place] and the other via phone who is currently working for the [employer]. Patient is in an end-stage terminal condition, he is not a surgical candidate for revascularization therapy, he is currently infected with a bloodstream and pocket infection from a by ventricular pacemaker he has severe cardiomyopathy. He is having significant pain and all are in agreement that the patient would rather transition to comfort measures and definitively does not want to go to any sort of prison. At this point we will not escalate care, as we remove interventions we will not reinitiate. He is requiring low-dose vasoactive medication, it is our hope that we can achieve better comfort and the patient will be able to dissipate in a phone conversation with his son-in-law and grandchildren via telephone and also allow for the patient's daughter who is working to be present at the bedside. Patient is certainly critically ill secondary to ischemic cardiomyopathy. Anticipate discontinuation of life-sustaining measures and would be stable for downgrade out of the ICU later today should needs arise. Subjective Patient is breathing well on oxymask. He says he is feeling weak, but better than on admission. He says he does not recall the events leading to his fall at home. He denies skipping any home medication doses Review of Systems Constitutional: + weakness Physical Exam Constitutional: + ill appearing and cooperative Eyes: + anicteric sclerae ENMT: external ear and nose normal, oropharynx normal Neck: trachea midline Respiratory: Auscultation: + crackles (bilateral lower lung dobson ) Cardiovascular: RRR, no murmur, no edema (heart sounds distant ) Heart Sounds: normal S1 and normal S2 Gastrointestinal (Abdomen): normal bowel sounds, soft, nontender, no hepatosplenomegaly Skin: no rashes, warm and dry Neurologic: + not awake (sedated) Genitourinary: Goldman catheter in place, draining yellow urine without visible blood clots Results & Data Results & Data ([facility]) Vital Signs (Past 12 Hours) Vital Signs Temp Pulse Resp BP Pulse Ox 06/30/20 06:00 100 H 14 96/52 L 97 06/30/20 05:30 101 H 21 104/53 L 94 06/30/20 05:00 105 H 18 98/56 L 95 06/30/20 04:30 103 H 18 92/52 L 98 06/30/20 04:00 36.8 C 106 H 14 105/56 L 95 06/30/20 03:30 108 H 18 106/63 96 06/30/20 03:00 92 H 14 109/60 95 06/30/20 02:30 91 H 19 111/59 L 94 06/30/20 02:00 95 H 17 106/65 95 06/30/20 01:30 101 H 16 106/63 94 06/30/20 01:00 95 H 17 107/61 95 06/30/20 00:30 93 H 16 103/62 95 06/30/20 00:00 36.8 C 95 H 12 98/56 L 95 06/29/20 23:30 96 H 18 117/63 96 06/29/20 23:00 90 17 113/65 96 06/29/20 22:30 89 14 89/62 L 97 06/29/20 22:00 95 H 22 102/61 97 06/29/20 21:30 96 H 14 113/58 L 94 06/29/20 21:00 79 14 106/65 97 Critical Care Time Critical Care Time: Yes Total Critical Care Time: 95 I have personally spent 95 minutes of critical care time in the direct management of this patient. This is a life/limb threatening event. This includes time spent evaluating patient, direct bedside care, chart review, placing orders, interpretation of diagnostic studies, discussion with consultants, patient, and/or family members regarding treatment decisions, as well as other required patient management activities. This time is exclusive of all separately billable procedures, and teaching time and separate from and in addition to any other critical care service time. Resident Activity Tracking Resident Involvement: Resident Care Provided Care Provided: Adult [facility]
--- NOTE | 2020-06-30 11:12 | Palliative Care Progress Note ---
Date of Service June 30, 2020 Assessment & Plan (1) Palliative care encounter: I met with this gentleman in room 108. The patient was able to recall being on the ventilator. Dr. Delong from Cardiology was in to speak with the patient and his daughter, Cassy Grullon", who arrived last night from [place]. After speaking with Dr. Delong the patient has a better understanding that his current infection is unlikely to improve as he is not a candidate for a JES now an IACD replacement. With his poor EF of < 15%, his perfusion is proving to be altered. I asked the patient if he is fearful of , and he said no. It is apparent he is holding on for his daughters. His daughter Cassy is speaking with him to provide him with comfort and give him permission to pass. He remains on a Levophed infusion with a SBP of 90. The patient reiterated that he knows that he is severely ill and just wants to be comfortable. We discussed the above and details regarding transitioning to comfort measures on the phone with his daughter, Alisa as well. She is a suction worker and is coming in this afternoon. For now, we will continue inotropic medications and abx, with the addition of Morphine for comfort. Once Alisa arrives, we will stop pressors and all over blood work, non-essential medications that do not focus on comfort, vital signs, etc. Confirmed that we would not escalate care from here if his blood pressure would worsen. The patient did receive Fentanyl, now Morphine in the event we transition him out of the ICU. I set the expectation that he could require a Morphine infusion if we see he is requiring multiple and frequent doses of pain medication. It is the patients birthday, he was unable to identify at this time something that he would enjoy eating. Once his pain is well controlled, we will reassess if possible. Palliative Care will continue to follow. Update: Patients daughter came to the patients nurse, Jean Claude, who stated that her sister called and wants to transition her father to comfort prior to her arrival. This was discussed with and all comfort measures were put into place. Levophed gtt was turned off. Patient was started on a Morphine gtt 250mg/250mL and the nurse has been titrating up for comfort with a max rate of 10mg/hour. Bereavement cart ordered and hopefully we can keep him in the ICU for the immediate future to prevent him passing in transport to another room. Anticipate patient life expectancy hours to a few days. We will monitor. Wendell Symptom Assessment System Revised (ESAS-r) Pain: 3/3 Tiredness: 3/3 Drowsiness: 1/3 Nausea: 0/3 Lack of Appetite: 3/3 SOB: 1/3 Depression: 1/3 Anxiety: 1/3 (2) Severe sepsis: (3) Infection of biventricular pacemaker: (4) Ischemic cardiomyopathy with implantable cardioverter-defibrillator (ICD): (5) MAURIZIO (acute kidney injury): (6) Acute hypoxemic respiratory failure: Admission and Anticipated Discharge Date Admission Date: June 28, 2020 Subjective Patient was seen and examined Patient extubated yesterday Patient AAO x 3. Patient is having 8/10 sharp pain with movement Review of Systems Review of Systems: Wendell Symptom Assessment System Revised (ESAS-r) Pain: 3/3 Tiredness: 3/3 Drowsiness: 1/3 Nausea: 0/3 Lack of Appetite: 3/3 SOB: 1/3 Depression: 1/3 Anxiety: 1/3 Physical Exam Constitutional: + ill appearing and + disheveled Eyes: EOM intact bilaterally ENMT: Mouth: + poor dentition and + loose teeth Neck: trachea midline Respiratory: no respiratory distress Cardiovascular: Rate/Rhythm: regular rate and regular rhythm Gastrointestinal (Abdomen): Inspection/Auscultation: abdomen not distended Neurologic: awake; not confused Psychiatric: Orientation: alert and oriented x 3 Thought Process: clear/coherent thought process Results & Data ([facility]) Vital Signs (Past 12 Hours) Vital Signs Temp Pulse Resp BP Pulse Ox Pulse Ox 06/30/20 08:00 100 H 96 06/30/20 06:00 100 H 14 96/52 L 97 06/30/20 05:30 101 H 21 104/53 L 94 06/30/20 05:00 105 H 18 98/56 L 95 06/30/20 04:30 103 H 18 92/52 L 98 06/30/20 04:00 36.8 C 106 H 14 105/56 L 95 06/30/20 03:30 108 H 18 106/63 96 06/30/20 03:00 92 H 14 109/60 95 06/30/20 02:30 91 H 19 111/59 L 94 06/30/20 02:00 95 H 17 106/65 95 06/30/20 01:30 101 H 16 106/63 94 06/30/20 01:00 95 H 17 107/61 95 06/30/20 00:30 93 H 16 103/62 95 06/30/20 00:00 36.8 C 95 H 12 98/56 L 95 06/29/20 23:30 96 H 18 117/63 96 PG Care Time/CCT Total # of Minutes Spent Total Time Spent with Patient: Total time spent is greater than 50% in coordination of care (as documented) at patient's floor/unit and/or counseling patient: 65 Coding Level of Care Code 20986 Subseq Hosp Care Lvl 3 Diagnoses Palliative care encounter Z51.5 Severe sepsis A41.9; R65.20 Infection of biventricular pacemaker T82.7XXA Ischemic cardiomyopathy with implantable cardioverter-defibrillator (ICD) I25.5; Z95.810 MAURIZIO (acute kidney injury) N17.9 Acute hypoxemic respiratory failure J96.01 Time Spent (min) 65 Time Spent Midlevel Total time spent 65 minutes with > 50% of that time spent assessing the patient, discussing goals of care with the patient and two daughters, providing symptom management and collaborating with the IDT
[2020-06-30] MEDS ORDERED: MoRPHine SULFATE 2 MG/ML CARP IV STA (11:14)
--- NOTE | 2020-06-30 11:18 | Cardiology Progress Note ---
Date of Service June 30, 2020 Assessment & Plan (1) Septic shock due to Gram positive bacteria: Patient is a 74-year-old male with very complex medical history as outlined above with signs and symptoms of recent decline over the past several months following presentation with non-ST segment elevation myocardial infarction and newly defined severe ischemic cardiomyopathy in December 2019. Cardiac catheterization at that time led to coronary mention left anterior descending with patient to be felt to be intolerably high risk for surgical revascularization. Biventricular pacer defibrillator was placed in April of this year given left bundle branch block in hopes of improving functional status. Patient presents now with acute collapse as described following several days of worsening weakness fatigue and mild leg edema. Initial evaluation found patient to be hypotensive and acidotic with elevated lactate. Open wound and purulent drainage at site of prior pacemaker defibrillator insertion. Blood cultures are returning positive for staph aureus Exam only demonstrates minimal jugular venous distention and chest x-ray without profound edema despite elevated BNP. Echocardiogram however reconfirms very severe LV dysfunction, EF less than 15% Impression: Septic shock secondary to staph aureus bacteremia, infected pacemaker pocket versus device. Findings superimposed on chronic severe LV dysfunction, peripheral vascular disease and pulmonary disease. Patient has bee n treated appropriately and extubated but requiring dobutamine with worsening renal function. Overall prognosis significantly limited and discussed with patient's daughter who notes patient would not usually desire this level of care and would not consider extended care facility Ultimately should improvement be demonstrated he will require pacer device extraction and extended course of antibiotics. Transesophageal echocardiogram not likely to changer fixer. Echocardiogram reveals no valve deterioration. Patient's pulmonary status would limit transesophageal echocardiogram and likely require reintubation Biventricular pacemaker/defibrillator function normal Exam without profound volume overload despite multiple liter volume resuscitation. Patient currently oliguric with worsening renal function. Overall prognosis significantly limited. Discussed with daughter. Even with most optimal care and treatment would likely require retirement placement with high likelihood of prompt return Suspect family will opt towards comfort measures (2) Ischemic cardiomyopathy with implantable cardioverter-defibrillator (ICD): (3) Infection of biventricular pacemaker: Gram-positive bacteremia, staph aureus Admission and Anticipated Discharge Date Admission Date: June 28, 2020 Subjective Patient was seen and examined, chart, medications, telemetry reviewed. Patient extubated yesterday On low-dose dobutamine for cardiac augmentation Renal function has declined with oliguria Patient verbally responsive though uncomfortable and restless. Review of Systems Review of Systems: Unobtainable due to cognitive status Physical Exam Constitutional: + thin and + frail appearing Eyes: PERRL ENMT: external ear and nose normal, oropharynx normal Mouth: + dentition abnormality Neck: trachea midline, no thyromegaly Cardiovascular: Rate/Rhythm: regular rate and regular rhythm (Paced) Palpation: + heave Vessels: + JVD Extremities: + edema (2+ doughy edema both lower extremities) Chest (Breasts): Chest: + pacemaker (Pacemaker site bandaged with moderate drainage noted) Gastrointestinal (Abdomen): Percussion/Palpation: abdomen soft; no guarding and no hepatosplenomegaly Skin: + mottling Results & Data ([facility]) Vital Signs (Past 12 Hours) Vital Signs Temp Pulse Resp BP Pulse Ox Pulse Ox 06/30/20 08:00 100 H 96 06/30/20 06:00 100 H 14 96/52 L 97 06/30/20 05:30 101 H 21 104/53 L 94 06/30/20 05:00 105 H 18 98/56 L 95 06/30/20 04:30 103 H 18 92/52 L 98 06/30/20 04:00 36.8 C 106 H 14 105/56 L 95 06/30/20 03:30 108 H 18 106/63 96 06/30/20 03:00 92 H 14 109/60 95 06/30/20 02:30 91 H 19 111/59 L 94 06/30/20 02:00 95 H 17 106/65 95 06/30/20 01:30 101 H 16 106/63 94 06/30/20 01:00 95 H 17 107/61 95 06/30/20 00:30 93 H 16 103/62 95 06/30/20 00:00 36.8 C 95 H 12 98/56 L 95 06/29/20 23:30 96 H 18 117/63 96 Laboratory Results Laboratory Results - last 24 hr 06/29/20 06/29/20 06/29/20 12:13 14:40 14:43 WBC RBC Hgb Hct MCV MCH MCHC RDW Std Deviation RDW Coeff of Tian Plt Count Immature Gran % (Auto) Neut % (Auto) Lymph % (Auto) Nash % (Auto) Eos % (Auto) Baso % (Auto) Neut # (Auto) Lymph # (Auto) Nash # (Auto) Eos # (Auto) Baso # (Auto) Immature Gran # (Auto) Absolute Nucleated RBC Nucleated RBC % (auto) Platelet Estimate Echinocytes Sodium Potassium Chloride Carbon Dioxide Anion Gap BUN Creatinine Est Cr Clr Drug Dosing Est GFR ( Amer) Est GFR (Non-Af Amer) BUN/Creatinine Ratio Glucose POC Glucose (other) 169 H 144 H Calcium Phosphorus Magnesium Total Bilirubin AST ALT Alkaline Phosphatase Troponin I 0.569 H* Total Protein Albumin Globulin Albumin/Globulin Ratio 06/29/20 06/29/20 06/29/20 16:04 18:04 20:30 WBC RBC Hgb Hct MCV MCH MCHC RDW Std Deviation RDW Coeff of Tian Plt Count Immature Gran % (Auto) Neut % (Auto) Lymph % (Auto) Nash % (Auto) Eos % (Auto) Baso % (Auto) Neut # (Auto) Lymph # (Auto) Nash # (Auto) Eos # (Auto) Baso # (Auto) Immature Gran # (Auto) Absolute Nucleated RBC Nucleated RBC % (auto) Platelet Estimate Echinocytes Sodium Potassium Chloride Carbon Dioxide Anion Gap BUN Creatinine Est Cr Clr Drug Dosing Est GFR ( Amer) Est GFR (Non-Af Amer) BUN/Creatinine Ratio Glucose POC Glucose (other) 142 H 160 H 149 H Calcium Phosphorus Magnesium Total Bilirubin AST ALT Alkaline Phosphatase Troponin I Total Protein Albumin Globulin Albumin/Globulin Ratio 06/29/20 06/29/20 06/30/20 22:13 23:58 04:07 WBC RBC Hgb Hct MCV MCH MCHC RDW Std Deviation RDW Coeff of Tian Plt Count Immature Gran % (Auto) Neut % (Auto) Lymph % (Auto) Nash % (Auto) Eos % (Auto) Baso % (Auto) Neut # (Auto) Lymph # (Auto) Nash # (Auto) Eos # (Auto) Baso # (Auto) Immature Gran # (Auto) Absolute Nucleated RBC Nucleated RBC % (auto) Platelet Estimate Echinocytes Sodium Potassium Chloride Carbon Dioxide Anion Gap BUN Creatinine Est Cr Clr Drug Dosing Est GFR ( Amer) Est GFR (Non-Af Amer) BUN/Creatinine Ratio Glucose POC Glucose (other) 146 H 146 H 150 H Calcium Phosphorus Magnesium Total Bilirubin AST ALT Alkaline Phosphatase Troponin I Total Protein Albumin Globulin Albumin/Globulin Ratio 06/30/20 06/30/20 06/30/20 04:17 04:17 07:51 WBC 10.07 RBC 3.00 L Hgb 9.3 L Hct 28.6 L MCV 95.3 MCH 31.0 MCHC 32.5 RDW Std Deviation 78.2 H RDW Coeff of Tian 22.5 H Plt Count 103 L Immature Gran % (Auto) 0.6 Neut % (Auto) 87.8 Lymph % (Auto) 6.1 Nash % (Auto) 5.4 Eos % (Auto) 0.0 Baso % (Auto) 0.1 Neut # (Auto) 8.85 H Lymph # (Auto) 0.61 L Nash # (Auto) 0.54 Eos # (Auto) 0.00 Baso # (Auto) 0.01 Immature Gran # (Auto) 0.06 H Absolute Nucleated RBC 0.05 H Nucleated RBC % (auto) 0.5 Platelet Estimate Decreased L Echinocytes 1+ Sodium 135 L Potassium 3.5 Chloride 105 Carbon Dioxide 20 L Anion Gap 10.0 BUN 56 H Creatinine 2.30 H D Est Cr Clr Drug Dosing 25.5 Est GFR ( Amer) 30.8 Est GFR (Non-Af Amer) 26.6 BUN/Creatinine Ratio 24.5 H Glucose 148 H POC Glucose (other) 128 H Calcium 7.6 L Phosphorus 3.9 Magnesium 1.9 Total Bilirubin 1.3 H D AST 40 H ALT 39 Alkaline Phosphatase 112 Troponin I Total Protein 5.3 L Albumin 1.9 L Globulin 3.4 Albumin/Globulin Ratio 0.6 L
[2020-06-30] MEDS ORDERED: MoRPHine SULFATE 2 MG/ML CARP IV PRN (12:00)
[2020-06-30] MEDS ORDERED: LORazepam 1 MG/2 ML VIAL IV PRN (12:00)
[2020-06-30] MEDS ORDERED: GLYCOPYRROLATE 0.2 MG/ML VIAL IV PRN (12:00)
--- NOTE | 2020-06-30 12:05 | Billing Data ---
Date of Service June 30, 2020 Coding Level of Care Code Critical Care ea addt'l 30 min Time Spent (min) 95
[2020-06-30] MEDS ORDERED: STAT IV Infusion **Titration per Protocol STA (12:58)
[2020-06-30] MEDS ORDERED: MoRPHine SULF/NSS 250 MG/250 ML BTL IV SCH (13:00)
[2020-06-30] MEDS ORDERED: ceFAZolin 2000MG 2,000 MG/15 ML SYR IV SCH (14:00)
[2020-06-30] MEDS ORDERED: HYDROmorphone INJ 0.5 MG/0.5 ML SYR IV PRN (15:30)
--- NOTE | 2020-06-30 16:27 | Hospitalist Progress Note ---
Date of Service June 30, 2020 Assessment & Plan (1) Severe sepsis: COMFORT CARE : very poor prognosis , abscess /infected pacemaker pocket with gram positive bacteremia , severe ischemic cardiomyopathy EF < 15% surgical removal of biventricular pacemaker AICD -is high risk , pt may not able to survive the procedure with put surgical removal high likelihood of due to septic shock Admitted with severe sepsis with septic shock, was tachycardic, hypotensive, respiratory failure, elevated lactic acid level, required IV fluids pressor supports, mechanical ventilation appreciate help /input from critical care and cardiology team Palliative care consulted , appreciate input , pt was able talk and converse with palliative care -does not want any heroic measures , code status changed to DNR/DNI /wants to be comfortable only Daughter POA -is agreeable with pt's wish transitioned to comfort care Morphine gtt started as pt was having increasing pain and discomfort (2) Acute hypoxemic respiratory failure: due to above : Severe sepsis with septic shock Required mechanical ventilation/intubation,Appreciate input from pulmonary critical care was extubated 06/29/20 transitioned to comfort care /hospice after discussion with family by palliative care code status DNR/DNI Confusion/altered mental status /metabolic encephalopathy : due to severe sepsis with septic shock now in comfort care only prognosis remains grim pt will likely during this hospital stay (3) Septic shock due to Gram positive bacteria: (4) Ischemic cardiomyopathy with implantable cardioverter-defibrillator (ICD): (5) Acute on chronic systolic heart failure: Admission and Anticipated Discharge Date Admission Date: June 28, 2020 Subjective pt is transitioned to comfort care /appreciate input from Palliative care Daughter present at bedside started on IV morphine gtt as pt was experiencing intractable pain , no relief with intermittent IV morphine Physical Exam Physical Exam: minimum exam for comfort care lathergic , opens eyes briefly on Iv Morphine gtt -no apparent sign of distress Results & Data Results & Data ([facility]) Vital Signs (Past 12 Hours) Vital Signs Temp Pulse Resp BP Pulse Ox Pulse Ox 06/30/20 15:00 97 H 16 92 06/30/20 14:57 98 H 16 73/44 L 92 06/30/20 14:30 102 H 13 93 06/30/20 14:26 102 H 14 82/51 L 94 06/30/20 14:00 37.4 C 101 H 16 93 06/30/20 13:57 102 H 16 77/48 L 93 10/29/20 13:30 107 H 15 92 06/30/20 13:27 109 H 18 97/52 L 94 06/30/20 13:00 103 H 6 L 95 06/30/20 12:57 104 H 21 87/55 L 94 06/30/20 12:30 102 H 26 H 97 06/30/20 12:27 99 H 8 L 87/59 L 97 06/30/20 12:00 37.2 C 103 H 13 97 06/30/20 11:57 104 H 14 100/54 L 96 06/30/20 11:30 103 H 25 H 96 06/30/20 11:27 100 H 95/55 L 97 06/30/20 11:00 89 97 06/30/20 10:57 102 H 12 91/52 L 94 06/30/20 10:30 99 H 15 97 06/30/20 10:27 98 H 17 101/47 L 98 06/30/20 10:00 96 H 14 97 06/30/20 09:57 99 H 18 101/53 L 97 06/30/20 09:30 102 H 18 97 06/30/20 09:27 97 H 101/49 L 96 06/30/20 09:00 94 H 96 06/30/20 08:56 94 H 93/52 L 97 06/30/20 08:30 113 H 13 97 06/30/20 08:27 96 H 18 96/52 L 97 06/30/20 08:00 92 H 97 96 06/30/20 07:47 98 H 96/55 L 97 06/30/20 07:30 107 H 21 97 06/30/20 07:26 100 H 16 96/55 L 96 06/30/20 07:00 99 H 16 96 06/30/20 06:56 98 H 16 92/54 L 96 06/30/20 06:30 100 H 16 96 06/30/20 06:26 99 H 16 105/54 L 96 06/30/20 06:00 100 H 14 96/52 L 97 06/30/20 05:30 101 H 21 104/53 L 94 06/30/20 05:00 105 H 18 98/56 L 95 06/30/20 04:30 103 H 18 92/52 L 98
[2020-06-30] MEDS ORDERED: ONDANSETRON INJ 2 MG/ML 2 ML VIAL IV PRN (20:07)
[2020-06-30] MEDS ORDERED: LORazepam 0.5 MG TAB PO PRN (20:07)
[2020-06-30] MEDS ORDERED: ATROPINE SULFATE 1% OP SOLN 2 ML BTL SL PRN (20:07)
[2020-06-30] MEDS ORDERED: ONDANSETRON 4 MG OD TAB SL PRN (20:07)
[2020-06-30] MEDS ORDERED: LORazepam 0.5 MG/1 ML VIAL IV PRN (20:07)
--- NOTE | 2020-06-30 20:08 | Death Pronouncement Note ---
Date of Service June 30, 2020 Pronouncement Note Admission Date Admission Date: June 28, 2020 Date and Time of Date of : 06/30/20 Time of : 19:56 PCOD Preliminary cause of : Severe sepsis with acute organ dysfunction due to methicillin susceptible Staphylococcus aureus (MSSA) Contributing Factors (1) Acute hypoxemic respiratory failure: (2) Ischemic cardiomyopathy with implantable cardioverter-defibrillator (ICD): (3) Acute on chronic systolic heart failure: Summary Additional details: After discussion with cardiology and family regarding patient's wishes he has a ischemic cardiomyopathy and was deemed not a surgical candidate for revascularization therapy, he had a biventricular pacemaker placed and has subsequently had a pocket infection as well as bacteremia. Patient also has severe pain and has been in septic shock, his course was transitioned to comfort and life sustaining measures were discontinued. Patient went into a terminal ventricular fibrillation arrhythmia and with family grieving appropriately at the bedside at 1956. Additional Data Confirmation of : no pulse, no respirations, no heart sounds, pupils fixed and dilated and other Family: at bedside Attending/PCP notified?: Yes Attending physician: Demetrice Bee MD Was code activated?: No Autopsy requested?: No digital forensics examiner notified?: Yes Organ bank notified?: Yes Advance directives: No Coding Level of Care Code None Diagnoses Acute hypoxemic respiratory failure J96.01 Ischemic cardiomyopathy with implantable cardioverter-defibrillator (ICD) I25.5; Z95.810 Acute on chronic systolic heart failure I50.23
--- NOTE | 2020-07-02 07:42 | Discharge Summary ---
Date of Service July 02, 2020 Admission HPI Per Admitting Provider History of Present Illness 74-year-old male with history of coronary disease, status post and placement, ischemic cardiomyopathy, ejection fraction 20%, status post AICD, diabetes type 2, hypertension, COPD, other problems noted below presenting with several days history of leg swelling and weakness. History obtained from patient's son-in-law Hi at the bedside And also [email or web address] recordsPatient had AICD placement last May 2020, and was found to be functioning appropriately per follow-up cardiology visits. As per patient's son-in-law, patient has been progressively weak but is still able to get around independently including with his doctors appointments. The past few days the patient has been having progressive leg swelling bilateral leg swelling and diarrhea, 3-4 loose bowel movements per day, noted to be black. This morning, patient son-in-law was picking up patient for an appointment, but was found to be on the floor, unable to get up due to weakness. Apparently patient fell landed on his knees and cannot manage to get up on his own. Patient also found to have diarrhea at that time, black stools noted. Patient was then brought to the ER for evaluation. At the ER, patient was received with hypotension, systolic blood pressure in the 90s. At one point, patient became progressively short of breath leading to intubation and mechanical ventilation. Blood pressure also continued to drop leading to initiation of Levophed. CT showed bilateral pleural effusions, and infiltrates versus atelectasis. On exam, the patient is seen in the emergency room, sedated, on mechanical ventilator, not in distress. No other signs noted. No other symptoms per patient son-in-law. Primary Care Provider: Riaz West MD Principal Diagnosis PATIENT Discharge Exam Patient Discharge Data Allergies Allergy/AdvReac Type Severity Reaction Status Date / Time phenobarbital Allergy Mild dizzy Verified 06/28/20 14:54 Consultations 06/28/20 13:38 ED Decision to Admit Stat 06/28/20 16:13 Consult Case Management - Discharge Planning Routine Consult Ruby [employer] Rails Web Developer Routine 06/28/20 18:49 Consult Cardiology Routine 06/29/20 10:13 Consult Palliative Care Routine 06/29/20 10:14 Consult Infectious Diseases Routine Ordered Studies 06/28/20 10:56 CT abd pelvis IV con only Stat CT angio chest PE protocol Stat CT lumbar spine wo con Stat US venous doppler LE LT Stat 06/28/20 16:11 US point of care ultrasound Stat 06/28/20 17:16 US renal/blad retro comp Routine Hospital Course (1) Severe sepsis: COMFORT CARE : very poor prognosis , abscess /infected pacemaker pocket with gram positive bacteremia , severe ischemic cardiomyopathy EF < 15% surgical removal of biventricular pacemaker AICD -is high risk , pt may not able to survive the procedure with put surgical removal high likelihood of due to septic shock Admitted with severe sepsis with septic shock, was tachycardic, hypotensive, respiratory failure, elevated lactic acid level, required IV fluids pressor supports, mechanical ventilation appreciate help /input from critical care and cardiology team Palliative care consulted , appreciate input , pt was able talk and converse with palliative care -does not want any heroic measures , code status changed to DNR/DNI /wants to be comfortable only Daughter POA -is agreeable with pt's wish transitioned to comfort care Morphine gtt started as pt was having increasing pain and discomfort (2) Acute hypoxemic respiratory failure: due to above : Severe sepsis with septic shock Required mechanical ventilation/intubation,Appreciate input from pulmonary critical care was extubated 06/29/20 Confusion/altered mental status /metabolic encephalopathy : due to severe sepsis with septic shock transitioned to comfort care /hospice after discussion with family by palliative care code status DNR/DNI pt while on comfort care Family was present at bedside (3) Septic shock due to Gram positive bacteria: (4) Ischemic cardiomyopathy with implantable cardioverter-defibrillator (ICD): (5) Acute on chronic systolic heart failure: Acute renal failure Total Time Total Time Spent Total Time Spent (In Minutes): pt Discharge Plan Discharge Items Patient Disposition: Discharge Diagnosis: pt while on hospice /comfort care Preliminary cause of : Severe sepsis with septic shock -acute organ dysfunction due to methicillin susceptible Staphylococcus aureus (MSSA) bacteremia infection /abscess around biventricular Contributing Factors (1)severe Ischemic cardiomyopathy with implantable cardioverter-defibrillator (ICD)-with septic shock (2) Acute hypoxemic respiratory failure: (3) Acute on chronic systolic heart failure: Addtl Attending Provider Instructions: pt admitted with severe sepsis with septic shock /gram positive bacteremia , infected pacemaker site / multi disciplinary specialist cardiology , critical care , ID were involved in care pt was found to be a poor candidate for surgical removal of the pacemaker - severe cardiomyopathy EF 15% , on septic shock After discussion with cardiology and family regarding patient's wishes-pt does not want any heroic measures , Palliative care was involved in discussion care transitioned to Hospice /comfort care was needed to start on IV morphine gtt for severe /intractable pain and respiratory discomfort . Patient went into a terminal ventricular fibrillation arrhythmia and with family grieving appropriately at the bedside at 7: 56 PM pronouncement was done by Critical Care Dr Christine
== END 2020-06-30 19:56 | disposition expired | DRG 314 ==
LOC: ED 10:17 → SUATTDRO 14:11 → 1E 14:11